=== PATIENT | male | born 1950 | race Caucasian/White ===

== ENCOUNTER → 2016-12-05 | Outpatient (CLI) | payer MEDICARE ==
--- NOTE | 2016-12-05 13:21 | XR ---
EXAMINATION TYPE: XR Hip Bilateral Complete DATE OF EXAM ORDERED: 12/05/2016 1:10 PM HISTORY: R52 pain. COMPARISON: None. FINDINGS: No fracture or dislocation is seen. There is mild overgrowth of both acetabula. Both femor al heads are nonspherical. IMPRESSION: 1. NO ACUTE OSSEOUS LESION. 2. PLEASE CORRELATE CLINICALLY FOR FEMOROACETABULAR IMPINGEMENT SYNDROME IMPINGEMENT SYNDROME.
--- NOTE | 2016-12-05 13:35 | XR ---
EXAMINATION TYPE: XR lumbar spine 2 or 3V DATE OF EXAM ORDERED: 12/05/2016 1:10 PM HISTORY: M54.5 LBP. COMPARISON: None. FINDINGS: There is minimal wedging of the L1 vertebral body. There is a minor superior endplate infr action of the L2 vertebral body. There is diffuse disc space loss with relative sparing L3-4. There i s mild, diffuse hypertrophic spondylosis. The pedicles are intact. There is mild facet arthropathy in the lower lumbar spine. Note is made of calcification of the [place] aorta. IMPRESSION: 1. NO ACUTE OSSEOUS LESION. 2. MILD, DIFFUSE DEGENERATIVE CHANGE. 3. MILD COMPRESSION FRACTURE OF L1 WHICH APPEARS CHRONIC.
== END | disposition home or self-care (01) ==
LOC: RADXRMAIN 12:55
PROVIDERS: ATTEND Internal Medicine
DX: M47.816 Spondylosis without myelopathy or radiculopathy, lumbar region (principal); M48.56XA Collapsed vertebra, not elsewhere classified, lumbar region, initial encounter for fracture; M25.551 Pain in right hip; M25.552 Pain in left hip
CPT/HCPCS: 72100; 73521

== ENCOUNTER → 2018-03-29 | Outpatient (CLI) | payer MEDICARE ==
--- NOTE | 2018-03-29 10:48 | US ---
EXAMINATION TYPE: US liver DATE OF EXAM: 03/29/2018 COMPARISON: NONE CLINICAL HISTORY: 67-year-old male R16.0 HEPATOMEGALY. TECHNIQUE: Multiple sonographic images of the right upper quadrant are obtained. FINDINGS: EXAM MEASUREMENTS: Liver Length: 15.2 cm Gallbladder Wall: 0.2 cm CBD: 0.5 cm Right Kidney: 12.2 x 4.9 x 6.0 cm Pancreas: Obscured by bowel gas Liver: Attenuating. Coarse, echogenic echotexture. Two hypoechoic areas visualized within the right lobe, largest measuring 1.1 x 1.4 x 1.4 cm. The smaller measuring 6 x 5 x 5 mm. Gallbladder: wnl Evidence for sonographic White's sign: No CBD: wnl as visualized, distal portion obscured by bowel gas Right Kidney: No hydronephrosis. IMPRESSION: Hepatic steatosis. Correlate with LFTs, lipid profile, and patient risk factors. There are 2 lesions in the right liver lobe measuring 1.4 cm and 6 mm. A three-month follow-up ultrasound can be performe d to ensure stability. If any suspicious changes are noted at that time, further liver CT or MRI can be performed.
== END | disposition home or self-care (01) ==
LOC: RADUSWWP 08:37
PROVIDERS: ATTEND Internal Medicine
DX: K76.0 Fatty (change of) liver, not elsewhere classified (principal)
CPT/HCPCS: 76705

== ENCOUNTER 2018-08-21 14:32 | Inpatient (IN) | payer MEDICARE ==
--- NOTE | 2018-08-21 15:41 | ED ---
General Adult HPI - General Chief complaint: Extremity Problem,Nontraumatic Stated complaint: lt leg swelling Time Seen by Provider: 08/21/18 14:55 Source: patient, RN notes reviewed Mode of arrival: wheelchair Limitations: no limitations - History of Present Illness Initial comments: Patient is a 68-year-old male presenting to the emergency room today with a chief complaint of swelling to left lower extremity. Patient does admit that he noticed swelling starting 2 days ago. He does admit that he's had some tenderness and some pain to the left calf area. He denies any injury or trauma. Does admit that is not feeling well over the last few weeks with "flu" . Patient states that symptoms seem to be improving. Patient states he was concerned about possible DVT. He does not that he is on Plavix due to his stent. Patient denies any other complaints or symptoms. Patient denies any recent fever, chills, shortness of breath, chest pain, back pain, abdominal pain , nausea or vomiting, numbness or tingling, dysuria or hematuria, constipation or diarrhea, headaches or visual changes, or any other complaints. - Related Data Home Medications Medication Instructions Recorded Confirmed Cyanocobalamin [Vitamin B-12] 500 mcg PO DAILY@1200 03/07/15 03/07/15 Losartan Potassium [Cozaar] 50 mg PO DAILY 03/07/15 03/07/15 guaiFENesin [Mucinex] 600 mg PO DAILY 03/07/15 03/07/15 Previous Rx's Medication Instructions Recorded Aspirin 325 mg PO DAILY #30 tab 03/09/15 Atorvastatin [Lipitor] 80 mg PO HS #30 tab 03/09/15 Lisinopril [Zestril] 10 mg PO DAILY #30 tab 03/09/15 Metoprolol Tartrate [Lopressor] 25 mg PO DAILY #30 tab 03/09/15 Nicotine 21Mg/24Hr Patch [Habitrol] 1 each TRANSDERM DAILY #14 patch 03/09/15 Nitroglycerin Sl Tabs [Nitrostat] 0.4 mg SUBLINGUAL Q5M PRN #25 tab 03/09/15 Prasugrel [Effient] 10 mg PO DAILY #30 tab 03/09/15 amLODIPine [Norvasc] 5 mg PO HS #30 tab 03/09/15 Allergies Allergy/AdvReac Type Severity Reaction Status Date / Time No Known Allergies Allergy Verified 08/21/18 14:38 Review of Systems ROS Statement: Those systems with pertinent positive or pertinent negative responses have been documented in the HPI. ROS Other: All systems not noted in ROS Statement are negative. Past Medical History Past Medical History: Hyperlipidemia, Hypertension Additional Past Medical History / Comment(s): 03/07/15 Pt presented to [facility] ER with chest discomfort. Chest discomfort is intermittent and began several days ago. Pain occurs with exertion and improves with rest. There is associated dyspnea and diaphoresis with this pain. Pt also has R arm and R jaw discomfort. Other hx: Muscle cramps bilateral flanks and bilateral legs, hemorrhoids History of Any Multi-Drug Resistant Organisms: None Reported Additional Past Surgical History / Comment(s): hydrocele, colonoscopy-WNL, vocal cord polypectomy. Past Anesthesia/Blood Transfusion Reactions: No Reported Reaction Additional Past Anesthesia/Blood Transfusion Reaction / Comment(s): Pt has never had blood transfusion. Past Psychological History: No Psychological Hx Reported Smoking Status: Former smoker Past Alcohol Use History: Occasional Past Drug Use History: None Reported - Past Family History Father Family Medical History: No Reported History Additional Family Medical History / Comment(s): Father when pt was 8 yrs old. He was a WWII vet and had suffered a gunshot to the head. Mother Family Medical History: No Reported History Additional Family Medical History / Comment(s): .Mother is healthy and is 84yrs old General Exam - General Exam Comments Initial Comments: General: The patient is awake and alert, in no distress, and does not appear acutely ill. Eye: Pupils are equal, round and reactive to light. Extra-ocular movements are intact. No nystagmus. There is normal conjunctiva bilaterally. No signs of icterus. Ears, nose, mouth and throat: There are moist mucous membranes and no oral lesions. Neck: The neck is supple, there is no tenderness or JVD. Cardiovascular: There is a regular rate and rhythm. No murmur, rub or gallop is appreciated. Respiratory: Lungs are clear to auscultation, respirations are non-labored, breath sounds are equal. No wheezes, stridor, rales, or rhonchi. Gastrointestinal: Soft, non-distended, non-tender abdomen without masses or organomegaly noted. There is no rebound or guarding present. No CVA tenderness Musculoskeletal: Normal ROM, no tenderness. Moderate swelling of the left lower extremity when compared bilaterally. Sensation intact. Strength 5/5. Pedal Pulses equal bilaterally 2+. Neurological: A&O x 3. CN II-XII intact, There are no obvious motor or sensory deficits. Coordination appears grossly intact. Speech is normal. Skin: Skin is warm and dry and no rashes or lesions are noted. Psychiatric: Cooperative, appropriate mood & affect, normal judgment. Limitations: no limitations Course Vital Signs 08/21/18 14:35 Temperature 97.5 F L Pulse Rate 96 Respiratory 18 Rate Blood Pressure 129/87 O2 Sat by Pulse 96 Oximetry Medical Decision Making - Medical Decision Making Patient's labs been reviewed. Mildly elevated liver enzymes. Patient does admit to a history of drinking. Sensations that she's not been drinking recently. Patient's ultrasound reviewed and does show evidence of a DVT in the femoral, popliteal. Patient started on high-dose heparin here in the emergency room. Case discussed with attending physician Dr. Barahona who did discuss case with physician Dr. Valdes. Dr. Serrano will be consulted. - Lab Data Result diagrams: 08/21/18 15:30 08/21/18 15:30 Lab Results 08/21/18 08/21/18 08/21/18 Range/Units 15:30 15:30 15:30 WBC 12.3 H (3.8-10.6) k/uL RBC 4.35 (4.30-5.90) m/uL Hgb 12.7 L (13.0-17.5) gm/dL Hct 39.9 (39.0-53.0) % MCV 91.8 (80.0-100.0) fL MCH 29.2 (25.0-35.0) pg MCHC 31.8 (31.0-37.0) g/dL RDW 13.6 (11.5-15.5) % Plt Count 257 (150-450) k/uL Neutrophils % 80 % Lymphocytes % 7 % Monocytes % 7 % Eosinophils % 3 % Basophils % 1 % Neutrophils # 9.9 H (1.3-7.7) k/uL Lymphocytes # 0.8 L (1.0-4.8) k/uL Monocytes # 0.9 (0-1.0) k/uL Eosinophils # 0.4 (0-0.7) k/uL Basophils # 0.1 (0-0.2) k/uL PT 11.4 (9.0-12.0) sec INR 1.2 H (<1.2) APTT 19.5 L (22.0-30.0) sec Sodium 140 (137-145) mmol/L Potassium 4.8 (3.5-5.1) mmol/L Chloride 107 (98-107) mmol/L Carbon Dioxide 26 (22-30) mmol/L Anion Gap 7 mmol/L BUN 24 H (9-20) mg/dL Creatinine 1.29 H (0.66-1.25) mg/dL Est GFR (CKD-EPI)AfAm 65 (>60 ml/min/1.73 sqM) Est GFR (CKD-EPI)NonAf 56 (>60 ml/min/1.73 sqM) Glucose 115 H (74-99) mg/dL Calcium 9.8 (8.4-10.2) mg/dL Total Bilirubin 1.5 H (0.2-1.3) mg/dL AST 89 H (17-59) U/L ALT 121 H (21-72) U/L Alkaline Phosphatase 213 H (38-126) U/L Troponin I (0.000-0.034) ng/mL NT-Pro-B Natriuret Pep pg/mL Total Protein 6.9 (6.3-8.2) g/dL Albumin 3.5 (3.5-5.0) g/dL Urine Color Urine Appearance (Clear) Urine pH (5.0-8.0) Ur Specific [place] (1.001-1.035) Urine Protein (Negative) Urine Glucose (UA) (Negative) Urine Ketones (Negative) Urine Blood (Negative) Urine Nitrite (Negative) Urine Bilirubin (Negative) Urine Urobilinogen (<2.0) mg/dL Ur Leukocyte Esterase (Negative) 08/21/18 08/21/18 08/21/18 Range/Units 15:30 15:30 17:00 WBC (3.8-10.6) k/uL RBC (4.30-5.90) m/uL Hgb (13.0-17.5) gm/dL Hct (39.0-53.0) % MCV (80.0-100.0) fL MCH (25.0-35.0) pg MCHC (31.0-37.0) g/dL RDW (11.5-15.5) % Plt Count (150-450) k/uL Neutrophils % % Lymphocytes % % Monocytes % % Eosinophils % % Basophils % % Neutrophils # (1.3-7.7) k/uL Lymphocytes # (1.0-4.8) k/uL Monocytes # (0-1.0) k/uL Eosinophils # (0-0.7) k/uL Basophils # (0-0.2) k/uL PT (9.0-12.0) sec INR (<1.2) APTT (22.0-30.0) sec Sodium (137-145) mmol/L Potassium (3.5-5.1) mmol/L Chloride (98-107) mmol/L Carbon Dioxide (22-30) mmol/L Anion Gap mmol/L BUN (9-20) mg/dL Creatinine (0.66-1.25) mg/dL Est GFR (CKD-EPI)AfAm (>60 ml/min/1.73 sqM) Est GFR (CKD-EPI)NonAf (>60 ml/min/1.73 sqM) Glucose (74-99) mg/dL Calcium (8.4-10.2) mg/dL Total Bilirubin (0.2-1.3) mg/dL AST (17-59) U/L ALT (21-72) U/L Alkaline Phosphatase (38-126) U/L Troponin I <0.012 (0.000-0.034) ng/mL NT-Pro-B Natriuret Pep 103 pg/mL Total Protein (6.3-8.2) g/dL Albumin (3.5-5.0) g/dL Urine Color Dark Yellow Urine Appearance Clear (Clear) Urine pH 5.5 (5.0-8.0) Ur Specific [place] 1.022 (1.001-1.035) Urine Protein Trace H (Negative) Urine Glucose (UA) Negative (Negative) Urine Ketones Negative (Negative) Urine Blood Negative (Negative) Urine Nitrite Negative (Negative) Urine Bilirubin Negative (Negative) Urine Urobilinogen <2.0 (<2.0) mg/dL Ur Leukocyte Esterase Negative (Negative) Disposition Clinical Impression: DVT (deep venous thrombosis), Elevated liver enzymes Disposition: ADMITTED IP TO THIS HOSP Condition: Good Is patient prescribed a controlled substance at d/c from ED?: No Referrals: Jeremy Snell MD [STAFF PHYSICIAN] - 1-2 days Time of Disposition: 17:22
[2018-08-21 15:51] LABS: Basophils # (A) 0.1 k/uL (0-0.2); Basophils % (A) 1 %; Eosinophils # (A) 0.4 k/uL (0-0.7); Eosinophils % (A) 3 %; HCT 39.9 % (39.0-53.0); HGB 12.7 gm/dL (13.0-17.5); Lymphocytes # (A) 0.8 k/uL (1.0-4.8); Lymphocytes % (A) 7 %; MCH 29.2 pg (25.0-35.0); MCHC 31.8 g/dL (31.0-37.0); MCV 91.8 fL (80.0-100.0); Mean Platelet Volume 7.3; Monocytes # (A) 0.9 k/uL (0-1.0); Monocytes % (A) 7 %; Neutrophils # (A) 9.9 k/uL (1.3-7.7); Neutrophils % (A) 80 %; Platelet Count 257 k/uL (150-450); RBC 4.35 m/uL (4.30-5.90); RDW 13.6 % (11.5-15.5); WBC 12.3 k/uL (3.8-10.6)
[2018-08-21 15:52] LABS: Albumin 3.5 g/dL (3.5-5.0); Calcium 9.8 mg/dL (8.4-10.2); Potassium 4.8 mmol/L (3.5-5.1); Total Bilirubin 1.5 mg/dL (0.2-1.3); Total Protein 6.9 g/dL (6.3-8.2)
--- NOTE | 2018-08-21 15:52 | US ---
EXAMINATION TYPE: US venous doppler duplex LE LT DATE OF EXAM: 08/21/2018 3:46 PM COMPARISON: NONE CLINICAL HISTORY: Pain. Pain and swelling left leg SIDE PERFORMED: Left TECHNIQUE: The lower extremity deep venous system is examined utilizing real time linear array sonog jasmyne with graded compression, doppler sonography and color-flow sonography. VESSELS IMAGED: External Iliac Vein (EIV) Common Femoral Vein Deep Femoral Vein Greater Saphenous Vein * Femoral Vein Popliteal Vein Small Saphenous Vein * Proximal Calf Veins (* superficial vessels) Left Leg: Positive for DVT from the distal femoral vein to the proximal calf veins. Positive for SVT in the small saphenous vein. Grayscale, color doppler, spectral doppler imaging performed of the deep veins of the left lower extr emity. IMPRESSION: Acute DVT is seen in the distal left superficial femoral vein which is noncompressible ex tending through the popliteal vein below the left knee.
[2018-08-21 15:58] LABS: INR 1.2 (<1.2); Prothrombin Time 11.4 sec (9.0-12.0)
[2018-08-21 16:23] LABS: Partial Thromboplastin Time 19.5 sec (22.0-30.0)
--- NOTE | 2018-08-21 16:28 | XR ---
EXAMINATION TYPE: XR chest 2V DATE OF EXAM: 08/21/2018 COMPARISON: Prior chest x-ray March 07, 2015. HISTORY: Leg swelling. TECHNIQUE: Frontal and lateral views of the chest are obtained. FINDINGS: Underlying chronic emphysematous change is not excluded with increased retrosternal airspac e and flattening of hemidiaphragms on lateral view. There is no focal air space opacity, pleural eff usion, or pneumothorax seen. The cardiac silhouette size remains enlarged. The osseous structures are intact. IMPRESSION: Cardiomegaly without acute pulmonary process.
[2018-08-21] MEDS ORDERED: HEPARIN SODIUM,PORCINE 5,000 UNIT/ML 1 ML VIAL IV STA (16:43)
[2018-08-21] MEDS: HEPARIN SOD,PORK IN 0.45% NACL 25,000 UNIT in 0.45% NACL 1 500ML.BAG IV SCH (17:00)
[2018-08-21 17:14] LABS: Appearance,Urine Clear (Clear); Bilirubin,Urine Negative (Negative); Blood,Urine Negative (Negative); Color,Urine Dark Yellow; Glucose,Urine (UA) Negative (Negative); Ketones,Urine Negative (Negative); Leukocyte Esterase,Urine Negative (Negative); Nitrite,Urine Negative (Negative); PH, Urine 5.5 (5.0-8.0); Protein,Urine Trace (Negative); Specific Gravity,Urine 1.022 (1.001-1.035); Urobilinogen,Urine <2.0 mg/dL (<2.0)
[2018-08-21] MEDS ORDERED: SODIUM CHLORIDE 0.9% 1,000 ML IV ONE (17:23)
[2018-08-21] MEDS ORDERED: NALOXONE 0.4 MG/ML 1 ML VIAL IV PRN (17:23)
[2018-08-21] MEDS: MORPHINE SULFATE 4 MG/ML SYRINGE IV PRN (20:14)
[2018-08-21] MEDS ORDERED: NITROGLYCERIN SL TABS 0.4 MG TAB SUBLINGUAL PRN (20:45)
[2018-08-21] MEDS ORDERED: CLOPIDOGREL 75 MG TAB PO SCH (21:00)
[2018-08-21] MEDS: amLODIPine 5 MG TAB PO SCH (22:30)
[2018-08-21] MEDS: ALPRAZolam 0.5 MG TAB PO SCH (22:30)
[2018-08-21] MEDS: METOPROLOL TARTRATE 25 MG TAB PO SCH (22:31)
[2018-08-21] MEDS: LOSARTAN 50 MG TAB PO SCH (22:31)
[2018-08-21] MEDS: IBUPROFEN 800 MG TAB PO SCH (22:33)
[2018-08-22] MEDS: MORPHINE SULFATE 4 MG/ML SYRINGE IV PRN ×3 (03:52→18:14)
[2018-08-22] MEDS: HEPARIN SOD,PORK IN 0.45% NACL 25,000 UNIT in 0.45% NACL 1 500ML.BAG IV SCH ×2 (05:12→16:32)
--- NOTE | 2018-08-22 07:30 | CONS ---
DATE OF CONSULTATION: 08/21/2018 HISTORY: This is a 68-year-old gentleman who came to [facility] with a history of discomfort and pain in the left upper extremity for the last 2 days. The patient has a history of common cold and he was lying in bed for the last 1 month. The patient has no shortness of breath or chest pain. The venous ultrasound shows blood clot in the femoral vein and greater saphenous vein. MEDICAL HISTORY: History of hypertension, post coronary artery stent 2 years ago. PHYSICAL EXAMINATION: NECK: Supple. Trachea central. CHEST: Clear auscultation. ABDOMEN: Soft. EXTREMITIES: Femoral pulses are palpable. Patient has some tenderness on the left medial aspect of the thigh. Femoral and dorsal pedis pulses are palpable. There is no vascular compromise noted. IMPRESSION: Deep venous thrombosis involving the superficial and deep system, left leg. PLAN: Patient is on heparin. The patient be started on Xarelto or Coumadin, Dr. Valdes's choice. JAVIER hose and knee-high. Gypsy t.i.d. for inflammation. We will follow with you. MMODL / IJN: [id number] / HAZEL
[2018-08-22] MEDS: PANTOPRAZOLE 40 MG TABLET PO SCH (07:32)
[2018-08-22] MEDS: CHOLECALCIFEROL 1,000 UNIT TAB PO SCH (07:33)
[2018-08-22] MEDS: IBUPROFEN 800 MG TAB PO SCH ×3 (07:34→21:59)
[2018-08-22 08:17] LABS: Basophils # (A) 0.2 k/uL (0-0.2); Basophils % (A) 1 %; Eosinophils # (A) 0.6 k/uL (0-0.7); Eosinophils % (A) 4 %; HCT 36.5 % (39.0-53.0); HGB 11.7 gm/dL (13.0-17.5); Lymphocytes # (A) 1.5 k/uL (1.0-4.8); Lymphocytes % (A) 12 %; MCH 29.9 pg (25.0-35.0); MCHC 32.1 g/dL (31.0-37.0); Mean Platelet Volume 7.2; Monocytes # (A) 0.9 k/uL (0-1.0); Monocytes % (A) 7 %; Neutrophils # (A) 9.8 k/uL (1.3-7.7); Neutrophils % (A) 74 %; Platelet Count 242 k/uL (150-450); RBC 3.93 m/uL (4.30-5.90); RDW 13.6 % (11.5-15.5); WBC 13.3 k/uL (3.8-10.6)
[2018-08-22] MEDS ORDERED: ASPIRIN 81 MG PO SCH (09:00)
[2018-08-22 09:14] LABS: Albumin 3.3 g/dL (3.5-5.0); Calcium 9.2 mg/dL (8.4-10.2); Potassium 5.2 mmol/L (3.5-5.1); Total Bilirubin 2.8 mg/dL (0.2-1.3); Total Protein 6.5 g/dL (6.3-8.2)
[2018-08-22] MEDS: CYANOCOBALAMIN 500 MCG TAB PO SCH (12:00)
[2018-08-22] MEDS: MULTIVITAMINS, THERA 1 EACH TAB PO SCH (12:00)
--- NOTE | 2018-08-22 13:47 | P.HPIM ---
History of Present Illness H&P Date: 08/22/18 Shay Gutierrez is a 68-year-old male who presented to [facility] emergency room with a chief complaint of left lower extremity pain and swelling that started 2 days prior to presentation, he was evaluated in the emergency room and had evidence of left lower extremity deep venous thrombosis he was started on IV heparin and was admitted to medical floor. Patient states that about 3 weeks prior to this admission he had an upper respiratory infection treated with oral antibiotic course but he states that he spent most of the time in bed day and night for the last 2-3 weeks, as he was feeling ready weak and tired. Patient denies having any previous episodes of DVT or PE in the past Past Medical History Past Medical History: Hyperlipidemia, Hypertension Additional Past Medical History / Comment(s): 03/07/[address] [facility] ER with chest discomfort. Chest discomfort is intermittent and began several days ago. Pain occurs with exertion and improves with rest. There is associated dyspnea and diaphoresis with this pain. Pt also has R arm and R jaw discomfort. Other hx: Muscle cramps bilateral flanks and bilateral legs, hemorrhoids History of Any Multi-Drug Resistant Organisms: None Reported Past Surgical History: Heart Catheterization With Stent Additional Past Surgical History / Comment(s): hydrocele, colonoscopy-WNL, vocal cord polypectomy. Past Anesthesia/Blood Transfusion Reactions: No Reported Reaction Additional Past Anesthesia/Blood Transfusion Reaction / Comment(s): Pt has never had blood transfusion. Date of Last Stent Placement:: 03/07/2015 Past Psychological History: No Psychological Hx Reported Additional Psychological History / Comment(s): Pt resides with his of 19 yrs. He is independent. He uses no assistive device or home care agency. Smoking Status: Former smoker Past Alcohol Use History: Occasional Additional Past Alcohol Use History / Comment(s): no longer drinks six beers per day Past Drug Use History: None Reported - Past Family History Father Family Medical History: No Reported History Additional Family Medical History / Comment(s): Father when pt was 8 yrs old. He was a WWII vet and had suffered a gunshot to the head. Mother Family Medical History: No Reported History Additional Family Medical History / Comment(s): .Mother is healthy and is 84yrs old Medications and Allergies Home Medications Medication Instructions Recorded Confirmed Type Cyanocobalamin [Vitamin B-12] 500 mcg PO DAILY@1200 03/07/15 08/21/18 History Nitroglycerin Sl Tabs [Nitrostat] 0.4 mg SUBLINGUAL Q5M PRN #25 tab 03/09/15 Rx amLODIPine [Norvasc] 5 mg PO HS #30 tab 03/09/15 08/21/18 Rx ALPRAZolam [Xanax] 0.5 mg PO HS 08/21/18 08/21/18 History Aspirin EC [Ecotrin Low Dose] 81 mg PO DAILY 08/21/18 08/21/18 History Cholecalciferol [Vitamin D3] 1,000 unit PO DAILY 08/21/18 08/21/18 History Clopidogrel [Plavix] 75 mg PO HS 08/21/18 08/21/18 History Cyclobenzaprine [Flexeril] 5 mg PO HS PRN 08/21/18 08/21/18 History Joint Complex 1 tab PO DAILY 08/21/18 08/21/18 History Losartan Potassium [Cozaar] 100 mg PO HS 08/21/18 08/21/18 History Metoprolol Tartrate [Lopressor] 12.5 mg PO HS 08/21/18 08/21/18 History Multivitamins, Thera [Multivitamin 1 tab PO DAILY 08/21/18 08/21/18 History (formulary)] Ranitidine HCl [Zantac] 150 mg PO BID 08/21/18 08/21/18 History Allergies Allergy/AdvReac Type Severity Reaction Status Date / Time Achkfyk-[id number]-Dbf Reductase AdvReac JOINT PAIN Verified 08/21/18 17:51 Inhibitor Physical Exam Vitals: Vital Signs Temp Pulse Pulse Resp BP BP Pulse Ox 08/22/18 12:00 98 F 74 20 118/80 93 L 08/22/18 08:00 98 F 88 18 126/79 93 L 08/22/18 03:55 98.5 F 73 18 122/73 93 L 08/22/18 00:50 98.5 F 93 18 125/70 92 L 08/22/18 00:00 88 20 08/21/18 20:15 97.9 F 88 20 158/78 93 L 08/21/18 18:14 98.1 F 73 16 132/82 94 L 08/21/18 14:35 97.5 F L 96 18 129/87 96 Intake and Output 08/21/18 08/22/18 08/22/18 22:59 06:59 14:59 Intake Total 700 8272.107 4550.911 Output Total 0 Balance 700 7789.081 0585.911 Intake: Intake, IV Titration 700 998.004 144.911 Amount Heparin Sod,Pork in 0.45% 498.004 144.911 NaCl 25,000 unit In 0.45 % NaCl 1 500ml.bag @ 18 UNITS/KG/HR 40.82 mls/hr IV .[id number] [facility] Rx#: [id number] Sodium Chloride 0.9% 1, 700 500 000 ml @ 100 mls/hr IV . Q10H ONE Rx#:[id number] Oral 240 1410 Output: Urine 0 Other: # Voids 3 Weight 114.1 kg In general patient is alert and oriented 3 in no apparent distress Neck is supple no JVD no goiter no lymphadenopathy Chest exam reveals a clear respiratory sounds no crackles no wheezing Cardiac exam reveals regular heart sounds S1 and S2 no gallops no murmurs Abdomen is soft nontender no organomegaly with normal bowel sounds Extremity exam reveals mild swelling and tenderness in the left lower extremity Patient also has swelling and induration and tenderness in the right upper extremity right above the elbow Neurological examination reveals no gross focal deficit Results CBC & Chem 7: 08/22/18 07:44 08/22/18 07:44 Labs: Abnormal Lab Results - Last 24 Hours (Table) 08/21/18 08/21/18 08/21/18 Range/Units 15:30 15:30 15:30 WBC 12.3 H (3.8-10.6) k/uL RBC (4.30-5.90) m/uL Hgb 12.7 L (13.0-17.5) gm/dL Hct (39.0-53.0) % Neutrophils # 9.9 H (1.3-7.7) k/uL Lymphocytes # 0.8 L (1.0-4.8) k/uL INR 1.2 H (<1.2) APTT 19.5 L (22.0-30.0) sec Potassium (3.5-5.1) mmol/L BUN 24 H (9-20) mg/dL Creatinine 1.29 H (0.66-1.25) mg/dL Glucose 115 H (74-99) mg/dL Total Bilirubin 1.5 H (0.2-1.3) mg/dL AST 89 H (17-59) U/L ALT 121 H (21-72) U/L Alkaline Phosphatase 213 H (38-126) U/L Albumin (3.5-5.0) g/dL Urine Protein (Negative) 08/21/18 08/21/18 08/22/18 Range/Units 17:00 23:01 07:44 WBC 13.3 H (3.8-10.6) k/uL RBC 3.93 L (4.30-5.90) m/uL Hgb 11.7 L (13.0-17.5) gm/dL Hct 36.5 L (39.0-53.0) % Neutrophils # 9.8 H (1.3-7.7) k/uL Lymphocytes # (1.0-4.8) k/uL INR (<1.2) APTT 65.8 H (22.0-30.0) sec Potassium (3.5-5.1) mmol/L BUN (9-20) mg/dL Creatinine (0.66-1.25) mg/dL Glucose (74-99) mg/dL Total Bilirubin (0.2-1.3) mg/dL AST (17-59) U/L ALT (21-72) U/L Alkaline Phosphatase (38-126) U/L Albumin (3.5-5.0) g/dL Urine Protein Trace H (Negative) 08/22/18 08/22/18 Range/Units 07:44 07:44 WBC (3.8-10.6) k/uL RBC (4.30-5.90) m/uL Hgb (13.0-17.5) gm/dL Hct (39.0-53.0) % Neutrophils # (1.3-7.7) k/uL Lymphocytes # (1.0-4.8) k/uL INR (<1.2) APTT 65.8 H (22.0-30.0) sec Potassium 5.2 H (3.5-5.1) mmol/L BUN 21 H (9-20) mg/dL Creatinine (0.66-1.25) mg/dL Glucose 110 H (74-99) mg/dL Total Bilirubin 2.8 H (0.2-1.3) mg/dL AST 143 H (17-59) U/L ALT 162 H (21-72) U/L Alkaline Phosphatase 239 H (38-126) U/L Albumin 3.3 L (3.5-5.0) g/dL Urine Protein (Negative) Thrombosis Risk Factor Assmnt - Choose All That Apply Each Factor Represents 1 point: Medical pt on bed rest, Obesity (BMI >25), Swollen legs (current) Each Risk Factor Represents 3 Points: History of DVT/PE Other congenital or acquired thrombophilia - If yes, enter type in comment: No Thrombosis Risk Factor Assessment Total Risk Factor Score: 6 Thrombosis Risk Factor Assessment Level: High Risk Assessment and Plan Plan: #1 left lower extremity deep venous thrombosis patient is maintained on IV heparin #2 elevated liver enzymes, will obtain liver ultrasound to evaluate #3 right upper extremity pain and swelling, will obtain ultrasound #4 dehydration was acute renal failure due to prerenal azotemia elevated 24 on admission creatinine elevated at 1.29 maintained on IV fluid #5 underlying history of hypertension well-controlled on medications #6 underlying history of hyperlipidemia #7 previous history of coronary artery disease with angioplasty and stent placement to the proximal LAD in February 2015 At this time medication and labs were reviewed Will check liver ultrasound check right upper extremity ultrasound Consult hematology Will follow in a.m.
--- NOTE | 2018-08-22 17:49 | P.CONS ---
History of Present Illness - Reason for Consult Consult date: 08/22/18 Left lower extremity DVT - History of Present Illness The patient is a 68-year-old gentleman with overall well controlled medical problems. The patient states that he developed pain and swelling in his left lower extremity starting at around the knee and extending into the calf , about 2 days prior to admission. This was progressive in nature, worsened by weightbearing and not significantly relieved at rest. He therefore came into the emergency room and had a Doppler exam done which revealed DVT involving the distal superficial femoral vein, popliteal vein, and extending into the upper calf veins. The patient was admitted and started on IV heparin. The patient states that about 3 weeks ago he had developed upper respiratory symptoms and fever and was treated with outpatient antibiotics. He had fairly prolonged fatigue and malaise, and was not reactive. However he was performing his ADLs and was out of bed at least 3-4 hours each day. Additionally, prior to development of these symptoms, he had developed swelling, tenderness and warmth in the medial right elbow area. This was quite painful for about 2-3 days and then started to improve slowly. He still has some residual swelling in that area He denied any hospitalizations, surgeries, or prolonged travel in the past 3-4 months. No history of any chronic inflammation or infection. He denies any usage of chronic corticosteroids, or testosterone. The patient was not aware of any family history, but his stated that the patient's mother did have a history of clots and actually had a Rivera filter placed. However she was not aware about the exact circumstances of clots Review of Systems Constitutional: Reports fatigue, Reports malaise, Reports weakness Eyes: denies blurred vision, denies pain Ears: deny: decreased hearing, ear discharge, earache, tinnitus Ears, nose, mouth and throat: Reports as per HPI, Denies headache, Denies sore throat Cardiovascular: Reports decreased exercise tolerance Respiratory: Reports congestion Gastrointestinal: Denies abdominal pain, Denies diarrhea, Denies nausea, Denies vomiting Genitourinary: Reports as per HPI Musculoskeletal: Reports hot joints (Right elbow), Reports muscle weakness, Reports shooting leg pain Musculoskeletal: right: elbow stiffness, elbow swelling Integumentary: Denies pruritus, Denies rash Neurological: Reports weakness, Denies numbness Psychiatric: Denies anxiety, Denies depression Endocrine: Reports fatigue, Denies weight change Hematologic/Lymphatic: Reports as per HPI Past Medical History Past Medical History: Hyperlipidemia, Hypertension Additional Past Medical History / Comment(s): 03/07/15 Pt presented to [facility] ER with chest discomfort. Chest discomfort is intermittent and began several days ago. Pain occurs with exertion and improves with rest. There is associated dyspnea and diaphoresis with this pain. Pt also has R arm and R jaw discomfort. Other hx: Muscle cramps bilateral flanks and bilateral legs, hemorrhoids History of Any Multi-Drug Resistant Organisms: None Reported Past Surgical History: Heart Catheterization With Stent Additional Past Surgical History / Comment(s): hydrocele, colonoscopy-WNL, vocal cord polypectomy. Past Anesthesia/Blood Transfusion Reactions: No Reported Reaction Additional Past Anesthesia/Blood Transfusion Reaction / Comm: Pt has never had blood transfusion. Date of Last Stent Placement:: 03/07/2015 Past Psychological History: No Psychological Hx Reported Additional Psychological History / Comment(s): Pt resides with his of 19 yrs. He is independent. He uses no assistive device or home care agency. Smoking Status: Former smoker Past Alcohol Use History: Occasional Additional Past Alcohol Use History / Comment(s): no longer drinks six beers per day Past Drug Use History: None Reported - Past Family History Father Family Medical History: No Reported History Additional Family Medical History / Comment(s): Father when pt was 8 yrs old. He was a WWII vet and had suffered a gunshot to the head. Mother Family Medical History: No Reported History Additional Family Medical History / Comment(s): .Mother is healthy and is 84yrs old Medications and Allergies Home Medications Medication Instructions Recorded Confirmed Type Cyanocobalamin [Vitamin B-12] 500 mcg PO DAILY@1200 03/07/15 08/21/18 History Nitroglycerin Sl Tabs [Nitrostat] 0.4 mg SUBLINGUAL Q5M PRN #25 tab 03/09/15 Rx amLODIPine [Norvasc] 5 mg PO HS #30 tab 03/09/15 08/21/18 Rx ALPRAZolam [Xanax] 0.5 mg PO HS 08/21/18 08/21/18 History Aspirin EC [Ecotrin Low Dose] 81 mg PO DAILY 08/21/18 08/21/18 History Cholecalciferol [Vitamin D3] 1,000 unit PO DAILY 08/21/18 08/21/18 History Clopidogrel [Plavix] 75 mg PO HS 08/21/18 08/21/18 History Cyclobenzaprine [Flexeril] 5 mg PO HS PRN 08/21/18 08/21/18 History Joint Complex 1 tab PO DAILY 08/21/18 08/21/18 History Losartan Potassium [Cozaar] 100 mg PO HS 08/21/18 08/21/18 History Metoprolol Tartrate [Lopressor] 12.5 mg PO HS 08/21/18 08/21/18 History Multivitamins, Thera [Multivitamin 1 tab PO DAILY 08/21/18 08/21/18 History (formulary)] Ranitidine HCl [Zantac] 150 mg PO BID 08/21/18 08/21/18 History Allergies Allergy/AdvReac Type Severity Reaction Status Date / Time Sqovlhq-Kfk-Mld Reductase AdvReac JOINT PAIN Verified 08/21/18 17:51 Inhibitor Physical Exam Vitals: Vital Signs Temp Pulse Pulse Resp BP BP Pulse Ox 08/22/18 16:00 97.8 F 94 20 136/78 94 L 08/22/18 14:36 74 20 08/22/18 12:00 98 F 74 20 118/80 93 L 08/22/18 08:00 98 F 88 18 126/79 93 L 08/22/18 03:55 98.5 F 73 18 122/73 93 L 08/22/18 00:50 98.5 F 93 18 125/70 92 L 08/22/18 00:00 88 20 08/21/18 20:15 97.9 F 88 20 158/78 93 L 08/21/18 18:14 98.1 F 73 16 132/82 94 L Intake and Output 08/22/18 08/22/18 08/22/18 06:59 14:59 22:59 Intake Total 1431.557 5814.911 317.716 Output Total 0 Balance 3363.652 7981.911 317.716 Intake: Intake, IV Titration 998.004 144.911 317.716 Amount Heparin Sod,Pork in 0.45% 498.004 144.911 317.716 NaCl 25,000 unit In 0.45 % NaCl 1 500ml.bag @ 18 UNITS/KG/HR 40.82 mls/hr IV .[id number] [facility] Rx#: [id number] Sodium Chloride 0.9% 1, 500 000 ml @ 100 mls/hr IV . Q10H ONE Rx#:[id number] Oral 240 1410 Output: Urine 0 Other: # Voids 3 Weight 114.1 kg - Constitutional General appearance: no acute distress - EENT Eyes: EOMI, PERRLA ENT: hearing grossly normal, normal oropharynx - Neck Neck: no lymphadenopathy Thyroid: bilateral: normal size - Respiratory Respiratory: bilateral: CTA - Cardiovascular Rhythm: regular Heart sounds: normal: S1, S2 - Gastrointestinal General gastrointestinal: normal bowel sounds, soft - Integumentary Integumentary: normal - Neurologic Neurologic: CNII-XII intact - Musculoskeletal Left lower extremity 2+ edema, and tenderness, pretibial area. Mild swelling with warmth right medial elbow joint. Mildly tender to palpation. Range of motion maintained Musculoskeletal: strength equal bilaterally - Psychiatric Psychiatric: A&O x's 3, appropriate affect, intact judgment & insight Results CBC & Chem 7: 08/22/18 07:44 08/22/18 07:44 Labs: Abnormal Lab Results - Last 24 Hours (Table) 08/21/18 08/22/18 08/22/18 Range/Units 23:01 07:44 07:44 WBC 13.3 H (3.8-10.6) k/uL RBC 3.93 L (4.30-5.90) m/uL Hgb 11.7 L (13.0-17.5) gm/dL Hct 36.5 L (39.0-53.0) % Neutrophils # 9.8 H (1.3-7.7) k/uL APTT 65.8 H (22.0-30.0) sec Potassium 5.2 H (3.5-5.1) mmol/L BUN 21 H (9-20) mg/dL Glucose 110 H (74-99) mg/dL Total Bilirubin 2.8 H (0.2-1.3) mg/dL AST 143 H (17-59) U/L ALT 162 H (21-72) U/L Alkaline Phosphatase 239 H (38-126) U/L Albumin 3.3 L (3.5-5.0) g/dL 11/25/18 Range/Units 07:44 WBC (3.8-10.6) k/uL RBC (4.30-5.90) m/uL Hgb (13.0-17.5) gm/dL Hct (39.0-53.0) % Neutrophils # (1.3-7.7) k/uL APTT 65.8 H (22.0-30.0) sec Potassium (3.5-5.1) mmol/L BUN (9-20) mg/dL Glucose (74-99) mg/dL Total Bilirubin (0.2-1.3) mg/dL AST (17-59) U/L ALT (21-72) U/L Alkaline Phosphatase (38-126) U/L Albumin (3.5-5.0) g/dL Chest x-ray: report reviewed Venous US: report reviewed Assessment and Plan (1) DVT (deep venous thrombosis) Narrative/Plan: The patient is pending with the left lower extremity DVT with circumstances as noted. This is his first occurrence. There does not appear to be any definite , from provoking factors. The patient reports decreased activity, over the past 2-3 weeks, but was never hospitalized or had an IV placed. He was performing his ADLs and was out of bed at least 3-4 hours each day. Prior to that his activity level was normal. Therefore, at most, this would be a soft provoking factors The path of physiology was discussed with him and his in detail. The patient is appropriately on IV heparin. He can be switched over to an appropriate oral anticoagulant down the line. At this time liver enzymes are elevated. If liver functions continued to worsen, then long-term and the correlation can be an issue. As noted, the patient presented with elevated liver enzymes which increased further during his hospital stay. He does have a history of at least chronic moderate alcohol use ranging from 3-6 beers a day. However he he has had very small amounts of alcohol over the past 3 weeks. I will therefore order a CT of the abdomen and pelvis for further workup. I will also order a CT angiogram for baseline. This would also help to evaluate for any malignancy, given his history of smoking Since CT of the abdomen and pelvis is being ordered for concern of possible underlying malignancy, previously ordered ultrasound will be canceled. If the above is negative for any evidence of malignancy, we can proceed with hypercoagulable workup as an outpatient. The patient is up-to-date with his age -appropriate cancer screening, with colonoscopy about 2 or 3 years ago. Current Visit: Yes Status: Acute Code(s): I82.409 - ACUTE EMBOLISM AND THOMBOS UNSP DEEP VN UNSP LOWER EXTREMITY SNOMED Code(s): 586010118 (2) Elevated liver enzymes Narrative/Plan: Etiology is unclear, as discussed above. The patient has actually hardly had any alcohol over the past 2-3 weeks, and liver enzyme actually increased while in the hospital. CT of the abdomen and pelvis is being ordered as noted. Await results. Continue to monitor Current Visit: Yes Status: Acute Code(s): R74.8 - ABNORMAL LEVELS OF OTHER SERUM ENZYMES SNOMED Code(s): 533125744 (3) Swelling of joint, elbow, right Narrative/Plan: Etiology of this, too, is unclear. Ultrasound has been ordered and we'll await those results. If this does not show any specific pathology, this may need to be worked up further with a computed tomography scan. Current Visit: Yes Status: Acute Code(s): M25.421 - EFFUSION, RIGHT ELBOW SNOMED Code(s): 548589238
[2018-08-22] MEDS: amLODIPine 5 MG TAB PO SCH (21:55)
[2018-08-22] MEDS: LOSARTAN 50 MG TAB PO SCH (21:55)
[2018-08-22] MEDS: ALPRAZolam 0.5 MG TAB PO SCH (21:55)
[2018-08-22] MEDS: METOPROLOL TARTRATE 25 MG TAB PO SCH (21:56)
[2018-08-23] MEDS: HEPARIN SOD,PORK IN 0.45% NACL 25,000 UNIT in 0.45% NACL 1 500ML.BAG IV SCH ×2 (05:16→17:42)
[2018-08-23] MEDS: MORPHINE SULFATE 4 MG/ML SYRINGE IV PRN (07:43)
[2018-08-23] MEDS: IBUPROFEN 800 MG TAB PO SCH ×3 (07:46→21:26)
[2018-08-23] MEDS: CHOLECALCIFEROL 1,000 UNIT TAB PO SCH (07:47)
[2018-08-23] MEDS: PANTOPRAZOLE 40 MG TABLET PO SCH (07:47)
[2018-08-23] MEDS: ONDANSETRON 4 MG/2 ML VIAL IVP PRN (08:04)
[2018-08-23] MEDS: IOPAMIDOL-300 CONTRAST 30 ML VIAL (ORAL USE) PO PRN ×2 (08:09→09:00)
--- NOTE | 2018-08-23 08:23 | US ---
EXAMINATION TYPE: US venous doppler duplex UE RT DATE OF EXAM: 08/23/2018 COMPARISON: NONE CLINICAL HISTORY: pain swelling. swelling and pain near right elbow, recent IV site SIDE PERFORMED: Right Grayscale, color doppler, spectral doppler imaging performed of the deep veins of the upper extremiti es. There is normal flow, compressibility and vascular waveforms of the deep venous system. Right Arm: Appears negative for DVT, but internal echoes and noncompressibility of superficial Basili c vein in upper arm represent SVT IMPRESSION: 1. No evidence of deep venous thrombosis within the right upper chimney. 2. Superficial venous thrombosis within the basilic vein.
[2018-08-23 09:04] LABS: Basophils # (A) 0.1 k/uL (0-0.2); Basophils % (A) 1 %; Eosinophils # (A) 0.5 k/uL (0-0.7); Eosinophils % (A) 4 %; HCT 35.3 % (39.0-53.0); HGB 11.7 gm/dL (13.0-17.5); Lymphocytes # (A) 0.8 k/uL (1.0-4.8); Lymphocytes % (A) 6 %; MCH 30.5 pg (25.0-35.0); MCHC 33.1 g/dL (31.0-37.0); MCV 92.3 fL (80.0-100.0); Mean Platelet Volume 7.7; Monocytes # (A) 0.9 k/uL (0-1.0); Monocytes % (A) 7 %; Neutrophils # (A) 10.3 k/uL (1.3-7.7); Neutrophils % (A) 80 %; Platelet Count 265 k/uL (150-450); RBC 3.82 m/uL (4.30-5.90); RDW 13.7 % (11.5-15.5); WBC 12.9 k/uL (3.8-10.6)
[2018-08-23 09:20] LABS: Albumin 3.3 g/dL (3.5-5.0); Calcium 9.2 mg/dL (8.4-10.2); Potassium 4.5 mmol/L (3.5-5.1); Total Bilirubin 3.5 mg/dL (0.2-1.3); Total Protein 6.7 g/dL (6.3-8.2)
--- NOTE | 2018-08-23 10:26 | P.PN ---
Subjective Progress Note Date: 08/23/18 Shay Gutierrez is a 68-year-old male who presented to [facility] emergency room with a chief complaint of left lower extremity pain and swelling that started 2 days prior to presentation, he was evaluated in the emergency room and had evidence of left lower extremity deep venous thrombosis he was started on IV heparin and was admitted to medical floor. Patient states that about 3 weeks prior to this admission he had an upper respiratory infection treated with oral antibiotic course but he states that he spent most of the time in bed day and night for the last 2-3 weeks, as he was feeling ready weak and tired. Patient denies having any previous episodes of DVT or PE in the past On 08/23/2018 patient is currently resting in bed. Patient rains on IV heparin for DVT. Patient reports that he's had a low appetite. Patient also currently drinking contrast for CT scans ordered per oncology. Patient denies any shortness of breath or chest discomfort. Patient denies any urinary burning or frequency. Patient denies any diarrhea or constipation at this time Objective - Vital Signs Vital signs: Vital Signs Temp 97.8 F 08/23/18 04:00 Pulse 82 08/23/18 04:00 Resp 16 08/23/18 04:00 BP 144/81 08/23/18 04:00 Pulse Ox 94 L 08/23/18 04:00 Intake & Output 08/22/18 08/23/18 08/23/18 18:59 06:59 18:59 Intake Total 1872.627 500 178.928 Output Total 0 700 Balance 1872.627 -200 178.928 Weight 114.1 kg Intake: Intake, IV Titration 462.627 500 178.928 Amount Heparin Sod,Pork in 0.45% 462.627 500 178.928 NaCl 25,000 unit In 0.45 % NaCl 1 500ml.bag @ 18 UNITS/KG/HR 40.82 mls/hr IV .[id number] [facility] Rx#: [id number] Oral 1410 Output: Urine 0 700 Other: # Voids 3 - Exam In general patient is alert and oriented 3 in no apparent distress Neck is supple no JVD no goiter no lymphadenopathy Chest exam reveals a clear respiratory sounds no crackles no wheezing Cardiac exam reveals regular heart sounds S1 and S2 no gallops no murmurs Abdomen is soft nontender no organomegaly with normal bowel sounds Extremity exam reveals mild swelling and tenderness in the left lower extremity Patient also has swelling and induration and tenderness in the right upper extremity right above the elbow Neurological examination reveals no gross focal deficit - Labs CBC & Chem 7: 08/23/18 08:20 08/23/18 08:20 Labs: Abnormal Lab Results - Last 24 Hours (Table) 08/23/18 08/23/18 08/23/18 Range/Units 08:08 08:20 08:20 WBC 12.9 H (3.8-10.6) k/uL RBC 3.82 L (4.30-5.90) m/uL Hgb 11.7 L (13.0-17.5) gm/dL Hct 35.3 L (39.0-53.0) % Neutrophils # 10.3 H (1.3-7.7) k/uL Lymphocytes # 0.8 L (1.0-4.8) k/uL APTT 51.4 H (22.0-30.0) sec Chloride 109 H (98-107) mmol/L Total Bilirubin 3.5 H (0.2-1.3) mg/dL AST 138 H (17-59) U/L ALT 182 H (21-72) U/L Alkaline Phosphatase 250 H (38-126) U/L Albumin 3.3 L (3.5-5.0) g/dL Assessment and Plan Assessment: #1 left lower extremity deep venous thrombosis patient is maintained on IV heparin. CTA and CT of abdomen and pelvis has been ordered per oncology services. Per Dr. Serrano for vascular surgery patient to be started on xarelto or coumadin. #[address] of the abdomen and pelvis ordered per oncology services. Total bilirubin 3.5, AST 138, ALT 182 and alkaline phosphatase 250. #3 right upper extremity pain and swelling, will obtain ultrasound #4 dehydration was acute renal failure due to prerenal azotemia elevated 24 on admission creatinine elevated at 1.29 maintained on IV fluid. Creatinine improving to 1.00 #5 underlying history of hypertension well-controlled on medications #6 underlying history of hyperlipidemia #7 previous history of coronary artery disease with angioplasty and stent placement to the proximal LAD in February 2015 DVT prophylaxis heparin. GI prophylaxis Protonix I performed an examination of the patient and discussed their management with the Nurse Practitioner. I have reviewed the Nurse Practitioner's notes and agree with the documented findings and plan of care
--- NOTE | 2018-08-23 12:37 | CT ---
EXAMINATION TYPE: CT angio chest DATE OF EXAM: 08/23/2018 COMPARISON: None HISTORY: 68-year-old male Known DVT with Abnormal labs, shortness of breath, possible PE TECHNIQUE: Contiguous axial scanning of the chest performed with IV Contrast, patient injected with 1 00 mL of Isovue 370. Coronal and sagittal MIP reconstructions performed. CT DLP: 515.4 mGycm Automated exposure control for dose reduction was used. FINDINGS: Heart normal size without pericardial effusion. Vessel calcifications are present. Ascending aorta ectatic at 3.6 cm. Conventional branching anatomy. Mild atherosclerotic calcification s throughout the aorta. Upper descending thoracic aorta is ectatic at 3.1 cm. Mildly enlarged caliber to the main right and left pulmonary arteries measuring up to 2.8 cm. Suboptimal opacification of the pulmonary arterial system. However, bilateral pulmonary emboli are de monstrated extending throughout segmental and subsegmental branches on both sides, right greater than left, including the right middle and right lower lobar branches. No large central or saddle embolus. No flattening of the interventricular septum or reflux of contrast into the hepatic veins. Prominent 1.0 cm right pericardiac lymph node. Otherwise, no thoracic lymphadenopathy by CT size crit eria. A couple cutaneous-based nodules overlying the left chest measuring 1.4 and 0.9 cm, refer to ax ial images 42 and 85 likely sebaceous cysts. Focal subpleural density measuring 1.0 cm. 3 month follow-up exam recommended to exclude a pulmonary nodule. Scattered mild centrilobular emphysema. Calcified right upper lobe granuloma, axial image 60. Mild diffuse bronchial wall thickening. Some patchy subpleural atelectasis at the posterior lung bas es and also in the basilar right middle lobe. No pleural effusions. Bones: Endplate spondylosis mid to lower thoracic spine. No osseous destructive process. IMPRESSION: 1. BILATERAL PULMONARY EMBOLI, MODERATE BURDEN ON THE RIGHT AND MILD ON THE LEFT. NO CT EVIDENCE FOR RIGHT HEART STRAIN. 2. COPD WITH MILD EMPHYSEMA. 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 3. A 1 CM SUBPLEURAL DENSITY AT THE LEFT BASE. THIS COULD REPRESENT NODULAR ATELECTASIS OR A SMALL AR EA OF PULMONARY INFARCT A SEQUELA OF THE PATIENT'S PULMONARY EMBOLI. 3 MONTH FOLLOW-UP EXAM RECOMM ENDED TO EXCLUDE A PULMONARY NODULE. Critical findings called to [address] [place], [place] [address]Nurse Greenfield at 12:32pm.
[2018-08-23] MEDS: DOCUSATE 100 MG CAP PO SCH ×2 (12:42→21:26)
--- NOTE | 2018-08-23 12:46 | CT ---
EXAMINATION TYPE: CT abdomen pelvis w con DATE OF EXAM: 08/23/2018 COMPARISON: NONE HISTORY: 68-year-old male Known DVT with Abnormal labs TECHNIQUE: Contiguous axial scanning of the abdomen and pelvis following administration of 100 ml Iso rebeka 300 IV contrast. Delayed images through the kidneys and coronal/sagittal reconstructions perform ed. CT DLP: 1580.9 mGycm Automated exposure control for dose reduction was used. FINDINGS: Chest reported separately. Indeterminant hypodense lesions in the liver measuring 3.4 cm inferior right liver lobe, 1.4 cm left hepatic dome, 3.6 cm anterior left liver lobe, and 1.9 cm mid liver. Portal venous system is patent. No biliary ductal dilatation. Gallbladder borderline to mildly distended to 4.1 cm without surrounding inflammation. Minimal 1.2 cm nodularity left adrenal gland and 9 mm right adrenal gland, nonspecific, possible unde rlying adrenal adenomas. Kidneys and spleen appear within normal limits. There is a 1.8 cm cystic lesion in the uncinate process. Indeterminant mildly enlarged 1.7 cm portacaval lymph node and 1.2 cm rashad hepatic lymph node, axial images 26 and 21. No other mesenteric or retroperitoneal lymphadenopathy seen. No dilated small bowel, free fluid, or f ree air. Mild stool burden. Oral contrast progressed to the descending colon. Sigmoid diverticulosis without p ericolonic inflammatory change Moderate atherosclerotic calcifications infrarenal abdominal aorta. Bladder is underdistended. Multiple pelvic phlebolith. No abnormal fluid collection in the pelvis or pelvic lymphadenopathy. Bones: Mild degenerative changes at the hips. There is focal sclerosis along the weightbearing aspect s of the right greater than left femoral heads without subarticular collapse. Degenerative changes lo wer lumbar spine. No osseous destructive process seen. IMPRESSION: 1. APPROXIMATELY 4 INDETERMINATE LIVER LESIONS MEASURING UP TO 3.6 CM. METASTATIC DISEASE NOT EXCLUDE D AT THIS TIME. FURTHER MRI EVALUATION AND CLINICAL WORKUP RECOMMENDED. 2. MILDLY ENLARGED 1.7 CM PORTACAVAL AND 1.2 CM RASHAD HEPATIC LYMPH NODES ARE NONSPECIFIC. 3. 1.8 CM CYSTIC LESION OF THE PANCREATIC UNCINATE PROCESS. THIS CAN ALSO BE FURTHER EVALUATED ON THE PATIENT'S LIVER MRI. 4. NONSPECIFIC NODULARITY OF THE ADRENAL GLANDS MEASURING UP TO 1.2 CM, POSSIBLE INCIDENTAL UNDERLYIN G ADRENAL ADENOMAS CAN BE REASSESSED AT FOLLOW-UP. 5. BORDERLINE TO MILDLY HYDROPIC GALLBLADDER LIKELY DUE TO FASTING STATE. IF RIGHT UPPER QUADRANT NATY N OR CONCERN FOR EARLY ACUTE CHOLECYSTITIS, FOLLOW-UP ULTRASOUND OR HIDA SCAN. 6. SIGMOID DIVERTICULOSIS WITHOUT EVIDENCE FOR ACUTE DIVERTICULITIS. 7. BILATERAL FEMORAL HEAD AVN, RIGHT GREATER THAN LEFT WITHOUT SUBARTICULAR COLLAPSE. CORRELATE FOR R ISK FACTORS IN THIS PATIENT.
--- NOTE | 2018-08-23 13:13 | PN ---
PROGRESS NOTE This is a 68-year-old gentleman who came with DVT of the left lower extremity. Patient is on anticoagulation. Patient has some swelling and discomfort right upper arm. For that, patient underwent venous study. Patient is under care of Dr. Dennis for further evaluation. The patient is scheduled to have a CT of the abdomen, pelvis, and chest. On examination, mild tenderness noted to the left lower extremity and right upper forearm. Femoral pulses are present. There is no vascular compromise noted. Patient is on anticoagulation. The report from the abdomen and pelvis is pending. Continue with anticoagulation. The patient is stable from a vascular point of view. MMODL / IJN: [id number] /
[2018-08-23] MEDS: MULTIVITAMINS, THERA 1 EACH TAB PO SCH (13:26)
[2018-08-23] MEDS: CYANOCOBALAMIN 500 MCG TAB PO SCH (13:26)
--- NOTE | 2018-08-23 15:13 | P.CNPUL ---
History of Present Illness Consult date: 08/23/18 Reason for consult: dyspnea, chest pain, pulmonary embolism, DVT, abnormal CXR/ CT Chief complaint: Shortness of breath and chest pain History of present illness: Pulmonary consultation dated 08/23/2018 This is a 68-year-old male who presented to the emergency department on August 21 with a chief complaint of swelling to the left lower extremity. The patient had a Doppler done which showed DVT in the left leg. Apparently the swelling was noted to days prior to presentation in the emergency department. He had some pain and tenderness in the left calf area as well. There was no injury or trauma. The patient states that he did not been feeling well over the course of 4-5 weeks and had some respiratory illness which caused him to be very inactive and sedentary. The patient apparently came in to be evaluated and was concerned about the possibility of a blood clot. A blood clot was found in the leg. He was started on IV heparin. In addition, he had a CT angiogram which revealed bilateral pulmonary emboli. The patient has no previous history of DVT or PE. Apparently there is a family history of blood clots in his mother. The patient did have some complaints of chest discomfort and shortness of breath as well. These are relatively mild but present nonetheless. The patient has a history of hyperlipidemia and hypertension. The patient also has a history of CAD with previous angioplasty and stent placement to the proximal LAD. In addition, the patient was found to have 4 liver lesions measuring up to 3.6 cm in size and metastasis as well as not excluded. In addition, he had a mildly enlarged 1.7 cm portacaval and 1.2 cm michelle hepatic lymph nodes. In addition, he had a 1.8 cm cystic lesion in the pancreatic uncinate process. Review of Systems A 14 point review of system is positive for some shortness of breath left leg swelling and some mild chest discomfort. In addition, for about for 5 weeks prior to admission, he has been not feeling well has been very inactive because of a "respiratory illness". Past Medical History Past Medical History: Hyperlipidemia, Hypertension Additional Past Medical History / Comment(s): 03/07/15 Pt presented to [facility] ER with chest discomfort. Chest discomfort is intermittent and began several days ago. Pain occurs with exertion and improves with rest. There is associated dyspnea and diaphoresis with this pain. Pt also has R arm and R jaw discomfort. Other hx: Muscle cramps bilateral flanks and bilateral legs, hemorrhoids History of Any Multi-Drug Resistant Organisms: None Reported Past Surgical History: Heart Catheterization With Stent Additional Past Surgical History / Comment(s): hydrocele, colonoscopy-WNL, vocal cord polypectomy. Past Anesthesia/Blood Transfusion Reactions: No Reported Reaction Additional Past Anesthesia/Blood Transfusion Reaction / Comment(s): Pt has never had blood transfusion. Date of Last Stent Placement:: 03/07/2015 Past Psychological History: No Psychological Hx Reported Additional Psychological History / Comment(s): Pt resides with his of 19 yrs. He is independent. He uses no assistive device or home care agency. Smoking Status: Former smoker Past Alcohol Use History: Occasional Additional Past Alcohol Use History / Comment(s): no longer drinks six beers per day Past Drug Use History: None Reported - Past Family History Father Family Medical History: No Reported History Additional Family Medical History / Comment(s): Father when pt was 8 yrs old. He was a WWII vet and had suffered a gunshot to the head. Mother Family Medical History: No Reported History Additional Family Medical History / Comment(s): .Mother is healthy and is 84yrs old Medications and Allergies Home Medications Medication Instructions Recorded Confirmed Type Cyanocobalamin [Vitamin B-12] 500 mcg PO DAILY@1200 03/07/15 08/21/18 History Nitroglycerin Sl Tabs [Nitrostat] 0.4 mg SUBLINGUAL Q5M PRN #25 tab 03/09/15 Rx amLODIPine [Norvasc] 5 mg PO HS #30 tab 03/09/15 08/21/18 Rx ALPRAZolam [Xanax] 0.5 mg PO HS 08/21/18 08/21/18 History Aspirin EC [Ecotrin Low Dose] 81 mg PO DAILY 08/21/18 08/21/18 History Cholecalciferol [Vitamin D3] 1,000 unit PO DAILY 08/21/18 08/21/18 History Clopidogrel [Plavix] 75 mg PO HS 08/21/18 08/21/18 History Cyclobenzaprine [Flexeril] 5 mg PO HS PRN 08/21/18 08/21/18 History Joint Complex 1 tab PO DAILY 08/21/18 08/21/18 History Losartan Potassium [Cozaar] 100 mg PO HS 08/21/18 08/21/18 History Metoprolol Tartrate [Lopressor] 12.5 mg PO HS 08/21/18 08/21/18 History Multivitamins, Thera [Multivitamin 1 tab PO DAILY 08/21/18 08/21/18 History (formulary)] Ranitidine HCl [Zantac] 150 mg PO BID 08/21/18 08/21/18 History Allergies Allergy/AdvReac Type Severity Reaction Status Date / Time Xchvlsl-Sfo-Pve Reductase AdvReac JOINT PAIN Verified 08/21/18 17:51 Inhibitor Physical Exam Osteopathic Statement: *. No significant issues noted on an osteopathic structural exam other than those noted in the History and Physical/Consult. Vitals: Vital Signs Temp Pulse Resp BP Pulse Ox 08/23/18 12:00 97.9 F 76 16 127/77 95 08/23/18 04:00 97.8 F 82 16 144/81 94 L 08/23/18 00:00 97.9 F 83 16 132/74 93 L 08/22/18 20:00 98 F 75 16 141/85 93 L 08/22/18 16:00 97.8 F 94 20 136/78 94 L Intake and Output 08/22/18 08/23/18 08/23/18 22:59 06:59 14:59 Intake Total 317.716 500 178.928 Output Total 400 300 Balance -82.284 200 178.928 Intake: Intake, IV Titration 317.716 500 178.928 Amount Heparin Sod,Pork in 0.45% 317.716 500 178.928 NaCl 25,000 unit In 0.45 % NaCl 1 500ml.bag @ 18 UNITS/KG/HR 40.82 mls/hr IV .[id number] [facility] Rx#: [id number] Output: Urine 400 300 No acute distress, oriented 3. No respiratory distress. Not requiring any supplemental oxygen. HEENT examination is grossly unremarkable. Mucous membranes are moist. No oral lesions. Neck supple. Full range of motion. No adenopathy thyromegaly or neck vein distention. Cardiovascular examination reveals regular rhythm rate. S1-S2 normal. No S3 or S4. No discernible murmur noted. Heart sounds are distant. Lungs reveal clear breath sounds. Breath sounds are equal bilaterally. No adventitious lung sounds including wheezes rhonchi or crackles. Abdomen soft bowel sounds are heard. No masses or tenderness. Extremities are intact. No cyanosis clubbing or edema. Mild left leg tenderness. Skin is without rash or lesion. Neurologic examination is brief but nonfocal. Results - Laboratory Findings CBC and BMP: 08/23/18 08:20 08/23/18 08:20 PT/INR, D-dimer PT 11.4 sec (9.0-12.0) 08/21/18 15:30 INR 1.2 (<1.2) H 08/21/18 15:30 Abnormal lab findings: Abnormal Labs 08/21/18 08/21/18 08/21/18 15:30 15:30 15:30 WBC 12.3 H RBC Hgb 12.7 L Hct Neutrophils # 9.9 H Lymphocytes # 0.8 L INR 1.2 H APTT 19.5 L Potassium Chloride BUN 24 H Creatinine 1.29 H Glucose 115 H Total Bilirubin 1.5 H AST 89 H ALT 121 H Alkaline Phosphatase 213 H Albumin Urine Protein 08/21/18 08/21/18 08/22/18 17:00 23:01 07:44 WBC 13.3 H RBC 3.93 L Hgb 11.7 L Hct 36.5 L Neutrophils # 9.8 H Lymphocytes # INR APTT 65.8 H Potassium Chloride BUN Creatinine Glucose Total Bilirubin AST ALT Alkaline Phosphatase Albumin Urine Protein Trace H 08/22/18 08/22/18 08/23/18 07:44 07:44 08:08 WBC RBC Hgb Hct Neutrophils # Lymphocytes # INR APTT 65.8 H 51.4 H Potassium 5.2 H Chloride BUN 21 H Creatinine Glucose 110 H Total Bilirubin 2.8 H AST 143 H ALT 162 H Alkaline Phosphatase 239 H Albumin 3.3 L Urine Protein 08/23/18 08/23/18 08:20 08:20 WBC 12.9 H RBC 3.82 L Hgb 11.7 L Hct 35.3 L Neutrophils # 10.3 H Lymphocytes # 0.8 L INR APTT Potassium Chloride 109 H BUN Creatinine Glucose Total Bilirubin 3.5 H AST 138 H ALT 182 H Alkaline Phosphatase 250 H Albumin 3.3 L Urine Protein - Diagnostic Findings Chest x-ray: report reviewed, image reviewed CT scan - chest: report reviewed, image reviewed U/S of Legs: report reviewed, image reviewed (Labs, x-rays and medications are all reviewed.) Assessment and Plan Assessment: Assessment Left leg DVT and bilateral pulmonary emboli, in a relatively healthy patient with a previous history of hypertension, hyperlipidemia and CAD. He has been inactive recently which may be one explanation, in addition, a CT of the abdomen reveals 4 liver lesions, non-specific abdominal adenopathy and a pancreatic lesion. History of CAD with previous stent placement Hypertension by history History of hyperlipidemia Plan: Plan dated 08/23/2018 The patient will need a MRI of the abdomen to evaluate the lesions in the liver , adenopathy, and pancreatic lesion. For that reason, he should be kept on IV heparin so that if a biopsy is necessary, he can be done quickly. His primary complaints have improved. We will continue to follow and give additional recommendations were necessary. No active pulmonary problems at this time. The clots are relatively modest in size and not causing any acute pulmonary hypertension shifting of the intraventricular septum or hemodynamic issues. Time with Patient: Greater than 30
[2018-08-23 16:25] LABS: Hepatitis A Antibody IgM Non-Reactive (Non-Reactive); Hepatitis B Core IgM Non-Reactive (Non-Reactive)
--- NOTE | 2018-08-23 17:14 | P.PN ---
Subjective Progress Note Date: 08/23/18 Principal diagnosis: Hypercoaguable and increased LFTs Patient and at bedside. He had just returned from CT scans at time of interview, although CT results obtained later. Objective - Vital Signs Vital signs: Vital Signs Temp 98.0 F 08/23/18 15:51 Pulse 82 08/23/18 15:51 Resp 16 08/23/18 15:51 BP 132/70 08/23/18 15:51 Pulse Ox 93 L 08/23/18 15:51 Intake & Output 08/22/18 08/23/18 08/23/18 18:59 06:59 18:59 Intake Total 1872.627 500 178.928 Output Total 0 700 Balance 1872.627 -200 178.928 Weight 114.1 kg Intake: Intake, IV Titration 462.627 500 178.928 Amount Heparin Sod,Pork in 0.45% 462.627 500 178.928 NaCl 25,000 unit In 0.45 % NaCl 1 500ml.bag @ 18 UNITS/KG/HR 40.82 mls/hr IV .[id number] [facility] Rx#: [id number] Oral 1410 Output: Urine 0 700 Other: # Voids 3 - Exam Constitutional General appearance: no acute distress - EENT Eyes: EOMI, PERRLA ENT: hearing grossly normal, normal oropharynx - Neck Neck: no lymphadenopathy Thyroid: bilateral: normal size - Respiratory Respiratory: bilateral: CTA - Cardiovascular Rhythm: regular Heart sounds: normal: S1, S2 - Gastrointestinal General gastrointestinal: normal bowel sounds, soft - Integumentary Integumentary: normal - Neurologic Neurologic: CNII-XII intact - Musculoskeletal Left lower extremity 2+ edema, and tenderness, pretibial area. Christopher compression stocking on. Mild swelling with warmth right medial elbow joint. Mildly tender to palpation. Range of motion maintained Musculoskeletal: strength equal bilaterally - Psychiatric Psychiatric: A&O x's 3, appropriate affect, intact judgment & insight - Labs CBC & Chem 7: 08/23/18 08:20 08/23/18 08:20 Labs: Abnormal Lab Results - Last 24 Hours (Table) 08/23/18 08/23/18 08/23/18 Range/Units 08:08 08:20 08:20 WBC 12.9 H (3.8-10.6) k/uL RBC 3.82 L (4.30-5.90) m/uL Hgb 11.7 L (13.0-17.5) gm/dL Hct 35.3 L (39.0-53.0) % Neutrophils # 10.3 H (1.3-7.7) k/uL Lymphocytes # 0.8 L (1.0-4.8) k/uL APTT 51.4 H (22.0-30.0) sec Chloride 109 H (98-107) mmol/L Total Bilirubin 3.5 H (0.2-1.3) mg/dL AST 138 H (17-59) U/L ALT 182 H (21-72) U/L Alkaline Phosphatase 250 H (38-126) U/L Albumin 3.3 L (3.5-5.0) g/dL Assessment and Plan Plan: (1) DVT (deep venous thrombosis) - New Acute Left lower extremity DVT without strong provoked factors - Anticoagulation initiated and further work-up ordered - Continue on Heparin Drip until after Testing completed by IR, will need to hold Heparin per IR prior to biopsy (2) Bilateral Pulmonary Embolism: - CTA Revealed Bilateral Pulmonary Emboli (3) Superficial Upper Extremity Thrombosis - Right Elbow Swelling with Right Arm positive Superficial THrombus (4) Pancreatic Head Abnormality: - Described as Cystic in CT abdomen and recs for further work-up MRI (5) Hypodense Liver Lesions with Adenopathy: - Concern for underlying malignancy poss. Pancreatic: Ca -19-9 - IR consult for Liver Lesion - Continue to monitor LFTs Discussed results with patient on telephone and plan
[2018-08-23] MEDS: LOSARTAN 50 MG TAB PO SCH (21:26)
[2018-08-23] MEDS: ALPRAZolam 0.5 MG TAB PO SCH (21:26)
[2018-08-23] MEDS: METOPROLOL TARTRATE 25 MG TAB PO SCH (21:26)
[2018-08-23] MEDS: amLODIPine 5 MG TAB PO SCH (21:27)
[2018-08-23] MEDS: MELATONIN 5 MG TABLET PO SCH (21:29)
[2018-08-24] MEDS: MORPHINE SULFATE 4 MG/ML SYRINGE IV PRN ×2 (06:11→16:28)
[2018-08-24] MEDS: HEPARIN SOD,PORK IN 0.45% NACL 25,000 UNIT in 0.45% NACL 1 500ML.BAG IV SCH ×2 (07:25→17:12)
[2018-08-24 08:01] LABS: Basophils # (A) 0.2 k/uL (0-0.2); Basophils % (A) 1 %; Eosinophils # (A) 0.4 k/uL (0-0.7); Eosinophils % (A) 4 %; HCT 35.4 % (39.0-53.0); HGB 10.6 gm/dL (13.0-17.5); Hypochromasia Slight; Lymphocytes # (A) 0.9 k/uL (1.0-4.8); Lymphocytes % (A) 8 %; MCH 28.7 pg (25.0-35.0); MCV 95.4 fL (80.0-100.0); Mean Platelet Volume 8.5; Monocytes # (A) 0.9 k/uL (0-1.0); Monocytes % (A) 7 %; Neutrophils % (A) 78 %; Platelet Count 300 k/uL (150-450); WBC 11.5 k/uL (3.8-10.6)
[2018-08-24 08:33] LABS: Calcium 9.5 mg/dL (8.4-10.2); Potassium 4.5 mmol/L (3.5-5.1); Total Bilirubin 2.7 mg/dL (0.2-1.3); Total Protein 6.2 g/dL (6.3-8.2)
[2018-08-24] MEDS: CHOLECALCIFEROL 1,000 UNIT TAB PO SCH (08:39)
[2018-08-24] MEDS: DOCUSATE 100 MG CAP PO SCH ×2 (08:39→20:43)
[2018-08-24] MEDS: PANTOPRAZOLE 40 MG TABLET PO SCH (08:39)
[2018-08-24] MEDS: IBUPROFEN 800 MG TAB PO SCH (08:40)
--- NOTE | 2018-08-24 11:20 | P.PN ---
Subjective Progress Note Date: 08/24/18 Shay Gutierrez is a 68-year-old male who presented to [facility] emergency room with a chief complaint of left lower extremity pain and swelling that started 2 days prior to presentation, he was evaluated in the emergency room and had evidence of left lower extremity deep venous thrombosis he was started on IV heparin and was admitted to medical floor. Patient states that about 3 weeks prior to this admission he had an upper respiratory infection treated with oral antibiotic course but he states that he spent most of the time in bed day and night for the last 2-3 weeks, as he was feeling ready weak and tired. Patient denies having any previous episodes of DVT or PE in the past On 08/23/2018 patient is currently resting in bed. Patient rains on IV heparin for DVT. Patient reports that he's had a low appetite. Patient also currently drinking contrast for CT scans ordered per oncology. Patient denies any shortness of breath or chest discomfort. Patient denies any urinary burning or frequency. Patient denies any diarrhea or constipation at this time On 08/24/2018 patient is currently resting in bed. Patient CTA yesterday showing bilateral PE. Dr. Sanchez has been consulted for pulmonary services. Patient is on heparin due to DVT and pulmonary embolisms. Discussed case with oncology service is patient biopsy of liver lesions. Patient was on Plavix prior to hospital admission. Biopsy likely will be Thursday. Patient to remain on heparin protocol. Patient denies chest pain or shortness of breath. Patient denies nausea vomiting or diarrhea. Patient denies any urinary burning or frequency. Objective - Vital Signs Vital signs: Vital Signs Temp 98.0 F 08/24/18 07:53 Pulse 75 08/24/18 07:53 Resp 16 08/24/18 07:53 BP 127/76 08/24/18 07:53 Pulse Ox 93 L 08/24/18 07:53 Intake & Output 08/23/18 08/24/18 08/24/18 18:59 06:59 18:59 Intake Total 1550.551 1713 Output Total 300 600 Balance 920.000 980 Intake: Intake, IV Titration 500.000 500 Amount Heparin Sod,Pork in 0.45% 500.000 500 NaCl 25,000 unit In 0.45 % NaCl 1 500ml.bag @ 18 UNITS/KG/HR 40.82 mls/hr IV .[id number] [facility] Rx#: [id number] Oral 720 1080 Output: Urine 300 600 Other: # Voids 2 3 - Exam In general patient is alert and oriented 3 in no apparent distress Neck is supple no JVD no goiter no lymphadenopathy Chest exam reveals a clear respiratory sounds no crackles no wheezing Cardiac exam reveals regular heart sounds S1 and S2 no gallops no murmurs Abdomen is soft nontender no organomegaly with normal bowel sounds Extremity exam reveals mild swelling and tenderness in the left lower extremity Patient also has swelling and induration and tenderness in the right upper extremity right above the elbow Neurological examination reveals no gross focal deficit - Labs CBC & Chem 7: 08/24/18 07:30 08/24/18 07:30 Labs: Abnormal Lab Results - Last 24 Hours (Table) 08/22/18 08/24/18 08/24/18 Range/Units 07:44 07:30 07:30 WBC 11.5 H (3.8-10.6) k/uL RBC 3.70 L (4.30-5.90) m/uL Hgb 10.6 L (13.0-17.5) gm/dL Hct 35.4 L (39.0-53.0) % MCHC 30.0 L (31.0-37.0) g/dL Neutrophils # 9.0 H (1.3-7.7) k/uL Lymphocytes # 0.9 L (1.0-4.8) k/uL APTT (22.0-30.0) sec Chloride 110 H (98-107) mmol/L Glucose 118 H (74-99) mg/dL Total Bilirubin 2.7 H (0.2-1.3) mg/dL AST 92 H (17-59) U/L ALT 149 H (21-72) U/L Alkaline Phosphatase 227 H (38-126) U/L Total Protein 6.2 L (6.3-8.2) g/dL Albumin 3.0 L (3.5-5.0) g/dL CA 19-9 Antigen >61960.0 H (0.0-34.9) U/mL 08/24/18 Range/Units 07:30 WBC (3.8-10.6) k/uL RBC (4.30-5.90) m/uL Hgb (13.0-17.5) gm/dL Hct (39.0-53.0) % MCHC (31.0-37.0) g/dL Neutrophils # (1.3-7.7) k/uL Lymphocytes # (1.0-4.8) k/uL APTT 83.9 H (22.0-30.0) sec Chloride (98-107) mmol/L Glucose (74-99) mg/dL Total Bilirubin (0.2-1.3) mg/dL AST (17-59) U/L ALT (21-72) U/L Alkaline Phosphatase (38-126) U/L Total Protein (6.3-8.2) g/dL Albumin (3.5-5.0) g/dL CA 19-9 Antigen (0.0-34.9) U/mL Assessment and Plan Assessment: #1 left lower extremity deep venous thrombosis patient is maintained on IV heparin. CTA and CT of abdomen and pelvis has been ordered per oncology services. Per Dr. Serrano for vascular surgery patient to be started on xarelto or coumadin. #[address] of the abdomen and pelvis completed showing approximately 4 indeterminate liver lesions measuring up to 3.6 cm metastases disease not excluded at this time. MRI evaluation and clinical workup recommended. Mildly enlarged 1.7 cm michelle caval 1.2 cm michelle hepatis lymph nodes are nonspecific. 1.8 cm cystic lesion of the pancreatic uncinate process. This can also be further evaluated on the patient's liver MRI. Nonspecific nodularity of the adrenal glands measuring up to 1.2 cm possible incidental underlining adrenal adenomas was can be reassessed at follow-up. Borderline to mildly hydropic gallbladder likely due to fasting state. If right upper quadrant pain are concerning for early acute cholecystitis follow- up ultrasound scan. Sigmoid diverticulosis without evidence for acute diverticulitis. Bilateral femoral head AVN, right greater than left without subarticular collapse. CA19-9 antigen ordered per oncology service is elevated at greater than 70,000. Discussed case with Kamilla Evangelista per oncology services. Interventional radiology has been consulted for possible biopsy of liver lesions. Patient previously on Plavix prior to admission. Patient to remain on heparin drip until biopsy completion #3 right upper extremity pain and swelling, will obtain ultrasound #4 dehydration was acute renal failure due to prerenal azotemia elevated 24 on admission creatinine elevated at 1.29 maintained on IV fluid. Creatinine improving to 1.00 #5 underlying history of hypertension well-controlled on medications #6 underlying history of hyperlipidemia #7 previous history of coronary artery disease with angioplasty and stent placement to the proximal LAD in February 2015\ #8 bilateral pulmonary embolism. CTA performed showing bilateral pulmonary emboli, moderate burden on the right and mild on the left. No CT evidence for right heart strain. COPD with mild edema. Suspect underlying pulmonary arterial hypertension. A 1 cm subpleural density at the left base could represent nodule atelectasis or small area of pulmonary infarct is a sequela of the patient's pulmonary emboli three-month follow-up recommended. Dr. Sanchez has been consulted for pulmonary services she remains on heparin drip. DVT prophylaxis heparin. GI prophylaxis Protonix I performed an examination of the patient and discussed their management with the Nurse Practitioner. I have reviewed the Nurse Practitioner's notes and agree with the documented findings and plan of care
[2018-08-24] MEDS: CYANOCOBALAMIN 500 MCG TAB PO SCH (12:53)
[2018-08-24] MEDS: MULTIVITAMINS, THERA 1 EACH TAB PO SCH (12:53)
--- NOTE | 2018-08-24 14:21 | P.PN ---
Subjective Progress Note Date: 08/24/18 Principal diagnosis: Bilateral pulmonary emboli Pulmonary consultation dated 08/23/2018 This is a 68-year-old male who presented to the emergency department on August 21 with a chief complaint of swelling to the left lower extremity. The patient had a Doppler done which showed DVT in the left leg. Apparently the swelling was noted to days prior to presentation in the emergency department. He had some pain and tenderness in the left calf area as well. There was no injury or trauma. The patient states that he did not been feeling well over the course of 4-5 weeks and had some respiratory illness which caused him to be very inactive and sedentary. The patient apparently came in to be evaluated and was concerned about the possibility of a blood clot. A blood clot was found in the leg. He was started on IV heparin. In addition, he had a CT angiogram which revealed bilateral pulmonary emboli. The patient has no previous history of DVT or PE. Apparently there is a family history of blood clots in his mother. The patient did have some complaints of chest discomfort and shortness of breath as well. These are relatively mild but present nonetheless. The patient has a history of hyperlipidemia and hypertension. The patient also has a history of CAD with previous angioplasty and stent placement to the proximal LAD. In addition, the patient was found to have 4 liver lesions measuring up to 3.6 cm in size and metastasis as well as not excluded. In addition, he had a mildly enlarged 1.7 cm portacaval and 1.2 cm michelle hepatic lymph nodes. In addition, he had a 1.8 cm cystic lesion in the pancreatic uncinate process. Progress note dated 08/24/2018 The patient is seen again today in follow-up on the regular medical floor. He is currently resting fairly comfortably in bed. He is awake and alert in no acute distress. He is maintaining good O2 saturations in the 90s on room air. He denies any worsening chest pain, palpitations lightheadedness or dizziness. Based on the computed tomography scan of the abdomen and suspicion for pancreatic cancer with metastasis to the liver a CA 199 was drawn with results greater than 70,000. Plan is for fine-needle aspirate for diagnosis. The patient has been on Plavix in the procedural probably be done in the next several days. Objective - Vital Signs Vital signs: Vital Signs Temp 97.8 F 08/24/18 12:24 Pulse 78 08/24/18 12:24 Resp 18 08/24/18 12:24 BP 162/90 08/24/18 12:24 Pulse Ox 94 L 08/24/18 12:24 Intake & Output 08/23/18 08/24/18 08/24/18 18:59 06:59 18:59 Intake Total 8489.327 1537 915.936 Output Total 300 600 Balance 920.000 980 915.936 Intake: Intake, IV Titration 500.000 500 195.936 Amount Heparin Sod,Pork in 0.45% 500.000 500 195.936 NaCl 25,000 unit In 0.45 % NaCl 1 500ml.bag @ 18 UNITS/KG/HR 40.82 mls/hr IV .[id number] [facility] Rx#: [id number] Oral 720 1080 720 Output: Urine 300 600 Other: # Voids 2 3 3 - Exam GENERAL EXAM: Alert, active, comfortable in no apparent distress. HEAD: Normocephalic. EYES: Normal reaction of pupils, equal size. NOSE: Clear with pink turbinates. THROAT: No erythema or exudates. NECK: No masses, no JVD. CHEST: No chest wall deformity. LUNGS: Equal air entry with no crackles, wheeze, rhonchi or dullness. CVS: S1 and S2 normal with no audible murmur, regular rhythm. ABDOMEN: No hepatosplenomegaly, normal bowel sounds, no guarding or rigidity. SPINE: No scoliosis or deformity SKIN: No rashes CENTRAL NERVOUS SYSTEM: No focal deficits, tone is normal in all 4 extremities. EXTREMITIES: There is no peripheral edema. No clubbing, no cyanosis. Peripheral pulses are intact. - Labs CBC & Chem 7: 08/24/18 07:30 08/24/18 07:30 Labs: Abnormal Lab Results - Last 24 Hours (Table) 08/22/18 08/24/18 08/24/18 Range/Units 07:44 07:30 07:30 WBC 11.5 H (3.8-10.6) k/uL RBC 3.70 L (4.30-5.90) m/uL Hgb 10.6 L (13.0-17.5) gm/dL Hct 35.4 L (39.0-53.0) % MCHC 30.0 L (31.0-37.0) g/dL Neutrophils # 9.0 H (1.3-7.7) k/uL Lymphocytes # 0.9 L (1.0-4.8) k/uL APTT (22.0-30.0) sec Chloride 110 H (98-107) mmol/L Glucose 118 H (74-99) mg/dL Total Bilirubin 2.7 H (0.2-1.3) mg/dL AST 92 H (17-59) U/L ALT 149 H (21-72) U/L Alkaline Phosphatase 227 H (38-126) U/L Total Protein 6.2 L (6.3-8.2) g/dL Albumin 3.0 L (3.5-5.0) g/dL CA 19-9 Antigen >49848.0 H (0.0-34.9) U/mL 08/24/18 Range/Units 07:30 WBC (3.8-10.6) k/uL RBC (4.30-5.90) m/uL Hgb (13.0-17.5) gm/dL Hct (39.0-53.0) % MCHC (31.0-37.0) g/dL Neutrophils # (1.3-7.7) k/uL Lymphocytes # (1.0-4.8) k/uL APTT 83.9 H (22.0-30.0) sec Chloride (98-107) mmol/L Glucose (74-99) mg/dL Total Bilirubin (0.2-1.3) mg/dL AST (17-59) U/L ALT (21-72) U/L Alkaline Phosphatase (38-126) U/L Total Protein (6.3-8.2) g/dL Albumin (3.5-5.0) g/dL CA 19-9 Antigen (0.0-34.9) U/mL Assessment and Plan Assessment: Assessment Left leg DVT and bilateral pulmonary emboli, in a relatively healthy patient with a previous history of hypertension, hyperlipidemia and CAD. He has been inactive recently which may be one explanation, in addition, a CT of the abdomen reveals 4 liver lesions, non-specific abdominal adenopathy and a pancreatic lesion. CA 199 greater than 70,000. History of CAD with previous stent placement Hypertension by history History of hyperlipidemia Plan: The patient was seen and evaluated by Dr. Sanchez. The patient does appear to have possible pancreatic cancer with liver metastasis. The plan is for FNA for diagnosis by interventional radiology. The patient has been on Plavix and the procedure will need to be held off for several days. He remains stable from the pulmonary standpoint. We will see the patient on as-needed basis. I, the cosigning physician, performed a history & physical examination of the patient. Lungs sounds are clear. Maintaining good O2 saturations in the 90s on room air. I discussed the assessment and plan of care with my nurse practitioner, Lisette Moise. I attest to the above note as dictated by her.
--- NOTE | 2018-08-24 19:31 | P.PN ---
Subjective Progress Note Date: 08/24/18 Principal diagnosis: Hypercoaguable and increased LFTs Patient and at bedside. Dr. Dennis and myself discussed CT findings with patient and family today. He was on plavix and aspirin, last plavix was taken on 08/20/18, last baby aspirin on 08/21/18. Per radiology will await 7 days off plavix and ASA to obtain biopsy of liver. His Ca19-9 is greater than 70K Objective - Vital Signs Vital signs: Vital Signs Temp 98.6 F 08/24/18 17:00 Pulse 86 08/24/18 17:00 Resp 16 08/24/18 17:00 BP 168/89 08/24/18 17:00 Pulse Ox 95 08/24/18 17:00 Intake & Output 08/24/18 08/24/18 08/25/18 06:59 18:59 06:59 Intake Total 1580 1096.731 Output Total 600 Balance 980 1096.731 Weight 114.1 kg Intake: Intake, IV Titration 500 376.731 Amount Heparin Sod,Pork in 0.45% 500 376.731 NaCl 25,000 unit In 0.45 % NaCl 1 500ml.bag @ 18 UNITS/KG/HR 40.82 mls/hr IV .[id number] [facility] Rx#: [id number] Oral 1080 720 Output: Urine 600 Other: # Voids 3 3 - Exam Constitutional General appearance: no acute distress - EENT Eyes: EOMI, PERRLA ENT: hearing grossly normal, normal oropharynx - Neck Neck: no lymphadenopathy Thyroid: bilateral: normal size - Respiratory Respiratory: bilateral: CTA - Cardiovascular Rhythm: regular Heart sounds: normal: S1, S2 - Gastrointestinal General gastrointestinal: normal bowel sounds, soft - Integumentary Integumentary: normal - Neurologic Neurologic: CNII-XII intact - Musculoskeletal Left lower extremity 2+ edema, and tenderness, pretibial area. Christopher compression stocking on. Mild swelling with warmth right medial elbow joint. Mildly tender to palpation. Range of motion maintained Musculoskeletal: strength equal bilaterally - Psychiatric Psychiatric: A&O x's 3, appropriate affect, intact judgment & insight - Labs CBC & Chem 7: 08/24/18 07:30 08/24/18 07:30 Labs: Abnormal Lab Results - Last 24 Hours (Table) 11/08/24/18 08/24/18 Range/Units 07:44 07:30 07:30 WBC 11.5 H (3.8-10.6) k/uL RBC 3.70 L (4.30-5.90) m/uL Hgb 10.6 L (13.0-17.5) gm/dL Hct 35.4 L (39.0-53.0) % MCHC 30.0 L (31.0-37.0) g/dL Neutrophils # 9.0 H (1.3-7.7) k/uL Lymphocytes # 0.9 L (1.0-4.8) k/uL APTT (22.0-30.0) sec Chloride 110 H (98-107) mmol/L Glucose 118 H (74-99) mg/dL Total Bilirubin 2.7 H (0.2-1.3) mg/dL AST 92 H (17-59) U/L ALT 149 H (21-72) U/L Alkaline Phosphatase 227 H (38-126) U/L Total Protein 6.2 L (6.3-8.2) g/dL Albumin 3.0 L (3.5-5.0) g/dL CA 19-9 Antigen >74443.0 H (0.0-34.9) U/mL 08/24/18 08/24/18 Range/Units 07:30 18:10 WBC (3.8-10.6) k/uL RBC (4.30-5.90) m/uL Hgb (13.0-17.5) gm/dL Hct (39.0-53.0) % MCHC (31.0-37.0) g/dL Neutrophils # (1.3-7.7) k/uL Lymphocytes # (1.0-4.8) k/uL APTT 83.9 H 73.4 H (22.0-30.0) sec Chloride (98-107) mmol/L Glucose (74-99) mg/dL Total Bilirubin (0.2-1.3) mg/dL AST (17-59) U/L ALT (21-72) U/L Alkaline Phosphatase (38-126) U/L Total Protein (6.3-8.2) g/dL Albumin (3.5-5.0) g/dL CA 19-9 Antigen (0.0-34.9) U/mL Assessment and Plan Plan: (1) DVT (deep venous thrombosis) - New Acute Left lower extremity DVT without strong provoked factors - Anticoagulation initiated and further work-up ordered - Continue on Heparin Drip until after Testing completed by IR, will need to hold Heparin per IR prior to biopsy (2) Bilateral Pulmonary Embolism: - CTA Revealed Bilateral Pulmonary Emboli (3) Superficial Upper Extremity Thrombosis - Right Elbow Swelling with Right Arm positive Superficial THrombus (4) Pancreatic Head Abnormality: - Described as Cystic in CT abdomen and recs for further work-up MRI (5) Hypodense Liver Lesions with Adenopathy: - Concern for underlying malignancy poss. Pancreatic: Ca -19-9 - IR consult for Liver Lesion - Continue to monitor LFTs Discussed results with patient and family, greater than 25 minutes spent face to face counseling and coordinating care answering questions and explaining the picture of likely metastatic incurable disease. Physician Attest: I have seen and evaluated complete history and physical of this patient and agree with above dictation by Kamilla Evangelista. Dictated as a scribe.
[2018-08-24] MEDS: ALPRAZolam 0.5 MG TAB PO SCH (20:42)
[2018-08-24] MEDS: LOSARTAN 50 MG TAB PO SCH (20:43)
[2018-08-24] MEDS: METOPROLOL TARTRATE 25 MG TAB PO SCH (20:43)
[2018-08-24] MEDS: amLODIPine 5 MG TAB PO SCH (20:43)
[2018-08-24] MEDS: MELATONIN 5 MG TABLET PO SCH (20:48)
[2018-08-24] MEDS: CYCLOBENZAPRINE 5 MG TAB PO PRN ×2 (21:18→21:20)
[2018-08-25] MEDS: MORPHINE SULFATE 4 MG/ML SYRINGE IV PRN ×5 (01:50→21:32)
[2018-08-25] MEDS: PANTOPRAZOLE 40 MG TABLET PO SCH (08:03)
[2018-08-25] MEDS: CHOLECALCIFEROL 1,000 UNIT TAB PO SCH (08:03)
[2018-08-25] MEDS: DOCUSATE 100 MG CAP PO SCH ×2 (08:04→21:22)
[2018-08-25] MEDS: HEPARIN SOD,PORK IN 0.45% NACL 25,000 UNIT in 0.45% NACL 1 500ML.BAG IV SCH (08:58)
[2018-08-25] MEDS ORDERED: ALPRAZolam 0.5 MG TAB PO SCH (09:26)
--- NOTE | 2018-08-25 09:34 | P.PN ---
Subjective Progress Note Date: 08/25/18 Shay Gutierrez is a 68-year-old male who presented to [facility] emergency room with a chief complaint of left lower extremity pain and swelling that started 2 days prior to presentation, he was evaluated in the emergency room and had evidence of left lower extremity deep venous thrombosis he was started on IV heparin and was admitted to medical floor. Patient states that about 3 weeks prior to this admission he had an upper respiratory infection treated with oral antibiotic course but he states that he spent most of the time in bed day and night for the last 2-3 weeks, as he was feeling ready weak and tired. Patient denies having any previous episodes of DVT or PE in the past On 08/23/2018 patient is currently resting in bed. Patient rains on IV heparin for DVT. Patient reports that he's had a low appetite. Patient also currently drinking contrast for CT scans ordered per oncology. Patient denies any shortness of breath or chest discomfort. Patient denies any urinary burning or frequency. Patient denies any diarrhea or constipation at this time On 08/24/2018 patient is currently resting in bed. Patient CTA yesterday showing bilateral PE. Dr. Sanchez has been consulted for pulmonary services. Patient is on heparin due to DVT and pulmonary embolisms. Discussed case with oncology service is patient biopsy of liver lesions. Patient was on Plavix prior to hospital admission. Biopsy likely will be Thursday. Patient to remain on heparin protocol. Patient denies chest pain or shortness of breath. Patient denies nausea vomiting or diarrhea. Patient denies any urinary burning or frequency. On 08/25/2018 patient is currently resting in bed. Patient states he has been moving around. Patient also expressed that he is a bit more anxious due to the recent findings on his CT. Patient remains on heparin drip biopsy of liver lesions likely will be on Thursday. At this time patient denies chest pain or shortness of breath. Patient denies nausea vomiting or diarrhea. Patient denies any urinary burning or frequency Objective - Vital Signs Vital signs: Vital Signs Temp 97.5 F L 08/25/18 07:39 Pulse 86 08/25/18 07:39 Resp 16 08/25/18 07:39 BP 143/76 08/25/18 07:39 Pulse Ox 93 L 08/25/18 07:39 Intake & Output 08/24/18 08/25/18 08/25/18 18:59 06:59 18:59 Intake Total 5640.215 8493 Output Total 600 Balance 9705.501 8255 Weight 114.1 kg 115.757 kg Intake: Intake, IV Titration 376.731 500 Amount Heparin Sod,Pork in 0.45% 376.731 500 NaCl 25,000 unit In 0.45 % NaCl 1 500ml.bag @ 18 UNITS/KG/HR 40.82 mls/hr IV .[id number] [facility] Rx#: [id number] Oral 720 1320 Output: Urine 600 Other: # Voids 3 3 - Exam In general patient is alert and oriented 3 in no apparent distress Neck is supple no JVD no goiter no lymphadenopathy Chest exam reveals a clear respiratory sounds no crackles no wheezing Cardiac exam reveals regular heart sounds S1 and S2 no gallops no murmurs Abdomen is soft nontender no organomegaly with normal bowel sounds Extremity exam reveals mild swelling and tenderness in the left lower extremity Patient also has swelling and induration and tenderness in the right upper extremity right above the elbow Neurological examination reveals no gross focal deficit - Labs CBC & Chem 7: 08/24/18 07:30 08/24/18 07:30 Labs: Abnormal Lab Results - Last 24 Hours (Table) 08/24/18 Range/Units 18:10 APTT 73.4 H (22.0-30.0) sec Assessment and Plan Assessment: #1 left lower extremity deep venous thrombosis patient is maintained on IV heparin. CTA and CT of abdomen and pelvis has been ordered per oncology services. Per Dr. Serrano for vascular surgery patient to be started on xarelto or coumadin. #[address] of the abdomen and pelvis completed showing approximately 4 indeterminate liver lesions measuring up to 3.6 cm metastases disease not excluded at this time. MRI evaluation and clinical workup recommended. Mildly enlarged 1.7 cm michelle caval 1.2 cm michelle hepatis lymph nodes are nonspecific. 1.8 cm cystic lesion of the pancreatic uncinate process. This can also be further evaluated on the patient's liver MRI. Nonspecific nodularity of the adrenal glands measuring up to 1.2 cm possible incidental underlining adrenal adenomas was can be reassessed at follow-up. Borderline to mildly hydropic gallbladder likely due to fasting state. If right upper quadrant pain are concerning for early acute cholecystitis follow- up ultrasound scan. Sigmoid diverticulosis without evidence for acute diverticulitis. Bilateral femoral head AVN, right greater than left without subarticular collapse. CA19-9 antigen ordered per oncology service is elevated at greater than 70,000. Discussed case with Kamilla Evangelista per oncology services. Interventional radiology has been consulted for possible biopsy of liver lesions. Patient previously on Plavix prior to admission. Patient to remain on heparin drip until biopsy completion #3 right upper extremity pain and swelling, will obtain ultrasound #4 dehydration was acute renal failure due to prerenal azotemia elevated 24 on admission creatinine elevated at 1.29 maintained on IV fluid. Creatinine improving to 1.00 #5 underlying history of hypertension well-controlled on medications #6 underlying history of hyperlipidemia #7 previous history of coronary artery disease with angioplasty and stent placement to the proximal LAD in February 2015\ #8 bilateral pulmonary embolism. CTA performed showing bilateral pulmonary emboli, moderate burden on the right and mild on the left. No CT evidence for right heart strain. COPD with mild edema. Suspect underlying pulmonary arterial hypertension. A 1 cm subpleural density at the left base could represent nodule atelectasis or small area of pulmonary infarct is a sequela of the patient's pulmonary emboli three-month follow-up recommended. Dr. Sanchez has been consulted for pulmonary services she remains on heparin drip. #9. Anxiety. Patient currently takes Xanax 0.5 mg nightly at home. Patient expressed that he has been more anxious due to recent finding potential diagnosis. Will increase Xanax to twice a day at this time. DVT prophylaxis heparin. GI prophylaxis Protonix I performed an examination of the patient and discussed their management with the Nurse Practitioner. I have reviewed the Nurse Practitioner's notes and agree with the documented findings and plan of care
[2018-08-25 10:42] LABS: Basophils # (A) 0.2 k/uL (0-0.2); Basophils % (A) 1 %; Eosinophils # (A) 0.4 k/uL (0-0.7); Eosinophils % (A) 4 %; HCT 35.9 % (39.0-53.0); HGB 10.8 gm/dL (13.0-17.5); Lymphocytes % (A) 9 %; MCH 28.3 pg (25.0-35.0); MCHC 30.2 g/dL (31.0-37.0); MCV 93.8 fL (80.0-100.0); Mean Platelet Volume 7.4; Monocytes # (A) 0.8 k/uL (0-1.0); Monocytes % (A) 7 %; Neutrophils # (A) 8.3 k/uL (1.3-7.7); Neutrophils % (A) 77 %; Platelet Count 342 k/uL (150-450); RBC 3.83 m/uL (4.30-5.90); RDW 14.1 % (11.5-15.5); WBC 10.9 k/uL (3.8-10.6)
[2018-08-25 11:08] LABS: Albumin 3.3 g/dL (3.5-5.0); Calcium 9.1 mg/dL (8.4-10.2); Potassium 4.2 mmol/L (3.5-5.1); Total Bilirubin 3.3 mg/dL (0.2-1.3); Total Protein 6.7 g/dL (6.3-8.2)
[2018-08-25] MEDS: CYANOCOBALAMIN 500 MCG TAB PO SCH (12:06)
[2018-08-25] MEDS: MULTIVITAMINS, THERA 1 EACH TAB PO SCH (12:06)
--- NOTE | 2018-08-25 13:42 | P.PN ---
Subjective Progress Note Date: 08/25/18 Principal diagnosis: Bilateral pulmonary emboli Pulmonary consultation dated 08/23/2018 This is a 68-year-old male who presented to the emergency department on August 21 with a chief complaint of swelling to the left lower extremity. The patient had a Doppler done which showed DVT in the left leg. Apparently the swelling was noted to days prior to presentation in the emergency department. He had some pain and tenderness in the left calf area as well. There was no injury or trauma. The patient states that he did not been feeling well over the course of 4-5 weeks and had some respiratory illness which caused him to be very inactive and sedentary. The patient apparently came in to be evaluated and was concerned about the possibility of a blood clot. A blood clot was found in the leg. He was started on IV heparin. In addition, he had a CT angiogram which revealed bilateral pulmonary emboli. The patient has no previous history of DVT or PE. Apparently there is a family history of blood clots in his mother. The patient did have some complaints of chest discomfort and shortness of breath as well. These are relatively mild but present nonetheless. The patient has a history of hyperlipidemia and hypertension. The patient also has a history of CAD with previous angioplasty and stent placement to the proximal LAD. In addition, the patient was found to have 4 liver lesions measuring up to 3.6 cm in size and metastasis as well as not excluded. In addition, he had a mildly enlarged 1.7 cm portacaval and 1.2 cm michelle hepatic lymph nodes. In addition, he had a 1.8 cm cystic lesion in the pancreatic uncinate process. Progress note dated 08/24/2018 The patient is seen again today in follow-up on the regular medical floor. He is currently resting fairly comfortably in bed. He is awake and alert in no acute distress. He is maintaining good O2 saturations in the 90s on room air. He denies any worsening chest pain, palpitations lightheadedness or dizziness. Based on the computed tomography scan of the abdomen and suspicion for pancreatic cancer with metastasis to the liver a CA 199 was drawn with results greater than 70,000. Plan is for fine-needle aspirate for diagnosis. The patient has been on Plavix in the procedural probably be done in the next several days. Progress note dated 08/25/2018 The patient is seen again today in follow-up on the regular medical floor. He is awake and alert in no acute distress. He denies any worsening shortness of breath cough or congestion. He states he does feel the need for oxygen once his been up ambulating in the room. Currently he is maintaining good O2 saturations in the mid 90s on 2 L/m per nasal cannula. He's been afebrile. Hemodynamically stable. White count 10.9. Hemoglobin 10.8. INR 1.10. AST 103 , ALT 134, alk phos 231. The plan is for biopsy on 08/30/2018 Objective - Vital Signs Vital signs: Vital Signs Temp 97.7 F 08/25/18 12:09 Pulse 97 08/25/18 12:09 Resp 20 08/25/18 12:09 BP 126/83 08/25/18 12:09 Pulse Ox 97 08/25/18 12:09 Intake & Output 08/24/18 08/25/18 08/25/18 18:59 06:59 18:59 Intake Total 8699.615 7434 63.49 Output Total 600 Balance 7635.161 5137 63.49 Weight 114.1 kg 115.757 kg Intake: Intake, IV Titration 376.731 500 63.49 Amount Heparin Sod,Pork in 0.45% 376.731 500 63.49 NaCl 25,000 unit In 0.45 % NaCl 1 500ml.bag @ 18 UNITS/KG/HR 40.82 mls/hr IV .[id number] [facility] Rx#: [id number] Oral 720 1320 Output: Urine 600 Other: Voiding Method Toilet # Voids 3 3 - Exam GENERAL EXAM: Alert, active, comfortable in no apparent distress. HEAD: Normocephalic. EYES: Normal reaction of pupils, equal size. NOSE: Clear with pink turbinates. THROAT: No erythema or exudates. NECK: No masses, no JVD. CHEST: No chest wall deformity. LUNGS: Equal air entry with no crackles, wheeze, rhonchi or dullness. CVS: S1 and S2 normal with no audible murmur, regular rhythm. ABDOMEN: No hepatosplenomegaly, normal bowel sounds, no guarding or rigidity. SPINE: No scoliosis or deformity SKIN: No rashes CENTRAL NERVOUS SYSTEM: No focal deficits, tone is normal in all 4 extremities. EXTREMITIES: There is no peripheral edema. No clubbing, no cyanosis. Peripheral pulses are intact. - Labs CBC & Chem 7: 08/25/18 09:29 08/25/18 09:29 Labs: Abnormal Lab Results - Last 24 Hours (Table) 08/24/18 08/25/18 08/25/18 Range/Units 18:10 09:29 09:29 WBC 10.9 H (3.8-10.6) k/uL RBC 3.83 L (4.30-5.90) m/uL Hgb 10.8 L (13.0-17.5) gm/dL Hct 35.9 L (39.0-53.0) % MCHC 30.2 L (31.0-37.0) g/dL Neutrophils # 8.3 H (1.3-7.7) k/uL APTT 73.4 H (22.0-30.0) sec Chloride 108 H (98-107) mmol/L Glucose 115 H (74-99) mg/dL Total Bilirubin 3.3 H (0.2-1.3) mg/dL AST 103 H (17-59) U/L ALT 134 H (21-72) U/L Alkaline Phosphatase 231 H (38-126) U/L Albumin 3.3 L (3.5-5.0) g/dL 08/25/18 Range/Units 09:29 WBC (3.8-10.6) k/uL RBC (4.30-5.90) m/uL Hgb (13.0-17.5) gm/dL Hct (39.0-53.0) % MCHC (31.0-37.0) g/dL Neutrophils # (1.3-7.7) k/uL APTT 77.3 H (22.0-30.0) sec Chloride (98-107) mmol/L Glucose (74-99) mg/dL Total Bilirubin (0.2-1.3) mg/dL AST (17-59) U/L ALT (21-72) U/L Alkaline Phosphatase (38-126) U/L Albumin (3.5-5.0) g/dL Assessment and Plan Assessment: Assessment Left leg DVT and bilateral pulmonary emboli, in a relatively healthy patient with a previous history of hypertension, hyperlipidemia and CAD. He has been inactive recently which may be one explanation, in addition, a CT of the abdomen reveals 4 liver lesions, non-specific abdominal adenopathy and a pancreatic lesion. CA 199 greater than 70,000. History of CAD with previous stent placement Hypertension by history History of hyperlipidemia Plan: The patient was seen and evaluated by Dr. Sanchez. He remains stable from the pulmonary standpoint. Remains on a heparin drip for the DVT/PE. The plan is for FNA 08/30/2018 for diagnosis by interventional radiology. He remains stable from the pulmonary standpoint. We will continue to follow make further recommendations based on his clinical status I, the cosigning physician, performed a history & physical examination of the patient. Lungs sounds are clear. Maintaining good O2 saturations in the 90s on room air. I discussed the assessment and plan of care with my nurse practitioner, Lisette Moise. I attest to the above note as dictated by her.
[2018-08-25] MEDS: ALPRAZolam 0.5 MG TAB PO PRN (20:11)
[2018-08-25] MEDS: LOSARTAN 50 MG TAB PO SCH (21:22)
[2018-08-25] MEDS: METOPROLOL TARTRATE 25 MG TAB PO SCH (21:23)
[2018-08-25] MEDS: amLODIPine 5 MG TAB PO SCH (21:25)
--- NOTE | 2018-08-25 21:49 | P.PN ---
Subjective Progress Note Date: 08/25/18 Principal diagnosis: Hypercoaguable and increased LFTs Patient and at bedside. He went for a walk yesterday and utilizing 2L of oxygen PRN for comfort aafter activity but overall doing better, with the exception of some lability in anxiety secondary to probable new diagnosis of metastatic cancer. Objective - Vital Signs Vital signs: Vital Signs Temp 97.8 F 08/25/18 21:10 Pulse 87 08/25/18 21:10 Resp 16 08/25/18 21:10 BP 167/92 08/25/18 21:10 Pulse Ox 96 08/25/18 21:10 Intake & Output 08/25/18 08/25/18 08/26/18 06:59 18:59 06:59 Intake Total 1820 63.49 Output Total 600 Balance 1220 63.49 Weight 115.757 kg Intake: Intake, IV Titration 500 63.49 Amount Heparin Sod,Pork in 0.45% 500 63.49 NaCl 25,000 unit In 0.45 % NaCl 1 500ml.bag @ 18 UNITS/KG/HR 40.82 mls/hr IV .[id number] [facility] Rx#: [id number] Oral 1320 Output: Urine 600 Other: Voiding Method Toilet Toilet # Voids 3 - Exam Constitutional General appearance: no acute distress - EENT Eyes: EOMI, PERRLA ENT: hearing grossly normal, normal oropharynx - Neck Neck: no lymphadenopathy Thyroid: bilateral: normal size - Respiratory Respiratory: bilateral: CTA - Cardiovascular Rhythm: regular Heart sounds: normal: S1, S2 - Gastrointestinal General gastrointestinal: normal bowel sounds, soft - Integumentary Integumentary: normal - Neurologic Neurologic: CNII-XII intact - Musculoskeletal Left lower extremity 2+ edema, and tenderness, pretibial area. Christopher compression stocking on. Mild swelling with warmth right medial elbow joint. Mildly tender to palpation. Range of motion maintained Musculoskeletal: strength equal bilaterally - Psychiatric Psychiatric: A&O x's 3, appropriate affect, intact judgment & insight - Labs CBC & Chem 7: 08/25/18 09:29 08/25/18 09:29 Labs: Abnormal Lab Results - Last 24 Hours (Table) 08/25/18 08/25/18 08/25/18 Range/Units 09:29 09:29 09:29 WBC 10.9 H (3.8-10.6) k/uL RBC 3.83 L (4.30-5.90) m/uL Hgb 10.8 L (13.0-17.5) gm/dL Hct 35.9 L (39.0-53.0) % MCHC 30.2 L (31.0-37.0) g/dL Neutrophils # 8.3 H (1.3-7.7) k/uL APTT 77.3 H (22.0-30.0) sec Chloride 108 H (98-107) mmol/L Glucose 115 H (74-99) mg/dL Total Bilirubin 3.3 H (0.2-1.3) mg/dL AST 103 H (17-59) U/L ALT 134 H (21-72) U/L Alkaline Phosphatase 231 H (38-126) U/L Albumin 3.3 L (3.5-5.0) g/dL 08/25/ Range/Units 17:19 WBC (3.8-10.6) k/uL RBC (4.30-5.90) m/uL Hgb (13.0-17.5) gm/dL Hct (39.0-53.0) % MCHC (31.0-37.0) g/dL Neutrophils # (1.3-7.7) k/uL APTT 51.8 H (22.0-30.0) sec Chloride (98-107) mmol/L Glucose (74-99) mg/dL Total Bilirubin (0.2-1.3) mg/dL AST (17-59) U/L ALT (21-72) U/L Alkaline Phosphatase (38-126) U/L Albumin (3.5-5.0) g/dL Assessment and Plan Plan: (1) DVT (deep venous thrombosis) - New Acute Left lower extremity DVT without strong provoked factors - Anticoagulation initiated and further work-up ordered - Continue on Heparin Drip until after Testing completed by IR, will need to hold Heparin per IR prior to biopsy (2) Bilateral Pulmonary Embolism: - CTA Revealed Bilateral Pulmonary Emboli (3) Superficial Upper Extremity Thrombosis - Right Elbow Swelling with Right Arm positive Superficial THrombus (4) Pancreatic Head Abnormality: - Described as Cystic in CT abdomen and recs for further work-up MRI (5) Hypodense Liver Lesions with Adenopathy: - Concern for underlying malignancy poss. Pancreatic: Ca -19-9 - IR consult for Liver Lesion - Continue to monitor LFTs Plan: COntinue to encourage increased activity - COntinue on heparin drip until biopsy of liver lesions on Thursday -Emotional support continued and xanax prn anxiety - Add stool softener as no BM in 3 days
[2018-08-25] MEDS: MELATONIN 5 MG TABLET PO SCH (23:18)
[2018-08-26] MEDS: MORPHINE SULFATE 4 MG/ML SYRINGE IV PRN ×5 (01:36→22:40)
[2018-08-26] MEDS: HEPARIN SOD,PORK IN 0.45% NACL 25,000 UNIT in 0.45% NACL 1 500ML.BAG IV SCH ×3 (01:38→18:01)
[2018-08-26] MEDS: ALPRAZolam 0.5 MG TAB PO PRN (07:46)
[2018-08-26] MEDS: DOCUSATE 100 MG CAP PO SCH ×2 (08:34→21:08)
[2018-08-26] MEDS: PANTOPRAZOLE 40 MG TABLET PO SCH (08:34)
[2018-08-26] MEDS: CHOLECALCIFEROL 1,000 UNIT TAB PO SCH (08:34)
[2018-08-26 09:54] LABS: Basophils # (A) 0.1 k/uL (0-0.2); Basophils % (A) 1 %; Eosinophils # (A) 0.4 k/uL (0-0.7); Eosinophils % (A) 4 %; HCT 35.7 % (39.0-53.0); HGB 11.2 gm/dL (13.0-17.5); Lymphocytes # (A) 0.8 k/uL (1.0-4.8); Lymphocytes % (A) 8 %; MCH 29.1 pg (25.0-35.0); MCHC 31.2 g/dL (31.0-37.0); MCV 93.1 fL (80.0-100.0); Mean Platelet Volume 6.7; Monocytes # (A) 0.8 k/uL (0-1.0); Monocytes % (A) 7 %; Neutrophils # (A) 7.8 k/uL (1.3-7.7); Neutrophils % (A) 78 %; Platelet Count 338 k/uL (150-450); RBC 3.84 m/uL (4.30-5.90); RDW 14.2 % (11.5-15.5); WBC 10.1 k/uL (3.8-10.6)
[2018-08-26 09:56] LABS: ALT 126 U/L (21-72); AST 92 U/L (17-59); Albumin 3.4 g/dL (3.5-5.0); Alkaline Phosphatase 230 U/L (38-126); Anion Gap 7 mmol/L; Blood Urea Nitrogen 11 mg/dL (9-20); Calcium 9.1 mg/dL (8.4-10.2); Carbon Dioxide 24 mmol/L (22-30); Chloride 107 mmol/L (98-107); Glucose 95 mg/dL (74-99); Potassium 4.4 mmol/L (3.5-5.1); Sodium 138 mmol/L (137-145); Total Bilirubin 2.8 mg/dL (0.2-1.3); Total Protein 6.6 g/dL (6.3-8.2)
--- NOTE | 2018-08-26 10:35 | P.PN ---
Subjective Progress Note Date: 08/26/18 Shay Gutierrez is a 68-year-old male who presented to [facility] emergency room with a chief complaint of left lower extremity pain and swelling that started 2 days prior to presentation, he was evaluated in the emergency room and had evidence of left lower extremity deep venous thrombosis he was started on IV heparin and was admitted to medical floor. Patient states that about 3 weeks prior to this admission he had an upper respiratory infection treated with oral antibiotic course but he states that he spent most of the time in bed day and night for the last 2-3 weeks, as he was feeling ready weak and tired. Patient denies having any previous episodes of DVT or PE in the past On 08/23/2018 patient is currently resting in bed. Patient rains on IV heparin for DVT. Patient reports that he's had a low appetite. Patient also currently drinking contrast for CT scans ordered per oncology. Patient denies any shortness of breath or chest discomfort. Patient denies any urinary burning or frequency. Patient denies any diarrhea or constipation at this time On 08/24/2018 patient is currently resting in bed. Patient CTA yesterday showing bilateral PE. Dr. Sanchez has been consulted for pulmonary services. Patient is on heparin due to DVT and pulmonary embolisms. Discussed case with oncology service is patient biopsy of liver lesions. Patient was on Plavix prior to hospital admission. Biopsy likely will be Thursday. Patient to remain on heparin protocol. Patient denies chest pain or shortness of breath. Patient denies nausea vomiting or diarrhea. Patient denies any urinary burning or frequency. On 08/25/2018 patient is currently resting in bed. Patient states he has been moving around. Patient also expressed that he is a bit more anxious due to the recent findings on his CT. Patient remains on heparin drip biopsy of liver lesions likely will be on Thursday. At this time patient denies chest pain or shortness of breath. Patient denies nausea vomiting or diarrhea. Patient denies any urinary burning or frequency On 08/26/2018 patient is currently resting comfortably in chair with at bedside. Patient does report he's been having increased anxiety due to impending testing. Xanax has been increased. At this time patient denies chest pain. Patient states shortness of breath has improved with oxygen during activity. Patient denies nausea vomiting or diarrhea. Patient denies any urinary burning or frequency Objective - Vital Signs Vital signs: Vital Signs Temp 97.8 F 08/26/18 04:00 Pulse 84 08/26/18 09:42 Resp 18 08/26/18 09:42 BP 121/75 08/26/18 04:00 Pulse Ox 92 L 08/26/18 04:00 Intake & Output 08/25/18 08/26/18 08/26/18 18:59 06:59 18:59 Intake Total 63.49 436.51 Balance 63.49 436.51 Weight 115 kg 115.45 kg Intake: Intake, IV Titration 63.49 436.51 Amount Heparin Sod,Pork in 0.45% 63.49 436.51 NaCl 25,000 unit In 0.45 % NaCl 1 500ml.bag @ 18 UNITS/KG/HR 40.82 mls/hr IV .[id number] [facility] Rx#: [id number] Other: Voiding Method Toilet Toilet Toilet # Voids 2 2 # Bowel Movements 0 - Exam In general patient is alert and oriented 3 in no apparent distress Neck is supple no JVD no goiter no lymphadenopathy Chest exam reveals a clear respiratory sounds no crackles no wheezing Cardiac exam reveals regular heart sounds S1 and S2 no gallops no murmurs Abdomen is soft nontender no organomegaly with normal bowel sounds Extremity exam reveals mild swelling and tenderness in the left lower extremity Patient also has swelling and induration and tenderness in the right upper extremity right above the elbow Neurological examination reveals no gross focal deficit - Labs CBC & Chem 7: 08/26/18 09:10 08/26/18 09:10 Labs: Abnormal Lab Results - Last 24 Hours (Table) 08/25/18 08/25/18 08/25/18 Range/Units 09: 09:29 17:19 WBC 10.9 H (3.8-10.6) k/uL RBC 3.83 L (4.30-5.90) m/uL Hgb 10.8 L (13.0-17.5) gm/dL Hct 35.9 L (39.0-53.0) % MCHC 30.2 L (31.0-37.0) g/dL Neutrophils # 8.3 H (1.3-7.7) k/uL Lymphocytes # (1.0-4.8) k/uL APTT 51.8 H (22.0-30.0) sec Chloride 108 H (98-107) mmol/L Glucose 115 H (74-99) mg/dL Total Bilirubin 3.3 H (0.2-1.3) mg/dL AST 103 H (17-59) U/L ALT 134 H (21-72) U/L Alkaline Phosphatase 231 H (38-126) U/L Albumin 3.3 L (3.5-5.0) g/dL 08/26/18 08/26/18 08/26/18 Range/Units 09:10 09:10 09:10 WBC (3.8-10.6) k/uL RBC 3.84 L (4.30-5.90) m/uL Hgb 11.2 L (13.0-17.5) gm/dL Hct 35.7 L (39.0-53.0) % MCHC (31.0-37.0) g/dL Neutrophils # 7.8 H (1.3-7.7) k/uL Lymphocytes # 0.8 L (1.0-4.8) k/uL APTT 42.5 H (22.0-30.0) sec Chloride (98-107) mmol/L Glucose (74-99) mg/dL Total Bilirubin 2.8 H (0.2-1.3) mg/dL AST 92 H (17-59) U/L ALT 126 H (21-72) U/L Alkaline Phosphatase 230 H (38-126) U/L Albumin 3.4 L (3.5-5.0) g/dL Assessment and Plan Assessment: #1 left lower extremity deep venous thrombosis patient is maintained on IV heparin. CTA and CT of abdomen and pelvis has been ordered per oncology services. Per Dr. Serrano for vascular surgery patient to be started on xarelto or coumadin. #[address] of the abdomen and pelvis completed showing approximately 4 indeterminate liver lesions measuring up to 3.6 cm metastases disease not excluded at this time. MRI evaluation and clinical workup recommended. Mildly enlarged 1.7 cm michelle caval 1.2 cm michelle hepatis lymph nodes are nonspecific. 1.8 cm cystic lesion of the pancreatic uncinate process. This can also be further evaluated on the patient's liver MRI. Nonspecific nodularity of the adrenal glands measuring up to 1.2 cm possible incidental underlining adrenal adenomas was can be reassessed at follow-up. Borderline to mildly hydropic gallbladder likely due to fasting state. If right upper quadrant pain are concerning for early acute cholecystitis follow- up ultrasound scan. Sigmoid diverticulosis without evidence for acute diverticulitis. Bilateral femoral head AVN, right greater than left without subarticular collapse. CA19-9 antigen ordered per oncology service is elevated at greater than 70,000. Discussed case with Kamilla Evangelista per oncology services. Interventional radiology has been consulted for possible biopsy of liver lesions. Patient previously on Plavix prior to admission. Patient to remain on heparin drip until biopsy completion. #3 right upper extremity pain and swelling, will obtain ultrasound #4 dehydration was acute renal failure due to prerenal azotemia elevated 24 on admission creatinine elevated at 1.29 maintained on IV fluid. Creatinine improving to 1.00. Resolved #5 underlying history of hypertension well-controlled on medications #6 underlying history of hyperlipidemia #7 previous history of coronary artery disease with angioplasty and stent placement to the proximal LAD in February 2015\ #8 bilateral pulmonary embolism. CTA performed showing bilateral pulmonary emboli, moderate burden on the right and mild on the left. No CT evidence for right heart strain. COPD with mild edema. Suspect underlying pulmonary arterial hypertension. A 1 cm subpleural density at the left base could represent nodule atelectasis or small area of pulmonary infarct is a sequela of the patient's pulmonary emboli three-month follow-up recommended. Dr. Sanchez has been consulted for pulmonary services she remains on heparin drip. #9. Anxiety. Patient currently takes Xanax 0.5 mg nightly at home. Patient expressed that he has been more anxious due to recent finding potential diagnosis. Will increase Xanax to threee times a day at this time. DVT prophylaxis heparin. GI prophylaxis Protonix I performed an examination of the patient and discussed their management with the Nurse Practitioner. I have reviewed the Nurse Practitioner's notes and agree with the documented findings and plan of care
[2018-08-26] MEDS ORDERED: HEPARIN SODIUM,PORCINE 5,000 UNIT/ML 1 ML VIAL IV STA (11:17)
--- NOTE | 2018-08-26 12:01 | P.PN ---
Subjective Progress Note Date: 08/26/18 Principal diagnosis: Hypercoaguable and increased LFTs Patient and at bedside. No acute complaints continues to increase activity Objective - Vital Signs Vital signs: Vital Signs Temp 98.3 F 08/26/18 11:55 Pulse 90 08/26/18 11:55 Resp 16 08/26/18 11:55 BP 159/90 08/26/18 11:55 Pulse Ox 95 08/26/18 11:55 Intake & Output 08/25/18 08/26/18 08/26/18 18:59 06:59 18:59 Intake Total 63.49 436.51 301.625 Balance 63.49 436.51 301.625 Weight 115 kg 115.45 kg Intake: Intake, IV Titration 63.49 436.51 301.625 Amount Heparin Sod,Pork in 0.45% 63.49 436.51 301.625 NaCl 25,000 unit In 0.45 % NaCl 1 500ml.bag @ 18 UNITS/KG/HR 40.82 mls/hr IV .[id number] [facility] Rx#: [id number] Other: Voiding Method Toilet Toilet Toilet # Voids 2 2 # Bowel Movements 0 - Exam Constitutional General appearance: no acute distress - EENT Eyes: EOMI, PERRLA ENT: hearing grossly normal, normal oropharynx - Neck Neck: no lymphadenopathy Thyroid: bilateral: normal size - Respiratory Respiratory: bilateral: CTA - Cardiovascular Rhythm: regular Heart sounds: normal: S1, S2 - Gastrointestinal General gastrointestinal: normal bowel sounds, soft - Integumentary Integumentary: normal - Neurologic Neurologic: CNII-XII intact - Musculoskeletal Left lower extremity 2+ edema, and tenderness, pretibial area. Christopher compression stocking on. Mild swelling with warmth right medial elbow joint. Mildly tender to palpation. Range of motion maintained Musculoskeletal: strength equal bilaterally - Psychiatric Psychiatric: A&O x's 3, appropriate affect, intact judgment & insight - Labs CBC & Chem 7: 08/26/18 09:10 08/26/18 09:10 Labs: Abnormal Lab Results - Last 24 Hours (Table) 08/25/18 08/26/18 08/26/18 Range/Units 17:19 09:10 09:10 RBC 3.84 L (4.30-5.90) m/uL Hgb 11.2 L (13.0-17.5) gm/dL Hct 35.7 L (39.0-53.0) % Neutrophils # 7.8 H (1.3-7.7) k/uL Lymphocytes # 0.8 L (1.0-4.8) k/uL APTT 51.8 H (22.0-30.0) sec Total Bilirubin 2.8 H (0.2-1.3) mg/dL AST 92 H (17-59) U/L ALT 126 H (21-72) U/L Alkaline Phosphatase 230 H (38-126) U/L Albumin 3.4 L (3.5-5.0) g/dL 08/26/18 Range/Units 09:10 RBC (4.30-5.90) m/uL Hgb (13.0-17.5) gm/dL Hct (39.0-53.0) % Neutrophils # (1.3-7.7) k/uL Lymphocytes # (1.0-4.8) k/uL APTT 42.5 H (22.0-30.0) sec Total Bilirubin (0.2-1.3) mg/dL AST (17-59) U/L ALT (21-72) U/L Alkaline Phosphatase (38-126) U/L Albumin (3.5-5.0) g/dL Assessment and Plan Plan: (1) DVT (deep venous thrombosis) - New Acute Left lower extremity DVT without strong provoked factors - Anticoagulation initiated and further work-up ordered - Continue on Heparin Drip until after Testing completed by IR, will need to hold Heparin per IR prior to biopsy (2) Bilateral Pulmonary Embolism: - CTA Revealed Bilateral Pulmonary Emboli (3) Superficial Upper Extremity Thrombosis - Right Elbow Swelling with Right Arm positive Superficial THrombus (4) Pancreatic Head Abnormality: - Described as Cystic in CT abdomen and recs for further work-up MRI (5) Hypodense Liver Lesions with Adenopathy: - Concern for underlying malignancy poss. Pancreatic: Ca -19-9 - IR consult for Liver Lesion - Continue to monitor LFTs Plan: COntinue to encourage increased activity - COntinue on heparin drip until biopsy of liver lesions on Thursday -Emotional support continued and xanax prn anxiety - Eagerly awaiting IR Biopsy - Will schedule xanax at 6am as he wakes up with high anxiety - Sleeping pill ok
[2018-08-26] MEDS: CYANOCOBALAMIN 500 MCG TAB PO SCH (12:25)
[2018-08-26] MEDS: MULTIVITAMINS, THERA 1 EACH TAB PO SCH (12:25)
--- NOTE | 2018-08-26 13:28 | P.PN ---
Subjective Progress Note Date: 08/26/18 Principal diagnosis: Bilateral pulmonary emboli Pulmonary consultation dated 08/23/2018 This is a 68-year-old male who presented to the emergency department on August 21 with a chief complaint of swelling to the left lower extremity. The patient had a Doppler done which showed DVT in the left leg. Apparently the swelling was noted to days prior to presentation in the emergency department. He had some pain and tenderness in the left calf area as well. There was no injury or trauma. The patient states that he did not been feeling well over the course of 4-5 weeks and had some respiratory illness which caused him to be very inactive and sedentary. The patient apparently came in to be evaluated and was concerned about the possibility of a blood clot. A blood clot was found in the leg. He was started on IV heparin. In addition, he had a CT angiogram which revealed bilateral pulmonary emboli. The patient has no previous history of DVT or PE. Apparently there is a family history of blood clots in his mother. The patient did have some complaints of chest discomfort and shortness of breath as well. These are relatively mild but present nonetheless. The patient has a history of hyperlipidemia and hypertension. The patient also has a history of CAD with previous angioplasty and stent placement to the proximal LAD. In addition, the patient was found to have 4 liver lesions measuring up to 3.6 cm in size and metastasis as well as not excluded. In addition, he had a mildly enlarged 1.7 cm portacaval and 1.2 cm michelle hepatic lymph nodes. In addition, he had a 1.8 cm cystic lesion in the pancreatic uncinate process. Progress note dated 08/24/2018 The patient is seen again today in follow-up on the regular medical floor. He is currently resting fairly comfortably in bed. He is awake and alert in no acute distress. He is maintaining good O2 saturations in the 90s on room air. He denies any worsening chest pain, palpitations lightheadedness or dizziness. Based on the computed tomography scan of the abdomen and suspicion for pancreatic cancer with metastasis to the liver a CA 199 was drawn with results greater than 70,000. Plan is for fine-needle aspirate for diagnosis. The patient has been on Plavix in the procedural probably be done in the next several days. Progress note dated 08/25/2018 The patient is seen again today in follow-up on the regular medical floor. He is awake and alert in no acute distress. He denies any worsening shortness of breath cough or congestion. He states he does feel the need for oxygen once his been up ambulating in the room. Currently he is maintaining good O2 saturations in the mid 90s on 2 L/m per nasal cannula. He's been afebrile. Hemodynamically stable. White count 10.9. Hemoglobin 10.8. INR 1.10. AST 103 , ALT 134, alk phos 231. The plan is for biopsy on 08/30/2018 Progress note dated 8 08/26/2018 Patient is seen again today in follow-up on the regular medical floor. He is resting comfortably in bed. He denies any worsening shortness of breath, cough or congestion. No chest pain or palpitations. No lightheadedness or dizziness. He is maintaining good O2 saturations in the mid 90s on room air. He's been afebrile. Hemodynamically stable. He remains on a heparin drip for his bilateral PE until he can be transitioned to oral anticoagulant following a biopsy. Objective - Vital Signs Vital signs: Vital Signs Temp 98.3 F 08/26/18 11:55 Pulse 90 08/26/18 11:55 Resp 16 08/26/18 11:55 BP 159/90 08/26/18 11:55 Pulse Ox 95 08/26/18 11:55 Intake & Output 08/25/18 08/26/18 08/26/18 18:59 06:59 18:59 Intake Total 63.49 436.51 317.625 Balance 63.49 436.51 317.625 Weight 115 kg 115.45 kg Intake: Intake, IV Titration 63.49 436.51 317.625 Amount Heparin Sod,Pork in 0.45% 63.49 436.51 317.625 NaCl 25,000 unit In 0.45 % NaCl 1 500ml.bag @ 18 UNITS/KG/HR 40.82 mls/hr IV .[id number] [facility] Rx#: [id number] Other: Voiding Method Toilet Toilet Toilet # Voids 2 2 # Bowel Movements 0 - Exam GENERAL EXAM: Alert, active, comfortable in no apparent distress. HEAD: Normocephalic. EYES: Normal reaction of pupils, equal size. NOSE: Clear with pink turbinates. THROAT: No erythema or exudates. NECK: No masses, no JVD. CHEST: No chest wall deformity. LUNGS: Equal air entry with no crackles, wheeze, rhonchi or dullness. CVS: S1 and S2 normal with no audible murmur, regular rhythm. ABDOMEN: No hepatosplenomegaly, normal bowel sounds, no guarding or rigidity. SPINE: No scoliosis or deformity SKIN: No rashes CENTRAL NERVOUS SYSTEM: No focal deficits, tone is normal in all 4 extremities. EXTREMITIES: There is no peripheral edema. No clubbing, no cyanosis. Peripheral pulses are intact. - Labs CBC & Chem 7: 08/26/18 09:10 08/26/18 09:10 Labs: Abnormal Lab Results - Last 24 Hours (Table) 08/25/18 08/26/18 08/26/18 Range/Units 17:19 09:10 09:10 RBC 3.84 L (4.30-5.90) m/uL Hgb 11.2 L (13.0-17.5) gm/dL Hct 35.7 L (39.0-53.0) % Neutrophils # 7.8 H (1.3-7.7) k/uL Lymphocytes # 0.8 L (1.0-4.8) k/uL APTT 51.8 H (22.0-30.0) sec Total Bilirubin 2.8 H (0.2-1.3) mg/dL AST 92 H (17-59) U/L ALT 126 H (21-72) U/L Alkaline Phosphatase 230 H (38-126) U/L Albumin 3.4 L (3.5-5.0) g/dL 08/26/18 Range/Units 09:10 RBC (4.30-5.90) m/uL Hgb (13.0-17.5) gm/dL Hct (39.0-53.0) % Neutrophils # (1.3-7.7) k/uL Lymphocytes # (1.0-4.8) k/uL APTT 42.5 H (22.0-30.0) sec Total Bilirubin (0.2-1.3) mg/dL AST (17-59) U/L ALT (21-72) U/L Alkaline Phosphatase (38-126) U/L Albumin (3.5-5.0) g/dL Assessment and Plan Assessment: Assessment Left leg DVT and bilateral pulmonary emboli, in a relatively healthy patient with a previous history of hypertension, hyperlipidemia and CAD. He has been inactive recently which may be one explanation, in addition, a CT of the abdomen reveals 4 liver lesions, non-specific abdominal adenopathy and a pancreatic lesion. CA 199 greater than 70,000. History of CAD with previous stent placement Hypertension by history History of hyperlipidemia Plan: The patient was seen and evaluated by Dr. Sanchez. Remains on a heparin drip for the DVT/PE. The plan is for FNA 08/30/2018 for diagnosis by interventional radiology. We will continue to follow make further recommendations based on his clinical status I, the cosigning physician, performed a history & physical examination of the patient. Lungs sounds are clear. Maintaining good O2 saturations in the 90s on room air. I discussed the assessment and plan of care with my nurse practitioner, Lisette Moise. I attest to the above note as dictated by her.
[2018-08-26] MEDS: ONDANSETRON 4 MG/2 ML VIAL IVP PRN (17:50)
[2018-08-26] MEDS: amLODIPine 5 MG TAB PO SCH (21:08)
[2018-08-26] MEDS: LOSARTAN 50 MG TAB PO SCH (21:08)
[2018-08-26] MEDS: ZOLPIDEM 10 MG TAB PO PRN (21:08)
[2018-08-26] MEDS: METOPROLOL TARTRATE 25 MG TAB PO SCH (21:09)
[2018-08-26] MEDS: MELATONIN 5 MG TABLET PO SCH (21:25)
[2018-08-27] MEDS: ALPRAZolam 0.5 MG TAB PO SCH ×2 (06:00→11:59)
[2018-08-27 08:33] LABS: Basophils # (A) 0.1 k/uL (0-0.2); Basophils % (A) 1 %; Eosinophils # (A) 0.3 k/uL (0-0.7); Eosinophils % (A) 3 %; HCT 32.6 % (39.0-53.0); HGB 10.5 gm/dL (13.0-17.5); Lymphocytes % (A) 10 %; MCH 29.9 pg (25.0-35.0); MCHC 32.3 g/dL (31.0-37.0); MCV 92.6 fL (80.0-100.0); Mean Platelet Volume 7.6; Monocytes # (A) 0.9 k/uL (0-1.0); Monocytes % (A) 9 %; Neutrophils # (A) 7.6 k/uL (1.3-7.7); Neutrophils % (A) 76 %; Platelet Count 308 k/uL (150-450); RBC 3.52 m/uL (4.30-5.90); RDW 14.2 % (11.5-15.5)
[2018-08-27 08:44] LABS: ALT 110 U/L (21-72); AST 82 U/L (17-59); Alkaline Phosphatase 213 U/L (38-126); Anion Gap 5 mmol/L; Blood Urea Nitrogen 11 mg/dL (9-20); Calcium 8.8 mg/dL (8.4-10.2); Carbon Dioxide 24 mmol/L (22-30); Chloride 108 mmol/L (98-107); Glucose 92 mg/dL (74-99); Potassium 4.3 mmol/L (3.5-5.1); Sodium 137 mmol/L (137-145); Total Bilirubin 2.6 mg/dL (0.2-1.3); Total Protein 6.1 g/dL (6.3-8.2)
[2018-08-27] MEDS: CHOLECALCIFEROL 1,000 UNIT TAB PO SCH (09:46)
[2018-08-27] MEDS: DOCUSATE 100 MG CAP PO SCH ×2 (09:46→21:21)
[2018-08-27] MEDS: PANTOPRAZOLE 40 MG TABLET PO SCH (09:46)
[2018-08-27] MEDS: MORPHINE SULFATE 4 MG/ML SYRINGE IV PRN ×4 (09:51→21:28)
[2018-08-27] MEDS: HEPARIN SOD,PORK IN 0.45% NACL 25,000 UNIT in 0.45% NACL 1 500ML.BAG IV SCH ×2 (09:52→23:50)
--- NOTE | 2018-08-27 11:06 | P.PN ---
Subjective Progress Note Date: 08/27/18 Shay Gutierrez is a 68-year-old male who presented to [facility] emergency room with a chief complaint of left lower extremity pain and swelling that started 2 days prior to presentation, he was evaluated in the emergency room and had evidence of left lower extremity deep venous thrombosis he was started on IV heparin and was admitted to medical floor. Patient states that about 3 weeks prior to this admission he had an upper respiratory infection treated with oral antibiotic course but he states that he spent most of the time in bed day and night for the last 2-3 weeks, as he was feeling ready weak and tired. Patient denies having any previous episodes of DVT or PE in the past On 08/23/2018 patient is currently resting in bed. Patient rains on IV heparin for DVT. Patient reports that he's had a low appetite. Patient also currently drinking contrast for CT scans ordered per oncology. Patient denies any shortness of breath or chest discomfort. Patient denies any urinary burning or frequency. Patient denies any diarrhea or constipation at this time On 08/24/2018 patient is currently resting in bed. Patient CTA yesterday showing bilateral PE. Dr. Sanchez has been consulted for pulmonary services. Patient is on heparin due to DVT and pulmonary embolisms. Discussed case with oncology service is patient biopsy of liver lesions. Patient was on Plavix prior to hospital admission. Biopsy likely will be Thursday. Patient to remain on heparin protocol. Patient denies chest pain or shortness of breath. Patient denies nausea vomiting or diarrhea. Patient denies any urinary burning or frequency. On 08/25/2018 patient is currently resting in bed. Patient states he has been moving around. Patient also expressed that he is a bit more anxious due to the recent findings on his CT. Patient remains on heparin drip biopsy of liver lesions likely will be on Thursday. At this time patient denies chest pain or shortness of breath. Patient denies nausea vomiting or diarrhea. Patient denies any urinary burning or frequency On 08/26/2018 patient is currently resting comfortably in chair with at bedside. Patient does report he's been having increased anxiety due to impending testing. Xanax has been increased. At this time patient denies chest pain. Patient states shortness of breath has improved with oxygen during activity. Patient denies nausea vomiting or diarrhea. Patient denies any urinary burning or frequency On 08/27/2018 patient is currently resting in bed. at bedside. Patient remains alert and oriented 3. Patient remains on heparin drip for bilateral PEs and DVT. Liver biopsy likely to be completed on Thursday. This time patient denies chest pain or shortness breath. Patient denies any nausea vomiting or diarrhea. Is complaining of intermittent right abdominal pain. Patient denies any urinary burning or frequency Objective - Vital Signs Vital signs: Vital Signs Temp 98.9 F 08/26/18 21:00 Pulse 78 08/27/18 08:00 Resp 18 08/27/18 08:00 BP 136/80 08/26/18 21:00 Pulse Ox 94 L 08/26/18 21:00 Intake & Output 08/26/18 08/27/18 08/27/18 18:59 06:59 18:59 Intake Total 758.374 259.251 Output Total 600 Balance 758.374 -600 259.251 Weight 115.45 kg 115.45 kg 115.48 kg Intake: Intake, IV Titration 518.374 259.251 Amount Heparin Sod,Pork in 0.45% 518.374 259.251 NaCl 25,000 unit In 0.45 % NaCl 1 500ml.bag @ 18 UNITS/KG/HR 40.82 mls/hr IV .[id number] [facility] Rx#: [id number] Oral 240 Output: Urine 600 Other: Voiding Method Toilet Toilet Toilet # Voids 2 2 1 # Bowel Movements 0 0 - Exam In general patient is alert and oriented 3 in no apparent distress Neck is supple no JVD no goiter no lymphadenopathy Chest exam reveals a clear respiratory sounds no crackles no wheezing Cardiac exam reveals regular heart sounds S1 and S2 no gallops no murmurs Abdomen is soft nontender no organomegaly with normal bowel sounds Extremity exam reveals mild swelling and tenderness in the left lower extremity Patient also has swelling and induration and tenderness in the right upper extremity right above the elbow Neurological examination reveals no gross focal deficit - Labs CBC & Chem 7: 08/27/18 07:42 08/27/18 07:42 Labs: Abnormal Lab Results - Last 24 Hours (Table) 08/26/18 08/27/18 08/27/18 Range/Units 18:42 07:42 07:42 RBC 3.52 L (4.30-5.90) m/uL Hgb 10.5 L (13.0-17.5) gm/dL Hct 32.6 L (39.0-53.0) % APTT 52.4 H (22.0-30.0) sec Chloride 108 H (98-107) mmol/L Total Bilirubin 2.6 H (0.2-1.3) mg/dL AST 82 H (17-59) U/L ALT 110 H (21-72) U/L Alkaline Phosphatase 213 H (38-126) U/L Total Protein 6.1 L (6.3-8.2) g/dL Albumin 3.0 L (3.5-5.0) g/dL 08/27/18 Range/Units 07:42 RBC (4.30-5.90) m/uL Hgb (13.0-17.5) gm/dL Hct (39.0-53.0) % APTT 48.3 H (22.0-30.0) sec Chloride (98-107) mmol/L Total Bilirubin (0.2-1.3) mg/dL AST (17-59) U/L ALT (21-72) U/L Alkaline Phosphatase (38-126) U/L Total Protein (6.3-8.2) g/dL Albumin (3.5-5.0) g/dL Assessment and Plan Assessment: #1 left lower extremity deep venous thrombosis patient is maintained on IV heparin. CTA and CT of abdomen and pelvis has been ordered per oncology services. Per Dr. Serrano for vascular surgery patient to be started on xarelto or coumadin. #[address] of the abdomen and pelvis completed showing approximately 4 indeterminate liver lesions measuring up to 3.6 cm metastases disease not excluded at this time. MRI evaluation and clinical workup recommended. Mildly enlarged 1.7 cm michelle caval 1.2 cm michelle hepatis lymph nodes are nonspecific. 1.8 cm cystic lesion of the pancreatic uncinate process. This can also be further evaluated on the patient's liver MRI. Nonspecific nodularity of the adrenal glands measuring up to 1.2 cm possible incidental underlining adrenal adenomas was can be reassessed at follow-up. Borderline to mildly hydropic gallbladder likely due to fasting state. If right upper quadrant pain are concerning for early acute cholecystitis follow- up ultrasound scan. Sigmoid diverticulosis without evidence for acute diverticulitis. Bilateral femoral head AVN, right greater than left without subarticular collapse. CA19-9 antigen ordered per oncology service is elevated at greater than 70,000. Discussed case with Kamilla Evangelista per oncology services. Interventional radiology has been consulted for possible biopsy of liver lesions. Patient previously on Plavix prior to admission. Patient to remain on heparin drip until biopsy completion. #3 right upper extremity pain and swelling, will obtain ultrasound #4 dehydration was acute renal failure due to prerenal azotemia elevated 24 on admission creatinine elevated at 1.29 maintained on IV fluid. Creatinine improving to 1.00. Resolved #5 underlying history of hypertension well-controlled on medications #6 underlying history of hyperlipidemia #7 previous history of coronary artery disease with angioplasty and stent placement to the proximal LAD in February 2015\ #8 bilateral pulmonary embolism. CTA performed showing bilateral pulmonary emboli, moderate burden on the right and mild on the left. No CT evidence for right heart strain. COPD with mild edema. Suspect underlying pulmonary arterial hypertension. A 1 cm subpleural density at the left base could represent nodule atelectasis or small area of pulmonary infarct is a sequela of the patient's pulmonary emboli three-month follow-up recommended. Dr. Sanchez has been consulted for pulmonary services she remains on heparin drip. #9. Anxiety. Patient currently takes Xanax 0.5 mg nightly at home. Patient expressed that he has been more anxious due to recent finding potential diagnosis. Will increase Xanax to three times a day at this time. DVT prophylaxis heparin gtt. GI prophylaxis Protonix Per case management patient does not have any prescription coverage and will be unable to pay for [employer]. Plantar now is patient to be eventually switched to Coumadin once liver biopsies complete I performed an examination of the patient and discussed their management with the Nurse Practitioner. I have reviewed the Nurse Practitioner's notes and agree with the documented findings and plan of care
[2018-08-27] MEDS: MULTIVITAMINS, THERA 1 EACH TAB PO SCH (12:54)
[2018-08-27] MEDS: CYANOCOBALAMIN 500 MCG TAB PO SCH (12:54)
[2018-08-27] MEDS: ALPRAZolam 0.5 MG TAB PO PRN (14:58)
--- NOTE | 2018-08-27 14:58 | P.PN ---
Subjective Progress Note Date: 08/27/18 Principal diagnosis: Bilateral pulmonary emboli Pulmonary consultation dated 08/23/2018 This is a 68-year-old male who presented to the emergency department on August 21 with a chief complaint of swelling to the left lower extremity. The patient had a Doppler done which showed DVT in the left leg. Apparently the swelling was noted to days prior to presentation in the emergency department. He had some pain and tenderness in the left calf area as well. There was no injury or trauma. The patient states that he did not been feeling well over the course of 4-5 weeks and had some respiratory illness which caused him to be very inactive and sedentary. The patient apparently came in to be evaluated and was concerned about the possibility of a blood clot. A blood clot was found in the leg. He was started on IV heparin. In addition, he had a CT angiogram which revealed bilateral pulmonary emboli. The patient has no previous history of DVT or PE. Apparently there is a family history of blood clots in his mother. The patient did have some complaints of chest discomfort and shortness of breath as well. These are relatively mild but present nonetheless. The patient has a history of hyperlipidemia and hypertension. The patient also has a history of CAD with previous angioplasty and stent placement to the proximal LAD. In addition, the patient was found to have 4 liver lesions measuring up to 3.6 cm in size and metastasis as well as not excluded. In addition, he had a mildly enlarged 1.7 cm portacaval and 1.2 cm michelle hepatic lymph nodes. In addition, he had a 1.8 cm cystic lesion in the pancreatic uncinate process. Progress note dated 08/24/2018 The patient is seen again today in follow-up on the regular medical floor. He is currently resting fairly comfortably in bed. He is awake and alert in no acute distress. He is maintaining good O2 saturations in the 90s on room air. He denies any worsening chest pain, palpitations lightheadedness or dizziness. Based on the computed tomography scan of the abdomen and suspicion for pancreatic cancer with metastasis to the liver a CA 199 was drawn with results greater than 70,000. Plan is for fine-needle aspirate for diagnosis. The patient has been on Plavix in the procedural probably be done in the next several days. Progress note dated 08/25/2018 The patient is seen again today in follow-up on the regular medical floor. He is awake and alert in no acute distress. He denies any worsening shortness of breath cough or congestion. He states he does feel the need for oxygen once his been up ambulating in the room. Currently he is maintaining good O2 saturations in the mid 90s on 2 L/m per nasal cannula. He's been afebrile. Hemodynamically stable. White count 10.9. Hemoglobin 10.8. INR 1.10. AST 103 , ALT 134, alk phos 231. The plan is for biopsy on 08/30/2018 Progress note dated 08/26/2018 Patient is seen again today in follow-up on the regular medical floor. He is resting comfortably in bed. He denies any worsening shortness of breath, cough or congestion. No chest pain or palpitations. No lightheadedness or dizziness. He is maintaining good O2 saturations in the mid 90s on room air. He's been afebrile. Hemodynamically stable. He remains on a heparin drip for his bilateral PE until he can be transitioned to oral anticoagulant following a biopsy. Progress dated 08/27/2018 The patient is seen again today in follow-up on the regular medical floor. He is awake and alert in no acute distress. Currently sitting up in a chair at the bedside. He denies any worsening shortness of breath, cough or congestion. He has been up ambulating in the hallway and feels he does take him a few minutes to recover once he gets back to the room. He is currently on oxygen at 2 L/m per nasal cannula. No cough or congestion. No hemoptysis. White count 10.0. Hemoglobin 10.5. Creatinine 0.98. He remains on heparin drip. Biopsy for diagnosis is pending. Objective - Vital Signs Vital signs: Vital Signs Temp 98.9 F 08/26/18 21:00 Pulse 78 08/27/18 08:00 Resp 18 08/27/18 08:00 BP 136/80 08/26/18 21:00 Pulse Ox 94 L 08/26/18 21:00 Intake & Output 08/26/18 08/27/18 08/27/18 18:59 06:59 18:59 Intake Total 758.374 259.251 Output Total 600 Balance 758.374 -600 259.251 Weight 115.45 kg 115.45 kg 115.48 kg Intake: Intake, IV Titration 518.374 259.251 Amount Heparin Sod,Pork in 0.45% 518.374 259.251 NaCl 25,000 unit In 0.45 % NaCl 1 500ml.bag @ 18 UNITS/KG/HR 40.82 mls/hr IV .[id number] [facility] Rx#: [id number] Oral 240 Output: Urine 600 Other: Voiding Method Toilet Toilet Toilet # Voids 2 2 1 # Bowel Movements 0 0 - Exam GENERAL EXAM: Alert, active, comfortable in no apparent distress. Ambulating without acute distress. HEAD: Normocephalic. EYES: Normal reaction of pupils, equal size. NOSE: Clear with pink turbinates. THROAT: No erythema or exudates. NECK: No masses, no JVD. CHEST: No chest wall deformity. LUNGS: Equal air entry with no crackles, wheeze, rhonchi or dullness. CVS: S1 and S2 normal with no audible murmur, regular rhythm. ABDOMEN: No hepatosplenomegaly, normal bowel sounds, no guarding or rigidity. SPINE: No scoliosis or deformity SKIN: No rashes CENTRAL NERVOUS SYSTEM: No focal deficits, tone is normal in all 4 extremities. EXTREMITIES: There is no peripheral edema. No clubbing, no cyanosis. Peripheral pulses are intact. - Labs CBC & Chem 7: 08/27/18 07:42 08/27/18 07:42 Labs: Abnormal Lab Results - Last 24 Hours (Table) 08/26/18 08/27/18 08/27/18 Range/Units 18:42 07:42 07:42 RBC 3.52 L (4.30-5.90) m/uL Hgb 10.5 L (13.0-17.5) gm/dL Hct 32.6 L (39.0-53.0) % APTT 52.4 H (22.0-30.0) sec Chloride 108 H (98-107) mmol/L Total Bilirubin 2.6 H (0.2-1.3) mg/dL AST 82 H (17-59) U/L ALT 110 H (21-72) U/L Alkaline Phosphatase 213 H (38-126) U/L Total Protein 6.1 L (6.3-8.2) g/dL Albumin 3.0 L (3.5-5.0) g/dL 08/27/18 Range/Units 07:42 RBC (4.30-5.90) m/uL Hgb (13.0-17.5) gm/dL Hct (39.0-53.0) % APTT 48.3 H (22.0-30.0) sec Chloride (98-107) mmol/L Total Bilirubin (0.2-1.3) mg/dL AST (17-59) U/L ALT (21-72) U/L Alkaline Phosphatase (38-126) U/L Total Protein (6.3-8.2) g/dL Albumin (3.5-5.0) g/dL Assessment and Plan Assessment: Assessment Left leg DVT and bilateral pulmonary emboli, in a relatively healthy patient with a previous history of hypertension, hyperlipidemia and CAD. CT of the abdomen reveals 4 liver lesions, non-specific abdominal adenopathy and a pancreatic lesion. CA 199 greater than 70,000. History of CAD with previous stent placement Hypertension by history History of hyperlipidemia Plan: The patient was seen and evaluated by Dr. Sanchez. He remains stable from the pulmonary standpoint. Remains on a heparin drip for the DVT/PE. The plan is for FNA 08/30/2018 for diagnosis by interventional radiology. We will follow the patient on as-needed basis. I, the cosigning physician, performed a history & physical examination of the patient. Lungs sounds are clear. Maintaining good O2 saturations in the 90s on room air. I discussed the assessment and plan of care with my nurse practitioner, Lisette Moise. I attest to the above note as dictated by her.
--- NOTE | 2018-08-27 17:54 | XR ---
EXAMINATION: XR chest 2V DATE AND TIME: 08/27/2018 4:38 PM CLINICAL INDICATION: right sided chest discomfort TECHNIQUE: PA and lateral COMPARISON: 08/21/2018 FINDINGS: The lungs are clear. The pleural spaces are negative. The cardiac silhouette is mildly enlarged. The skeletal structures and soft tissues are negative for acute findings. IMPRESSION: NO ACUTE PROCESS.
[2018-08-27] MEDS: ZOLPIDEM 10 MG TAB PO PRN (21:27)
[2018-08-27] MEDS: MELATONIN 5 MG TABLET PO SCH (21:27)
[2018-08-27] MEDS: METOPROLOL TARTRATE 25 MG TAB PO SCH (21:27)
[2018-08-27] MEDS: LOSARTAN 50 MG TAB PO SCH (21:27)
[2018-08-27] MEDS: amLODIPine 5 MG TAB PO SCH (21:28)
[2018-08-28] MEDS: MORPHINE SULFATE 4 MG/ML SYRINGE IV PRN ×5 (04:58→21:30)
[2018-08-28] MEDS: ALPRAZolam 0.5 MG TAB PO PRN (04:58)
[2018-08-28 07:19] LABS: Basophils # (A) 0.1 k/uL (0-0.2); Basophils % (A) 1 %; Eosinophils # (A) 0.4 k/uL (0-0.7); Eosinophils % (A) 4 %; HCT 33.1 % (39.0-53.0); HGB 10.4 gm/dL (13.0-17.5); Lymphocytes # (A) 0.8 k/uL (1.0-4.8); Lymphocytes % (A) 9 %; MCH 29.3 pg (25.0-35.0); MCHC 31.4 g/dL (31.0-37.0); MCV 93.3 fL (80.0-100.0); Mean Platelet Volume 7.2; Monocytes # (A) 0.7 k/uL (0-1.0); Monocytes % (A) 8 %; Neutrophils # (A) 6.9 k/uL (1.3-7.7); Neutrophils % (A) 75 %; Platelet Count 312 k/uL (150-450); RBC 3.54 m/uL (4.30-5.90); RDW 14.3 % (11.5-15.5); WBC 9.1 k/uL (3.8-10.6)
[2018-08-28 07:46] LABS: ALT 121 U/L (21-72); AST 96 U/L (17-59); Albumin 3.2 g/dL (3.5-5.0); Alkaline Phosphatase 227 U/L (38-126); Anion Gap 7 mmol/L; Blood Urea Nitrogen 9 mg/dL (9-20); Calcium 8.8 mg/dL (8.4-10.2); Carbon Dioxide 23 mmol/L (22-30); Chloride 106 mmol/L (98-107); Glucose 101 mg/dL (74-99); Potassium 4.3 mmol/L (3.5-5.1); Sodium 136 mmol/L (137-145); Total Bilirubin 2.9 mg/dL (0.2-1.3); Total Protein 6.4 g/dL (6.3-8.2)
[2018-08-28] MEDS: ALPRAZolam 0.5 MG TAB PO SCH (08:21)
[2018-08-28] MEDS: PANTOPRAZOLE 40 MG TABLET PO SCH (08:22)
[2018-08-28] MEDS: CHOLECALCIFEROL 1,000 UNIT TAB PO SCH (08:22)
[2018-08-28] MEDS: DOCUSATE 100 MG CAP PO SCH ×2 (08:22→21:29)
--- NOTE | 2018-08-28 09:39 | US ---
EXAMINATION TYPE: US liver DATE OF EXAM: 08/28/2018 COMPARISON: 08/23/2018 CT abdomen pelvis and liver ultrasound dated 03/29/2018 CLINICAL HISTORY: RUQ abdominal pain. EXAM MEASUREMENTS: Liver Length: 19.5 cm Gallbladder Wall: 0.3 cm CBD: 0.6 cm Right Kidney: 13.3 x 5.7 x 5.2 cm Limited due to bowel gas and pt ability to hold breath. Pancreas: Obscured by bowel gas Liver: Increased attenuation, heterogeneous echotexture with 4 distinguished nodules noted with irre gular borders measuring approximately rt lobe (4.3 x 3.7 x 4.4cm) (2.1 x 1.9 x 2.3cm) (1.5 x 1.5 x 1. 5cm) lt lobe (6.3 x 4.5 x 4.2cm) Gallbladder: echogenic material within likely sludge, appears prominent Evidence for sonographic White's sign: No CBD: wnl Right Kidney: wnl IMPRESSION: 1. Gallbladder is filled with tumefactive sludge however there is no current sonographic evidence of acute cholecystitis. 2. There is a diffusely heterogenous hepatic echotexture with 4 well-defined hepatic lesions measurin g up to 6.3 cm, enlarged from the prior CT dated 08/23/2018 where these measured 3.6 cm, direct caryl rison of size to the CT may be slightly inaccurate given differences in technique and obliquity, calvert fadi overall enlargement is favored of these lesions. Diffuse heterogeneity of the hepatic parenchyma does raise suspicion for more than 4 hepatic lesions. Enhanced MRI abdomen could further characterize these.
[2018-08-28] MEDS ORDERED: HEPARIN SODIUM,PORCINE 5,000 UNIT/ML 1 ML VIAL IV STA (13:45)
[2018-08-28] MEDS: MULTIVITAMINS, THERA 1 EACH TAB PO SCH (13:52)
[2018-08-28] MEDS: CYANOCOBALAMIN 500 MCG TAB PO SCH (13:52)
--- NOTE | 2018-08-28 14:49 | P.PN ---
Subjective Progress Note Date: 08/28/18 Shay Gutierrez is a 68-year-old male who presented to [facility] emergency room with a chief complaint of left lower extremity pain and swelling that started 2 days prior to presentation, he was evaluated in the emergency room and had evidence of left lower extremity deep venous thrombosis he was started on IV heparin and was admitted to medical floor. Patient states that about 3 weeks prior to this admission he had an upper respiratory infection treated with oral antibiotic course but he states that he spent most of the time in bed day and night for the last 2-3 weeks, as he was feeling ready weak and tired. Patient denies having any previous episodes of DVT or PE in the past On 08/23/2018 patient is currently resting in bed. Patient rains on IV heparin for DVT. Patient reports that he's had a low appetite. Patient also currently drinking contrast for CT scans ordered per oncology. Patient denies any shortness of breath or chest discomfort. Patient denies any urinary burning or frequency. Patient denies any diarrhea or constipation at this time On 08/24/2018 patient is currently resting in bed. Patient CTA yesterday showing bilateral PE. Dr. Sanchez has been consulted for pulmonary services. Patient is on heparin due to DVT and pulmonary embolisms. Discussed case with oncology service is patient biopsy of liver lesions. Patient was on Plavix prior to hospital admission. Biopsy likely will be Thursday. Patient to remain on heparin protocol. Patient denies chest pain or shortness of breath. Patient denies nausea vomiting or diarrhea. Patient denies any urinary burning or frequency. On 08/25/2018 patient is currently resting in bed. Patient states he has been moving around. Patient also expressed that he is a bit more anxious due to the recent findings on his CT. Patient remains on heparin drip biopsy of liver lesions likely will be on Thursday. At this time patient denies chest pain or shortness of breath. Patient denies nausea vomiting or diarrhea. Patient denies any urinary burning or frequency On 08/26/2018 patient is currently resting comfortably in chair with at bedside. Patient does report he's been having increased anxiety due to impending testing. Xanax has been increased. At this time patient denies chest pain. Patient states shortness of breath has improved with oxygen during activity. Patient denies nausea vomiting or diarrhea. Patient denies any urinary burning or frequency On 08/27/2018 patient is currently resting in bed. at bedside. Patient remains alert and oriented 3. Patient remains on heparin drip for bilateral PEs and DVT. Liver biopsy likely to be completed on Thursday. This time patient denies chest pain or shortness breath. Patient denies any nausea vomiting or diarrhea. Is complaining of intermittent right abdominal pain. Patient denies any urinary burning or frequency On 08/28/2018 patient is alert and oriented 3 pain is better controlled he is still on IV heparin drip he is still complaining of pain in the right upper quadrant otherwise no complaints at this time there is no fever or chills no headache no dizziness no chest pain no shortness of breath no nausea or vomiting and no urinary symptoms Objective - Vital Signs Vital signs: Vital Signs Temp 97.5 F L 08/28/18 13:00 Pulse 82 08/28/18 13:00 Resp 22 08/28/18 13:00 BP 163/88 08/28/18 13:00 Pulse Ox 94 L 08/28/18 13:00 Intake & Output 08/27/18 08/28/18 08/28/18 18:59 06:59 18:59 Intake Total 964.173 9783 500 Output Total 600 600 Balance 882.081 2955 -100 Weight 115.48 kg 109.5 kg 109.5 kg Intake: Intake, IV Titration 259.251 500 500 Amount Heparin Sod,Pork in 0.45% 259.251 500 500 NaCl 25,000 unit In 0.45 % NaCl 1 500ml.bag @ 18 UNITS/KG/HR 40.82 mls/hr IV .[id number] [facility] Rx#: [id number] Oral 500 1180 Output: Urine 600 600 Other: Voiding Method Toilet Toilet Toilet # Voids 1 3 3 # Bowel Movements 0 1 - Exam In general patient is alert and oriented 3 in no apparent distress Neck is supple no JVD no goiter no lymphadenopathy Chest exam reveals a clear respiratory sounds no crackles no wheezing Cardiac exam reveals regular heart sounds S1 and S2 no gallops no murmurs Abdomen is soft nontender no organomegaly with normal bowel sounds Extremity exam reveals mild swelling and tenderness in the left lower extremity Patient also has swelling and induration and tenderness in the right upper extremity right above the elbow Neurological examination reveals no gross focal deficit - Labs CBC & Chem 7: 08/28/18 06:41 08/28/18 06:41 Labs: Abnormal Lab Results - Last 24 Hours (Table) 08/28/18 08/28/18 08/28/18 Range/Units 06:41 06:41 12:31 RBC 3.54 L (4.30-5.90) m/uL Hgb 10.4 L (13.0-17.5) gm/dL Hct 33.1 L (39.0-53.0) % Lymphocytes # 0.8 L (1.0-4.8) k/uL APTT 42.7 H (22.0-30.0) sec Sodium 136 L (137-145) mmol/L Glucose 101 H (74-99) mg/dL Total Bilirubin 2.9 H (0.2-1.3) mg/dL AST 96 H (17-59) U/L ALT 121 H (21-72) U/L Alkaline Phosphatase 227 H (38-126) U/L Albumin 3.2 L (3.5-5.0) g/dL Assessment and Plan Plan: #1 left lower extremity deep venous thrombosis patient is maintained on IV heparin. CTA and CT of abdomen and pelvis has been ordered per oncology services. Per Dr. Serrano for vascular surgery patient to be started on xarelto or coumadin. #[address] of the abdomen and pelvis completed showing approximately 4 indeterminate liver lesions measuring up to 3.6 cm metastases disease not excluded at this time. MRI evaluation and clinical workup recommended. Mildly enlarged 1.7 cm michelle caval 1.2 cm michelle hepatis lymph nodes are nonspecific. 1.8 cm cystic lesion of the pancreatic uncinate process. This can also be further evaluated on the patient's liver MRI. Nonspecific nodularity of the adrenal glands measuring up to 1.2 cm possible incidental underlining adrenal adenomas was can be reassessed at follow-up. Borderline to mildly hydropic gallbladder likely due to fasting state. If right upper quadrant pain are concerning for early acute cholecystitis follow- up ultrasound scan. Sigmoid diverticulosis without evidence for acute diverticulitis. Bilateral femoral head AVN, right greater than left without subarticular collapse. CA19-9 antigen ordered per oncology service is elevated at greater than 70,000. Discussed case with Kamilla Evangelista per oncology services. Interventional radiology has been consulted for possible biopsy of liver lesions. Patient previously on Plavix prior to admission. Patient to remain on heparin drip until biopsy completion. #3 right upper extremity pain and swelling, will obtain ultrasound #4 dehydration was acute renal failure due to prerenal azotemia elevated 24 on admission creatinine elevated at 1.29 maintained on IV fluid. Creatinine improving to 1.00. Resolved #5 underlying history of hypertension well-controlled on medications #6 underlying history of hyperlipidemia #7 previous history of coronary artery disease with angioplasty and stent placement to the proximal LAD in February 2015\ #8 bilateral pulmonary embolism. CTA performed showing bilateral pulmonary emboli, moderate burden on the right and mild on the left. No CT evidence for right heart strain. COPD with mild edema. Suspect underlying pulmonary arterial hypertension. A 1 cm subpleural density at the left base could represent nodule atelectasis or small area of pulmonary infarct is a sequela of the patient's pulmonary emboli three-month follow-up recommended. Dr. Sanchez has been consulted for pulmonary services she remains on heparin drip. #9. Anxiety. Patient currently takes Xanax 0.5 mg nightly at home. Patient expressed that he has been more anxious due to recent finding potential diagnosis. Will increase Xanax to three times a day at this time. DVT prophylaxis heparin gtt. GI prophylaxis Protonix Per case management patient does not have any prescription coverage and will be unable to pay for eliquis. Plantar now is patient to be eventually switched to Coumadin once liver biopsies complete
[2018-08-28] MEDS: HEPARIN SOD,PORK IN 0.45% NACL 25,000 UNIT in 0.45% NACL 1 500ML.BAG IV SCH ×2 (14:54→21:51)
[2018-08-28] MEDS: ONDANSETRON 4 MG/2 ML VIAL IVP PRN (18:46)
[2018-08-28] MEDS: amLODIPine 5 MG TAB PO SCH (21:28)
[2018-08-28] MEDS: ZOLPIDEM 10 MG TAB PO PRN (21:28)
[2018-08-28] MEDS: LOSARTAN 50 MG TAB PO SCH (21:29)
[2018-08-28] MEDS: METOPROLOL TARTRATE 25 MG TAB PO SCH (21:29)
[2018-08-28] MEDS: MELATONIN 5 MG TABLET PO SCH (21:29)
[2018-08-29] MEDS: HEPARIN SOD,PORK IN 0.45% NACL 25,000 UNIT in 0.45% NACL 1 500ML.BAG IV SCH ×2 (02:05→17:13)
[2018-08-29] MEDS: MORPHINE SULFATE 4 MG/ML SYRINGE IV PRN ×6 (02:06→23:51)
[2018-08-29] MEDS: ALPRAZolam 0.5 MG TAB PO PRN (05:00)
[2018-08-29 07:50] LABS: ALT 125 U/L (21-72); AST 102 U/L (17-59); Albumin 3.1 g/dL (3.5-5.0); Alkaline Phosphatase 236 U/L (38-126); Anion Gap 4 mmol/L; Blood Urea Nitrogen 10 mg/dL (9-20); Calcium 8.8 mg/dL (8.4-10.2); Carbon Dioxide 26 mmol/L (22-30); Chloride 107 mmol/L (98-107); Glucose 99 mg/dL (74-99); Potassium 4.3 mmol/L (3.5-5.1); Sodium 137 mmol/L (137-145); Total Bilirubin 2.7 mg/dL (0.2-1.3); Total Protein 6.1 g/dL (6.3-8.2)
[2018-08-29 07:56] LABS: Basophils # (A) 0.1 k/uL (0-0.2); Basophils % (A) 1 %; Eosinophils # (A) 0.4 k/uL (0-0.7); Eosinophils % (A) 4 %; HCT 34.9 % (39.0-53.0); HGB 10.9 gm/dL (13.0-17.5); Lymphocytes # (A) 0.9 k/uL (1.0-4.8); Lymphocytes % (A) 9 %; MCH 29.1 pg (25.0-35.0); MCHC 31.1 g/dL (31.0-37.0); MCV 93.5 fL (80.0-100.0); Mean Platelet Volume 7.1; Monocytes # (A) 0.6 k/uL (0-1.0); Monocytes % (A) 7 %; Neutrophils # (A) 7.2 k/uL (1.3-7.7); Neutrophils % (A) 77 %; Platelet Count 336 k/uL (150-450); RBC 3.73 m/uL (4.30-5.90); RDW 14.4 % (11.5-15.5); WBC 9.4 k/uL (3.8-10.6)
[2018-08-29] MEDS: ALPRAZolam 0.5 MG TAB PO SCH (08:05)
[2018-08-29] MEDS: CHOLECALCIFEROL 1,000 UNIT TAB PO SCH (08:06)
[2018-08-29] MEDS: DOCUSATE 100 MG CAP PO SCH ×2 (08:06→23:42)
[2018-08-29] MEDS: PANTOPRAZOLE 40 MG TABLET PO SCH (08:06)
[2018-08-29] MEDS: CYANOCOBALAMIN 500 MCG TAB PO SCH (12:11)
[2018-08-29] MEDS: MULTIVITAMINS, THERA 1 EACH TAB PO SCH (12:11)
--- NOTE | 2018-08-29 14:54 | P.PN ---
Subjective Progress Note Date: 08/29/18 Shay Gutierrez is a 68-year-old male who presented to [facility] emergency room with a chief complaint of left lower extremity pain and swelling that started 2 days prior to presentation, he was evaluated in the emergency room and had evidence of left lower extremity deep venous thrombosis he was started on IV heparin and was admitted to medical floor. Patient states that about 3 weeks prior to this admission he had an upper respiratory infection treated with oral antibiotic course but he states that he spent most of the time in bed day and night for the last 2-3 weeks, as he was feeling ready weak and tired. Patient denies having any previous episodes of DVT or PE in the past On 08/23/2018 patient is currently resting in bed. Patient rains on IV heparin for DVT. Patient reports that he's had a low appetite. Patient also currently drinking contrast for CT scans ordered per oncology. Patient denies any shortness of breath or chest discomfort. Patient denies any urinary burning or frequency. Patient denies any diarrhea or constipation at this time On 08/24/2018 patient is currently resting in bed. Patient CTA yesterday showing bilateral PE. Dr. Sanchez has been consulted for pulmonary services. Patient is on heparin due to DVT and pulmonary embolisms. Discussed case with oncology service is patient biopsy of liver lesions. Patient was on Plavix prior to hospital admission. Biopsy likely will be Thursday. Patient to remain on heparin protocol. Patient denies chest pain or shortness of breath. Patient denies nausea vomiting or diarrhea. Patient denies any urinary burning or frequency. On 08/25/2018 patient is currently resting in bed. Patient states he has been moving around. Patient also expressed that he is a bit more anxious due to the recent findings on his CT. Patient remains on heparin drip biopsy of liver lesions likely will be on Thursday. At this time patient denies chest pain or shortness of breath. Patient denies nausea vomiting or diarrhea. Patient denies any urinary burning or frequency On 08/26/2018 patient is currently resting comfortably in chair with at bedside. Patient does report he's been having increased anxiety due to impending testing. Xanax has been increased. At this time patient denies chest pain. Patient states shortness of breath has improved with oxygen during activity. Patient denies nausea vomiting or diarrhea. Patient denies any urinary burning or frequency On 08/27/2018 patient is currently resting in bed. at bedside. Patient remains alert and oriented 3. Patient remains on heparin drip for bilateral PEs and DVT. Liver biopsy likely to be completed on Thursday. This time patient denies chest pain or shortness breath. Patient denies any nausea vomiting or diarrhea. Is complaining of intermittent right abdominal pain. Patient denies any urinary burning or frequency On 08/28/2018 patient is alert and oriented 3 pain is better controlled he is still on IV heparin drip he is still complaining of pain in the right upper quadrant otherwise no complaints at this time there is no fever or chills no headache no dizziness no chest pain no shortness of breath no nausea or vomiting and no urinary symptoms On 08/29/2018 patient is alert and oriented 3 in no apparent distress ane is well-controlled patient is maintained on IV heparin, there is no fever or chills no headache or dizziness no chest pain no shortness of breath no cough no nausea or vomiting no abdominal pain and no urinary symptoms. Plan at this time is to continue with IV heparin, patient will have liver biopsy tomorrow after that he will be started on oral anticoagulation Objective - Vital Signs Vital signs: Vital Signs Temp 97.9 F 08/29/18 05:00 Pulse 80 08/29/18 08:40 Resp 16 08/29/18 08:40 BP 124/60 08/29/18 05:00 Pulse Ox 92 L 08/29/18 05:00 Intake & Output 08/28/18 08/29/18 08/29/18 18:59 06:59 18:59 Intake Total 700 1621.118 304.545 Output Total 1200 Balance -500 1621.118 304.545 Weight 109.5 kg 108 kg Intake: Intake, IV Titration 500 431.118 304.545 Amount Heparin Sod,Pork in 0.45% 500 431.118 304.545 NaCl 25,000 unit In 0.45 % NaCl 1 500ml.bag @ 18 UNITS/KG/HR 40.82 mls/hr IV .[id number] [facility] Rx#: [id number] Oral 200 1190 Output: Urine 1200 Other: Voiding Method Toilet Toilet Toilet # Voids 3 1 - Exam In general patient is alert and oriented 3 in no apparent distress Neck is supple no JVD no goiter no lymphadenopathy Chest exam reveals a clear respiratory sounds no crackles no wheezing Cardiac exam reveals regular heart sounds S1 and S2 no gallops no murmurs Abdomen is soft nontender no organomegaly with normal bowel sounds Extremity exam reveals mild swelling and tenderness in the left lower extremity Patient also has swelling and induration and tenderness in the right upper extremity right above the elbow Neurological examination reveals no gross focal deficit - Labs CBC & Chem 7: 08/29/18 06:59 12 06:59 Labs: Abnormal Lab Results - Last 24 Hours (Table) 08/28/18 08/29/18 08/29/18 Range/Units 21:11 06:59 06:59 RBC 3.73 L (4.30-5.90) m/uL Hgb 10.9 L (13.0-17.5) gm/dL Hct 34.9 L (39.0-53.0) % Lymphocytes # 0.9 L (1.0-4.8) k/uL APTT 49.6 H (22.0-30.0) sec Total Bilirubin 2.7 H (0.2-1.3) mg/dL AST 102 H (17-59) U/L ALT 125 H (21-72) U/L Alkaline Phosphatase 236 H (38-126) U/L Total Protein 6.1 L (6.3-8.2) g/dL Albumin 3.1 L (3.5-5.0) g/dL 08/29/18 Range/Units 06:59 RBC (4.30-5.90) m/uL Hgb (13.0-17.5) gm/dL Hct (39.0-53.0) % Lymphocytes # (1.0-4.8) k/uL APTT 57.4 H (22.0-30.0) sec Total Bilirubin (0.2-1.3) mg/dL AST (17-59) U/L ALT (21-72) U/L Alkaline Phosphatase (38-126) U/L Total Protein (6.3-8.2) g/dL Albumin (3.5-5.0) g/dL Assessment and Plan Plan: #1 left lower extremity deep venous thrombosis patient is maintained on IV heparin. CTA and CT of abdomen and pelvis has been ordered per oncology services. Per Dr. Serrano for vascular surgery patient to be started on xarelto or coumadin. #[address] of the abdomen and pelvis completed showing approximately 4 indeterminate liver lesions measuring up to 3.6 cm metastases disease not excluded at this time. MRI evaluation and clinical workup recommended. Mildly enlarged 1.7 cm michelle caval 1.2 cm michelle hepatis lymph nodes are nonspecific. 1.8 cm cystic lesion of the pancreatic uncinate process. This can also be further evaluated on the patient's liver MRI. Nonspecific nodularity of the adrenal glands measuring up to 1.2 cm possible incidental underlining adrenal adenomas was can be reassessed at follow-up. Borderline to mildly hydropic gallbladder likely due to fasting state. If right upper quadrant pain are concerning for early acute cholecystitis follow- up ultrasound scan. Sigmoid diverticulosis without evidence for acute diverticulitis. Bilateral femoral head AVN, right greater than left without subarticular collapse. CA19-9 antigen ordered per oncology service is elevated at greater than 70,000. Discussed case with Kamilla Evangelista per oncology services. Interventional radiology has been consulted for possible biopsy of liver lesions. Patient previously on Plavix prior to admission. Patient to remain on heparin drip until biopsy completion. #3 right upper extremity pain and swelling, will obtain ultrasound #4 dehydration was acute renal failure due to prerenal azotemia elevated 24 on admission creatinine elevated at 1.29 maintained on IV fluid. Creatinine improving to 1.00. Resolved #5 underlying history of hypertension well-controlled on medications #6 underlying history of hyperlipidemia #7 previous history of coronary artery disease with angioplasty and stent placement to the proximal LAD in February 2015\ #8 bilateral pulmonary embolism. CTA performed showing bilateral pulmonary emboli, moderate burden on the right and mild on the left. No CT evidence for right heart strain. COPD with mild edema. Suspect underlying pulmonary arterial hypertension. A 1 cm subpleural density at the left base could represent nodule atelectasis or small area of pulmonary infarct is a sequela of the patient's pulmonary emboli three-month follow-up recommended. Dr. Sanchez has been consulted for pulmonary services she remains on heparin drip. #9. Anxiety. Patient currently takes Xanax 0.5 mg nightly at home. Patient expressed that he has been more anxious due to recent finding potential diagnosis. Will increase Xanax to three times a day at this time. DVT prophylaxis heparin gtt. GI prophylaxis Protonix Per case management patient does not have any prescription coverage and will be unable to pay for eliquis. Plantar now is patient to be eventually switched to Coumadin once liver biopsies complete
[2018-08-29] MEDS: ONDANSETRON 4 MG/2 ML VIAL IVP PRN (16:16)
[2018-08-29] MEDS: amLODIPine 5 MG TAB PO SCH (23:39)
[2018-08-29] MEDS: LOSARTAN 50 MG TAB PO SCH (23:39)
[2018-08-29] MEDS: METOPROLOL TARTRATE 25 MG TAB PO SCH (23:41)
[2018-08-29] MEDS: ZOLPIDEM 10 MG TAB PO PRN (23:53)
[2018-08-30] MEDS: MELATONIN 5 MG TABLET PO SCH ×2 (00:27→21:36)
[2018-08-30] MEDS: ALPRAZolam 0.5 MG TAB PO SCH ×2 (02:33→10:40)
[2018-08-30] MEDS: DOCUSATE 100 MG CAP PO SCH ×2 (07:32→20:20)
[2018-08-30] MEDS: PANTOPRAZOLE 40 MG TABLET PO SCH (07:32)
[2018-08-30] MEDS: CHOLECALCIFEROL 1,000 UNIT TAB PO SCH (07:32)
[2018-08-30] MEDS: HEPARIN SOD,PORK IN 0.45% NACL 25,000 UNIT in 0.45% NACL 1 500ML.BAG IV SCH ×2 (09:05→14:06)
--- NOTE | 2018-08-30 09:26 | CDI ---
Last Revision, August 2017 Documentation Clarification Form Date: 08/30/18 From: Melvina Fraga RN Admit Date: 08/21/2018 4:53:00 PM Patient Name: Shay Gutierrez Visit Number: [id number] ATTENTION: The Clinical Documentation Specialists (CDI) and [facility] Coding Staff appreciate your assistance in clarifying documentation. Please respond to the clarification below the line at the bottom and electronically sign. The CDI & [facility] Coding staff will review the response and follow-up if needed. Please note: Queries are made part of the Legal Health Record. If you have any questions, please contact the author of this message via ITS. Jaky Gupta MD, Can you please render your opinion on the following documentation? Patient admitted with DVT. History/Risk Factors: hyperlipidemia, HTN, hemorrhoids, heart cath with stents, ex smoker Clinical Indicators: PN 08/22: Patient reports fatigue, malaise and weakness Labs 08/29: Albumin 3.1, Total Protein /1 Current BMI: 33.0 Insufficient energy intake: PN's 08/23 - 08/29 Patient reports that he's had a low/poor appetite Weight Loss: Pt. reports weight loss in the last month per RD note. Fluid accumulation: Mild edema Treatment: Antiemetic, Multivitamin, Vitamin D Dietary Consult: Yes Supplements: [place] Breakfast, Magic cup BID Lab monitoring: Albumin, Total Protein In your professional opinion, can you please clarify if these findings signify one of the following conditions? Mild Protein-Calorie Malnutrition Malnutrition, Unspecified Other condition, please specify Unable to determine ____ mild protein calorie malnutrition MTDD
[2018-08-30 09:36] LABS: Basophils # (A) 0.1 k/uL (0-0.2); Basophils % (A) 1 %; Eosinophils # (A) 0.4 k/uL (0-0.7); Eosinophils % (A) 4 %; HCT 33.6 % (39.0-53.0); HGB 10.7 gm/dL (13.0-17.5); Lymphocytes # (A) 0.9 k/uL (1.0-4.8); Lymphocytes % (A) 11 %; MCH 29.6 pg (25.0-35.0); MCHC 31.8 g/dL (31.0-37.0); MCV 93.1 fL (80.0-100.0); Mean Platelet Volume 7.3; Monocytes # (A) 0.7 k/uL (0-1.0); Monocytes % (A) 8 %; Neutrophils # (A) 6.6 k/uL (1.3-7.7); Neutrophils % (A) 74 %; Platelet Count 295 k/uL (150-450); RBC 3.61 m/uL (4.30-5.90); RDW 14.6 % (11.5-15.5)
[2018-08-30 09:38] LABS: ALT 119 U/L (21-72); AST 91 U/L (17-59); Albumin 3.1 g/dL (3.5-5.0); Alkaline Phosphatase 227 U/L (38-126); Anion Gap 6 mmol/L; Blood Urea Nitrogen 10 mg/dL (9-20); Calcium 9.2 mg/dL (8.4-10.2); Carbon Dioxide 26 mmol/L (22-30); Chloride 106 mmol/L (98-107); Glucose 97 mg/dL (74-99); Potassium 4.2 mmol/L (3.5-5.1); Sodium 138 mmol/L (137-145); Total Bilirubin 2.7 mg/dL (0.2-1.3); Total Protein 6.2 g/dL (6.3-8.2)
[2018-08-30 09:39] LABS: Partial Thromboplastin Time 25.2 sec (22.0-30.0); Prothrombin Time 10.2 sec (9.0-12.0)
--- NOTE | 2018-08-30 09:53 | P.PN ---
Subjective Progress Note Date: 08/30/18 Shay Gutierrez is a 68-year-old male who presented to [facility] emergency room with a chief complaint of left lower extremity pain and swelling that started 2 days prior to presentation, he was evaluated in the emergency room and had evidence of left lower extremity deep venous thrombosis he was started on IV heparin and was admitted to medical floor. Patient states that about 3 weeks prior to this admission he had an upper respiratory infection treated with oral antibiotic course but he states that he spent most of the time in bed day and night for the last 2-3 weeks, as he was feeling ready weak and tired. Patient denies having any previous episodes of DVT or PE in the past On 08/23/2018 patient is currently resting in bed. Patient rains on IV heparin for DVT. Patient reports that he's had a low appetite. Patient also currently drinking contrast for CT scans ordered per oncology. Patient denies any shortness of breath or chest discomfort. Patient denies any urinary burning or frequency. Patient denies any diarrhea or constipation at this time On 08/24/2018 patient is currently resting in bed. Patient CTA yesterday showing bilateral PE. Dr. Sanchez has been consulted for pulmonary services. Patient is on heparin due to DVT and pulmonary embolisms. Discussed case with oncology service is patient biopsy of liver lesions. Patient was on Plavix prior to hospital admission. Biopsy likely will be Thursday. Patient to remain on heparin protocol. Patient denies chest pain or shortness of breath. Patient denies nausea vomiting or diarrhea. Patient denies any urinary burning or frequency. On 08/25/2018 patient is currently resting in bed. Patient states he has been moving around. Patient also expressed that he is a bit more anxious due to the recent findings on his CT. Patient remains on heparin drip biopsy of liver lesions likely will be on Thursday. At this time patient denies chest pain or shortness of breath. Patient denies nausea vomiting or diarrhea. Patient denies any urinary burning or frequency On 08/26/2018 patient is currently resting comfortably in chair with at bedside. Patient does report he's been having increased anxiety due to impending testing. Xanax has been increased. At this time patient denies chest pain. Patient states shortness of breath has improved with oxygen during activity. Patient denies nausea vomiting or diarrhea. Patient denies any urinary burning or frequency On 08/27/2018 patient is currently resting in bed. at bedside. Patient remains alert and oriented 3. Patient remains on heparin drip for bilateral PEs and DVT. Liver biopsy likely to be completed on Thursday. This time patient denies chest pain or shortness breath. Patient denies any nausea vomiting or diarrhea. Is complaining of intermittent right abdominal pain. Patient denies any urinary burning or frequency On 08/28/2018 patient is alert and oriented 3 pain is better controlled he is still on IV heparin drip he is still complaining of pain in the right upper quadrant otherwise no complaints at this time there is no fever or chills no headache no dizziness no chest pain no shortness of breath no nausea or vomiting and no urinary symptoms On 08/29/2018 patient is alert and oriented 3 in no apparent distress ane is well-controlled patient is maintained on IV heparin, there is no fever or chills no headache or dizziness no chest pain no shortness of breath no cough no nausea or vomiting no abdominal pain and no urinary symptoms. Plan at this time is to continue with IV heparin, patient will have liver biopsy tomorrow after that he will be started on oral anticoagulation On 08/30/2018 patient is currently lying comfortably in bed. at bedside. Patient planning for liver biopsy today. Currently on hold. Patient to be transitioned to Coumadin anticoagulation. At this time patient denies chest pain or shortness of breath. Patient denies nausea vomiting or diarrhea. Patient denies any urinary burning or frequency. Objective - Vital Signs Vital signs: Vital Signs Temp 98.4 F 08/30/18 03:48 Pulse 83 08/30/18 03:48 Resp 16 08/30/18 03:48 BP 139/69 08/30/18 03:48 Pulse Ox 92 L 08/30/18 03:48 Intake & Output 08/29/18 08/30/18 08/30/18 18:59 06:59 18:59 Intake Total 860.000 590 500 Output Total 600 Balance 260.000 590 500 Weight 110.5 kg Intake: Intake, IV Titration 500.000 500 Amount Heparin Sod,Pork in 0.45% 500.000 500 NaCl 25,000 unit In 0.45 % NaCl 1 500ml.bag @ 18 UNITS/KG/HR 40.82 mls/hr IV .[id number] [facility] Rx#: [id number] Oral 360 590 Output: Urine 600 Other: Voiding Method Toilet Toilet # Voids 3 1 - Exam In general patient is alert and oriented 3 in no apparent distress Neck is supple no JVD no goiter no lymphadenopathy Chest exam reveals a clear respiratory sounds no crackles no wheezing Cardiac exam reveals regular heart sounds S1 and S2 no gallops no murmurs Abdomen is soft nontender no organomegaly with normal bowel sounds Extremity exam reveals mild swelling and tenderness in the left lower extremity Patient also has swelling and induration and tenderness in the right upper extremity right above the elbow Neurological examination reveals no gross focal deficit - Labs CBC & Chem 7: 08/30/18 09:17 1218 09:17 Labs: Abnormal Lab Results - Last 24 Hours (Table) 08/30/18 08/30/18 Range/Units :17 09:17 RBC 3.61 L (4.30-5.90) m/uL Hgb 10.7 L (13.0-17.5) gm/dL Hct 33.6 L (39.0-53.0) % Lymphocytes # 0.9 L (1.0-4.8) k/uL Total Bilirubin 2.7 H (0.2-1.3) mg/dL AST 91 H (17-59) U/L ALT 119 H (21-72) U/L Alkaline Phosphatase 227 H (38-126) U/L Total Protein 6.2 L (6.3-8.2) g/dL Albumin 3.1 L (3.5-5.0) g/dL Assessment and Plan Assessment: #1 left lower extremity deep venous thrombosis patient is maintained on IV heparin. CTA and CT of abdomen and pelvis has been ordered per oncology services. Per Dr. Serrano for vascular surgery patient to be started on xarelto or coumadin. #[address] of the abdomen and pelvis completed showing approximately 4 indeterminate liver lesions measuring up to 3.6 cm metastases disease not excluded at this time. MRI evaluation and clinical workup recommended. Mildly enlarged 1.7 cm michelle caval 1.2 cm michelle hepatis lymph nodes are nonspecific. 1.8 cm cystic lesion of the pancreatic uncinate process. This can also be further evaluated on the patient's liver MRI. Nonspecific nodularity of the adrenal glands measuring up to 1.2 cm possible incidental underlining adrenal adenomas was can be reassessed at follow-up. Borderline to mildly hydropic gallbladder likely due to fasting state. If right upper quadrant pain are concerning for early acute cholecystitis follow- up ultrasound scan. Sigmoid diverticulosis without evidence for acute diverticulitis. Bilateral femoral head AVN, right greater than left without subarticular collapse. CA19-9 antigen ordered per oncology service is elevated at greater than 70,000. Discussed case with Kamilla Evangelista per oncology services. Interventional radiology has been consulted for possible biopsy of liver lesions. Patient previously on Plavix prior to admission. Patient to remain on heparin drip until biopsy completion. #3 right upper extremity pain and swelling, will obtain ultrasound #4 dehydration was acute renal failure due to prerenal azotemia elevated 24 on admission creatinine elevated at 1.29 maintained on IV fluid. Creatinine improving to 1.00. Resolved #5 underlying history of hypertension well-controlled on medications #6 underlying history of hyperlipidemia #7 previous history of coronary artery disease with angioplasty and stent placement to the proximal LAD in February 2015\ #8 bilateral pulmonary embolism. CTA performed showing bilateral pulmonary emboli, moderate burden on the right and mild on the left. No CT evidence for right heart strain. COPD with mild edema. Suspect underlying pulmonary arterial hypertension. A 1 cm subpleural density at the left base could represent nodule atelectasis or small area of pulmonary infarct is a sequela of the patient's pulmonary emboli three-month follow-up recommended. Dr. Sanchez has been consulted for pulmonary services she remains on heparin drip. #9. Anxiety. Patient currently takes Xanax 0.5 mg nightly at home. Patient expressed that he has been more anxious due to recent finding potential diagnosis. Will increase Xanax to three times a day at this time. Repeat liver ultrasound showing gallbladder is filled with tumefactive sludge however there is no current sonographic evidence of acute cholecystitis DVT prophylaxis heparin gtt. GI prophylaxis Protonix Patient to get liver biopsy today. Patient to be transitioned to Coumadin upon clearance from interventional radiology I performed an examination of the patient and discussed their management with the Nurse Practitioner. I have reviewed the Nurse Practitioner's notes and agree with the documented findings and plan of care
[2018-08-30] MEDS ORDERED: HYDROmorphone 1 MG/ML 1 ML SYRINGE IVP STA (11:35)
[2018-08-30] MEDS: CYANOCOBALAMIN 500 MCG TAB PO SCH (12:51)
[2018-08-30] MEDS: MULTIVITAMINS, THERA 1 EACH TAB PO SCH (12:51)
[2018-08-30] MEDS: HYDROcodone/APAP 7.5-325MG 1 EACH TAB PO PRN (15:17)
--- NOTE | 2018-08-30 15:19 | US ---
EXAMINATION TYPE: US biopsy liver DATE OF EXAM: 08/30/2018 HISTORY: Liver masses. FINDINGS: Maximal barrier technique was utilized. The skin overlying a suitable path to the patient' s right lobe liver mass was localized with ultrasound and the overlying skin prepped and draped. Ult rasound was utilized with sterile technique. Lidocaine was used for local anesthesia. A skin ambika w as made with a scalpel. An 18-gauge needle was advanced under direct ultrasound guidance and core sp ecimen obtained of the mass. Specimen submitted in formalin to Pathology. Following the procedure, hemostasis achieved and the patient is discharged in stable condition without complication. IMPRESSION:STATUS POST ULTRASOUND GUIDED CORE BIOPSY OF right lobe liver MASS, PATHOLOGY IS PENDING. THIS PROCEDURE IS PERFORMED BY THE UNDERSIGNED.
--- NOTE | 2018-08-30 16:00 | P.PN ---
Subjective Progress Note Date: 08/30/18 This is a 68-year-old male patient is being seen in follow-up regarding his DVT and pulmonary embolism. The patient came into the hospital and he was diagnosed having a left lower extremity DVT. The CT angios of the chest showed bilateral pulmonary embolism. The patient has no previous history of DVT or pulmonary embolism. Note that the CAT scan of the abdomen was quite abnormal. There were 4 different lesions in the liver measuring up to 3.6 cm in size consistent with metastatic disease. There was also 1.8 cm cystic lesion in the pancreatic uncinate process. Borderline to mildly hydropic gallbladder. Sigmoid diverticulosis. The patient was taken off IV heparin. The patient underwent a fine-needle aspirate of the liver lesion with high suspicion for pancreatic cancer knowing that the patient's CA-19-9 level was very much elevated. Oncology is on the case. From the pulmonary standpoint, the patient is not having any major respiratory difficulties. No significant cough or sputum production. No hemoptysis. No pleurisy. He is hemodynamically stable. Hemoglobin is at 10.7. Objective - Vital Signs Vital signs: Vital Signs Temp 98.1 F 08/30/18 13:01 Pulse 71 08/30/18 15:09 Resp 16 08/30/18 15:09 BP 132/70 08/30/18 14:44 Pulse Ox 96 08/30/18 14:44 Intake & Output 08/29/18 08/30/18 08/30/18 18:59 06:59 18:59 Intake Total 860.000 590 860 Output Total 600 600 Balance 260.000 590 260 Weight 110.5 kg 110.5 kg Intake: Intake, IV Titration 500.000 500 Amount Heparin Sod,Pork in 0.45% 500.000 500 NaCl 25,000 unit In 0.45 % NaCl 1 500ml.bag @ 18 UNITS/KG/HR 40.82 mls/hr IV .[id number] [facility] Rx#: [id number] Oral 360 590 360 Output: Urine 600 600 Other: Voiding Method Toilet Toilet Toilet # Voids 3 1 1 - Exam GENERAL EXAM: Alert, active, comfortable in no apparent distress. Ambulating without acute distress. HEAD: Normocephalic. EYES: Normal reaction of pupils, equal size. NOSE: Clear with pink turbinates. THROAT: No erythema or exudates. NECK: No masses, no JVD. CHEST: No chest wall deformity. LUNGS: Equal air entry with no crackles, wheeze, rhonchi or dullness. CVS: S1 and S2 normal with no audible murmur, regular rhythm. ABDOMEN: No hepatosplenomegaly, normal bowel sounds, no guarding or rigidity. SPINE: No scoliosis or deformity SKIN: No rashes CENTRAL NERVOUS SYSTEM: No focal deficits, tone is normal in all 4 extremities. EXTREMITIES: There is no peripheral edema. No clubbing, no cyanosis. Peripheral pulses are intact. - Labs CBC & Chem 7: 08/30/18 09:17 1218 09:17 Labs: Abnormal Lab Results - Last 24 Hours (Table) 08/30/18 08/30/18 Range/Units 09:17 09:17 RBC 3.61 L (4.30-5.90) m/uL Hgb 10.7 L (13.0-17.5) gm/dL Hct 33.6 L (39.0-53.0) % Lymphocytes # 0.9 L (1.0-4.8) k/uL Total Bilirubin 2.7 H (0.2-1.3) mg/dL AST 91 H (17-59) U/L ALT 119 H (21-72) U/L Alkaline Phosphatase 227 H (38-126) U/L Total Protein 6.2 L (6.3-8.2) g/dL Albumin 3.1 L (3.5-5.0) g/dL Assessment and Plan Plan: Assessment 1 bilateral pulmonary embolism secondary left lower extremity DVT. 2 pancreatic mass with abnormal liver lesions suspicious for an underlying pancreatic cancer with an elevated CA 19 9 level. The biopsy was done and the final pathology is pending with high suspicion for an underlying pancreatic cancer and other exacerbating factor for the patient's DVT and pulmonary embolism 3 coronary artery disease with previous coronary stenting 4 hypertension 5 hyperlipidemia Plan Restart IV heparin. Awaiting final path from the fine-needle aspirate of the liver lesion. High suspicion for malignancy including pancreatic cancer. Awaiting final path. Restart anticoagulation with oral warfarin. Daily PT/INR monitoring. Outpatient medications have been resumed. We'll continue to follow.
[2018-08-30] MEDS: ONDANSETRON 4 MG/2 ML VIAL IVP PRN (17:16)
[2018-08-30] MEDS: CYCLOBENZAPRINE 5 MG TAB PO PRN (17:48)
[2018-08-30] MEDS ORDERED: WARFARIN 7.5 MG TAB PO ONE (18:00)
[2018-08-30] MEDS: MORPHINE SULFATE 4 MG/ML SYRINGE IV PRN (20:18)
[2018-08-30] MEDS: amLODIPine 5 MG TAB PO SCH (20:19)
[2018-08-30] MEDS: ZOLPIDEM 10 MG TAB PO PRN (20:19)
[2018-08-30] MEDS: METOPROLOL TARTRATE 12.5 MG TAB PO SCH (20:19)
[2018-08-30] MEDS: LOSARTAN 50 MG TAB PO SCH (20:19)
[2018-08-30] MEDS ORDERED: HEPARIN SODIUM,PORCINE 5,000 UNIT/ML 1 ML VIAL IV STA (22:11)
[2018-08-31] MEDS: MORPHINE SULFATE 4 MG/ML SYRINGE IV PRN ×4 (03:15→20:57)
[2018-08-31] MEDS: ONDANSETRON 4 MG/2 ML VIAL IVP PRN ×2 (03:22→17:01)
[2018-08-31 04:45] LABS: INR 1.1 (<1.2); Partial Thromboplastin Time 68.2 sec (22.0-30.0); Prothrombin Time 10.7 sec (9.0-12.0)
[2018-08-31 05:17] LABS: ALT 112 U/L (21-72); AST 105 U/L (17-59); Albumin 3.1 g/dL (3.5-5.0); Alkaline Phosphatase 253 U/L (38-126); Anion Gap 7 mmol/L; Blood Urea Nitrogen 12 mg/dL (9-20); Calcium 9.2 mg/dL (8.4-10.2); Carbon Dioxide 23 mmol/L (22-30); Chloride 107 mmol/L (98-107); Glucose 130 mg/dL (74-99); Sodium 137 mmol/L (137-145); Total Bilirubin 2.6 mg/dL (0.2-1.3); Total Protein 6.3 g/dL (6.3-8.2)
[2018-08-31 05:30] LABS: Basophils # (A) 0.1 k/uL (0-0.2); Basophils % (A) 1 %; Eosinophils # (A) 0.4 k/uL (0-0.7); Eosinophils % (A) 4 %; HCT 35.5 % (39.0-53.0); HGB 10.9 gm/dL (13.0-17.5); Hypochromasia Moderate; Lymphocytes % (A) 11 %; MCH 29.8 pg (25.0-35.0); MCHC 30.8 g/dL (31.0-37.0); MCV 96.7 fL (80.0-100.0); Mean Platelet Volume 8.2; Monocytes # (A) 0.7 k/uL (0-1.0); Monocytes % (A) 7 %; Neutrophils # (A) 7.1 k/uL (1.3-7.7); Neutrophils % (A) 75 %; Platelet Count 239 k/uL (150-450); RBC 3.67 m/uL (4.30-5.90); RDW 14.7 % (11.5-15.5); WBC 9.4 k/uL (3.8-10.6)
[2018-08-31 08:03] LABS: Poikilocytosis (M) Present; Toxic Granulation Present
[2018-08-31] MEDS: PANTOPRAZOLE 40 MG TABLET PO SCH (09:30)
[2018-08-31] MEDS: CHOLECALCIFEROL 1,000 UNIT TAB PO SCH (09:30)
[2018-08-31] MEDS: DOCUSATE 100 MG CAP PO SCH ×2 (09:30→20:11)
[2018-08-31] MEDS: ALPRAZolam 0.5 MG TAB PO PRN (09:36)
--- NOTE | 2018-08-31 10:31 | P.PN ---
Subjective Progress Note Date: 08/31/18 Shay Gutierrez is a 68-year-old male who presented to [facility] emergency room with a chief complaint of left lower extremity pain and swelling that started 2 days prior to presentation, he was evaluated in the emergency room and had evidence of left lower extremity deep venous thrombosis he was started on IV heparin and was admitted to medical floor. Patient states that about 3 weeks prior to this admission he had an upper respiratory infection treated with oral antibiotic course but he states that he spent most of the time in bed day and night for the last 2-3 weeks, as he was feeling ready weak and tired. Patient denies having any previous episodes of DVT or PE in the past On 08/23/2018 patient is currently resting in bed. Patient rains on IV heparin for DVT. Patient reports that he's had a low appetite. Patient also currently drinking contrast for CT scans ordered per oncology. Patient denies any shortness of breath or chest discomfort. Patient denies any urinary burning or frequency. Patient denies any diarrhea or constipation at this time On 08/24/2018 patient is currently resting in bed. Patient CTA yesterday showing bilateral PE. Dr. Sanchez has been consulted for pulmonary services. Patient is on heparin due to DVT and pulmonary embolisms. Discussed case with oncology service is patient biopsy of liver lesions. Patient was on Plavix prior to hospital admission. Biopsy likely will be Thursday. Patient to remain on heparin protocol. Patient denies chest pain or shortness of breath. Patient denies nausea vomiting or diarrhea. Patient denies any urinary burning or frequency. On 08/25/2018 patient is currently resting in bed. Patient states he has been moving around. Patient also expressed that he is a bit more anxious due to the recent findings on his CT. Patient remains on heparin drip biopsy of liver lesions likely will be on Thursday. At this time patient denies chest pain or shortness of breath. Patient denies nausea vomiting or diarrhea. Patient denies any urinary burning or frequency On 08/26/2018 patient is currently resting comfortably in chair with at bedside. Patient does report he's been having increased anxiety due to impending testing. Xanax has been increased. At this time patient denies chest pain. Patient states shortness of breath has improved with oxygen during activity. Patient denies nausea vomiting or diarrhea. Patient denies any urinary burning or frequency On 08/27/2018 patient is currently resting in bed. at bedside. Patient remains alert and oriented 3. Patient remains on heparin drip for bilateral PEs and DVT. Liver biopsy likely to be completed on Thursday. This time patient denies chest pain or shortness breath. Patient denies any nausea vomiting or diarrhea. Is complaining of intermittent right abdominal pain. Patient denies any urinary burning or frequency On 08/28/2018 patient is alert and oriented 3 pain is better controlled he is still on IV heparin drip he is still complaining of pain in the right upper quadrant otherwise no complaints at this time there is no fever or chills no headache no dizziness no chest pain no shortness of breath no nausea or vomiting and no urinary symptoms On 08/29/2018 patient is alert and oriented 3 in no apparent distress ane is well-controlled patient is maintained on IV heparin, there is no fever or chills no headache or dizziness no chest pain no shortness of breath no cough no nausea or vomiting no abdominal pain and no urinary symptoms. Plan at this time is to continue with IV heparin, patient will have liver biopsy tomorrow after that he will be started on oral anticoagulation On 08/30/2018 patient is currently lying comfortably in bed. at bedside. Patient planning for liver biopsy today. Currently on hold. Patient to be transitioned to Coumadin anticoagulation. At this time patient denies chest pain or shortness of breath. Patient denies nausea vomiting or diarrhea. Patient denies any urinary burning or frequency. On 08/31/2018 patient is currently resting comfortably in bed. Patient status post liver biopsy yesterday. Discussed case with Dr. dennis per Oncology services. Recommending to hold off on oral anticoagulation due to processing if adequate biopsy has been received. Also recommending anticoagulation with Lovenox or eliquis due to likelihood of malignancy requiring chemotherapy. Patient denies chest pain or shortness of breath. Patient denies nausea vomiting diarrhea denies any urinary burning or frequency Objective - Vital Signs Vital signs: Vital Signs Temp 98.1 F 08/31/18 04:51 Pulse 80 08/31/18 04:51 Resp 18 08/31/18 04:51 BP 117/71 08/31/18 04:51 Pulse Ox 93 L 08/31/18 04:51 Intake & Output 08/30/18 08/31/18 08/31/18 18:59 06:59 18:59 Intake Total 860 435.467 Output Total 600 Balance 260 435.467 Weight 110.5 kg 92 kg Intake: Intake, IV Titration 500 315.467 Amount Heparin Sod,Pork in 0.45% 500 315.467 NaCl 25,000 unit In 0.45 % NaCl 1 500ml.bag @ 18 UNITS/KG/HR 40.82 mls/hr IV .[id number] [facility] Rx#: [id number] Oral 360 120 Output: Urine 600 Other: Voiding Method Toilet Toilet # Voids 1 - Exam In general patient is alert and oriented 3 in no apparent distress Neck is supple no JVD no goiter no lymphadenopathy Chest exam reveals a clear respiratory sounds no crackles no wheezing Cardiac exam reveals regular heart sounds S1 and S2 no gallops no murmurs Abdomen is soft nontender no organomegaly with normal bowel sounds Extremity exam reveals mild swelling and tenderness in the left lower extremity Patient also has swelling and induration and tenderness in the right upper extremity right above the elbow Neurological examination reveals no gross focal deficit - Labs CBC & Chem 7: 08/31/18 03:57 08/31/18 03:57 Labs: Abnormal Lab Results - Last 24 Hours (Table) 08/30/18 08/31/18 08/31/18 Range/Units 20:01 03:57 03:57 RBC 3.67 L (4.30-5.90) m/uL Hgb 10.9 L (13.0-17.5) gm/dL Hct 35.5 L (39.0-53.0) % MCHC 30.8 L (31.0-37.0) g/dL APTT 33.1 H (22.0-30.0) sec Glucose 130 H (74-99) mg/dL Total Bilirubin 2.6 H (0.2-1.3) mg/dL AST 105 H (17-59) U/L ALT 112 H (21-72) U/L Alkaline Phosphatase 253 H (38-126) U/L Albumin 3.1 L (3.5-5.0) g/dL 08/31/18 Range/Units 03:57 RBC (4.30-5.90) m/uL Hgb (13.0-17.5) gm/dL Hct (39.0-53.0) % MCHC (31.0-37.0) g/dL APTT 68.2 H (22.0-30.0) sec Glucose (74-99) mg/dL Total Bilirubin (0.2-1.3) mg/dL AST (17-59) U/L ALT (21-72) U/L Alkaline Phosphatase (38-126) U/L Albumin (3.5-5.0) g/dL Assessment and Plan Assessment: #1 left lower extremity deep venous thrombosis patient is maintained on IV heparin. CTA and CT of abdomen and pelvis has been ordered per oncology services. Per Dr. Serrano for vascular surgery patient to be started on xarelto or coumadin. #[address] of the abdomen and pelvis completed showing approximately 4 indeterminate liver lesions measuring up to 3.6 cm metastases disease not excluded at this time. MRI evaluation and clinical workup recommended. Mildly enlarged 1.7 cm michelle caval 1.2 cm michelle hepatis lymph nodes are nonspecific. 1.8 cm cystic lesion of the pancreatic uncinate process. This can also be further evaluated on the patient's liver MRI. Nonspecific nodularity of the adrenal glands measuring up to 1.2 cm possible incidental underlining adrenal adenomas was can be reassessed at follow-up. Borderline to mildly hydropic gallbladder likely due to fasting state. If right upper quadrant pain are concerning for early acute cholecystitis follow- up ultrasound scan. Sigmoid diverticulosis without evidence for acute diverticulitis. Bilateral femoral head AVN, right greater than left without subarticular collapse. CA19-9 antigen ordered per oncology service is elevated at greater than 70,000. Discussed case with Kamilla Evangelista per oncology services. Interventional radiology has been consulted for possible biopsy of liver lesions. Patient previously on Plavix prior to admission. Repeat liver ultrasound showing gallbladder is filled with tumefactive sludge however there is no current sonographic evidence of acute cholecystitis #3 right upper extremity pain and swelling, will obtain ultrasound #4 dehydration was acute renal failure due to prerenal azotemia elevated 24 on admission creatinine elevated at 1.29 maintained on IV fluid. Creatinine improving to 1.00. Resolved #5 underlying history of hypertension well-controlled on medications #6 underlying history of hyperlipidemia #7 previous history of coronary artery disease with angioplasty and stent placement to the proximal LAD in February 2015\ #8 bilateral pulmonary embolism. CTA performed showing bilateral pulmonary emboli, moderate burden on the right and mild on the left. No CT evidence for right heart strain. COPD with mild edema. Suspect underlying pulmonary arterial hypertension. A 1 cm subpleural density at the left base could represent nodule atelectasis or small area of pulmonary infarct is a sequela of the patient's pulmonary emboli three-month follow-up recommended. Dr. Sanchez has been consulted for pulmonary services she remains on heparin drip. #9. Anxiety. Patient currently takes Xanax 0.5 mg nightly at home. Patient expressed that he has been more anxious due to recent finding potential diagnosis. Will increase Xanax to three times a day at this time. DVT prophylaxis heparin gtt. GI prophylaxis Protonix Discussed case with Dr. Dennis per oncology services. Recommend anticoagulation with either eliquis Lovenox due to likelihood of malignancy and the difficulty with Coumadin while receiving chemotherapy. Per Dr. Dennis will check with office in regards to options for anticoagulation and payment. I performed an examination of the patient and discussed their management with the Nurse Practitioner. I have reviewed the Nurse Practitioner's notes and agree with the documented findings and plan of care
[2018-08-31] MEDS: MULTIVITAMINS, THERA 1 EACH TAB PO SCH (13:19)
[2018-08-31] MEDS: CYANOCOBALAMIN 500 MCG TAB PO SCH (13:20)
[2018-08-31] MEDS: HYDROcodone/APAP 7.5-325MG 1 EACH TAB PO PRN (13:21)
[2018-08-31] MEDS: HEPARIN SOD,PORK IN 0.45% NACL 25,000 UNIT in 0.45% NACL 1 500ML.BAG IV SCH (13:37)
--- NOTE | 2018-08-31 18:05 | P.PN ---
Subjective Progress Note Date: 08/31/18 Principal diagnosis: DVT, liver lesions Patient seen today status post liver biopsy. No unrealistic pain in the area of biopsy, he is having to medicate for generalized aches and back pain, has constipation and complaints of generalized weakness. No fever, nausea, difficulty in breathing, bleeding, he is able to walk to the bathroom, appetite is fair. Objective - Vital Signs Vital signs: Vital Signs Temp 97.8 F 08/31/18 12:27 Pulse 74 08/31/18 12:27 Resp 18 08/31/18 12:27 BP 132/88 08/31/18 12:27 Pulse Ox 95 08/31/18 12:27 Intake & Output 08/30/18 08/31/18 08/31/18 18:59 06:59 18:59 Intake Total 860 620.000 368 Output Total 600 Balance 260 620.000 368 Weight 110.5 kg 92 kg Intake: IV 368 Heparin Sod,Pork in 0.45% 368 NaCl 25,000 unit In 0.45 % NaCl 1 500ml.bag @ 18 UNITS/KG/HR 40.82 mls/hr IV .[id number] [facility] Rx#: [id number] Intake, IV Titration 500 500.000 Amount Heparin Sod,Pork in 0.45% 500 500.000 NaCl 25,000 unit In 0.45 % NaCl 1 500ml.bag @ 18 UNITS/KG/HR 40.82 mls/hr IV .[id number] [facility] Rx#: [id number] Oral 360 120 Output: Urine 600 Other: Voiding Method Toilet Toilet # Voids 1 - Constitutional General appearance: Present: average body habitus, cooperative, no acute distress - EENT Eyes: Present: anicteric sclerae, EOMI ENT: Present: hearing grossly normal - Respiratory Respiratory: bilateral: CTA - Cardiovascular Rhythm: regular Heart sounds: normal: S1, S2 Abnormal Heart Sounds: Absent: systolic murmur, diastolic murmur, rub, S3 Gallop , S4 Gallop, click, other - Peripheral edema leg Peripheral Edema: right: None, bilateral: 2+ - Gastrointestinal General gastrointestinal: Present: normal bowel sounds, soft. Absent: absent bowel sounds, decreased bowel sounds, distended, hepatomegaly, hyperactive bowel sounds, organomegaly, rigid, scaphoid, splenomegaly, tenderness, umbilical hernia, ventral hernia - Integumentary Integumentary: Present: normal - Neurologic Neurologic: Present: CNII-XII intact - Musculoskeletal Musculoskeletal: Present: strength equal bilaterally - Psychiatric Psychiatric: Present: A&O x's 3, appropriate affect, intact judgment & insight - Labs CBC & Chem 7: 08/31/18 03:57 08/31/18 03:57 Labs: Abnormal Lab Results - Last 24 Hours (Table) 08/30/18 08/31/18 08/31/18 Range/Units 20:01 03:57 03:57 RBC 3.67 L (4.30-5.90) m/uL Hgb 10.9 L (13.0-17.5) gm/dL Hct 35.5 L (39.0-53.0) % MCHC 30.8 L (31.0-37.0) g/dL APTT 33.1 H (22.0-30.0) sec Glucose 130 H (74-99) mg/dL Total Bilirubin 2.6 H (0.2-1.3) mg/dL AST 105 H (17-59) U/L ALT 112 H (21-72) U/L Alkaline Phosphatase 253 H (38-126) U/L Albumin 3.1 L (3.5-5.0) g/dL 08/31/18 Range/Units 03:57 RBC (4.30-5.90) m/uL Hgb (13.0-17.5) gm/dL Hct (39.0-53.0) % MCHC (31.0-37.0) g/dL APTT 68.2 H (22.0-30.0) sec Glucose (74-99) mg/dL Total Bilirubin (0.2-1.3) mg/dL AST (17-59) U/L ALT (21-72) U/L Alkaline Phosphatase (38-126) U/L Albumin (3.5-5.0) g/dL Assessment and Plan (1) Liver mass Narrative/Plan: S/P biopsy, path pending Current Visit: Yes Status: Acute Priority: High Code(s): R16.0 - HEPATOMEGALY, NOT ELSEWHERE CLASSIFIED SNOMED Code(s): 019851011 (2) Left leg DVT Current Visit: Yes Status: Acute Priority: High Code(s): I82.402 - ACUTE EMBOLISM AND THOMBOS UNSP DEEP VEINS OF L LOW EXTREM SNOMED Code(s): 706617283 (3) Pulmonary embolism Current Visit: Yes Status: Acute Priority: High Code(s): I26.99 - OTHER PULMONARY EMBOLISM WITHOUT ACUTE COR PULMONALE SNOMED Code(s): 62290794 (4) Constipated Narrative/Plan: MOM ordered, cont to monitor Current Visit: Yes Status: Acute Priority: Medium Code(s): K59.00 - CONSTIPATION, UNSPECIFIED SNOMED Code(s): 13364630 Plan: Cont heparin drip for now for treatment of LLE DVT and bilateral PE. Will transition to oral once confirmed that specimen adequate for diagnosis. Cont pain meds as ordered, pt states relief. More aggressive regimen for narcotic induced constipation Discussed with Pt and , they verbalize understanding attests: I performed H&P and developed impression and plan of care of patient, discussed with dictator. I agree with dictated note, documented as a scribe.
[2018-08-31] MEDS: amLODIPine 5 MG TAB PO SCH (20:11)
[2018-08-31] MEDS: LOSARTAN 50 MG TAB PO SCH (20:11)
[2018-08-31] MEDS: METOPROLOL TARTRATE 12.5 MG TAB PO SCH (20:11)
[2018-09-01] MEDS: MELATONIN 5 MG TABLET PO SCH ×2 (00:29→21:57)
[2018-09-01] MEDS: HEPARIN SOD,PORK IN 0.45% NACL 25,000 UNIT in 0.45% NACL 1 500ML.BAG IV SCH ×3 (00:29→21:52)
[2018-09-01] MEDS: HYDROcodone/APAP 7.5-325MG 1 EACH TAB PO PRN (00:30)
[2018-09-01] MEDS: MORPHINE SULFATE 4 MG/ML SYRINGE IV PRN ×5 (04:04→23:52)
[2018-09-01] MEDS: PANTOPRAZOLE 40 MG TABLET PO SCH (08:17)
[2018-09-01] MEDS: DOCUSATE 100 MG CAP PO SCH ×2 (08:17→21:11)
[2018-09-01] MEDS: ALPRAZolam 0.5 MG TAB PO SCH (08:17)
[2018-09-01] MEDS: CHOLECALCIFEROL 1,000 UNIT TAB PO SCH (08:17)
[2018-09-01] MEDS: ONDANSETRON 4 MG/2 ML VIAL IVP PRN ×2 (08:20→17:19)
[2018-09-01 09:22] LABS: Basophils # (A) 0.2 k/uL (0-0.2); Basophils % (A) 2 %; Eosinophils # (A) 0.4 k/uL (0-0.7); Eosinophils % (A) 4 %; HCT 35.2 % (39.0-53.0); Hypochromasia Slight; Lymphocytes # (A) 1.2 k/uL (1.0-4.8); Lymphocytes % (A) 12 %; MCH 29.6 pg (25.0-35.0); MCHC 31.2 g/dL (31.0-37.0); MCV 94.8 fL (80.0-100.0); Mean Platelet Volume 7.4; Monocytes # (A) 0.7 k/uL (0-1.0); Monocytes % (A) 6 %; Neutrophils % (A) 75 %; Platelet Count 297 k/uL (150-450); RBC 3.71 m/uL (4.30-5.90); WBC 10.7 k/uL (3.8-10.6)
[2018-09-01 09:24] LABS: INR 1.2 (<1.2); Prothrombin Time 11.7 sec (9.0-12.0)
[2018-09-01] MEDS: MAGNESIUM HYDROXIDE 2,400 MG/10 ML CUP PO PRN ×2 (09:48→21:11)
[2018-09-01 10:22] LABS: ALT 119 U/L (21-72); AST 105 U/L (17-59); Albumin 3.3 g/dL (3.5-5.0); Alkaline Phosphatase 263 U/L (38-126); Anion Gap 6 mmol/L; Blood Urea Nitrogen 10 mg/dL (9-20); Calcium 9.6 mg/dL (8.4-10.2); Carbon Dioxide 26 mmol/L (22-30); Chloride 108 mmol/L (98-107); Glucose 111 mg/dL (74-99); Sodium 140 mmol/L (137-145); Total Bilirubin 3.5 mg/dL (0.2-1.3); Total Protein 6.6 g/dL (6.3-8.2)
[2018-09-01 10:30] VITALS: BMI 27.5
[2018-09-01 10:36] LABS: Potassium 4.1 mmol/L (3.5-5.1)
--- NOTE | 2018-09-01 10:52 | P.PN ---
Subjective Progress Note Date: 09/01/18 Shay Gutierrez is a 68-year-old male who presented to [facility] emergency room with a chief complaint of left lower extremity pain and swelling that started 2 days prior to presentation, he was evaluated in the emergency room and had evidence of left lower extremity deep venous thrombosis he was started on IV heparin and was admitted to medical floor. Patient states that about 3 weeks prior to this admission he had an upper respiratory infection treated with oral antibiotic course but he states that he spent most of the time in bed day and night for the last 2-3 weeks, as he was feeling ready weak and tired. Patient denies having any previous episodes of DVT or PE in the past On 08/23/2018 patient is currently resting in bed. Patient rains on IV heparin for DVT. Patient reports that he's had a low appetite. Patient also currently drinking contrast for CT scans ordered per oncology. Patient denies any shortness of breath or chest discomfort. Patient denies any urinary burning or frequency. Patient denies any diarrhea or constipation at this time On 08/24/2018 patient is currently resting in bed. Patient CTA yesterday showing bilateral PE. Dr. Sanchez has been consulted for pulmonary services. Patient is on heparin due to DVT and pulmonary embolisms. Discussed case with oncology service is patient biopsy of liver lesions. Patient was on Plavix prior to hospital admission. Biopsy likely will be Thursday. Patient to remain on heparin protocol. Patient denies chest pain or shortness of breath. Patient denies nausea vomiting or diarrhea. Patient denies any urinary burning or frequency. On 08/25/2018 patient is currently resting in bed. Patient states he has been moving around. Patient also expressed that he is a bit more anxious due to the recent findings on his CT. Patient remains on heparin drip biopsy of liver lesions likely will be on Thursday. At this time patient denies chest pain or shortness of breath. Patient denies nausea vomiting or diarrhea. Patient denies any urinary burning or frequency On 08/26/2018 patient is currently resting comfortably in chair with at bedside. Patient does report he's been having increased anxiety due to impending testing. Xanax has been increased. At this time patient denies chest pain. Patient states shortness of breath has improved with oxygen during activity. Patient denies nausea vomiting or diarrhea. Patient denies any urinary burning or frequency On 08/27/2018 patient is currently resting in bed. at bedside. Patient remains alert and oriented 3. Patient remains on heparin drip for bilateral PEs and DVT. Liver biopsy likely to be completed on Thursday. This time patient denies chest pain or shortness breath. Patient denies any nausea vomiting or diarrhea. Is complaining of intermittent right abdominal pain. Patient denies any urinary burning or frequency On 08/28/2018 patient is alert and oriented 3 pain is better controlled he is still on IV heparin drip he is still complaining of pain in the right upper quadrant otherwise no complaints at this time there is no fever or chills no headache no dizziness no chest pain no shortness of breath no nausea or vomiting and no urinary symptoms On 08/29/2018 patient is alert and oriented 3 in no apparent distress ane is well-controlled patient is maintained on IV heparin, there is no fever or chills no headache or dizziness no chest pain no shortness of breath no cough no nausea or vomiting no abdominal pain and no urinary symptoms. Plan at this time is to continue with IV heparin, patient will have liver biopsy tomorrow after that he will be started on oral anticoagulation On 08/30/2018 patient is currently lying comfortably in bed. at bedside. Patient planning for liver biopsy today. Currently on hold. Patient to be transitioned to Coumadin anticoagulation. At this time patient denies chest pain or shortness of breath. Patient denies nausea vomiting or diarrhea. Patient denies any urinary burning or frequency. On 08/31/2018 patient is currently resting comfortably in bed. Patient status post liver biopsy yesterday. Discussed case with Dr. dennis per Oncology services. Recommending to hold off on oral anticoagulation due to processing if adequate biopsy has been received. Also recommending anticoagulation with Lovenox or eliquis due to likelihood of malignancy requiring chemotherapy. Patient denies chest pain or shortness of breath. Patient denies nausea vomiting diarrhea denies any urinary burning or frequency On 09/01/2018 patient is currently resting in bed. At this time patient denies chest pain or shortness of breath. Patient is complaining of constipation, patient is on milk of mag and Colace has been added. Awaiting oncology input in regards to starting oral anticoagulation. Patient remains on heparin drip. Objective - Vital Signs Vital signs: Vital Signs Temp 98 F 09/01/18 05:14 Pulse 72 09/01/18 05:14 Resp 16 09/01/18 05:14 BP 124/68 09/01/18 05:14 Pulse Ox 93 L 09/01/18 05:14 Intake & Output 08/31/18 09/01/18 09/01/18 18:59 06:59 18:59 Intake Total 368 1080 Balance 368 1080 Weight 92 kg Intake: IV 368 Heparin Sod,Pork in 0.45% 368 NaCl 25,000 unit In 0.45 % NaCl 1 500ml.bag @ 18 UNITS/KG/HR 40.82 mls/hr IV .[id number] [facility] Rx#: [id number] Intake, IV Titration 500 Amount Heparin Sod,Pork in 0.45% 500 NaCl 25,000 unit In 0.45 % NaCl 1 500ml.bag @ 18 UNITS/KG/HR 40.82 mls/hr IV .[id number] [facility] Rx#: [id number] Oral 580 Other: Voiding Method Toilet Toilet Toilet # Voids 1 - Exam In general patient is alert and oriented 3 in no apparent distress Neck is supple no JVD no goiter no lymphadenopathy Chest exam reveals a clear respiratory sounds no crackles no wheezing Cardiac exam reveals regular heart sounds S1 and S2 no gallops no murmurs Abdomen is soft nontender no organomegaly with normal bowel sounds Extremity exam reveals mild swelling and tenderness in the left lower extremity Patient also has swelling and induration and tenderness in the right upper extremity right above the elbow Neurological examination reveals no gross focal deficit - Labs CBC & Chem 7: 09/01/18 08:33 09/01/18 08:33 Labs: Abnormal Lab Results - Last 24 Hours (Table) 09/01/18 09/01/18 09/01/18 Range/Units 08:33 08:33 08:33 WBC 10.7 H (3.8-10.6) k/uL RBC 3.71 L (4.30-5.90) m/uL Hgb 11.0 L (13.0-17.5) gm/dL Hct 35.2 L (39.0-53.0) % Neutrophils # 8.0 H (1.3-7.7) k/uL INR 1.2 H (<1.2) Chloride 108 H (98-107) mmol/L Glucose 111 H (74-99) mg/dL Total Bilirubin 3.5 H (0.2-1.3) mg/dL AST 105 H (17-59) U/L ALT 119 H (21-72) U/L Alkaline Phosphatase 263 H (38-126) U/L Albumin 3.3 L (3.5-5.0) g/dL Assessment and Plan Assessment: #1 left lower extremity deep venous thrombosis patient is maintained on IV heparin. CTA and CT of abdomen and pelvis has been ordered per oncology services. Per Dr. Serrano for vascular surgery patient to be started on xarelto or coumadin. #[address] of the abdomen and pelvis completed showing approximately 4 indeterminate liver lesions measuring up to 3.6 cm metastases disease not excluded at this time. MRI evaluation and clinical workup recommended. Mildly enlarged 1.7 cm michelle caval 1.2 cm michelle hepatis lymph nodes are nonspecific. 1.8 cm cystic lesion of the pancreatic uncinate process. This can also be further evaluated on the patient's liver MRI. Nonspecific nodularity of the adrenal glands measuring up to 1.2 cm possible incidental underlining adrenal adenomas was can be reassessed at follow-up. Borderline to mildly hydropic gallbladder likely due to fasting state. If right upper quadrant pain are concerning for early acute cholecystitis follow- up ultrasound scan. Sigmoid diverticulosis without evidence for acute diverticulitis. Bilateral femoral head AVN, right greater than left without subarticular collapse. CA19-9 antigen ordered per oncology service is elevated at greater than 70,000. Discussed case with Kamilla Evangelista per oncology services. Interventional radiology has been consulted for possible biopsy of liver lesions. Patient previously on Plavix prior to admission. Repeat liver ultrasound showing gallbladder is filled with tumefactive sludge however there is no current sonographic evidence of acute cholecystitis #3 right upper extremity pain and swelling, will obtain ultrasound #4 dehydration was acute renal failure due to prerenal azotemia elevated 24 on admission creatinine elevated at 1.29 maintained on IV fluid. Creatinine improving to 1.00. Resolved #5 underlying history of hypertension well-controlled on medications #6 underlying history of hyperlipidemia #7 previous history of coronary artery disease with angioplasty and stent placement to the proximal LAD in February 2015 #8 bilateral pulmonary embolism. CTA performed showing bilateral pulmonary emboli, moderate burden on the right and mild on the left. No CT evidence for right heart strain. COPD with mild edema. Suspect underlying pulmonary arterial hypertension. A 1 cm subpleural density at the left base could represent nodule atelectasis or small area of pulmonary infarct is a sequela of the patient's pulmonary emboli three-month follow-up recommended. Dr. Sanchez has been consulted for pulmonary services she remains on heparin drip. #9. Anxiety. Patient currently takes Xanax 0.5 mg nightly at home. Patient expressed that he has been more anxious due to recent finding potential diagnosis. Will increase Xanax to three times a day at this time. #10. Constipation. Patient maintained on milk of magnesia and Colace DVT prophylaxis heparin gtt. GI prophylaxis Protonix Discussed case with Dr. Dennis per oncology services. Recommend anticoagulation with either eliquis Lovenox due to likelihood of malignancy and the difficulty with Coumadin while receiving chemotherapy. Per Dr. Dennis will check with office in regards to options for anticoagulation and payment. Patient discussed with Melinda follow-up from Dr. Valdes's office. Patient will possibly be able to get eliquis for anticoagulation. Awaiting final oncology input to start oral anticoagulation I performed an examination of the patient and discussed their management with the Nurse Practitioner. I have reviewed the Nurse Practitioner's notes and agree with the documented findings and plan of care
[2018-09-01] MEDS: CYANOCOBALAMIN 500 MCG TAB PO SCH (14:33)
[2018-09-01] MEDS: MULTIVITAMINS, THERA 1 EACH TAB PO SCH (14:33)
[2018-09-01] MEDS: ALPRAZolam 0.5 MG TAB PO PRN (17:18)
[2018-09-01] MEDS: LOSARTAN 50 MG TAB PO SCH (21:10)
[2018-09-01] MEDS: amLODIPine 5 MG TAB PO SCH (21:11)
[2018-09-01] MEDS: METOPROLOL TARTRATE 12.5 MG TAB PO SCH (21:11)
[2018-09-02] MEDS: ALPRAZolam 0.5 MG TAB PO SCH (06:11)
[2018-09-02 08:16] LABS: INR 1.1 (<1.2); Partial Thromboplastin Time 69.3 sec (22.0-30.0); Prothrombin Time 11.3 sec (9.0-12.0)
[2018-09-02 08:27] LABS: Basophils # (A) 0.1 k/uL (0-0.2); Basophils % (A) 1 %; Eosinophils # (A) 0.3 k/uL (0-0.7); Eosinophils % (A) 3 %; HCT 33.4 % (39.0-53.0); HGB 10.5 gm/dL (13.0-17.5); Lymphocytes # (A) 1.2 k/uL (1.0-4.8); Lymphocytes % (A) 12 %; MCH 29.3 pg (25.0-35.0); MCHC 31.4 g/dL (31.0-37.0); MCV 93.3 fL (80.0-100.0); Mean Platelet Volume 7.8; Monocytes # (A) 0.7 k/uL (0-1.0); Monocytes % (A) 7 %; Neutrophils # (A) 7.8 k/uL (1.3-7.7); Neutrophils % (A) 75 %; Platelet Count 307 k/uL (150-450); RBC 3.58 m/uL (4.30-5.90); RDW 15.2 % (11.5-15.5); WBC 10.4 k/uL (3.8-10.6)
[2018-09-02] MEDS: MAGNESIUM HYDROXIDE 2,400 MG/10 ML CUP PO PRN ×2 (08:30→21:14)
[2018-09-02] MEDS: MORPHINE SULFATE 4 MG/ML SYRINGE IV PRN ×5 (08:31→21:16)
[2018-09-02] MEDS: PANTOPRAZOLE 40 MG TABLET PO SCH (08:32)
[2018-09-02] MEDS: DOCUSATE 100 MG CAP PO SCH ×2 (08:33→21:15)
[2018-09-02] MEDS: CHOLECALCIFEROL 1,000 UNIT TAB PO SCH (08:33)
[2018-09-02] MEDS: ONDANSETRON 4 MG/2 ML VIAL IVP PRN ×2 (08:39→18:11)
[2018-09-02 08:54] LABS: AST 96 U/L (17-59); Blood Urea Nitrogen 10 mg/dL (9-20); Carbon Dioxide 26 mmol/L (22-30); Glucose 101 mg/dL (74-99); Total Protein 6.4 g/dL (6.3-8.2)
[2018-09-02] MEDS: HEPARIN SOD,PORK IN 0.45% NACL 25,000 UNIT in 0.45% NACL 1 500ML.BAG IV SCH ×2 (09:09→21:11)
[2018-09-02 09:12] LABS: ALT 109 U/L (21-72); Alkaline Phosphatase 244 U/L (38-126); Anion Gap 5 mmol/L; Chloride 108 mmol/L (98-107); Potassium 4.5 mmol/L (3.5-5.1); Sodium 139 mmol/L (137-145)
--- NOTE | 2018-09-02 12:20 | P.PN ---
Subjective Progress Note Date: 09/02/18 Shay Gutierrez is a 68-year-old male who presented to [facility] emergency room with a chief complaint of left lower extremity pain and swelling that started 2 days prior to presentation, he was evaluated in the emergency room and had evidence of left lower extremity deep venous thrombosis he was started on IV heparin and was admitted to medical floor. Patient states that about 3 weeks prior to this admission he had an upper respiratory infection treated with oral antibiotic course but he states that he spent most of the time in bed day and night for the last 2-3 weeks, as he was feeling ready weak and tired. Patient denies having any previous episodes of DVT or PE in the past On 08/23/2018 patient is currently resting in bed. Patient rains on IV heparin for DVT. Patient reports that he's had a low appetite. Patient also currently drinking contrast for CT scans ordered per oncology. Patient denies any shortness of breath or chest discomfort. Patient denies any urinary burning or frequency. Patient denies any diarrhea or constipation at this time On 08/24/2018 patient is currently resting in bed. Patient CTA yesterday showing bilateral PE. Dr. Sanchez has been consulted for pulmonary services. Patient is on heparin due to DVT and pulmonary embolisms. Discussed case with oncology service is patient biopsy of liver lesions. Patient was on Plavix prior to hospital admission. Biopsy likely will be Thursday. Patient to remain on heparin protocol. Patient denies chest pain or shortness of breath. Patient denies nausea vomiting or diarrhea. Patient denies any urinary burning or frequency. On 08/25/2018 patient is currently resting in bed. Patient states he has been moving around. Patient also expressed that he is a bit more anxious due to the recent findings on his CT. Patient remains on heparin drip biopsy of liver lesions likely will be on Thursday. At this time patient denies chest pain or shortness of breath. Patient denies nausea vomiting or diarrhea. Patient denies any urinary burning or frequency On 08/26/2018 patient is currently resting comfortably in chair with at bedside. Patient does report he's been having increased anxiety due to impending testing. Xanax has been increased. At this time patient denies chest pain. Patient states shortness of breath has improved with oxygen during activity. Patient denies nausea vomiting or diarrhea. Patient denies any urinary burning or frequency On 08/27/2018 patient is currently resting in bed. at bedside. Patient remains alert and oriented 3. Patient remains on heparin drip for bilateral PEs and DVT. Liver biopsy likely to be completed on Thursday. This time patient denies chest pain or shortness breath. Patient denies any nausea vomiting or diarrhea. Is complaining of intermittent right abdominal pain. Patient denies any urinary burning or frequency On 08/28/2018 patient is alert and oriented 3 pain is better controlled he is still on IV heparin drip he is still complaining of pain in the right upper quadrant otherwise no complaints at this time there is no fever or chills no headache no dizziness no chest pain no shortness of breath no nausea or vomiting and no urinary symptoms On 08/29/2018 patient is alert and oriented 3 in no apparent distress ane is well-controlled patient is maintained on IV heparin, there is no fever or chills no headache or dizziness no chest pain no shortness of breath no cough no nausea or vomiting no abdominal pain and no urinary symptoms. Plan at this time is to continue with IV heparin, patient will have liver biopsy tomorrow after that he will be started on oral anticoagulation On 08/30/2018 patient is currently lying comfortably in bed. at bedside. Patient planning for liver biopsy today. Currently on hold. Patient to be transitioned to Coumadin anticoagulation. At this time patient denies chest pain or shortness of breath. Patient denies nausea vomiting or diarrhea. Patient denies any urinary burning or frequency. On 08/31/2018 patient is currently resting comfortably in bed. Patient status post liver biopsy yesterday. Discussed case with Dr. dennis per Oncology services. Recommending to hold off on oral anticoagulation due to processing if adequate biopsy has been received. Also recommending anticoagulation with Lovenox or eliquis due to likelihood of malignancy requiring chemotherapy. Patient denies chest pain or shortness of breath. Patient denies nausea vomiting diarrhea denies any urinary burning or frequency On 09/01/2018 patient is currently resting in bed. At this time patient denies chest pain or shortness of breath. Patient is complaining of constipation, patient is on milk of mag and Colace has been added. Awaiting oncology input in regards to starting oral anticoagulation. Patient remains on heparin drip. On 09/02/2018 patient is currently resting in bed patient's family at bedside. Discussed case with Dr. arriola per oncology. Requesting chest wall port placed prior to switching patient to oral anticoagulation. Discussed with primary care office patient will be able to receive eliquis one month samples to Fill out further Paperwork to Be Covered. At this time patient denies chest pain or shortness of breath. Patient denies nausea vomiting or diarrhea. Patient denies any urinary burning or frequency. Objective - Vital Signs Vital signs: Vital Signs Temp 98 F 09/01/18 21:00 Pulse 78 09/01/18 21:00 Resp 18 09/01/18 21:00 BP 133/79 09/01/18 21:00 Pulse Ox 95 09/01/18 21:00 Intake & Output 09/01/18 09/02/18 09/02/18 18:59 06:59 18:59 Intake Total 868.000 584.88 500 Balance 868.000 584.88 500 Weight 114.765 kg Intake: IV 368 Heparin Sod,Pork in 0.45% 368 NaCl 25,000 unit In 0.45 % NaCl 1 500ml.bag @ 18 UNITS/KG/HR 40.82 mls/hr IV .[id number] [facility] Rx#: [id number] Intake, IV Titration 500.000 484.88 500 Amount Heparin Sod,Pork in 0.45% 500.000 484.88 500 NaCl 25,000 unit In 0.45 % NaCl 1 500ml.bag @ 18 UNITS/KG/HR 40.82 mls/hr IV .[id number] [facility] Rx#: [id number] Oral 100 Other: Voiding Method Toilet Toilet Toilet # Voids 2 - Exam In general patient is alert and oriented 3 in no apparent distress Neck is supple no JVD no goiter no lymphadenopathy Chest exam reveals a clear respiratory sounds no crackles no wheezing Cardiac exam reveals regular heart sounds S1 and S2 no gallops no murmurs Abdomen is soft nontender no organomegaly with normal bowel sounds Extremity exam reveals mild swelling and tenderness in the left lower extremity Patient also has swelling and induration and tenderness in the right upper extremity right above the elbow Neurological examination reveals no gross focal deficit - Labs CBC & Chem 7: 09/02/18 07:39 09/02/18 07:39 Labs: Abnormal Lab Results - Last 24 Hours (Table) 12/06/18 12/06/18 12/06/18 Range/Units 07:39 07:39 07:39 RBC 3.58 L (4.30-5.90) m/uL Hgb 10.5 L (13.0-17.5) gm/dL Hct 33.4 L (39.0-53.0) % Neutrophils # 7.8 H (1.3-7.7) k/uL APTT 69.3 H (22.0-30.0) sec Chloride 108 H (98-107) mmol/L Glucose 101 H (74-99) mg/dL Total Bilirubin 5.0 H (0.2-1.3) mg/dL AST 96 H (17-59) U/L ALT 109 H (21-72) U/L Alkaline Phosphatase 244 H (38-126) U/L Albumin 3.0 L (3.5-5.0) g/dL Assessment and Plan Assessment: #1 left lower extremity deep venous thrombosis patient is maintained on IV heparin. CTA and CT of abdomen and pelvis has been ordered per oncology services. Per Dr. Serrano for vascular surgery patient to be started on xarelto or coumadin. Discussed with oncology services. Patient to be switched to eliquis 10 mg for 7 days twice a day and then to 5 mg twice a day after. Patient to get chest wall port placement prior to switching to oral anticoagulation #[address] of the abdomen and pelvis completed showing approximately 4 indeterminate liver lesions measuring up to 3.6 cm metastases disease not excluded at this time. MRI evaluation and clinical workup recommended. Mildly enlarged 1.7 cm michelle caval 1.2 cm michelle hepatis lymph nodes are nonspecific. 1.8 cm cystic lesion of the pancreatic uncinate process. This can also be further evaluated on the patient's liver MRI. Nonspecific nodularity of the adrenal glands measuring up to 1.2 cm possible incidental underlining adrenal adenomas was can be reassessed at follow-up. Borderline to mildly hydropic gallbladder likely due to fasting state. If right upper quadrant pain are concerning for early acute cholecystitis follow- up ultrasound scan. Sigmoid diverticulosis without evidence for acute diverticulitis. Bilateral femoral head AVN, right greater than left without subarticular collapse. CA19-9 antigen ordered per oncology service is elevated at greater than 70,000. Discussed case with Kamilla Evangelista per oncology services. Interventional radiology has been consulted for possible biopsy of liver lesions. Patient previously on Plavix prior to admission. Repeat liver ultrasound showing gallbladder is filled with tumefactive sludge however there is no current sonographic evidence of acute cholecystitis #3 right upper extremity pain and swelling, will obtain ultrasound. Ultrasound completed showing superficial venous thrombus within the bases with pain. Patient currently on heparin drip #4 dehydration was acute renal failure due to prerenal azotemia elevated 24 on admission creatinine elevated at 1.29 maintained on IV fluid. Creatinine improving to 1.00. Resolved #5 underlying history of hypertension well-controlled on medications #6 underlying history of hyperlipidemia #7 previous history of coronary artery disease with angioplasty and stent placement to the proximal LAD in February 2015 #8 bilateral pulmonary embolism. CTA performed showing bilateral pulmonary emboli, moderate burden on the right and mild on the left. No CT evidence for right heart strain. COPD with mild edema. Suspect underlying pulmonary arterial hypertension. A 1 cm subpleural density at the left base could represent nodule atelectasis or small area of pulmonary infarct is a sequela of the patient's pulmonary emboli three-month follow-up recommended. Dr. Sanchez has been consulted for pulmonary services she remains on heparin drip. Patient to the chest wall port placement and then switched to oral anticoagulation eliquis #9. Anxiety. Patient currently takes Xanax 0.5 mg nightly at home. Patient expressed that he has been more anxious due to recent finding potential diagnosis. Will increase Xanax to three times a day at this time. #10. Constipation. Patient maintained on milk of magnesia and Colace DVT prophylaxis heparin gtt. GI prophylaxis Protonix Discussed case with Rosa Maria from primary care office. Patient will be able to get eliquis one month of samples and coupons and then patient to follow-up in office to fill outpatient veterinary assistant paperwork for further coverage with eliquis. Discussed with Dr. Dennis per oncology services agrees that eliquis will be better option at this time than Coumadin. Patient to be started on oral anticoagulation after chest wall port placement has been obtained I performed an examination of the patient and discussed their management with the Nurse Practitioner. I have reviewed the Nurse Practitioner's notes and agree with the documented findings and plan of care
[2018-09-02] MEDS: CYANOCOBALAMIN 500 MCG TAB PO SCH (13:47)
[2018-09-02] MEDS: MULTIVITAMINS, THERA 1 EACH TAB PO SCH (13:48)
[2018-09-02] MEDS: ALPRAZolam 0.5 MG TAB PO PRN (14:34)
--- NOTE | 2018-09-02 15:45 | P.GSCN ---
History of Present Illness Consult date: 09/02/18 Reason for Consult: MediPort placement History of present illness: 68-year-old male being seen at the request of the attending for MediPort placement for chemotherapy to be initiated patient status post liver biopsy done on the third. Patients being followed by oncology service. Oral anticoagulation currently is being held at this time until the MediPort can be placed. Patients being treated for left lower extremity DVT maintained on IV heparin. A CTA and a CT of the abdomen pelvis were ordered therefore liver lesions measuring 3.6 cm metastatic disease could not be excluded. An MRI was also done the report indicated an 0.8 cyst in the pancreatic area CA-19-9 was elevated greater than 70,000 patient was on Plavix prior to admission. Patient did have a CT which showed bilateral pulmonary emboli moderate burden on the right and mild on the left no CT evidence of right heart strain. Given the above clinical findings oncology is requesting MediPort placement for chemotherapy to be initiated Review of Systems Essentially unremarkable except as mentioned in the present illness Past Medical History Past Medical History: Hyperlipidemia, Hypertension Additional Past Medical History / Comment(s): 03/07/[address] [facility] ER with chest discomfort. Chest discomfort is intermittent and began several days ago. Pain occurs with exertion and improves with rest. There is associated dyspnea and diaphoresis with this pain. Pt also has R arm and R jaw discomfort. Other hx: Muscle cramps bilateral flanks and bilateral legs, hemorrhoids History of Any Multi-Drug Resistant Organisms: None Reported Past Surgical History: Heart Catheterization With Stent Additional Past Surgical History / Comment(s): hydrocele, colonoscopy-WNL, vocal cord polypectomy. Past Anesthesia/Blood Transfusion Reactions: No Reported Reaction Additional Past Anesthesia/Blood Transfusion Reaction / Comm: Pt has never had blood transfusion. Date of Last Stent Placement:: 03/07/2015 Past Psychological History: No Psychological Hx Reported Additional Psychological History / Comment(s): Pt resides with his of 19 yrs. He is independent. He uses no assistive device or home care agency. Smoking Status: Former smoker Past Alcohol Use History: Occasional Additional Past Alcohol Use History / Comment(s): no longer drinks six beers per day Past Drug Use History: None Reported - Past Family History Father Family Medical History: No Reported History Additional Family Medical History / Comment(s): Father when pt was 8 yrs old. He was a WW[employer] vet and had suffered a gunshot to the head. Mother Family Medical History: No Reported History Additional Family Medical History / Comment(s): .Mother is healthy and is 84yrs old Medications and Allergies Home Medications Medication Instructions Recorded Confirmed Type Cyanocobalamin [Vitamin B-12] 500 mcg PO DAILY@1200 03/07/15 08/21/18 History Nitroglycerin Sl Tabs [Nitrostat] 0.4 mg SUBLINGUAL Q5M PRN #25 tab 03/09/15 Rx amLODIPine [Norvasc] 5 mg PO HS #30 tab 03/09/15 08/21/18 Rx ALPRAZolam [Xanax] 0.5 mg PO HS 08/21/18 08/21/18 History Aspirin EC [Ecotrin Low Dose] 81 mg PO DAILY 08/21/18 08/21/18 History Cholecalciferol [Vitamin D3] 1,000 unit PO DAILY 08/21/18 08/21/18 History Clopidogrel [Plavix] 75 mg PO HS 08/21/18 08/21/18 History Cyclobenzaprine [Flexeril] 5 mg PO HS PRN 08/21/18 08/21/18 History Joint Complex 1 tab PO DAILY 08/21/18 08/21/18 History Losartan Potassium [Cozaar] 100 mg PO HS 08/21/18 08/21/18 History Metoprolol Tartrate [Lopressor] 12.5 mg PO HS 08/21/18 08/21/18 History Multivitamins, Thera [Multivitamin 1 tab PO DAILY 08/21/18 08/21/18 History (formulary)] Ranitidine HCl [Zantac] 150 mg PO BID 08/21/18 08/21/18 History Allergies Allergy/AdvReac Type Severity Reaction Status Date / Time Lqyhwru-Dat-Cnz Reductase AdvReac JOINT PAIN Verified 08/21/18 17:51 Inhibitor Surgical - Exam Vital Signs Temp Pulse Resp BP Pulse Ox 97.5 F L 96 18 129/87 96 08/21/18 14:35 08/21/18 14:35 08/21/18 14:35 08/21/18 14:35 08/21/18 14:35 Physical exam 68-year-old male appears in no acute distress oriented 3 Lungs decreased at the bases no audible crackles or wheezing noted Heart S1-S2 audible no murmur noted 9 chest pain Abdomen soft nondistended. Hypoactive bowel tones no tenderness noted no nausea no vomiting Extremities positive swelling and tenderness to the right upper extremity above the elbow on the right lower extremities no edema Results - Labs 09/02/18 07:39 09/02/18 07:39 Abnormal Lab Results - Last 24 Hours (Table) 09/02/18 09/02/18 09/02/18 Range/Units 07:39 07:39 07:39 RBC 3.58 L (4.30-5.90) m/uL Hgb 10.5 L (13.0-17.5) gm/dL Hct 33.4 L (39.0-53.0) % Neutrophils # 7.8 H (1.3-7.7) k/uL APTT 69.3 H (22.0-30.0) sec Chloride 108 H (98-107) mmol/L Glucose 101 H (74-99) mg/dL Total Bilirubin 5.0 H (0.2-1.3) mg/dL AST 96 H (17-59) U/L ALT 109 H (21-72) U/L Alkaline Phosphatase 244 H (38-126) U/L Albumin 3.0 L (3.5-5.0) g/dL Diabetes panel 09/02/18 Range/Units 07:39 Sodium 139 (137-145) mmol/L Potassium 4.5 (3.5-5.1) mmol/L Chloride 108 H (98-107) mmol/L Carbon Dioxide 26 (22-30) mmol/L BUN 10 (9-20) mg/dL Creatinine 0.88 (0.66-1.25) mg/dL Glucose 101 H (74-99) mg/dL Calcium 9.0 (8.4-10.2) mg/dL AST 96 H (17-59) U/L ALT 109 H (21-72) U/L Alkaline Phosphatase 244 H (38-126) U/L Total Protein 6.4 (6.3-8.2) g/dL Albumin 3.0 L (3.5-5.0) g/dL Calcium panel 09/02/18 Range/Units 07:39 Calcium 9.0 (8.4-10.2) mg/dL Albumin 3.0 L (3.5-5.0) g/dL Pituitary panel 09/02/18 Range/Units 07:39 Sodium 139 (137-145) mmol/L Potassium 4.5 (3.5-5.1) mmol/L Chloride 108 H (98-107) mmol/L Carbon Dioxide 26 (22-30) mmol/L BUN 10 (9-20) mg/dL Creatinine 0.88 (0.66-1.25) mg/dL Glucose 101 H (74-99) mg/dL Calcium 9.0 (8.4-10.2) mg/dL Adrenal panel 09/02/18 Range/Units 07:39 Sodium 139 (137-145) mmol/L Potassium 4.5 (3.5-5.1) mmol/L Chloride 108 H (98-107) mmol/L Carbon Dioxide 26 (22-30) mmol/L BUN 10 (9-20) mg/dL Creatinine 0.88 (0.66-1.25) mg/dL Glucose 101 H (74-99) mg/dL Calcium 9.0 (8.4-10.2) mg/dL Total Bilirubin 5.0 H (0.2-1.3) mg/dL AST 96 H (17-59) U/L ALT 109 H (21-72) U/L Alkaline Phosphatase 244 H (38-126) U/L Total Protein 6.4 (6.3-8.2) g/dL Albumin 3.0 L (3.5-5.0) g/dL Assessment and Plan Assessment: Impression Present on admission elevated liver enzymes with a CAT scan of the abdomen and pelvis showing a liver lesion measuring 3.6 cm metastatic disease not excluded Elevated CA-19-9 greater than 70,000 Right upper extremity pain and swelling with positive DVT per Doppler study CTA of the chest showed evidence of bilateral pulmonary emboli Present on admission dehydration acute renal failure improving Status post liver biopsy done on August 31 Constipation Left leg DVT Plan Will scheduled tomorrow for MediPort for access to give chemotherapy We'll follow with you continue recommendations per the consultants defer to Further recommendations pending Surgical consultation note dictated for Dr. LI The above impression and plan of care have been discussed and directed by signing physician. Zahida Mooney nurse practitioner acting as scribe for signing physician.
--- NOTE | 2018-09-02 17:00 | P.PN ---
Subjective Progress Note Date: 09/02/18 Principal diagnosis: DVT, liver lesions Pt seen in f/u, is at bedside. Pt has no c/o other then wanting to know what is going on and go home. He is tolerating some oral intake, no vomiting, chest pain, pain at biopsy site, changes in bowel or bladder habits, no bleeding on heparin. Fully ambulatory Objective - Vital Signs Vital signs: Vital Signs Temp 97.6 F 09/02/18 14:20 Pulse 76 09/02/18 14:20 Resp 20 09/02/18 14:20 BP 163/91 09/02/18 14:20 Pulse Ox 94 L 09/02/18 14:20 Intake & Output 09/01/18 09/02/18 09/02/18 18:59 06:59 18:59 Intake Total 868.000 584.88 500 Balance 868.000 584.88 500 Weight 114.765 kg Intake: IV 368 Heparin Sod,Pork in 0.45% 368 NaCl 25,000 unit In 0.45 % NaCl 1 500ml.bag @ 18 UNITS/KG/HR 40.82 mls/hr IV .[id number] [facility] Rx#: [id number] Intake, IV Titration 500.000 484.88 500 Amount Heparin Sod,Pork in 0.45% 500.000 484.88 500 NaCl 25,000 unit In 0.45 % NaCl 1 500ml.bag @ 18 UNITS/KG/HR 40.82 mls/hr IV .[id number] [facility] Rx#: [id number] Oral 100 Other: Voiding Method Toilet Toilet Toilet # Voids 2 - Exam WD, NAD, A&Ox4, normo cephalic, anicteric sclera, respirations even and unlabored, no visible bruising, swelling - Constitutional General appearance: Present: cooperative, no acute distress, obese - EENT Eyes: Present: EOMI - Labs CBC & Chem 7: 09/02/18 07:39 09/02/18 07:39 Labs: Abnormal Lab Results - Last 24 Hours (Table) 09/02/18 09/02/18 09/02/18 Range/Units 07:39 07:39 07:39 RBC 3.58 L (4.30-5.90) m/uL Hgb 10.5 L (13.0-17.5) gm/dL Hct 33.4 L (39.0-53.0) % Neutrophils # 7.8 H (1.3-7.7) k/uL APTT 69.3 H (22.0-30.0) sec Chloride 108 H (98-107) mmol/L Glucose 101 H (74-99) mg/dL Total Bilirubin 5.0 H (0.2-1.3) mg/dL AST 96 H (17-59) U/L ALT 109 H (21-72) U/L Alkaline Phosphatase 244 H (38-126) U/L Albumin 3.0 L (3.5-5.0) g/dL Assessment and Plan (1) Liver mass Narrative/Plan: S/P IR biopsy, final path pending Current Visit: Yes Status: Acute Priority: High Code(s): R16.0 - HEPATOMEGALY, NOT ELSEWHERE CLASSIFIED SNOMED Code(s): 965983402 (2) Left leg DVT Current Visit: Yes Status: Acute Priority: High Code(s): I82.402 - ACUTE EMBOLISM AND THOMBOS UNSP DEEP VEINS OF L LOW EXTREM SNOMED Code(s): 381209412 (3) Pulmonary embolism Narrative/Plan: Dr. Dennis confirmed adequate and viable specimen for evaluation with Pathology. Pending port placement for chemo. Discussed case with IM. Blankenship to transition to eliquis after port placed. Current Visit: Yes Status: Acute Priority: High Code(s): I26.99 - OTHER PULMONARY EMBOLISM WITHOUT ACUTE COR PULMONALE SNOMED Code(s): 76027996 (4) Constipated Narrative/Plan: Cont medications to treat Current Visit: Yes Status: Acute Priority: Medium Code(s): K59.00 - CONSTIPATION, UNSPECIFIED SNOMED Code(s): 69602940 Plan: Dr. Dennis discussed that the preliminary findings of the path do confirm malignancy, staining pending for exact primary, most suspect pancreatic origin. 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 Disease is not curable. Treatment intent is palliation of symptoms and prolongation of life. Life expectancy with and without treatment was discussed. Also, discussed biomarker testing on the tumor specimen to see if there are targeted or biological agents that would be appropriate. All of pt and 's questions were answered to their satisfaction. Pt would like to proceed with treatment. Surgery consulted for port placement Once port placed ok to switch from Heparin to oral anticoagulation-discussed with IM [employer] Pt gave me the ok to take demographic information so that insurance approvals for treatment plan can begin as soon as path reported. They verbalized understanding the process. We will contact them for appt to begin treatment. Doctor attests: I performed a history and physical examination and developed impression and plan of care of this patient, discussed with dictator. I agree with dictators note, documented as a scribe. Time with Patient: Greater than 30 (40min spent, >50% counseling and coordinating care)
[2018-09-02] MEDS: amLODIPine 5 MG TAB PO SCH (21:15)
[2018-09-02] MEDS: METOPROLOL TARTRATE 12.5 MG TAB PO SCH (21:15)
[2018-09-02] MEDS: MELATONIN 5 MG TABLET PO SCH (21:15)
[2018-09-02] MEDS: LOSARTAN 50 MG TAB PO SCH (21:15)
[2018-09-02 23:14] VITALS: RESP 16
[2018-09-03] MEDS: MORPHINE SULFATE 4 MG/ML SYRINGE IV PRN ×4 (03:37→21:05)
[2018-09-03] MEDS: ONDANSETRON 4 MG/2 ML VIAL IVP PRN ×2 (03:37→16:59)
[2018-09-03] MEDS: ALPRAZolam 0.5 MG TAB PO SCH (06:21)
[2018-09-03] MEDS: CHOLECALCIFEROL 1,000 UNIT TAB PO SCH (07:40)
[2018-09-03] MEDS: PANTOPRAZOLE 40 MG TABLET PO SCH (07:40)
[2018-09-03] MEDS: DOCUSATE 100 MG CAP PO SCH ×2 (07:40→21:17)
[2018-09-03 07:51] LABS: Basophils # (A) 0.1 k/uL (0-0.2); Basophils % (A) 1 %; Eosinophils # (A) 0.2 k/uL (0-0.7); Eosinophils % (A) 2 %; HCT 33.6 % (39.0-53.0); HGB 10.5 gm/dL (13.0-17.5); Hypochromasia Slight; Lymphocytes # (A) 1.1 k/uL (1.0-4.8); Lymphocytes % (A) 10 %; MCH 29.7 pg (25.0-35.0); MCHC 31.4 g/dL (31.0-37.0); MCV 94.7 fL (80.0-100.0); Mean Platelet Volume 7.8; Monocytes # (A) 0.8 k/uL (0-1.0); Monocytes % (A) 7 %; Neutrophils # (A) 8.3 k/uL (1.3-7.7); Neutrophils % (A) 77 %; Platelet Count 270 k/uL (150-450); RBC 3.54 m/uL (4.30-5.90); WBC 10.8 k/uL (3.8-10.6)
[2018-09-03 08:00] LABS: INR 1.1 (<1.2); Partial Thromboplastin Time 76.4 sec (22.0-30.0); Prothrombin Time 11.2 sec (9.0-12.0)
[2018-09-03 08:36] LABS: ALT 107 U/L (21-72); AST 91 U/L (17-59); Albumin 3.2 g/dL (3.5-5.0); Alkaline Phosphatase 232 U/L (38-126); Anion Gap 7 mmol/L; Blood Urea Nitrogen 10 mg/dL (9-20); Calcium 9.2 mg/dL (8.4-10.2); Carbon Dioxide 27 mmol/L (22-30); Chloride 105 mmol/L (98-107); Glucose 103 mg/dL (74-99); Potassium 4.5 mmol/L (3.5-5.1); Sodium 139 mmol/L (137-145); Total Bilirubin 5.1 mg/dL (0.2-1.3); Total Protein 6.5 g/dL (6.3-8.2)
[2018-09-03] MEDS ORDERED: LACTATED RINGERS 1,000 ML IV ONE (11:17)
[2018-09-03] MEDS ORDERED: DEXAMETHASONE SOD PHOSPHATE 10 MG/ML 1 ML VIAL IV ONE (12:02)
[2018-09-03] MEDS ORDERED: ONDANSETRON 4 MG/2 ML VIAL IVP ONE (12:02)
[2018-09-03] MEDS ORDERED: MIDAZOLAM 2 MG/2 ML VIAL ONE (12:15)
[2018-09-03] MEDS ORDERED: fentaNYL (PF) 50 MCG/ML 2 ML AMP ONE (12:15)
[2018-09-03] MEDS ORDERED: PROPOFOL 10 MG/ML 20 ML VIAL IV ONE (12:15)
[2018-09-03] MEDS ORDERED: LIDOCAINE 1% INJ 10MG/ML (20 ML MDV) ONE (12:15)
[2018-09-03] MEDS ORDERED: diphenhydrAMINE 50 MG/ML 1 ML VIAL ONE (12:15)
[2018-09-03] MEDS ORDERED: SODIUM CHLORIDE 0.9% 50 ML with ceFAZolin 2,000 MG IV ONE ×2 (12:18)
[2018-09-03] MEDS: MULTIVITAMINS, THERA 1 EACH TAB PO SCH (12:48)
[2018-09-03] MEDS ORDERED: HEPARIN SODIUM,PORCINE 100 UNIT/ML 5 ML VIAL IV ONE (12:48)
[2018-09-03] MEDS: CYANOCOBALAMIN 500 MCG TAB PO SCH (12:48)
[2018-09-03] MEDS ORDERED: BUPIVACAIN-EPI 0.5%-1:200,000 30 ML VIAL SQ ONE (12:49)
[2018-09-03] MEDS ORDERED: IOPAMIDOL M200 10 ML VIAL MISCELLANE ONE ×2 (12:49)
--- NOTE | 2018-09-03 13:01 | P.OP ---
Date of Procedure: 09/03/18 Preoperative Diagnosis: Pulmonary embolus Postoperative Diagnosis: Pulmonary embolus Procedure(s) Performed: Insertion of right subclavian Port-A-Cath Anesthesia: MAC Surgeon: Camden Lamas Estimated Blood Loss (ml): 5 Pathology: none sent Condition: stable Disposition: PACU Description of Procedure: PROCEDURE: The patient was placed on the operating table in the supine position. She received MAC anesthetic. The [right] chest was prepped and draped in the usual sterile fashion. The skin underneath the right clavicle was anesthetized with 1% Xylocaine and using Seldinger technique, the right subclavian vein was cannulized. The wire was placed through the needle and positioned under fluoroscopy. Next, the needle was removed and the port site was anesthetized with 1% Xylocaine. Skin was incised with #15 blade and port pocket was made using blunt and sharp dissection. Following this the catheter was attached to the sport and the port was flushed. The port was positioned into the pocket site and was secured with 3-0 Vicryl suture. The catheter was then brought out through the wire site and then the dilator sheath was placed over the wire and the dilator and the wire were removed. The catheter was placed through the sheath and the sheath was removed. The port was flushed with hep-lock solution. Skin was closed with interrupted 3-0 Vicryl sutures. Steri-Strips were applied. The patient tolerated the procedure well. The patient was sent to recovery room for chest x-ray after the procedure.
[2018-09-03] MEDS ORDERED: APIXABAN 5 MG TAB PO ONE (13:48)
--- NOTE | 2018-09-03 14:04 | P.DS ---
Providers Date of admission: 08/21/18 16:53 Expected date of discharge: 09/03/18 Attending physician: Jaky Valdes Consults: 08/21/18 17:23 Consult Physician Stat Consulting Provider: Barry Serrano Consult Reason/Comments: DVT Do you want consulting provider notified?: Yes 08/22/18 13:49 Consult Physician Routine Consulting Provider: Wali Dennis Consult Reason/Comments: DVT. abnor,al liver enzymes Do you want consulting provider notified?: Yes 08/23/18 12:39 Consult Physician Routine Consulting Provider: Farhat Sanchez Consult Reason/Comments: bilateral PE Do you want consulting provider notified?: Yes 09/02/18 11:08 Consult Physician Urgent Consulting Provider: Camden Lamas Consult Reason/Comments: port placement for chemotherapy, metastatic cancer Do you want consulting provider notified?: Yes Primary care physician: Jaky [facility] Course: Discharge diagnosis #1 left lower extremity deep venous thrombosis patient is maintained on IV heparin. CTA and CT of abdomen and pelvis has been ordered per oncology services. Per Dr. Serrano for vascular surgery patient to be started on xarelto or coumadin. Discussed with oncology services. Patient to be switched to eliquis 10 mg for 7 days twice a day and then to 5 mg twice a day after. Patient to get chest wall port placement prior to switching to oral anticoagulation #[address] of the abdomen and pelvis completed showing approximately 4 indeterminate liver lesions measuring up to 3.6 cm metastases disease not excluded at this time. MRI evaluation and clinical workup recommended. Mildly enlarged 1.7 cm michelle caval 1.2 cm michelle hepatis lymph nodes are nonspecific. 1.8 cm cystic lesion of the pancreatic uncinate process. This can also be further evaluated on the patient's liver MRI. Nonspecific nodularity of the adrenal glands measuring up to 1.2 cm possible incidental underlining adrenal adenomas was can be reassessed at follow-up. Borderline to mildly hydropic gallbladder likely due to fasting state. If right upper quadrant pain are concerning for early acute cholecystitis follow- up ultrasound scan. Sigmoid diverticulosis without evidence for acute diverticulitis. Bilateral femoral head AVN, right greater than left without subarticular collapse. CA19-9 antigen ordered per oncology service is elevated at greater than 70,000. Discussed case with Kamilla Evangelista per oncology services. Interventional radiology has been consulted for possible biopsy of liver lesions. Patient previously on Plavix prior to admission. Repeat liver ultrasound showing gallbladder is filled with tumefactive sludge however there is no current sonographic evidence of acute cholecystitis #3 right upper extremity pain and swelling, will obtain ultrasound. Ultrasound completed showing superficial venous thrombus within the bases with pain. Patient currently on heparin drip #4 dehydration was acute renal failure due to prerenal azotemia elevated 24 on admission creatinine elevated at 1.29 maintained on IV fluid. Creatinine improving to 1.00. Resolved #5 underlying history of hypertension well-controlled on medications #6 underlying history of hyperlipidemia #7 previous history of coronary artery disease with angioplasty and stent placement to the proximal LAD in February 2015 #8 bilateral pulmonary embolism. CTA performed showing bilateral pulmonary emboli, moderate burden on the right and mild on the left. No CT evidence for right heart strain. COPD with mild edema. Suspect underlying pulmonary arterial hypertension. A 1 cm subpleural density at the left base could represent nodule atelectasis or small area of pulmonary infarct is a sequela of the patient's pulmonary emboli three-month follow-up recommended. Dr. Sanchez has been consulted for pulmonary services she remains on heparin drip. Patient to the chest wall port placement and then switched to oral anticoagulation eliquis #9. Anxiety. Patient currently takes Xanax 0.5 mg nightly at home. Patient expressed that he has been more anxious due to recent finding potential diagnosis. Will increase Xanax to three times a day at this time. #10. Constipation. Patient maintained on milk of magnesia and Colace #11 liver mass. liver biopsy completed. Per oncology prelimanary Path findings do confirm malignancy. Findings discussed with patient and . Per oncology discussed that patient currently has stage IV disease which is not curable, treatment intent will be pallative of symptoms and prolongation of life. Chest wall port will be placed prior to discharge. Per oncology services okay to switch to oral anticoagulation recommending anticoagulation with eliquis I performed an examination of the patient and discussed their management with the Nurse Practitioner. I have reviewed the Nurse Practitioner's notes and agree with the documented findings and plan of care Hospital course Shay Gutierrez is a 68-year-old male who presented to [facility] emergency room with a chief complaint of left lower extremity pain and swelling that started 2 days prior to presentation, he was evaluated in the emergency room and had evidence of left lower extremity deep venous thrombosis he was started on IV heparin and was admitted to medical floor. Patient states that about 3 weeks prior to this admission he had an upper respiratory infection treated with oral antibiotic course but he states that he spent most of the time in bed day and night for the last 2-3 weeks, as he was feeling ready weak and tired. Patient denies having any previous episodes of DVT or PE in the past On 08/23/2018 patient is currently resting in bed. Patient rains on IV heparin for DVT. Patient reports that he's had a low appetite. Patient also currently drinking contrast for CT scans ordered per oncology. Patient denies any shortness of breath or chest discomfort. Patient denies any urinary burning or frequency. Patient denies any diarrhea or constipation at this time On 08/24/2018 patient is currently resting in bed. Patient CTA yesterday showing bilateral PE. Dr. Sanchez has been consulted for pulmonary services. Patient is on heparin due to DVT and pulmonary embolisms. Discussed case with oncology service is patient biopsy of liver lesions. Patient was on Plavix prior to hospital admission. Biopsy likely will be Thursday. Patient to remain on heparin protocol. Patient denies chest pain or shortness of breath. Patient denies nausea vomiting or diarrhea. Patient denies any urinary burning or frequency. On 08/25/2018 patient is currently resting in bed. Patient states he has been moving around. Patient also expressed that he is a bit more anxious due to the recent findings on his CT. Patient remains on heparin drip biopsy of liver lesions likely will be on Thursday. At this time patient denies chest pain or shortness of breath. Patient denies nausea vomiting or diarrhea. Patient denies any urinary burning or frequency On 08/26/2018 patient is currently resting comfortably in chair with at bedside. Patient does report he's been having increased anxiety due to impending testing. Xanax has been increased. At this time patient denies chest pain. Patient states shortness of breath has improved with oxygen during activity. Patient denies nausea vomiting or diarrhea. Patient denies any urinary burning or frequency On 08/27/2018 patient is currently resting in bed. at bedside. Patient remains alert and oriented 3. Patient remains on heparin drip for bilateral PEs and DVT. Liver biopsy likely to be completed on Thursday. This time patient denies chest pain or shortness breath. Patient denies any nausea vomiting or diarrhea. Is complaining of intermittent right abdominal pain. Patient denies any urinary burning or frequency On 08/28/2018 patient is alert and oriented 3 pain is better controlled he is still on IV heparin drip he is still complaining of pain in the right upper quadrant otherwise no complaints at this time there is no fever or chills no headache no dizziness no chest pain no shortness of breath no nausea or vomiting and no urinary symptoms On 08/29/2018 patient is alert and oriented 3 in no apparent distress ane is well-controlled patient is maintained on IV heparin, there is no fever or chills no headache or dizziness no chest pain no shortness of breath no cough no nausea or vomiting no abdominal pain and no urinary symptoms. Plan at this time is to continue with IV heparin, patient will have liver biopsy tomorrow after that he will be started on oral anticoagulation On 08/30/2018 patient is currently lying comfortably in bed. at bedside. Patient planning for liver biopsy today. Currently on hold. Patient to be transitioned to Coumadin anticoagulation. At this time patient denies chest pain or shortness of breath. Patient denies nausea vomiting or diarrhea. Patient denies any urinary burning or frequency. On 08/31/2018 patient is currently resting comfortably in bed. Patient status post liver biopsy yesterday. Discussed case with Dr. dennis per Oncology services. Recommending to hold off on oral anticoagulation due to processing if adequate biopsy has been received. Also recommending anticoagulation with Lovenox or eliquis due to likelihood of malignancy requiring chemotherapy. Patient denies chest pain or shortness of breath. Patient denies nausea vomiting diarrhea denies any urinary burning or frequency On 09/01/2018 patient is currently resting in bed. At this time patient denies chest pain or shortness of breath. Patient is complaining of constipation, patient is on milk of mag and Colace has been added. Awaiting oncology input in regards to starting oral anticoagulation. Patient remains on heparin drip. On 09/02/2018 patient is currently resting in bed patient's family at bedside. Discussed case with Dr. arriola per oncology. Requesting chest wall port placed prior to switching patient to oral anticoagulation. Discussed with primary care office patient will be able to receive eliquis one month samples to Fill out further Paperwork to Be Covered. At this time patient denies chest pain or shortness of breath. Patient denies nausea vomiting or diarrhea. Patient denies any urinary burning or frequency. On 09/03/2018 patient is currently resting in bed at bedside. Planning for chest report this afternoon. Patient is very eager to go home once placement of chest wall port. Planning to switch patient to oral eliquis and DC patient home. Patient to follow-up closely with primary care provider and oncology services for further plan of care Patient will be given 1 time dose of 10 mg eliquis prior to discharge. Heparin drip will be DC'd. Patient given free samples and instructed to start 10 mg twice a day of eliquis tomorrow for 1 week. Patient also given a prescription for eliquis 5 mg twice a day to be filled along with coupon after 1 week of 10 mg Eliquis is completed. Prescription for pain medications Vicoprofen and morphine sulfate ER given per Dr. Valdes. Paper prescription for Xanax also provided per Dr. Valdes Patient advised to follow-up closely with PCP and oncology services for further plan of care I performed an examination of the patient and discussed their management with the Nurse Practitioner. I have reviewed the Nurse Practitioner's notes and agree with the documented findings and plan of care Patient Condition at Discharge: Stable Plan - Discharge Summary Discharge Rx Participant: No New Discharge Prescriptions: New Docusate [Colace] 100 mg PO BID #30 cap ALPRAZolam [Xanax] 0.5 mg PO Q24H tab HYDROcodone/IBUPROFEN 7.5-200 [Vicoprofen 7.5-200 mg] 1 tab PO Q6HR PRN 30 Days #120 tab PRN Reason: Pain Morphine Sulfate ER [Ms Contin] 30 mg PO Q8H 3 Days #9 tab Apixaban [Eliquis] 5 mg PO BID #60 tab Apixaban [Eliquis] 10 mg PO BID #14 tab Continue Cyanocobalamin [Vitamin B-12] 500 mcg PO DAILY@1200 Nitroglycerin Sl Tabs [Nitrostat] 0.4 mg SUBLINGUAL Q5M PRN #25 tab PRN Reason: Chest Pain amLODIPine [Norvasc] 5 mg PO HS #30 tab Metoprolol Tartrate [Lopressor] 12.5 mg PO HS Losartan Potassium [Cozaar] 100 mg PO HS Cholecalciferol [Vitamin D3] 1,000 unit PO DAILY Ranitidine HCl [Zantac] 150 mg PO BID Cyclobenzaprine [Flexeril] 5 mg PO HS PRN PRN Reason: Muscle Pain Discontinued Aspirin EC [Ecotrin Low Dose] 81 mg PO DAILY Multivitamins, Thera [Multivitamin (formulary)] 1 tab PO DAILY ALPRAZolam [Xanax] 0.5 mg PO HS Clopidogrel [Plavix] 75 mg PO HS Joint Complex 1 tab PO DAILY Discharge Medication List Cyanocobalamin [Vitamin B-12] 500 mcg PO DAILY@1200 03/07/15 [History] Nitroglycerin Sl Tabs [Nitrostat] 0.4 mg SUBLINGUAL Q5M PRN #25 tab 03/09/15 [Rx ] amLODIPine [Norvasc] 5 mg PO HS #30 tab 03/09/15 [Rx] Cholecalciferol [Vitamin D3] 1,000 unit PO DAILY 08/21/18 [History] Cyclobenzaprine [Flexeril] 5 mg PO HS PRN 08/21/18 [History] Losartan Potassium [Cozaar] 100 mg PO HS 08/21/18 [History] Metoprolol Tartrate [Lopressor] 12.5 mg PO HS 08/21/18 [History] Ranitidine HCl [Zantac] 150 mg PO BID 08/21/18 [History] ALPRAZolam [Xanax] 0.5 mg PO Q24H tab 09/03/18 [Rx] Apixaban [Eliquis] 5 mg PO BID #60 tab 09/03/18 [Rx] Apixaban [Eliquis] 10 mg PO BID #14 tab 09/03/18 [Rx] Docusate [Colace] 100 mg PO BID #30 cap 09/03/18 [Rx] HYDROcodone/IBUPROFEN 7.5-200 [Vicoprofen 7.5-200 mg] 1 tab PO Q6HR PRN 30 Days #120 tab 09/03/18 [Rx] Morphine Sulfate ER [Ms Contin] 30 mg PO Q8H 3 Days #9 tab 09/03/18 [Rx] Follow up Appointment(s)/Referral(s): Wali Dennis MD [STAFF PHYSICIAN] - 1 Week Jaky Valdes MD [Primary Care Provider] - 3 Days Activity/Diet/Wound Care/Special Instructions: Diet heart healthy Activity as tolerated Patient had chest wall port placement today. Patient to receive one-time dose of 10 mg of eliquis prior to discharge. Heparin drip DC'd. Patient then to start 10 mg eliquis twice a day for 1 week (samples have been given to patient) After 1 week patient is to switch to 5 mg twice a day eliquis (paper prescription per Dr. Valdes are given along with coupon for 1 month) Prescription given per Dr. Valdes for pain medications and xanax Discharge Disposition: HOME SELF-CARE
--- NOTE | 2018-09-03 14:07 | XR ---
EXAMINATION TYPE: XR chest 1V portable DATE OF EXAM: 09/03/2018 COMPARISON: 08/27/2018 HISTORY: Post Mediport placement. TECHNIQUE: Single frontal view of the chest is obtained. FINDINGS: There is a newly placed right-sided Mediport terminating in the distal superior vena cava. There is no focal air space opacity, pleural effusion, or pneumothorax seen. The cardiac silhouette size is again mildly enlarged. The osseous structures are intact. IMPRESSION: New appropriately placed right-sided Mediport terminating in the distal superior vena ca va with no postprocedural pneumothorax.
--- NOTE | 2018-09-03 14:14 | FL ---
EXAMINATION TYPE: FL guided central line placemt DATE OF EXAM: 09/03/2018 CLINICAL HISTORY: Right-sided Mediport placement. Fluoroscopic documentation. TECHNIQUE: Fluoroscopy. COMPARISON: None. FINDINGS/IMPRESSION: Fluoroscopic guidance was provided during procedure performed by Dr. Beltre. A total of 2 seconds of fluoroscopic time was utilized during the procedure and 1 spot images was acqui red during placement of a right-sided Mediport.
[2018-09-03] MEDS ORDERED: HEPARIN SODIUM,PORCINE 5,000 UNIT/ML 1 ML VIAL IV PRN (15:12)
[2018-09-03] MEDS ORDERED: HEPARIN SODIUM,PORCINE 10,000 UNIT/ML 1 ML VIAL IV ONE (15:12)
[2018-09-03 15:44] LABS: Basophils # (A) 0.1 k/uL (0-0.2); Basophils % (A) 1 %; Eosinophils # (A) 0.1 k/uL (0-0.7); Eosinophils % (A) 1 %; HCT 34.4 % (39.0-53.0); HGB 10.7 gm/dL (13.0-17.5); Hypochromasia Slight; Lymphocytes # (A) 0.4 k/uL (1.0-4.8); Lymphocytes % (A) 4 %; MCH 29.9 pg (25.0-35.0); MCHC 31.1 g/dL (31.0-37.0); MCV 96.1 fL (80.0-100.0); Mean Platelet Volume 6.9; Monocytes # (A) 0.3 k/uL (0-1.0); Monocytes % (A) 3 %; Neutrophils # (A) 8.9 k/uL (1.3-7.7); Neutrophils % (A) 90 %; Platelet Count 279 k/uL (150-450); RBC 3.58 m/uL (4.30-5.90); RDW 15.2 % (11.5-15.5); WBC 9.9 k/uL (3.8-10.6)
[2018-09-03 15:49] LABS: Partial Thromboplastin Time 22.3 sec (22.0-30.0); Prothrombin Time 10.5 sec (9.0-12.0)
[2018-09-03] MEDS: HEPARIN SOD,PORK IN 0.45% NACL 25,000 UNIT in 0.45% NACL 1 500ML.BAG IV SCH (16:42)
[2018-09-03] MEDS: LOSARTAN 50 MG TAB PO SCH (21:17)
[2018-09-03] MEDS: MAGNESIUM HYDROXIDE 2,400 MG/10 ML CUP PO PRN (21:17)
[2018-09-03] MEDS: METOPROLOL TARTRATE 12.5 MG TAB PO SCH (21:17)
[2018-09-03] MEDS: amLODIPine 5 MG TAB PO SCH (21:17)
[2018-09-03] MEDS: ALPRAZolam 0.5 MG TAB PO PRN (21:36)
[2018-09-03] MEDS: MELATONIN 5 MG TABLET PO SCH (23:59)
[2018-09-04] MEDS: HEPARIN SOD,PORK IN 0.45% NACL 25,000 UNIT in 0.45% NACL 1 500ML.BAG IV SCH (04:08)
[2018-09-04 05:31] VITALS: BP 138/78; PULSE 74; TEMP 97.6
[2018-09-04] MEDS: ALPRAZolam 0.5 MG TAB PO SCH (06:03)
[2018-09-04] MEDS: CHOLECALCIFEROL 1,000 UNIT TAB PO SCH (06:59)
[2018-09-04] MEDS: PANTOPRAZOLE 40 MG TABLET PO SCH (06:59)
[2018-09-04 07:07] LABS: Basophils # (A) 0.1 k/uL (0-0.2); Basophils % (A) 1 %; Eosinophils # (A) 0.2 k/uL (0-0.7); Eosinophils % (A) 1 %; HCT 36.3 % (39.0-53.0); HGB 10.9 gm/dL (13.0-17.5); Hypochromasia Slight; Lymphocytes # (A) 1.6 k/uL (1.0-4.8); Lymphocytes % (A) 12 %; MCH 29.3 pg (25.0-35.0); MCHC 30.1 g/dL (31.0-37.0); MCV 97.2 fL (80.0-100.0); Mean Platelet Volume 7.8; Monocytes # (A) 0.8 k/uL (0-1.0); Monocytes % (A) 6 %; Neutrophils # (A) 10.7 k/uL (1.3-7.7); Neutrophils % (A) 78 %; Platelet Count 311 k/uL (150-450); RBC 3.74 m/uL (4.30-5.90); RDW 15.3 % (11.5-15.5); WBC 13.7 k/uL (3.8-10.6)
[2018-09-04 07:16] LABS: INR 1.1 (<1.2); Prothrombin Time 11.1 sec (9.0-12.0)
[2018-09-04 07:29] LABS: Albumin 3.4 g/dL (3.5-5.0); Calcium 9.4 mg/dL (8.4-10.2); Potassium 4.3 mmol/L (3.5-5.1); Total Bilirubin 4.7 mg/dL (0.2-1.3)
[2018-09-04] MEDS: MORPHINE SULFATE 4 MG/ML SYRINGE IV PRN (07:38)
[2018-09-04] MEDS: ONDANSETRON 4 MG/2 ML VIAL IVP PRN (07:38)
[2018-09-04] MEDS ORDERED: LACTATED RINGERS 1,000 ML IV ONE (09:16)
[2018-09-04] MEDS ORDERED: LIDOCAINE 1% INJ 10MG/ML (20 ML MDV) ONE (09:27)
[2018-09-04] MEDS ORDERED: PROPOFOL 10 MG/ML 20 ML VIAL IV ONE (09:27)
[2018-09-04] MEDS ORDERED: APIXABAN 5 MG TAB PO ONE (10:42)
--- NOTE | 2018-09-04 11:01 | P.OP ---
Date of Procedure: 09/04/18 Preoperative Diagnosis: Gastritis Postoperative Diagnosis: Antral ulceration Pyloric stricture No evidence of esophageal tumor Procedure(s) Performed: EGD Anesthesia: MAC Surgeon: Camden Lamas Pathology: other (Antrum) Condition: stable Disposition: PACU Description of Procedure: The patient's placed on the endoscopy table in the lateral position. He received IV sedation. The gastroscope placed oropharynx and passed into the esophagus and into the stomach. Scope could not be placed entirely through the pylorus. There appeared to be a stricture of the pylorus. The duodenum was visualized. There was some minimal duodenitis. The scope was then brought back the antrum and there was evidence of antral ulceration. This area is biopsied. The scope was then retroflexed the remainder of this stomach appeared normal. There was no significant hiatal hernia. The GE junction was at 40 cm. The distal esophagus appeared normal. The proximal esophagus appeared normal. Scope was withdrawn for patient.
[2018-09-04] MEDS: MULTIVITAMINS, THERA 1 EACH TAB PO SCH (11:13)
[2018-09-04] MEDS: DOCUSATE 100 MG CAP PO SCH (11:13)
--- NOTE | 2018-09-04 11:26 | P.PN ---
Subjective Progress Note Date: 09/04/18 Shay Gutierrez is a 68-year-old male who presented to [facility] emergency room with a chief complaint of left lower extremity pain and swelling that started 2 days prior to presentation, he was evaluated in the emergency room and had evidence of left lower extremity deep venous thrombosis he was started on IV heparin and was admitted to medical floor. Patient states that about 3 weeks prior to this admission he had an upper respiratory infection treated with oral antibiotic course but he states that he spent most of the time in bed day and night for the last 2-3 weeks, as he was feeling ready weak and tired. Patient denies having any previous episodes of DVT or PE in the past On 08/23/2018 patient is currently resting in bed. Patient rains on IV heparin for DVT. Patient reports that he's had a low appetite. Patient also currently drinking contrast for CT scans ordered per oncology. Patient denies any shortness of breath or chest discomfort. Patient denies any urinary burning or frequency. Patient denies any diarrhea or constipation at this time On 08/24/2018 patient is currently resting in bed. Patient CTA yesterday showing bilateral PE. Dr. Sanchez has been consulted for pulmonary services. Patient is on heparin due to DVT and pulmonary embolisms. Discussed case with oncology service is patient biopsy of liver lesions. Patient was on Plavix prior to hospital admission. Biopsy likely will be Thursday. Patient to remain on heparin protocol. Patient denies chest pain or shortness of breath. Patient denies nausea vomiting or diarrhea. Patient denies any urinary burning or frequency. On 08/25/2018 patient is currently resting in bed. Patient states he has been moving around. Patient also expressed that he is a bit more anxious due to the recent findings on his CT. Patient remains on heparin drip biopsy of liver lesions likely will be on Thursday. At this time patient denies chest pain or shortness of breath. Patient denies nausea vomiting or diarrhea. Patient denies any urinary burning or frequency On 08/26/2018 patient is currently resting comfortably in chair with at bedside. Patient does report he's been having increased anxiety due to impending testing. Xanax has been increased. At this time patient denies chest pain. Patient states shortness of breath has improved with oxygen during activity. Patient denies nausea vomiting or diarrhea. Patient denies any urinary burning or frequency On 08/27/2018 patient is currently resting in bed. at bedside. Patient remains alert and oriented 3. Patient remains on heparin drip for bilateral PEs and DVT. Liver biopsy likely to be completed on Thursday. This time patient denies chest pain or shortness breath. Patient denies any nausea vomiting or diarrhea. Is complaining of intermittent right abdominal pain. Patient denies any urinary burning or frequency On 08/28/2018 patient is alert and oriented 3 pain is better controlled he is still on IV heparin drip he is still complaining of pain in the right upper quadrant otherwise no complaints at this time there is no fever or chills no headache no dizziness no chest pain no shortness of breath no nausea or vomiting and no urinary symptoms On 08/29/2018 patient is alert and oriented 3 in no apparent distress ane is well-controlled patient is maintained on IV heparin, there is no fever or chills no headache or dizziness no chest pain no shortness of breath no cough no nausea or vomiting no abdominal pain and no urinary symptoms. Plan at this time is to continue with IV heparin, patient will have liver biopsy tomorrow after that he will be started on oral anticoagulation On 08/30/2018 patient is currently lying comfortably in bed. at bedside. Patient planning for liver biopsy today. Currently on hold. Patient to be transitioned to Coumadin anticoagulation. At this time patient denies chest pain or shortness of breath. Patient denies nausea vomiting or diarrhea. Patient denies any urinary burning or frequency. On 08/31/2018 patient is currently resting comfortably in bed. Patient status post liver biopsy yesterday. Discussed case with Dr. dennis per Oncology services. Recommending to hold off on oral anticoagulation due to processing if adequate biopsy has been received. Also recommending anticoagulation with Lovenox or eliquis due to likelihood of malignancy requiring chemotherapy. Patient denies chest pain or shortness of breath. Patient denies nausea vomiting diarrhea denies any urinary burning or frequency On 09/01/2018 patient is currently resting in bed. At this time patient denies chest pain or shortness of breath. Patient is complaining of constipation, patient is on milk of mag and Colace has been added. Awaiting oncology input in regards to starting oral anticoagulation. Patient remains on heparin drip. On 09/02/2018 patient is currently resting in bed patient's family at bedside. Discussed case with Dr. arriola per oncology. Requesting chest wall port placed prior to switching patient to oral anticoagulation. Discussed with primary care office patient will be able to receive eliquis one month samples to Fill out further Paperwork to Be Covered. At this time patient denies chest pain or shortness of breath. Patient denies nausea vomiting or diarrhea. Patient denies any urinary burning or frequency. On 09/03/2018 patient is currently resting in bed at bedside. Planning for chest report this afternoon. Patient is very eager to go home once placement of chest wall port. Planning to switch patient to oral eliquis and DC patient home. Patient to follow-up closely with primary care provider and oncology services for further plan of care On 09/04/[address] Dennis per oncology requested patient stay 1 more day for due to pathology of liver biopsy finding. EKG completed with Dr. Lamas this a.m. patient does have chest wall port in place. All prescriptions including pain medication and eliquis prescription along with one week of free samples for eliquis given to . verbalized understanding of eliquis order. Patient and to follow-up with primary care provider next week ago. At this time patient denies any chest pain or shortness of breath. Patient denies nausea vomiting or diarrhea. Patient denies any urinary burning or frequency. Patient verbalized that he is eager to go home. Objective - Vital Signs Vital signs: Vital Signs Temp 97.6 F 09/04/18 05:00 Pulse 74 09/04/18 05:00 Resp 16 09/04/18 05:00 BP 138/78 09/04/18 05:00 Pulse Ox 94 L 09/04/18 05:00 Intake & Output 09/03/18 09/04/18 09/04/18 18:59 06:59 18:59 Intake Total 700 1073.701 200 Output Total 2 Balance 698 1073.701 200 Weight 112.037 kg Intake: IV 700 200 Intake, IV Titration 533.701 Amount Heparin Sod,Pork in 0.45% 533.701 NaCl 25,000 unit In 0.45 % NaCl 1 500ml.bag @ 18 UNITS/KG/HR 40.33 mls/hr IV .[id number] [facility] Rx#: [id number] Oral 540 Output: Estimated Blood Loss 2 Other: Voiding Method Toilet Toilet Toilet # Voids 1 - Exam In general patient is alert and oriented 3 in no apparent distress Neck is supple no JVD no goiter no lymphadenopathy Chest exam reveals a clear respiratory sounds no crackles no wheezing Cardiac exam reveals regular heart sounds S1 and S2 no gallops no murmurs Abdomen is soft nontender no organomegaly with normal bowel sounds Extremity exam reveals mild swelling and tenderness in the left lower extremity Patient also has swelling and induration and tenderness in the right upper extremity right above the elbow Neurological examination reveals no gross focal deficit - Labs CBC & Chem 7: 09/04/18 06:30 09/04/18 06:30 Labs: Abnormal Lab Results - Last 24 Hours (Table) 09/03/18 09/03/18 09/04/18 Range/Units 15:27 20:39 06:30 WBC 13.7 H (3.8-10.6) k/uL RBC 3.58 L 3.74 L (4.30-5.90) m/uL Hgb 10.7 L 10.9 L (13.0-17.5) gm/dL Hct 34.4 L 36.3 L (39.0-53.0) % MCHC 30.1 L (31.0-37.0) g/dL Neutrophils # 8.9 H 10.7 H (1.3-7.7) k/uL Lymphocytes # 0.4 L (1.0-4.8) k/uL APTT 64.6 H (22.0-30.0) sec Glucose (74-99) mg/dL Total Bilirubin (0.2-1.3) mg/dL AST (17-59) U/L ALT (21-72) U/L Alkaline Phosphatase (38-126) U/L Albumin (3.5-5.0) g/dL 09/04/18 Range/Units 06:30 WBC (3.8-10.6) k/uL RBC (4.30-5.90) m/uL Hgb (13.0-17.5) gm/dL Hct (39.0-53.0) % MCHC (31.0-37.0) g/dL Neutrophils # (1.3-7.7) k/uL Lymphocytes # (1.0-4.8) k/uL APTT (22.0-30.0) sec Glucose 119 H (74-99) mg/dL Total Bilirubin 4.7 H (0.2-1.3) mg/dL AST 103 H (17-59) U/L ALT 96 H (21-72) U/L Alkaline Phosphatase 246 H (38-126) U/L Albumin 3.4 L (3.5-5.0) g/dL Assessment and Plan Assessment: #1 left lower extremity deep venous thrombosis patient is maintained on IV heparin. CTA and CT of abdomen and pelvis has been ordered per oncology services. Per Dr. Serrano for vascular surgery patient to be started on xarelto or coumadin. Discussed with oncology services. Patient to be switched to eliquis 10 mg for 7 days twice a day and then to 5 mg twice a day after. Patient to get chest wall port placement prior to switching to oral anticoagulation #[address] of the abdomen and pelvis completed showing approximately 4 indeterminate liver lesions measuring up to 3.6 cm metastases disease not excluded at this time. MRI evaluation and clinical workup recommended. Mildly enlarged 1.7 cm michelle caval 1.2 cm michelle hepatis lymph nodes are nonspecific. 1.8 cm cystic lesion of the pancreatic uncinate process. This can also be further evaluated on the patient's liver MRI. Nonspecific nodularity of the adrenal glands measuring up to 1.2 cm possible incidental underlining adrenal adenomas was can be reassessed at follow-up. Borderline to mildly hydropic gallbladder likely due to fasting state. If right upper quadrant pain are concerning for early acute cholecystitis follow- up ultrasound scan. Sigmoid diverticulosis without evidence for acute diverticulitis. Bilateral femoral head AVN, right greater than left without subarticular collapse. CA19-9 antigen ordered per oncology service is elevated at greater than 70,000. Discussed case with Kamilla Evangelista per oncology services. Interventional radiology has been consulted for possible biopsy of liver lesions. Patient previously on Plavix prior to admission. Repeat liver ultrasound showing gallbladder is filled with tumefactive sludge however there is no current sonographic evidence of acute cholecystitis #3 right upper extremity pain and swelling, will obtain ultrasound. Ultrasound completed showing superficial venous thrombus within the bases with pain. Patient currently on heparin drip #4 dehydration was acute renal failure due to prerenal azotemia elevated 24 on admission creatinine elevated at 1.29 maintained on IV fluid. Creatinine improving to 1.00. Resolved #5 underlying history of hypertension well-controlled on medications #6 underlying history of hyperlipidemia #7 previous history of coronary artery disease with angioplasty and stent placement to the proximal LAD in February 2015 #8 bilateral pulmonary embolism. CTA performed showing bilateral pulmonary emboli, moderate burden on the right and mild on the left. No CT evidence for right heart strain. COPD with mild edema. Suspect underlying pulmonary arterial hypertension. A 1 cm subpleural density at the left base could represent nodule atelectasis or small area of pulmonary infarct is a sequela of the patient's pulmonary emboli three-month follow-up recommended. Dr. Sanchez has been consulted for pulmonary services she remains on heparin drip. Patient to the chest wall port placement and then switched to oral anticoagulation eliquis #9. Anxiety. Patient currently takes Xanax 0.5 mg nightly at home. Patient expressed that he has been more anxious due to recent finding potential diagnosis. Will increase Xanax to three times a day at this time. #10. Constipation. Patient maintained on milk of magnesia and Colace #11 liver mass. liver biopsy completed. Per oncology prelimanary Path findings do confirm malignancy. Findings discussed with patient and . Per oncology discussed that patient currently has stage IV disease which is not curable, treatment intent will be pallative of symptoms and prolongation of life. Chest wall port will be placed prior to discharge. Per oncology services okay to switch to oral anticoagulation recommending anticoagulation with eliquis. Discussed case with Dr. Dennis per oncology on 09/03/2018 recommending EGD to be completed due to the pathological findings of liver biopsy results. Patient is in agreement to stay 1 more day for EGD with Dr. Lamas. Discussed with Dr. Lamas. EGD completed showing ulcers. No other findings. Okay to give eliquis per surgical services and oncology services. Okay to be discharged per consulting for back providers I performed an examination of the patient and discussed their management with the Nurse Practitioner. I have reviewed the Nurse Practitioner's notes and agree with the documented findings and plan of care
--- NOTE | 2018-09-05 17:06 | P.PN ---
Subjective Progress Note Date: 09/03/18 The pt tolerated Port placement well. His respiratory status is normal. He denied any SOB, or obvious bleeding. No h/o f/c/n/v/ Objective - Vital Signs Vital signs: Vital Signs Temp 97.6 F 09/04/18 05:00 Pulse 74 09/04/18 05:00 Resp 16 09/04/18 05:00 BP 138/78 09/04/18 05:00 Pulse Ox 94 L 09/04/18 05:00 Intake & Output 09/04/18 09/05/18 09/05/18 18:59 06:59 18:59 Intake Total 200 Balance 200 Intake: IV 200 Other: Voiding Method Toilet - Constitutional General appearance: Present: no acute distress - EENT Eyes: Present: EOMI ENT: Present: normal oropharynx - Respiratory Respiratory: bilateral: CTA - Cardiovascular Rhythm: regular Heart sounds: normal: S1, S2 - Gastrointestinal General gastrointestinal: Present: normal bowel sounds, soft - Integumentary Integumentary: Present: normal - Neurologic Neurologic: Present: CNII-XII intact - Musculoskeletal Musculoskeletal: Present: generalized weakness, strength equal bilaterally - Psychiatric Psychiatric: Present: A&O x's 3 - Labs CBC & Chem 7: 09/04/18 06:30 09/04/18 06:30 Assessment and Plan (1) Metastatic adenocarcinoma Narrative/Plan: The liver biopsy is positive for metastatic adenoca. Clinically a pancreatic origin was most likely, with cystic lesions in the pancreas, liver mets, markeldly elevated Ca 19-9, and multiple venous thromboses. However, the pathology indicates esophageal primary, based on staining pattern. The case was d/w Pathology, the admitting service and Surgery in detail. In this situation, it would be reasonable to try to to confirm the diagnosis further, as this could influence treatment options. Surgery was agreeable to proceed with EGD today. The pt will be kept off anticoagulation, and NPO for now,for the procedure. Start chemo as an outpt. If EGD is negative, I will likely use mFOLFIRINOX Status: Acute Code(s): C79.9 - SECONDARY MALIGNANT NEOPLASM OF UNSPECIFIED SITE SNOMED Code(s): 169949089 (2) DVT (deep venous thrombosis) Narrative/Plan: The pt was on IV heparin for his procedures. Once EGD is completed, he can be discharged on Eliquis. He will need to continue anticoagulation lifelong. Monitor plt counts closely as outpt, on chemo Status: Acute Code(s): I82.409 - ACUTE EMBOLISM AND THOMBOS UNSP DEEP VN UNSP LOWER EXTREMITY SNOMED Code(s): 120511764
== END 2018-09-04 11:50 | disposition home or self-care (01) | DRG 299 ==
LOC: EC 14:32 → 3NMEDONC 16:53
PROVIDERS: ADMIT Internal Medicine; ATTEND Internal Medicine
PROC: 0FB13ZX Excision of Right Lobe Liver, Percutaneous Approach, Diagnostic (ICD-10-PCS; principal; 2018-08-30)
PROC: 0JH63WZ Insertion of Totally Implantable Vascular Access Device into Chest Subcutaneous Tissue and Fascia, Percutaneous Approach (ICD-10-PCS; 2018-09-03)
PROC: 02HV33Z Insertion of Infusion Device into Superior Vena Cava, Percutaneous Approach (ICD-10-PCS; 2018-09-03)
PROC: 0DB78ZX Excision of Stomach, Pylorus, Via Natural or Artificial Opening Endoscopic, Diagnostic (ICD-10-PCS; 2018-09-04)
DX: I82.412 Acute embolism and thrombosis of left femoral vein (principal); I26.99 Other pulmonary embolism without acute cor pulmonale; N17.9 Acute kidney failure, unspecified; K31.1 Adult hypertrophic pyloric stenosis; K82.1 Hydrops of gallbladder; M87.9 Osteonecrosis, unspecified; C78.7 Secondary malignant neoplasm of liver and intrahepatic bile duct; E44.1 Mild protein-calorie malnutrition; I27.21 Secondary pulmonary arterial hypertension; I82.432 Acute embolism and thrombosis of left popliteal vein; I82.4Z2 Acute embolism and thrombosis of unspecified deep veins of left distal lower extremity; I82.621 Acute embolism and thrombosis of deep veins of right upper extremity; J44.9 Chronic obstructive pulmonary disease, unspecified; C80.1 Malignant (primary) neoplasm, unspecified; E86.0 Dehydration; K86.9 Disease of pancreas, unspecified; M89.752 Major osseous defect, left pelvic region and thigh; M89.751 Major osseous defect, right pelvic region and thigh; F06.4 Anxiety disorder due to known physiological condition; K25.9 Gastric ulcer, unspecified as acute or chronic, without hemorrhage or perforation; K29.70 Gastritis, unspecified, without bleeding; K59.03 Drug induced constipation; D35.02 Benign neoplasm of left adrenal gland; D35.01 Benign neoplasm of right adrenal gland; T40.605A Adverse effect of unspecified narcotics, initial encounter; K57.30 Diverticulosis of large intestine without perforation or abscess without bleeding; Z68.33 Body mass index [BMI] 33.0-33.9, adult; I25.10 Atherosclerotic heart disease of native coronary artery without angina pectoris; E78.5 Hyperlipidemia, unspecified; I10 Essential (primary) hypertension; I45.10 Unspecified right bundle-branch block; K64.9 Unspecified hemorrhoids; Z79.82 Long term (current) use of aspirin; Z79.02 Long term (current) use of antithrombotics/antiplatelets; Z79.899 Other long term (current) drug therapy; Z87.891 Personal history of nicotine dependence; Z95.5 Presence of coronary angioplasty implant and graft; Z88.8 Allergy status to other drugs, medicaments and biological substances
CPT/HCPCS: 36415; 43239; 47000; 71045; 71046; 71275; 74177; 76705; 76942; 77001; 80053; 80074; 81003; 83880; 84484; 85025; 85610; 85730; 86301; 88305; 88307; 88341; 88342; 93005; 96365; 96366; 96376; 99285

== ENCOUNTER → 2018-09-10 | Outpatient (CLI) | payer MEDICARE ==
--- NOTE | 2018-09-10 13:32 | US ---
EXAMINATION TYPE: US abdomen complete DATE OF EXAM: 09/10/2018 COMPARISON: ct CLINICAL HISTORY: C25.9 Pancreatic Cancer Stage 4 EXAM MEASUREMENTS: Liver Length: 14.5 cm Gallbladder Wall: 0.4 cm CBD: 0.9 cm Spleen: 13.6 cm Right Kidney: 13.3 x 6.0 x 4.8 cm Left Kidney: 13.4 x 6.0 x 4.8 cm Extensive midline bowel gas. Pancreas: Obscured by bowel gas, there is a small amount of free fluid in this area Liver: grossly heterogeneous, vessels appear patent, multiple masses, largest appears to measure 4. 8 x 4.1 x 4.8cm. Gallbladder: sludge filled, wall thickened Evidence for sonographic White's sign: no CBD: linear echogenic area seen LLD, unable to reproduce in supine, dilated Spleen: splenomegaly Right Kidney: Inferior pole slightly obscured by bowel gas, no hydronephrosis or masses seen, enlarge d Left Kidney: No hydronephrosis or masses seen, slightly obscured inferior and superior by overlying bowel gas, enlarged Upper IVC: very limited visualization Abd Aorta: mostly obscured by overlying bowel gas, small portion visualized appears wnl IMPRESSION: 1. Free fluid near the pancreas. 2. Sludge within the gallbladder. 3. Multiple ill-defined liver hypodensities suspicious for metastatic disease. 4. Limitation due to bowel gas.
== END | disposition home or self-care (01) ==
LOC: RADUSWWP 06:54
PROVIDERS: ATTEND Internal Medicine Hematology & Oncology
DX: R93.2 Abnormal findings on diagnostic imaging of liver and biliary tract (principal); R94.8 Abnormal results of function studies of other organs and systems; C25.9 Malignant neoplasm of pancreas, unspecified; Z88.8 Allergy status to other drugs, medicaments and biological substances; R79.89 Other specified abnormal findings of blood chemistry
CPT/HCPCS: 76700

== ENCOUNTER 2018-09-26 08:31 | Inpatient (IN) | payer MEDICARE ==
[2018-09-26] MEDS ORDERED: SODIUM CHLORIDE 0.9% 500 ML 500 ML IV ONE (08:39)
[2018-09-26] MEDS ORDERED: NALOXONE 0.4 MG/ML 1 ML VIAL IV STA (08:52)
--- NOTE | 2018-09-26 08:56 | ED ---
General Adult HPI - General Stated complaint: Weakness Source: patient, EMS Mode of arrival: EMS Limitations: no limitations - History of Present Illness Initial comments: Dictation was produced using [employer] dictation software. please excuse any grammatical, word or spelling errors. Chief Complaint: 68-year-old male brought in the EMS for altered mental status. History of Present Illness: 68-year-old male past medical history of multiple deep venous thromboses, metastatic pancreatic carcinoma presents with altered mental status. Patient was brought in by EMS. States that he feels well at the moment. He received morphine this morning. At this point there is no family for obtaining history. EMS reports that patient was alert and oriented 1. She was allegedly at baseline last night. He is normally alert and oriented 4. Patient is currently undergoing chemotherapy for metastatic pancreatic cancer. He is full code. EMS reports the patient had normal low blood pressure. Patient has no other complaints at this time. The ROS documented in this emergency department record has been reviewed and confirmed by me. Those systems with pertinent positive or negative responses have been documented in the HPI. All other systems are other negative and/or noncontributory. - Related Data Home Medications Medication Instructions Recorded Confirmed Cyanocobalamin [Vitamin B-12] 500 mcg PO DAILY@1200 03/07/15 09/26/18 Cholecalciferol [Vitamin D3] 1,000 unit PO DAILY 08/21/18 09/26/18 Cyclobenzaprine [Flexeril] 5 mg PO HS PRN 08/21/18 09/26/18 Losartan Potassium [Cozaar] 100 mg PO HS 08/21/18 09/26/18 Metoprolol Tartrate [Lopressor] 12.5 mg PO HS 08/21/18 09/26/18 Ranitidine HCl [Zantac] 150 mg PO BID 08/21/18 09/26/18 ALPRAZolam [Xanax] 0.5 mg PO DAILY 09/26/18 09/26/18 Ondansetron HCl [Zofran] 8 mg PO Q4H PRN 09/26/18 09/26/18 Promethazine [Phenergan] 25 mg PO Q8HR PRN 09/26/18 09/26/18 Previous Rx's Medication Instructions Recorded Nitroglycerin Sl Tabs [Nitrostat] 0.4 mg SUBLINGUAL Q5M PRN #25 tab 03/09/15 amLODIPine [Norvasc] 5 mg PO HS #30 tab 03/09/15 Apixaban [Eliquis] 5 mg PO BID #60 tab 09/03/18 Docusate [Colace] 100 mg PO BID #30 cap 09/03/18 HYDROcodone/IBUPROFEN 7.5-200 1 tab PO Q6HR PRN 30 Days #120 tab 09/03/18 [Vicoprofen 7.5-200 mg] Morphine Sulfate ER [Ms Contin] 30 mg PO Q8H 3 Days #9 tab 09/03/18 Allergies Allergy/AdvReac Type Severity Reaction Status Date / Time Pzczuee-Wjl-Cql Reductase AdvReac JOINT PAIN Verified 09/26/18 09:51 Inhibitor Review of Systems ROS Statement: Those systems with pertinent positive or pertinent negative responses have been documented in the HPI. ROS Other: All systems not noted in ROS Statement are negative. Past Medical History Past Medical History: Cancer, Hyperlipidemia, Hypertension Additional Past Medical History / Comment(s): 03/07/15 Pt presented to [facility] ER with chest discomfort. Chest discomfort is intermittent and began several days ago. Pain occurs with exertion and improves with rest. There is associated dyspnea and diaphoresis with this pain. Pt also has R arm and R jaw discomfort. Other hx: Muscle cramps bilateral flanks and bilateral legs, hemorrhoids History of Any Multi-Drug Resistant Organisms: None Reported Past Surgical History: Heart Catheterization With Stent Additional Past Surgical History / Comment(s): hydrocele, colonoscopy-WNL, vocal cord polypectomy. Past Anesthesia/Blood Transfusion Reactions: No Reported Reaction Additional Past Anesthesia/Blood Transfusion Reaction / Comment(s): Pt has never had blood transfusion. Date of Last Stent Placement:: 03/07/2015 Past Psychological History: No Psychological Hx Reported Smoking Status: Former smoker Past Alcohol Use History: Occasional Past Drug Use History: None Reported - Past Family History Father Family Medical History: No Reported History Additional Family Medical History / Comment(s): Father when pt was 8 yrs old. He was a WWII vet and had suffered a gunshot to the head. Mother Family Medical History: No Reported History Additional Family Medical History / Comment(s): .Mother is healthy and is 84yrs old General Exam - General Exam Comments Initial Comments: PHYSICAL EXAM: General Impression: Alert and oriented 2 out of 4, no acute distress HEENT: Normocephalic atraumatic, extra-ocular movements intact, pinpoint pupils , mucous membranes moist. Cardiovascular: Heart regular rate and rhythm, S1&S2 audible, no murmurs, rubs or gallops Chest: Lungs clear to auscultation bilaterally, no rhonchi, no wheeze, no rales Abdomen: Bowel sounds present, abdomen soft, mild tenderness to the lower quadrant of the abdomen, non-distended, no organomegaly Musculoskeletal: Pulses present and equal in all extremities, no peripheral edema Motor: Power 5/5 bilaterally, no focal deficits noted Neurological: CN II-XII grossly intact, no focal motor or sensory deficits noted Skin: Intact with no visualized rashes Psych: Normal affect and mood Limitations: no limitations Course Vital Signs 09/26/18 09/26/18 09/26/18 08:41 08:56 11:00 Temperature 99.2 F 98.2 F Pulse Rate 92 95 Respiratory 18 16 18 Rate Blood Pressure 94/55 112/53 O2 Sat by Pulse 92 L 94 L Oximetry Medical Decision Making - Medical Decision Making ED course: 68-year-old male with diagnosis of metastatic pancreatic cancer presents with altered mental status. Vital signs upon arrival are within acceptable limits. Laboratory evaluation obtained. Leukocytosis of 16.5. Hemoglobin 10.3. There is strong suspicion of infectious process. Coag panel unremarkable. Metabolic panel shows creatinine of 5.28 with BUN 51. Glucose 109. Total bilirubin 2.8. Troponin 0.039. This point I do not believe that patient's troponin is elevated from an acute coronary process. Pending bladder scan. We will place Calloway because family reports that he has not had a urinary movement in several hours. Discussed with Tania with on and 50 mL of urine. Calloway catheter was placed. This point patient's trachea is likely secondary to dehydration. EKG was obtained showing ventricular rate 91, normal sinus rhythm , MA interval 180, QS 140, QTc 516. Appeared to EKG from 1124. There appears to be prolonging QTC of 516. Calloway catheter was placed. Patient given broad- spectrum antibiotics. Patient to be admitted to medicine for concern of sepsis. Given multiple boluses of intravenous fluids. Nephrology and infectious disease to be on consult. - Lab Data Result diagrams: 09/26/18 08:45 09/26/18 08:45 Lab Results 09/26/18 09/26/18 09/26/18 Range/Units 08:45 08:45 08:45 WBC 16.5 H (3.8-10.6) k/uL RBC 3.35 L (4.30-5.90) m/uL Hgb 10.3 L (13.0-17.5) gm/dL Hct 32.5 L (39.0-53.0) % MCV 97.1 (80.0-100.0) fL MCH 30.6 (25.0-35.0) pg MCHC 31.5 (31.0-37.0) g/dL RDW 16.2 H (11.5-15.5) % Plt Count 236 (150-450) k/uL Neutrophils % 84 % Lymphocytes % 8 % Monocytes % 5 % Eosinophils % 1 % Basophils % 0 % Neutrophils # 14.0 H (1.3-7.7) k/uL Lymphocytes # 1.3 (1.0-4.8) k/uL Monocytes # 0.8 (0-1.0) k/uL Eosinophils # 0.2 (0-0.7) k/uL Basophils # 0.0 (0-0.2) k/uL Anisocytosis Slight Macrocytosis Slight PT 14.2 H (9.0-12.0) sec INR 1.4 H (<1.2) APTT 23.7 (22.0-30.0) sec Sodium 144 (137-145) mmol/L Potassium 5.1 (3.5-5.1) mmol/L Chloride 111 H (98-107) mmol/L Carbon Dioxide 23 (22-30) mmol/L Anion Gap 10 mmol/L BUN 51 H (9-20) mg/dL Creatinine 5.28 H (0.66-1.25) mg/dL Est GFR (CKD-EPI)AfAm 12 (>60 ml/min/1.73 sqM) Est GFR (CKD-EPI)NonAf 10 (>60 ml/min/1.73 sqM) Glucose 109 H (74-99) mg/dL Calcium 8.8 (8.4-10.2) mg/dL Total Bilirubin 3.8 H (0.2-1.3) mg/dL AST 158 H (17-59) U/L ALT 92 H (21-72) U/L Alkaline Phosphatase 325 H (38-126) U/L Total Creatine Kinase (55-170) U/L CK-MB (CK-2) (0.0-2.4) ng/mL CK-MB (CK-2) Rel Index Troponin I (0.000-0.034) ng/mL Total Protein 6.5 (6.3-8.2) g/dL Albumin 3.1 L (3.5-5.0) g/dL 09/26/18 Range/Units 08:55 WBC (3.8-10.6) k/uL RBC (4.30-5.90) m/uL Hgb (13.0-17.5) gm/dL Hct (39.0-53.0) % MCV (80.0-100.0) fL MCH (25.0-35.0) pg MCHC (31.0-37.0) g/dL RDW (11.5-15.5) % Plt Count (150-450) k/uL Neutrophils % % Lymphocytes % % Monocytes % % Eosinophils % % Basophils % % Neutrophils # (1.3-7.7) k/uL Lymphocytes # (1.0-4.8) k/uL Monocytes # (0-1.0) k/uL Eosinophils # (0-0.7) k/uL Basophils # (0-0.2) k/uL Anisocytosis Macrocytosis PT (9.0-12.0) sec INR (<1.2) APTT (22.0-30.0) sec Sodium (137-145) mmol/L Potassium (3.5-5.1) mmol/L Chloride (98-107) mmol/L Carbon Dioxide (22-30) mmol/L Anion Gap mmol/L BUN (9-20) mg/dL Creatinine (0.66-1.25) mg/dL Est GFR (CKD-EPI)AfAm (>60 ml/min/1.73 sqM) Est GFR (CKD-EPI)NonAf (>60 ml/min/1.73 sqM) Glucose (74-99) mg/dL Calcium (8.4-10.2) mg/dL Total Bilirubin (0.2-1.3) mg/dL AST (17-59) U/L ALT (21-72) U/L Alkaline Phosphatase (38-126) U/L Total Creatine Kinase 80 (55-170) U/L CK-MB (CK-2) 1.9 (0.0-2.4) ng/mL CK-MB (CK-2) Rel Index 2.4 Troponin I 0.039 H* (0.000-0.034) ng/mL Total Protein (6.3-8.2) g/dL Albumin (3.5-5.0) g/dL Disposition Clinical Impression: SIRS (systemic inflammatory response syndrome) Disposition: ADMITTED IP TO THIS HOSP Condition: Fair Referrals: Jaky Valdes MD [Primary Care Provider] - 1-2 days Decision Time: 12:32
--- NOTE | 2018-09-26 09:33 | XR ---
EXAMINATION TYPE: XR chest 1V portable DATE OF EXAM: 09/26/2018 HISTORY: Shortness of breath. COMPARISON: 09/03/2018 TECHNIQUE: Single view of the chest is submitted. FINDINGS: Demonstrated are scattered senescent parenchymal change. There is no evidence for focal infiltrate. The heart is stable. Hilar and mediastinal structures are within normal limits. Degenerative changes are seen of the dorsal spine. IMPRESSION: 1. Chronic changes without evidence for acute pulmonary disease.
--- NOTE | 2018-09-26 09:33 | CT ---
EXAMINATION TYPE: CT brain wo con DATE OF EXAM: 09/26/2018 COMPARISON: None HISTORY: Altered mental status, history of pancreatic CA CT DLP: 1129.[address] of the brain was performed. The ventricles, basal cisterns and sulci overlying the cerebral convexities demonstrate mild enlargem ent. There is no evidence for intracranial hemorrhage or sulcal effacement. There is decreased attenuation about the periventricular white matter and deep white matter of both c erebral hemispheres, compatible with chronic small vessel ischemia. Differential diagnosis does inclu de demyelination. No mass effects are seen.No midline shift. Osseous calvarium is intact. If symptoms persist consider MRI. IMPRESSION: 1. Age related atrophic and chronic small vessel ischemic change without acute intracranial process s een at this time.
[2018-09-26 09:44] LABS: Anisocytosis Slight; Basophils % (A) 0 %; Eosinophils # (A) 0.2 k/uL (0-0.7); Eosinophils % (A) 1 %; HCT 32.5 % (39.0-53.0); HGB 10.3 gm/dL (13.0-17.5); Lymphocytes # (A) 1.3 k/uL (1.0-4.8); Lymphocytes % (A) 8 %; MCH 30.6 pg (25.0-35.0); MCHC 31.5 g/dL (31.0-37.0); MCV 97.1 fL (80.0-100.0); Macrocytosis Slight; Mean Platelet Volume 8.6; Monocytes # (A) 0.8 k/uL (0-1.0); Monocytes % (A) 5 %; Neutrophils % (A) 84 %; Platelet Count 236 k/uL (150-450); RBC 3.35 m/uL (4.30-5.90); RDW 16.2 % (11.5-15.5); WBC 16.5 k/uL (3.8-10.6)
[2018-09-26 09:52] LABS: Albumin 3.1 g/dL (3.5-5.0); Calcium 8.8 mg/dL (8.4-10.2); Potassium 5.1 mmol/L (3.5-5.1); Total Bilirubin 3.8 mg/dL (0.2-1.3); Total Protein 6.5 g/dL (6.3-8.2)
[2018-09-26 09:58] LABS: INR 1.4 (<1.2); Partial Thromboplastin Time 23.7 sec (22.0-30.0); Prothrombin Time 14.2 sec (9.0-12.0)
[2018-09-26 10:26] LABS: Creatine Kinase MB 1.9 ng/mL (0.0-2.4)
[2018-09-26 10:39] LABS: Troponin I 0.039 ng/mL (0.000-0.034)
[2018-09-26] MEDS ORDERED: MORPHINE SULFATE 2 MG/ML SYRINGE IVP STA (11:04)
[2018-09-26] MEDS ORDERED: SODIUM CHLORIDE 0.9% 1,000 ML IV STA (11:22)
[2018-09-26] MEDS ORDERED: CEFEPIME 2 GM in SODIUM CHLORIDE 0.9% 50 ML IVPB STA (11:25)
[2018-09-26] MEDS ORDERED: VANCOMYCIN 1,500 MG in SODIUM CHLORIDE 0.9% 250 ML IVPB ONE (12:30)
[2018-09-26] MEDS ORDERED: NALOXONE 0.4 MG/ML 1 ML VIAL IV PRN (12:33)
[2018-09-26 13:01] LABS: Amorphous Sediment,Urine Moderate /hpf; Appearance,Urine Cloudy (Clear); Bilirubin,Urine 1+ (Negative); Blood,Urine Trace (Negative); Color,Urine Dark Brown; Glucose,Urine (UA) Negative (Negative); Hyaline Casts,Urine 5 /lpf (0-2); Ketones,Urine Negative (Negative); Leukocyte Esterase,Urine Negative (Negative); Mucus,Urine Rare /hpf; Nitrite,Urine Negative (Negative); Protein,Urine 1+ (Negative); RBC,Urine 1 /hpf (0-5); Specific Gravity,Urine 1.019 (1.001-1.035); Squamous Epithelial Cell,Urine <1 /hpf (0-4)
[2018-09-26 13:26] LABS: Amphetamine Screen,Urine Not Detected (NotDetected); Barbiturate Screen,Urine Not Detected (NotDetected); Benzodiazepines Screen,Urine Detected (NotDetected); Cocaine Screen,Urine Not Detected (NotDetected); Methadone Screen, Urine Not Detected (NotDetected); Opiate Screen,Urine Detected (NotDetected); Oxycodone Screen, Urine Not Detected (NotDetected); Phencyclidine Screen,Urine Not Detected (NotDetected); Tricyclic Antidepressant,Urine Not Detected (NotDetected); Urn Cannabinoid Scrn Not Detected (NotDetected)
[2018-09-26] MEDS: SODIUM CHLORIDE 0.9% 1,000 ML IV SCH ×2 (13:34→19:52)
[2018-09-26] MEDS ORDERED: SODIUM CHLORIDE 0.9% 1,000 ML IV ONE (13:42)
[2018-09-26] MEDS: ALPRAZolam 0.5 MG TAB PO PRN ×2 (13:46→21:31)
[2018-09-26] MEDS: MORPHINE SULFATE 2 MG/ML SYRINGE IV PRN ×3 (15:03→23:33)
[2018-09-26] MEDS ORDERED: LEVOFLOXACIN 500MG-D5W PMX 500 MG in DEXTROSE/WATER 1 100ML.BAG IVPB SCH (17:00)
--- NOTE | 2018-09-26 18:15 | HP ---
HISTORY AND PHYSICAL I am covering for Dr. Valdes. Shay Gutierrez is a 68-year-old male with a history of pancreatic cancer with evidence of liver mets. He was initially diagnosed when he presented with DVTs. He underwent chemotherapy on September 17 and subsequently started to become weak. He was seen by his family, he was confused and subsequently brought into the hospital for further evaluation. When he came into the hospital he was found to have an elevated BUN and creatinine. He was quite dehydrated. His BUN was 50, creatinine of 5.28. His previous creatinine on 09/13/2018 was 1.48 and on 09/04/2018 was 1.0. He was pleasantly confused in the ED complaining of some cough, mild shortness of breath. PAST MEDICAL HISTORY: Positive for a history of DVT in the past in the lower extremities as well as the upper extremity, history of metastatic pancreatic cancer with metastatic disease to the liver, history of hypertension. No clear history of COPD but has a history of coronary artery disease with previous stent placement. He has had vocal cord polypectomy and has had hernia surgery as well. FAMILY HISTORY: Positive for traumatic injury to his father resulting in . His mother has no chronic conditions. ALLERGIC: STATINS. MEDICATIONS: Prior to admission were Norvasc, Zantac, Phenergan, Zofran, Nitrostat, MS Contin, Lopressor, Cozaar, Vicoprofen, Colace, Flexeril, vitamin B12, vitamin D3, Eliquis, and Xanax. REVIEW OF SYSTEMS: Noncontributory other than for described in the history of present illness and past medical history. PHYSICAL EXAMINATION: Blood pressure is 112/53, respiratory rate of 18, pulse rate 95, temperature 98.2, O2 saturation on room air is 94%. When he came to the ER, his blood pressure was 94/55. He had a low-grade fever at that time of 99.2. HEENT reveals pupils are equal. Mucous membranes are dry. Chest is clear. Cardiovascular system with an S1, S2. Abdomen is mildly distended. There is no pedal edema. LABS: Reveal a white count of 16,500, hemoglobin of 10.3. Of note, the patient did receive Neulasta. PT/INR is 1.4. Sodium 144, potassium 5.1, chloride 111, bicarb 23, BUN 51, creatinine of 5.28, lactic acid 1.5, troponin 0.039, albumin 3.1, ammonia 40. UA showed a specific gravity 1.019. Urine drug screen was positive for opiates. Chest x-ray shows chronic changes. CT of the brain shows age-related atrophic and chronic small-vessel ischemic change, but no clear CVA. IMPRESSION: 1. Acute renal failure. 2. Sepsis is likely. 3. Recent chemotherapy. 4. Metabolic encephalopathy. 5. Pancreatic cancer status post chemotherapy. At this point in time would resuscitate the patient aggressively with fluids, have him seen by Nephrology, start him on Zosyn and Levaquin, keep him on GI prophylaxis, continue apixaban, hold his antihypertensive medications. Depending on how he does, further changes will be made to his care. Consultations with nephrology, oncology and ID will be placed. MMPUSHPAL / CARLINEN: [id number] /
[2018-09-26] MEDS: APIXABAN 5 MG TAB PO SCH (19:40)
[2018-09-26] MEDS: PIPERACILLIN-TAZOBACTAM 3.375 GM in SODIUM CHLORIDE 0.9% 100 ML IVPB SCH (23:32)
[2018-09-26] MEDS: ONDANSETRON 4 MG/2 ML VIAL IVP PRN (23:39)
[2018-09-27] MEDS: MORPHINE SULFATE 2 MG/ML SYRINGE IV PRN ×2 (02:33→06:00)
[2018-09-27] MEDS: SODIUM CHLORIDE 0.9% 1,000 ML IV SCH ×2 (08:59→22:14)
[2018-09-27] MEDS: PANTOPRAZOLE 40 MG/10 ML VIAL IV SCH (08:59)
[2018-09-27] MEDS: APIXABAN 5 MG TAB PO SCH ×2 (08:59→22:14)
[2018-09-27 09:33] LABS: Anisocytosis Slight; Basophils # (A) 0.1 k/uL (0-0.2); Basophils % (A) 0 %; Eosinophils # (A) 0.2 k/uL (0-0.7); Eosinophils % (A) 1 %; Hypochromasia Slight; Lymphocytes # (A) 0.9 k/uL (1.0-4.8); Lymphocytes % (A) 5 %; MCH 30.5 pg (25.0-35.0); MCV 98.2 fL (80.0-100.0); Macrocytosis Slight; Mean Platelet Volume 7.4; Monocytes # (A) 0.6 k/uL (0-1.0); Monocytes % (A) 4 %; Neutrophils # (A) 14.7 k/uL (1.3-7.7); Neutrophils % (A) 88 %; Platelet Count 212 k/uL (150-450); RBC 2.86 m/uL (4.30-5.90); RDW 16.7 % (11.5-15.5); WBC 16.8 k/uL (3.8-10.6)
[2018-09-27 09:34] LABS: HGB 8.7 gm/dL (13.0-17.5)
[2018-09-27 09:38] LABS: Albumin 2.7 g/dL (3.5-5.0); Calcium 8.1 mg/dL (8.4-10.2); Potassium 4.4 mmol/L (3.5-5.1); Total Bilirubin 4.3 mg/dL (0.2-1.3); Total Protein 5.8 g/dL (6.3-8.2)
[2018-09-27] MEDS ORDERED: ONDANSETRON 4 MG TAB PO PRN (10:36)
[2018-09-27] MEDS ORDERED: PROMETHAZINE 25 MG TAB PO PRN (10:36)
--- NOTE | 2018-09-27 10:40 | P.NPCON ---
History of Present Illness - Reason for Consult acute renal failure - History of Present Illness Reason for consultation: Acute kidney injury History of present illness: Patient is a 68-year-old male seen in consultation for acute kidney injury. Patient's baseline creatinine is 1 and was elevated at 5.28 on admission. Patient received 3 L of normal saline bolus and is currently maintained on normal saline at 100 mL an hour. Creatinine is down to 4.2 today. He was also noted to have urinary retention and currently is a Calloway catheter in place. Patient was recently diagnosed with pancreatic cancer and underwent first cycle of chemotherapy in mid August. The last few days his oral intake has been quite poor. He's been feeling progressively weaker. Patient's could not wake him up yesterday and he was brought to the hospital. Patient was noted to be hypotensive on admission with systolic blood pressure in the 90s. Denies hematuria or dysuria. Patient does state that he did not urinate for about 24 hours prior to admission. No fever or chills. Denies use of NSAIDs. No history of diabetes. Vital signs are stable. General: The patient appeared well nourished and normally developed. HEENT: Head exam is unremarkable. Neck is without jugular venous distension. LUNGS: Lungs are clear to auscultation and percussion. Breath sounds decreased. HEART: Rate and Rhythm are regular. First and second heart sounds normal. No murmurs, rubs or gallops. ABDOMEN: Abdominal exam reveals normal bowel sounds. Non-tender and non- distended. No evidence of peritonitis. EXTREMITITES: No clubbing, cyanosis, or edema. Past Medical History Past Medical History: Cancer, Hyperlipidemia, Hypertension Additional Past Medical History / Comment(s): Prostate cancer with mets, last chemo 09-17-18 History of Any Multi-Drug Resistant Organisms: None Reported Past Surgical History: Heart Catheterization With Stent Additional Past Surgical History / Comment(s): hydrocele, colonoscopy-WNL, vocal cord polypectomy. \2014. Right chest port for chemo Past Anesthesia/Blood Transfusion Reactions: Postoperative Nausea & Vomiting ( PONV) Additional Past Anesthesia/Blood Transfusion Reaction / Comment(s): Pt has never had blood transfusion. Date of Last Stent Placement:: 2014 Past Psychological History: Anxiety Smoking Status: Former smoker Past Alcohol Use History: None Reported Past Drug Use History: None Reported - Past Family History Father Family Medical History: No Reported History Additional Family Medical History / Comment(s): Father when pt was 8 yrs old. He was a WWII vet and had suffered a gunshot to the head. Mother Family Medical History: No Reported History Additional Family Medical History / Comment(s): .Mother is healthy and is 84yrs old Medications and Allergies Home Medications Medication Instructions Recorded Confirmed Type Cyanocobalamin [Vitamin B-12] 500 mcg PO DAILY@1200 03/07/15 09/26/18 History Nitroglycerin Sl Tabs [Nitrostat] 0.4 mg SUBLINGUAL Q5M PRN #25 tab 03/09/15 Rx amLODIPine [Norvasc] 5 mg PO HS #30 tab 03/09/15 09/26/18 Rx Cholecalciferol [Vitamin D3] 1,000 unit PO DAILY 08/21/18 09/26/18 History Cyclobenzaprine [Flexeril] 5 mg PO HS PRN 08/21/18 09/26/18 History Losartan Potassium [Cozaar] 100 mg PO HS 08/21/18 09/26/18 History Metoprolol Tartrate [Lopressor] 12.5 mg PO HS 08/21/18 09/26/18 History Ranitidine HCl [Zantac] 150 mg PO BID 08/21/18 09/26/18 History Apixaban [Eliquis] 5 mg PO BID #60 tab 09/03/18 09/26/18 Rx Docusate [Colace] 100 mg PO BID #30 cap 09/03/18 09/26/18 Rx HYDROcodone/IBUPROFEN 7.5-200 1 tab PO Q6HR PRN 30 Days #120 tab 09/03/18 Rx [Vicoprofen 7.5-200 mg] Morphine Sulfate ER [Ms Contin] 30 mg PO Q8H 3 Days #9 tab 09/03/18 09/26/18 Rx ALPRAZolam [Xanax] 0.5 mg PO DAILY 09/26/18 09/26/18 History Ondansetron HCl [Zofran] 8 mg PO Q4H PRN 09/26/18 09/26/18 History Promethazine [Phenergan] 25 mg PO Q8HR PRN 09/26/18 09/26/18 History Allergies Allergy/AdvReac Type Severity Reaction Status Date / Time Pnoepyt-Tnf-Mfu Reductase AdvReac JOINT PAIN Verified 09/26/18 09:51 Inhibitor Physical Exam Vitals: Vital Signs Temp Pulse Pulse Resp BP BP Pulse Ox 09/27/18 09:05 97.9 F 89 16 107/64 94 L 09/27/18 03:22 98.0 F 86 17 112/59 92 L 09/27/18 00:00 89 18 115/56 90 L 09/26/18 20:00 98.1 F 88 18 106/58 95 09/26/18 16:00 97.8 F 93 16 102/61 92 L 09/26/18 13:58 98.3 F 88 16 96/60 93 L 09/26/18 12:32 93 18 105/72 99 09/26/18 11:00 98.2 F 95 18 112/53 94 L Intake and Output 09/26/18 09/27/18 09/27/18 22:59 06:59 14:59 Intake Total 960 240 Output Total 100 150 Balance -100 810 240 Intake: Oral 960 240 Output: Urine 100 150 Other: Voiding Method Indwelling Catheter Indwelling Catheter Indwelling Catheter Weight 112.5 kg Results - Lab Results Most recent lab results Calcium 8.1 mg/dL (8.4-10.2) L 09/27/18 08:52 09/27/18 08:52 09/27/18 08:52 Assessment and Plan Plan: Assessment: 1. Nonoliguric acute kidney injury mostly prerenal secondary to urinary retention and intravascular volume depletion from poor oral intake. Creatinine was 5.28 on admission and is down to 4.3 today. Baseline creatinine near 1. 2. Urinary retention status post Calloway catheter placement. 3. Metabolic acidosis secondary to acute kidney injury and IV fluids. 4. Pancreatic cancer status post 1 cycle of chemotherapy in mid August. 5. Benign hypertension. Blood pressures on the lower side. 6. Anemia. Rule out iron deficiency. Plan: Maintain normal saline at 100 mL an hour. Add oral sodium bicarbonate. Check iron studies. Maintain Calloway catheter. Add Flomax. Check renal ultrasound. Repeat electrolytes in the morning. Thank you for the consultation. I will continue to follow the patient with you during his hospital stay.
--- NOTE | 2018-09-27 10:56 | P.PN ---
Subjective Progress Note Date: 09/27/18 This is a 68-year-old male patient who presented to the emergency room with complaints of increased confusion and weakness. Patient recently diagnosed with a periodic cancer with evidence of liver metastases. Patient underwent chemotherapy on September 17 and started to become a week and had increased confusion per . Patient was found to be in acute kidney injury with creatinine of 5.28 bun at 50. Patient is currently on eliquis for DVT and PE. Patient also found to have elevated white blood cell count. Patient currently on IV antibiotics and infectious disease following. On 09/27/2018 patient currently resting in bed. is at bedside. Patient reports he still is confused at times forgetting the date. Patient also complaining of chest discomfort at this time patient describes is intermittent sharp pain in chest. Patient is currently on the telemetry floor. Will repeat cardiac enzymes and consult cardiology. Oncology services also consulted. Patient will be started on lactulose for elevated ammonia level. Repeat ammonia level has been ordered. Nephrology services are following. At this time patient denies shortness of breath. Patient denies nausea vomiting or diarrhea. Patient denies any urinary burning or frequency. Objective - Vital Signs Vital signs: Vital Signs Temp 97.9 F 09/27/18 09:05 Pulse 89 09/27/18 09:05 Resp 17 09/27/18 09:05 BP 107/64 09/27/18 09:05 Pulse Ox 94 L 09/27/18 09:05 Intake & Output 09/26/18 09/27/18 09/27/18 18:59 06:59 18:59 Intake Total 960 240 Output Total 200 250 Balance -200 710 240 Weight 95.25 kg 112.5 kg Intake: Oral 960 240 Output: Urine 100 250 Uretheral ([place]) 100 Post Void Residual 100 Other: Voiding Method Indwelling Catheter Indwelling Catheter Indwelling Catheter - Exam Head normocephalic. Jaundice noted to thin skin Neck supple Lungs clear to auscultation bilaterally no wheezing or crackles Heart regular rate and rhythm S1-S2, no rub or gallop Abdomen is soft nontender nondistended positive bowel sounds no hepatosplenomegaly Extremities no edema Neuro alert and orientated to 3. Does appear forgetful at times - Labs CBC & Chem 7: 09/27/18 08:52 09/27/18 08:52 Labs: Abnormal Lab Results - Last 24 Hours (Table) 09/26/18 09/26/18 09/26/18 Range/Units 08:45 12:30 12:30 WBC (3.8-10.6) k/uL RBC (4.30-5.90) m/uL Hgb (13.0-17.5) gm/dL Hct (39.0-53.0) % RDW (11.5-15.5) % Neutrophils # (1.3-7.7) k/uL Lymphocytes # (1.0-4.8) k/uL PT 14.2 H (9.0-12.0) sec INR 1.4 H (<1.2) Chloride (98-107) mmol/L Carbon Dioxide (22-30) mmol/L BUN (9-20) mg/dL Creatinine (0.66-1.25) mg/dL Glucose (74-99) mg/dL Calcium (8.4-10.2) mg/dL Total Bilirubin (0.2-1.3) mg/dL AST (17-59) U/L ALT (21-72) U/L Alkaline Phosphatase (38-126) U/L Ammonia (<30) umol/L Total Protein (6.3-8.2) g/dL Albumin (3.5-5.0) g/dL Urine Protein 1+ H (Negative) Urine Blood Trace H (Negative) Urine Bilirubin 1+ H (Negative) Amorphous Sediment Moderate H (None) /hpf Hyaline Casts 5 H (0-2) /lpf Urine Mucus Rare H (None) /hpf Urine Opiates Screen Detected H (NotDetected) U Benzodiazepines Scrn Detected H (NotDetected) 09/26/18 09/27/18 09/27/18 Range/Units 12:35 08:52 08:52 WBC 16.8 H (3.8-10.6) k/uL RBC 2.86 L (4.30-5.90) m/uL Hgb 8.7 L D (13.0-17.5) gm/dL Hct 28.0 L (39.0-53.0) % RDW 16.7 H (11.5-15.5) % Neutrophils # 14.7 H (1.3-7.7) k/uL Lymphocytes # 0.9 L (1.0-4.8) k/uL PT (9.0-12.0) sec INR (<1.2) Chloride 112 H (98-107) mmol/L Carbon Dioxide 18 L (22-30) mmol/L BUN 51 H (9-20) mg/dL Creatinine 4.28 H (0.66-1.25) mg/dL Glucose 102 H (74-99) mg/dL Calcium 8.1 L (8.4-10.2) mg/dL Total Bilirubin 4.3 H (0.2-1.3) mg/dL AST 122 H (17-59) U/L ALT 87 H (21-72) U/L Alkaline Phosphatase 318 H (38-126) U/L Ammonia 40 H (<30) umol/L Total Protein 5.8 L (6.3-8.2) g/dL Albumin 2.7 L (3.5-5.0) g/dL Urine Protein (Negative) Urine Blood (Negative) Urine Bilirubin (Negative) Amorphous Sediment (None) /hpf Hyaline Casts (0-2) /lpf Urine Mucus (None) /hpf Urine Opiates Screen (NotDetected) U Benzodiazepines Scrn (NotDetected) Assessment and Plan Assessment: 1. Acute renal failure. Dr. Johnson following for nephrology services. Initial creatinine 5.28 and bun 51. Nephrology services renal ultrasound has been ordered. Patient's home [facility] DC'd. Patient Vicoprofen also on hold 2. Leukocytosis with possible sepsis. CBC 16.8 Chest x-ray completed showing chronic changes without evidence for acute pulmonary disease. Infectious disease has been consulted. Patient started on Zosyn and Levaquin. Blood, sputum and urine culture ordered. 3. Pancreatic cancer with metastases to liver. Patient did receive chemotherapy on 09/17/2018. Cardiology services have been consulted 4. Elevated liver enzymes likely related to the metastases disease 5. Elevated ammonia level. Lactulose has been added. Any level XL. Repeat ammonia level ordered 6. Chest pain. Serial cardiac enzymes added. Cardiology consulted. She completed showing normal sinus rhythm right bundle branch block 7. History of DVT and PE. Patient maintained on eliquis' 8. Increased confusion likely due to infection and elevated ammonia level. Head CT was completed showing age-related atrophic and chronic small vessel ischemic change without acute intracranial process seen at this time 9. Anemia. Iron studies ordered. 10. Metabolic acidosis secondary to acute kidney injury. Sodium bicarb has been added per nephrology services 11. History of essential hypertension 12. History of hyperlipidemia DVT prophylaxis eliquis. GI prophylaxis Protonix I performed an examination of the patient and discussed their management with the Nurse Practitioner. I have reviewed the Nurse Practitioner's notes and agree with the documented findings and plan of care
[2018-09-27] MEDS: MORPHINE SULFATE ER 30 MG TABLET PO SCH ×3 (11:27→22:15)
[2018-09-27] MEDS: TAMSULOSIN 0.4 MG CAP.ER.24H PO SCH (11:28)
[2018-09-27] MEDS: SODIUM BICARBONATE TAB 650 MG TAB PO SCH ×2 (11:28→22:14)
[2018-09-27] MEDS: PIPERACILLIN-TAZOBACTAM 3.375 GM in SODIUM CHLORIDE 0.9% 100 ML IVPB SCH ×2 (11:28→22:15)
--- NOTE | 2018-09-27 11:33 | US ---
EXAMINATION TYPE: US kidneys/renal and bladder DATE OF EXAM: 09/27/2018 COMPARISON: NONE CLINICAL HISTORY: anshul. pancreatic ca EXAM MEASUREMENTS: Right Kidney: 12.2 x 5.4 x 5.3 cm Left Kidney: not seen Right Kidney: No hydronephrosis or masses seen Left Kidney: unable to see due to bowel gas Bladder: gonzalez seen. Pancreas is not evaluated during this examination. IMPRESSION: 1. Limited examination due to bowel gas and presence of a Gonzalez catheter. 2. No suspicious acute changes.
[2018-09-27] MEDS: LACTULOSE 20 GM/30 ML CUP PO SCH ×2 (12:47→22:18)
--- NOTE | 2018-09-27 14:40 | P.CRDCN ---
History of Present Illness History of present illness: This is Dr. Bates dictating a consult on this patient The patient was interviewed and examined by me IMPRESSION / ASSESSMENT: Abnormal troponins in the setting of multiple DVTs chemotherapy metastatic pancreatic carcinoma that does not represent an acute myocardial infarction Twelve-lead ECG shows normal absolute QT interval 2-D echo shows preserved LV systolic function PLAN: No further cardiac workup indicated. At this point. Avoid the use of multiple QT prolonging drugs such as promethazine and Zofran Continue and granulation for DVT HPI 59-year-old male patient with a history of multiple DVTs, metastatic pancreatic carcinoma with altered mental status. Undergoing chemotherapy. Low normal blood pressure upon admission Abnormal ECG with QTC prolongation Abnormal troponins ROS: no fever chills or rigors, no cough, phlegm or expectoration, no nausea, vomiting or diarrhea, no hematuria, dysuria, no musculoskeletal complaints, no strokes or seizures, no skin lesions. EXAMINATION Decreased breath sounds bilaterally Normal heart sounds Abdomen is soft Bilateral lower extremity edema with swelling of the coughs 123/59 mmHg, pulse rate in this 70s and 80s, afebrile, respiratory rate normal REVIEW OF LABS, ECG White count 16.8 thousand Hemoglobin 8.7 g/dL normal sodium normal potassium BUN 51 creatinine 4.28 Troponin of 0.04 and 0.08 Past Medical History Past Medical History: Cancer, Hyperlipidemia, Hypertension Additional Past Medical History / Comment(s): Prostate cancer with mets, last chemo 09-17-18 History of Any Multi-Drug Resistant Organisms: None Reported Past Surgical History: Heart Catheterization With Stent Additional Past Surgical History / Comment(s): hydrocele, colonoscopy-WNL, vocal cord polypectomy. . Right chest port for chemo Past Anesthesia/Blood Transfusion Reactions: Postoperative Nausea & Vomiting ( PONV) Additional Past Anesthesia/Blood Transfusion Reaction / Comment(s): Pt has never had blood transfusion. Date of Last Stent Placement:: 2014 Past Psychological History: Anxiety Smoking Status: Former smoker Past Alcohol Use History: None Reported Past Drug Use History: None Reported - Past Family History Father Family Medical History: No Reported History Additional Family Medical History / Comment(s): Father when pt was 8 yrs old. He was a WWII vet and had suffered a gunshot to the head. Mother Family Medical History: No Reported History Additional Family Medical History / Comment(s): .Mother is healthy and is 84yrs old Medications and Allergies Home Medications Medication Instructions Recorded Confirmed Type Cyanocobalamin [Vitamin B-12] 500 mcg PO DAILY@1200 03/07/15 09/26/18 History Nitroglycerin Sl Tabs [Nitrostat] 0.4 mg SUBLINGUAL Q5M PRN #25 tab 03/09/15 Rx amLODIPine [Norvasc] 5 mg PO HS #30 tab 03/09/15 09/26/18 Rx Cholecalciferol [Vitamin D3] 1,000 unit PO DAILY 08/21/18 09/26/18 History Cyclobenzaprine [Flexeril] 5 mg PO HS PRN 08/21/18 09/26/18 History Losartan Potassium [Cozaar] 100 mg PO HS 08/21/18 09/26/18 History Metoprolol Tartrate [Lopressor] 12.5 mg PO HS 08/21/18 09/26/18 History Ranitidine HCl [Zantac] 150 mg PO BID 08/21/18 09/26/18 History Apixaban [Eliquis] 5 mg PO BID #60 tab 09/03/18 09/26/18 Rx Docusate [Colace] 100 mg PO BID #30 cap 09/03/18 09/26/18 Rx HYDROcodone/IBUPROFEN 7.5-200 1 tab PO Q6HR PRN 30 Days #120 tab 09/03/18 Rx [Vicoprofen 7.5-200 mg] Morphine Sulfate ER [Ms Contin] 30 mg PO Q8H 3 Days #9 tab 09/03/18 09/26/18 Rx ALPRAZolam [Xanax] 0.5 mg PO DAILY 09/26/18 09/26/18 History Ondansetron HCl [Zofran] 8 mg PO Q4H PRN 09/26/18 09/26/18 History Promethazine [Phenergan] 25 mg PO Q8HR PRN 09/26/18 09/26/18 History Allergies Allergy/AdvReac Type Severity Reaction Status Date / Time [id number] Reductase AdvReac JOINT PAIN Verified 09/26/18 09:51 Inhibitor Physical Exam Vitals: Vital Signs Temp Pulse Resp BP Pulse Ox 09/27/18 11:50 97.8 F 86 16 123/59 96 09/27/18 09:05 97.9 F 89 16 107/64 94 L 09/27/18 03:22 98.0 F 86 17 112/59 92 L 09/27/18 00:00 89 18 115/56 90 L 09/26/18 20:00 98.1 F 88 18 106/58 95 09/26/18 16:00 97.8 F 93 16 102/61 92 L Intake and Output 09/26/18 09/27/18 09/27/18 22:59 06:59 14:59 Intake Total 960 240 Output Total 100 150 Balance -100 810 240 Intake: Oral 960 240 Output: Urine 100 150 Other: Voiding Method Indwelling Catheter Indwelling Catheter Indwelling Catheter Weight 112.5 kg Results 09/27/18 08:52 09/27/18 08:52 Cardiac Enzymes 09/27/18 09/27/18 Range/Units 08:52 10:57 AST 122 H (17-59) U/L Troponin I 0.087 H* (0.000-0.034) ng/mL CBC 09/27/18 Range/Units 08:52 WBC 16.8 H (3.8-10.6) k/uL RBC 2.86 L (4.30-5.90) m/uL Hgb 8.7 L D (13.0-17.5) gm/dL Hct 28.0 L (39.0-53.0) % Plt Count 212 (150-450) k/uL Comprehensive Metabolic Panel 09/27/18 Range/Units 08:52 Sodium 139 (137-145) mmol/L Potassium 4.4 (3.5-5.1) mmol/L Chloride 112 H (98-107) mmol/L Carbon Dioxide 18 L (22-30) mmol/L BUN 51 H (9-20) mg/dL Creatinine 4.28 H (0.66-1.25) mg/dL Glucose 102 H (74-99) mg/dL Calcium 8.1 L (8.4-10.2) mg/dL AST 122 H (17-59) U/L ALT 87 H (21-72) U/L Alkaline Phosphatase 318 H (38-126) U/L Total Protein 5.8 L (6.3-8.2) g/dL Albumin 2.7 L (3.5-5.0) g/dL Current Medications Generic Name Dose Route Start Last Admin Trade Name Freq PRN Reason Stop Dose Admin Alprazolam 0.5 mg 09/26/18 13:41 09/26/18 21:31 Xanax PO 0.5 mg TID PRN Administration Anxiety Apixaban 5 mg 09/26/18 21:00 09/27/18 08:59 Eliquis PO 5 mg BID [facility] Administration Docusate Sodium 100 mg 09/27/18 21:00 Colace PO BID [facility] Famotidine 20 mg 09/28/18 09:00 Pepcid PO DAILY [facility] Sodium Chloride 1,000 mls @ 100 mls/hr 09/26/18 12:45 09/27/18 08:59 Saline 0.9% IV Not Given .Q10H [facility] Levofloxacin/Dextrose 250 mg/ 50 mls @ 50 mls/hr 09/28/18 09:00 IV Solution IVPB Q48H [facility] Piperacillin Sod/Tazobactam 100 mls @ 25 mls/hr 09/27/18 21:00 Sod 3.375 gm/ Sodium Chloride IVPB Q12HR [facility] Lactulose 30 gm 09/27/18 13:00 09/27/18 12:47 Cephulac PO 30 gm BID [facility] Administration Metoprolol Tartrate 12.5 mg 09/27/18 21:00 Lopressor PO HS [facility] Morphine Sulfate 2 mg 09/26/18 12:33 09/27/18 06:00 Morphine Sulfate (Inj) IV 2 mg Q4HR PRN Administration Severe Pain Morphine Sulfate 30 mg 09/27/18 10:45 09/27/18 11:27 Ms Contin PO 30 mg TID [facility] Administration Naloxone HCl 0.2 mg 09/26/18 12:33 Narcan IV Q2M PRN Opioid Reversal Nitroglycerin 0.4 mg 09/27/18 10:36 Nitrostat SUBLINGUAL Q5M PRN Chest Pain Ondansetron HCl 4 mg 09/26/18 21:47 09/26/18 23:39 Zofran IVP 4 mg Q8HR PRN Administration Nausea And Vomiting Pantoprazole Sodium 40 mg 09/27/18 09:00 09/27/18 08:59 Protonix IV 40 mg DAILY [facility] Administration Sodium Bicarbonate 650 mg 09/27/18 10:45 09/27/18 11:28 Sodium Bicarbonate Tab PO 650 mg BID [facility] Administration Tamsulosin HCl 0.4 mg 09/27/18 10:45 09/27/18 11:28 Flomax PO 0.4 mg [id number] [facility] Administration Intake and Output 09/26/18 09/27/18 09/27/18 22:59 06:59 14:59 Intake Total 960 240 Output Total 100 150 Balance -100 810 240 Intake: Oral 960 240 Output: Urine 100 150 Other: Voiding Method Indwelling Catheter Indwelling Catheter Indwelling Catheter Weight 112.5 kg 09/27/18 08:52 09/27/18 08:52
--- NOTE | 2018-09-27 15:22 | ECHOF ---
Referral Reason:abnormal ecg, cancer, mets MEASUREMENTS -------- HEIGHT: 182.9 cm WEIGHT: 112.5 kg BP: 123/59 IVSd: 1.2 cm (0.6 - 1.1) LVIDd: 5.7 cm (3.9 - 5.3) LVPWd: 1.2 cm (0.6 - 1.1) IVSs: 1.4 cm LVIDs: 3.5 cm LVPWs: 1.5 cm LAESV Index (A-L): 25.42 ml/m Ao Diam: 3.7 cm (2.0 - 3.7) LA Diam: 3.8 cm (2.7 - 3.8) AV Cusp: 1.7 cm (1.5 - 2.6) MV E Manpreet: 1.14 m/s MV DecT: 358 ms MV A Manpreet: 1.40 m/s MV E/A Ratio: 0.82 AV maxP.25 mmHg AV meanP.95 mmHg AR PHT: 365 ms RAP: 5.00 mmHg RVSP: 29.19 mmHg FINDINGS -------- Sinus rhythm. This was a technically good study. The left ventricular size is normal. There is mild concentric left ventricular hypertrophy. Overa ll left ventricular systolic function is normal with, an EF between 60 - 65 %. The right ventricle is normal in size and function. Normal LA size by volume 22+/-6 ml/m2. The right atrium is normal in size. Aortic valve is trileaflet and is mildly thickened. There is moderate aortic regurgitation. There is no evidence of aortic stenosis. Mild mitral annular calcification present. Mild mitral regurgitation is present. Trace tricuspid regurgitation present. Right ventricular systolic pressure is normal at < 35 mmHg. There is no evidence of pulmonary hypertension. Trace/mild (physiologic) pulmonic regurgitation. The aortic root size is normal. Normal inferior vena cava with normal inspiratory collapse consistent with estimated right atrial pre ssure of 5 mmHg. There is no pericardial effusion. CONCLUSIONS -------- 1. Sinus rhythm. 2. This was a technically good study. 3. The left ventricular size is normal. 4. There is mild concentric left ventricular hypertrophy. 5. Overall left ventricular systolic function is normal with, an EF between 60 - 65 %. 6. Normal LA size by volume 22+/-6 ml/m2. 7. Aortic valve is trileaflet and is mildly thickened. 8. There is moderate aortic regurgitation. 9. Mild mitral annular calcification present. 10. Mild mitral regurgitation is present. 11. Trace tricuspid regurgitation present. 12. Right ventricular systolic pressure is normal at < 35 mmHg. 13. There is no evidence of pulmonary hypertension. 14. Trace/mild (physiologic) pulmonic regurgitation. 15. The aortic root size is normal. 16. There is no pericardial effusion. DIRECTOR RECORDS MANAGEMENT: Ricky Barker RDCS
--- NOTE | 2018-09-27 15:57 | P.CONS ---
History of Present Illness - Reason for Consult Consult date: 09/27/18 Known Metastatic Cancer Requesting physician: Fadumo Christy - Chief Complaint Mental Status Changes - History of Present Illness Mr. Gutierrez is a very pleasant 68-year-old gentleman with overall well controlled medical problems who was initiall seen on consult around 08/22/18 for hypercoaguability. The patient had developed pain and swelling in his left lower extremity starting at around the knee and extending into the calf about 2 days prior to admission. This was progressive in nature, worsened by weightbearing and not significantly relieved at rest. He therefore came into the emergency room and had a Doppler exam done which revealed the DVT involving the distal superficial femoral vein, popliteal vein, and extending into the upper calf veins. The patient was admitted and started on IV heparin. He denied any hospitalizations, surgeries, or prolonged travel in the past 3-4 months. No history of any chronic inflammation or infection, usage of chronic corticosteroids, or testosterone. Family history mother did have a history of clots and had a Rivera filter placed, circumstances of clots unknown. CTA ordered for baseline 08/23, revealed bilateral PE, RUE doppler performed due to swelling and redness, revealed superficial clot, CT AP requested due to increasing LFTs-3.4cm rt lobe, 1.4cm hepatic dome, 3.6cm left lobe, 1.9cm mid liver and some mildly enlarged nodes around the hepatic area. On 08/30/18 pt had core biopsy with Dr. Cornelius, initial path returned esophageal adenocarcinoma , which did not fit clinical picture at all and Ca 19.9 was >70,000 on 08/22. He had EDG with biopsies with Dr. Lamas on 09/04/18, all negative. Case discussed with Dr. Martínez who reviewed case and did additional staining, diagnosis was addended on 09/07/18 "Comment:It is noted that the immunostaining profile seen in this case would be compatible with primary origin in the upper gastrointestinal versus pancreatobiliary tract." Pt had port placed on 09/03 in anticipation of chemo. He was finally changed over to oral anticoagulation with eliquis and discharged on 09/05/18. His case was reviewed by Dr. Dennis, plan is to start mFOLFIRINOX. He was having difficulty with constipation. On 09/13/18 He was started on Cycle one of mFOLFIRINOX, received neulasta on . He was scheduled to follow-up in office for second cycle on 09/29/18, although he now presents to hospital with changes in mental status. Total Bilirubin today 4.8, Acute renal failure with a creatinine of 5.28 on admission , mild improvement today. Troponins are steadily increased. Afebrile. Review of Systems A 14 point review of systems assessed and completed and all negative except HPI Past Medical History Past Medical History: Cancer, Hyperlipidemia, Hypertension Additional Past Medical History / Comment(s): Prostate cancer with mets, last chemo 09-17-18 History of Any Multi-Drug Resistant Organisms: None Reported Past Surgical History: Heart Catheterization With Stent Additional Past Surgical History / Comment(s): hydrocele, colonoscopy-WNL, vocal cord polypectomy. \\\\2014. Right chest port for chemo Past Anesthesia/Blood Transfusion Reactions: Postoperative Nausea & Vomiting ( PONV) Additional Past Anesthesia/Blood Transfusion Reaction / Comm: Pt has never had blood transfusion. Date of Last Stent Placement:: 2014 Past Psychological History: Anxiety Smoking Status: Former smoker Past Alcohol Use History: None Reported Past Drug Use History: None Reported - Past Family History Father Family Medical History: No Reported History Additional Family Medical History / Comment(s): Father when pt was 8 yrs old. He was a WWII vet and had suffered a gunshot to the head. Mother Family Medical History: No Reported History Additional Family Medical History / Comment(s): .Mother is healthy and is 84yrs old Medications and Allergies Home Medications Medication Instructions Recorded Confirmed Type Cyanocobalamin [Vitamin B-12] 500 mcg PO DAILY@1200 03/07/15 09/26/18 History Nitroglycerin Sl Tabs [Nitrostat] 0.4 mg SUBLINGUAL Q5M PRN #25 tab 03/09/15 Rx amLODIPine [Norvasc] 5 mg PO HS #30 tab 03/09/15 09/26/18 Rx Cholecalciferol [Vitamin D3] 1,000 unit PO DAILY 08/21/18 09/26/18 History Cyclobenzaprine [Flexeril] 5 mg PO HS PRN 08/21/18 09/26/18 History Losartan Potassium [Cozaar] 100 mg PO HS 08/21/18 09/26/18 History Metoprolol Tartrate [Lopressor] 12.5 mg PO HS 08/21/18 09/26/18 History Ranitidine HCl [Zantac] 150 mg PO BID 08/21/18 09/26/18 History Apixaban [Eliquis] 5 mg PO BID #60 tab 09/03/18 09/26/18 Rx Docusate [Colace] 100 mg PO BID #30 cap 09/03/18 09/26/18 Rx HYDROcodone/IBUPROFEN 7.5-200 1 tab PO Q6HR PRN 30 Days #120 tab 09/03/18 Rx [Vicoprofen 7.5-200 mg] Morphine Sulfate ER [Ms Contin] 30 mg PO Q8H 3 Days #9 tab 09/03/18 09/26/18 Rx ALPRAZolam [Xanax] 0.5 mg PO DAILY 09/26/18 09/26/18 History Ondansetron HCl [Zofran] 8 mg PO Q4H PRN 09/26/18 09/26/18 History Promethazine [Phenergan] 25 mg PO Q8HR PRN 09/26/18 09/26/18 History Allergies Allergy/AdvReac Type Severity Reaction Status Date / Time Fdfhecq-Pin-Rsp Reductase AdvReac JOINT PAIN Verified 09/26/18 09:51 Inhibitor Physical Exam Vitals: Vital Signs Temp Pulse Resp BP Pulse Ox 09/27/18 11:50 97.8 F 86 16 123/59 96 09/27/18 09:05 97.9 F 89 16 107/64 94 L 09/27/18 03:22 98.0 F 86 17 112/59 92 L 09/27/18 00:00 89 18 115/56 90 L 09/26/18 20:00 98.1 F 88 18 106/58 95 09/26/18 16:00 97.8 F 93 16 102/61 92 L Intake and Output 09/26/18 09/27/18 09/27/18 22:59 06:59 14:59 Intake Total 960 240 Output Total 100 150 Balance -100 810 240 Intake: Oral 960 240 Output: Urine 100 150 Other: Voiding Method Indwelling Catheter Indwelling Catheter Indwelling Catheter Weight 112.5 kg Constitutional General appearance: no acute distress - EENT Eyes: EOMI, PERRLA ENT: hearing grossly normal, normal oropharynx - Neck Neck: no lymphadenopathy Thyroid: bilateral: normal size - Respiratory Respiratory: bilateral: CTA - Cardiovascular Rhythm: regular Heart sounds: normal: S1, S2 - Gastrointestinal General gastrointestinal: normal bowel sounds, soft - Integumentary Integumentary: normal - Neurologic Neurologic: CNII-XII intact - Musculoskeletal Left lower extremity mild edema, and tenderness, pretibial area. T Musculoskeletal: strength equal bilaterally - Psychiatric Psychiatric: Mental status improved, family at bedside Results CBC & Chem 7: 09/27/18 08:52 09/27/18 08:52 Labs: Abnormal Lab Results - Last 24 Hours (Table) 09/27/18 09/27/18 09/27/18 Range/Units 08:52 08:52 10:57 WBC 16.8 H (3.8-10.6) k/uL RBC 2.86 L (4.30-5.90) m/uL Hgb 8.7 L D (13.0-17.5) gm/dL Hct 28.0 L (39.0-53.0) % RDW 16.7 H (11.5-15.5) % Neutrophils # 14.7 H (1.3-7.7) k/uL Lymphocytes # 0.9 L (1.0-4.8) k/uL Chloride 112 H (98-107) mmol/L Carbon Dioxide 18 L (22-30) mmol/L BUN 51 H (9-20) mg/dL Creatinine 4.28 H (0.66-1.25) mg/dL Glucose 102 H (74-99) mg/dL Calcium 8.1 L (8.4-10.2) mg/dL Total Bilirubin 4.3 H (0.2-1.3) mg/dL AST 122 H (17-59) U/L ALT 87 H (21-72) U/L Alkaline Phosphatase 318 H (38-126) U/L Ammonia 46 H (<30) umol/L Troponin I (0.000-0.034) ng/mL Total Protein 5.8 L (6.3-8.2) g/dL Albumin 2.7 L (3.5-5.0) g/dL 09/27/18 Range/Units 10:57 WBC (3.8-10.6) k/uL RBC (4.30-5.90) m/uL Hgb (13.0-17.5) gm/dL Hct (39.0-53.0) % RDW (11.5-15.5) % Neutrophils # (1.3-7.7) k/uL Lymphocytes # (1.0-4.8) k/uL Chloride (98-107) mmol/L Carbon Dioxide (22-30) mmol/L BUN (9-20) mg/dL Creatinine (0.66-1.25) mg/dL Glucose (74-99) mg/dL Calcium (8.4-10.2) mg/dL Total Bilirubin (0.2-1.3) mg/dL AST (17-59) U/L ALT (21-72) U/L Alkaline Phosphatase (38-126) U/L Ammonia (<30) umol/L Troponin I 0.087 H* (0.000-0.034) ng/mL Total Protein (6.3-8.2) g/dL Albumin (3.5-5.0) g/dL Assessment and Plan Plan: Assessment and Recommendations: 1. Pancreatic Cancer with Metastases to Liver. - Status Post Cycle one of mFOLFIRINOX with Neulasta on 09/13/18-09/15/18 - Ca-19-9 2. Leukocytosis: - Secondary to Neulasta on 09/15. - Must rule out infectious process - Dillard Cultures Pending (Blood Cultures, Urine Culture, Sputum Culture, and Chest Xray) - Empiric Antibiotics - Chest x-ray reviewed, no acute process identified - Infectious disease following. 3. Acute Renal Failure: - Nephrotoxins held per Primary Team - Secondary to dehydration, infectious process, versus physiological - Nephrology is Following - Renal ultrasound has been ordered. - High tumor burden, check uric acid and LDH tumor lysis 4. Elevated liver enzymes likely related to the metastases disease: - Improved from previous hospital stay, although still elevated. Total Bili today 4.3 (increased 3.8 on 09/26/18) - Monitor Daily hepatic function - Monitor coags 5. Hepatic Encephalopathy: - Lactulose on active medication - Recent Chemotherapy with high tumor burden metastatic disease 6. Increasing Troponin: - Cardiology Following 7. History of DVT and PE. - Recent Diagnosed last hospitalization - Eliquis 8. Normocytic Anemia: - Secondary to chemotherapy, malignancy and part dilutional - Monitor daily cbc, hgb stable today, no intervention needed - Transfuse hgb less than 7 10. Metabolic acidosis secondary to acute kidney injury. - Sodium bicarb per nephrology services Thank you for allowing us to participate in the care of this patient, we will follow along with you.
[2018-09-27 16:40] LABS: Iron Saturation 13.39 (15.00-50.00)
[2018-09-27 18:56] LABS: Uric Acid 10.4 mg/dL (3.5-8.5)
[2018-09-27] MEDS ORDERED: LACTULOSE 20 GM/30 ML CUP PO SCH (21:00)
[2018-09-27] MEDS: DOCUSATE 100 MG CAP PO SCH (21:08)
[2018-09-27] MEDS: METOPROLOL TARTRATE 12.5 MG TAB PO SCH (22:14)
[2018-09-27] MEDS: MELATONIN 3 MG TABLET PO SCH (22:17)
[2018-09-28] MEDS: SODIUM CHLORIDE 0.9% 1,000 ML IV SCH ×2 (01:08→14:21)
[2018-09-28 06:47] LABS: Anisocytosis Slight; Basophils % (A) 0 %; Eosinophils # (A) 0.2 k/uL (0-0.7); Eosinophils % (A) 1 %; HCT 29.1 % (39.0-53.0); HGB 8.5 gm/dL (13.0-17.5); Hypochromasia Moderate; Lymphocytes # (A) 1.1 k/uL (1.0-4.8); Lymphocytes % (A) 9 %; MCH 29.7 pg (25.0-35.0); MCHC 29.2 g/dL (31.0-37.0); MCV 101.7 fL (80.0-100.0); Macrocytosis Slight; Mean Platelet Volume 7.9; Monocytes # (A) 0.6 k/uL (0-1.0); Monocytes % (A) 5 %; Neutrophils # (A) 11.1 k/uL (1.3-7.7); Neutrophils % (A) 83 %; Platelet Count 217 k/uL (150-450); RBC 2.87 m/uL (4.30-5.90); RDW 17.2 % (11.5-15.5); WBC 13.4 k/uL (3.8-10.6)
[2018-09-28 07:01] LABS: INR 1.5 (<1.2); Partial Thromboplastin Time 26.9 sec (22.0-30.0); Prothrombin Time 14.9 sec (9.0-12.0)
[2018-09-28 07:22] LABS: Albumin 2.7 g/dL (3.5-5.0); Potassium 4.2 mmol/L (3.5-5.1); Total Bilirubin 3.4 mg/dL (0.2-1.3); Total Protein 5.8 g/dL (6.3-8.2)
[2018-09-28] MEDS: LACTULOSE 20 GM/30 ML CUP PO SCH ×2 (08:20→21:50)
[2018-09-28] MEDS: MORPHINE SULFATE ER 30 MG TABLET PO SCH ×3 (08:21→21:42)
[2018-09-28] MEDS: SODIUM BICARBONATE TAB 650 MG TAB PO SCH ×2 (08:21→21:41)
[2018-09-28] MEDS: PANTOPRAZOLE 40 MG/10 ML VIAL IV SCH (08:21)
[2018-09-28] MEDS: TAMSULOSIN 0.4 MG CAP.ER.24H PO SCH (08:21)
[2018-09-28] MEDS: FAMOTIDINE 20 MG TAB PO SCH (08:21)
[2018-09-28] MEDS: APIXABAN 5 MG TAB PO SCH ×2 (08:21→21:41)
[2018-09-28] MEDS: DOCUSATE 100 MG CAP PO SCH ×2 (08:21→21:41)
[2018-09-28] MEDS: LEVOFLOXACIN 250MG-D5W PMX 250 MG in DEXTROSE/WATER 1 50ML.BAG IVPB SCH (08:22)
--- NOTE | 2018-09-28 09:26 | P.PN ---
Subjective Patient is seen in follow-up for acute kidney injury. Patient's baseline creatinine is 1 and was elevated at 5.8 on admission. Patient is receiving IV fluids. Renal function is gradually improving. Creatinine 3.74 today. Oral intake is fair. Denies chest pain or shortness of breath. Patient is a Calloway catheter for urinary retention. He is nonoliguric. Vital signs are stable. General: The patient appeared well nourished and normally developed. HEENT: Head exam is unremarkable. Neck is without jugular venous distension. LUNGS: Lungs are clear to auscultation and percussion. Breath sounds decreased. HEART: Rate and Rhythm are regular. First and second heart sounds normal. No murmurs, rubs or gallops. ABDOMEN: Abdominal exam reveals normal bowel sounds. Non-tender and non- distended. No evidence of peritonitis. EXTREMITITES: No clubbing, cyanosis, or edema. Objective - Vital Signs Vital signs: Vital Signs Temp 98.1 F 09/28/18 08:00 Pulse 99 09/28/18 08:00 Resp 20 09/28/18 08:00 BP 86/50 09/28/18 08:00 Pulse Ox 95 09/28/18 08:00 Intake & Output 09/27/18 09/28/18 09/28/18 18:59 06:59 18:59 Intake Total 240 480 Output Total 650 Balance 240 -170 Weight 112.5 kg Intake: Oral 240 480 Output: Urine 650 Other: Voiding Method Indwelling Catheter Indwelling Catheter Indwelling Catheter # Voids 2 - Labs CBC & Chem 7: 09/28/18 06:04 09/28/18 06:04 Labs: Abnormal Lab Results - Last 24 Hours (Table) 09/27/18 09/27/18 09/27/18 Range/Units 08:52 08:52 08:52 WBC 16.8 H (3.8-10.6) k/uL RBC 2.86 L (4.30-5.90) m/uL Hgb 8.7 L D (13.0-17.5) gm/dL Hct 28.0 L (39.0-53.0) % MCV (80.0-100.0) fL MCHC (31.0-37.0) g/dL RDW 16.7 H (11.5-15.5) % Neutrophils # 14.7 H (1.3-7.7) k/uL Lymphocytes # 0.9 L (1.0-4.8) k/uL PT (9.0-12.0) sec INR (<1.2) Chloride 112 H (98-107) mmol/L Carbon Dioxide 18 L (22-30) mmol/L BUN 51 H (9-20) mg/dL Creatinine 4.28 H (0.66-1.25) mg/dL Glucose 102 H (74-99) mg/dL Uric Acid (3.5-8.5) mg/dL Calcium 8.1 L (8.4-10.2) mg/dL Iron 30 L (65-175) ug/dL TIBC 224 L (228-460) ug/dL Iron Saturation 13.39 L (15.00-50.00) Ferritin 1196.4 H (22.0-322.0) ng/mL Total Bilirubin 4.3 H (0.2-1.3) mg/dL AST 122 H (17-59) U/L ALT 87 H (21-72) U/L Alkaline Phosphatase 318 H (38-126) U/L Ammonia (<30) umol/L Lactate Dehydrogenase (313-618) U/L Troponin I (0.000-0.034) ng/mL Total Protein 5.8 L (6.3-8.2) g/dL Albumin 2.7 L (3.5-5.0) g/dL 09/27/18 09/27/18 09/27/18 Range/Units 10:57 10:57 18:25 WBC (3.8-10.6) k/uL RBC (4.30-5.90) m/uL Hgb (13.0-17.5) gm/dL Hct (39.0-53.0) % MCV (80.0-100.0) fL MCHC (31.0-37.0) g/dL RDW (11.5-15.5) % Neutrophils # (1.3-7.7) k/uL Lymphocytes # (1.0-4.8) k/uL PT (9.0-12.0) sec INR (<1.2) Chloride (98-107) mmol/L Carbon Dioxide (22-30) mmol/L BUN (9-20) mg/dL Creatinine (0.66-1.25) mg/dL Glucose (74-99) mg/dL Uric Acid (3.5-8.5) mg/dL Calcium (8.4-10.2) mg/dL Iron (65-175) ug/dL TIBC (228-460) ug/dL Iron Saturation (15.00-50.00) Ferritin (22.0-322.0) ng/mL Total Bilirubin (0.2-1.3) mg/dL AST (17-59) U/L ALT (21-72) U/L Alkaline Phosphatase (38-126) U/L Ammonia 46 H (<30) umol/L Lactate Dehydrogenase (313-618) U/L Troponin I 0.087 H* 0.080 H* (0.000-0.034) ng/mL Total Protein (6.3-8.2) g/dL Albumin (3.5-5.0) g/dL 09/27/18 09/27/18 09/28/18 Range/Units 18:25 23:15 06:04 WBC (3.8-10.6) k/uL RBC (4.30-5.90) m/uL Hgb (13.0-17.5) gm/dL Hct (39.0-53.0) % MCV (80.0-100.0) fL MCHC (31.0-37.0) g/dL RDW (11.5-15.5) % Neutrophils # (1.3-7.7) k/uL Lymphocytes # (1.0-4.8) k/uL PT (9.0-12.0) sec INR (<1.2) Chloride 112 H (98-107) mmol/L Carbon Dioxide 18 L (22-30) mmol/L BUN 49 H (9-20) mg/dL Creatinine 3.74 H (0.66-1.25) mg/dL Glucose 107 H (74-99) mg/dL Uric Acid 10.4 H (3.5-8.5) mg/dL Calcium 8.0 L (8.4-10.2) mg/dL Iron (65-175) ug/dL TIBC (228-460) ug/dL Iron Saturation (15.00-50.00) Ferritin (22.0-322.0) ng/mL Total Bilirubin 3.4 H (0.2-1.3) mg/dL AST 90 H (17-59) U/L ALT 81 H (21-72) U/L Alkaline Phosphatase 325 H (38-126) U/L Ammonia (<30) umol/L Lactate Dehydrogenase 1155 H (313-618) U/L Troponin I 0.063 H* (0.000-0.034) ng/mL Total Protein 5.8 L (6.3-8.2) g/dL Albumin 2.7 L (3.5-5.0) g/dL 09/28/18 09/28/18 Range/Units 06:04 06:04 WBC 13.4 H (3.8-10.6) k/uL RBC 2.87 L (4.30-5.90) m/uL Hgb 8.5 L (13.0-17.5) gm/dL Hct 29.1 L (39.0-53.0) % MCV 101.7 H (80.0-100.0) fL MCHC 29.2 L (31.0-37.0) g/dL RDW 17.2 H (11.5-15.5) % Neutrophils # 11.1 H (1.3-7.7) k/uL Lymphocytes # (1.0-4.8) k/uL PT 14.9 H (9.0-12.0) sec INR 1.5 H (<1.2) Chloride (98-107) mmol/L Carbon Dioxide (22-30) mmol/L BUN (9-20) mg/dL Creatinine (0.66-1.25) mg/dL Glucose (74-99) mg/dL Uric Acid (3.5-8.5) mg/dL Calcium (8.4-10.2) mg/dL Iron (65-175) ug/dL TIBC (228-460) ug/dL Iron Saturation (15.00-50.00) Ferritin (22.0-322.0) ng/mL Total Bilirubin (0.2-1.3) mg/dL AST (17-59) U/L ALT (21-72) U/L Alkaline Phosphatase (38-126) U/L Ammonia (<30) umol/L Lactate Dehydrogenase (313-618) U/L Troponin I (0.000-0.034) ng/mL Total Protein (6.3-8.2) g/dL Albumin (3.5-5.0) g/dL Microbiology - Last 24 Hours (Table) 09/27/18 18:12 Gram Stain - Preliminary Sputum Sputum Culture - Preliminary 09/26/18 14:12 Blood Culture - Preliminary Blood No Growth after 24 hours 09/27/18 09:15 Urine Culture - Preliminary Urine,Catheterized Assessment and Plan Plan: Assessment: 1. Nonoliguric acute kidney injury mostly prerenal secondary to urinary retention and intravascular volume depletion from poor oral intake. Creatinine was 5.28 on admission and is down to 3.74 today. Baseline creatinine near 1. No evidence of hydronephrosis noted on renal ultrasound. 2. Urinary retention status post Calloway catheter placement. 3. Metabolic acidosis secondary to acute kidney injury and IV fluids. Stable. 4. Pancreatic cancer status post 1 cycle of chemotherapy in mid August. 5. Benign hypertension. Blood pressures on the lower side. 6. Anemia. Iron deficiency noted. Plan: Maintain normal saline at 100 mL an hour. Encouraged oral intake. Maintain oral sodium bicarbonate. Maintain Calloway catheter. Maintain Flomax. Ferrlecit 125 mg IV daily for 3 days. First dose today. Repeat electrolytes in the morning.
[2018-09-28] MEDS: ALPRAZolam 0.5 MG TAB PO PRN ×3 (09:41→21:41)
[2018-09-28] MEDS: PIPERACILLIN-TAZOBACTAM 3.375 GM in SODIUM CHLORIDE 0.9% 100 ML IVPB SCH ×2 (09:41→21:43)
[2018-09-28] MEDS: SODIUM FERRIC GLUCONAT-SUCROSE 125 MG in SODIUM CHLORIDE 0.9% 100 ML IVPB SCH (14:20)
--- NOTE | 2018-09-28 16:02 | P.PN ---
Subjective Progress Note Date: 09/28/18 This is a 68-year-old male patient who presented to the emergency room with complaints of increased confusion and weakness. Patient recently diagnosed with a periodic cancer with evidence of liver metastases. Patient underwent chemotherapy on September 17 and started to become a week and had increased confusion per . Patient was found to be in acute kidney injury with creatinine of 5.28 bun at 50. Patient is currently on eliquis for DVT and PE. Patient also found to have elevated white blood cell count. Patient currently on IV antibiotics and infectious disease following. On 09/27/2018 patient currently resting in bed. is at bedside. Patient reports he still is confused at times forgetting the date. Patient also complaining of chest discomfort at this time patient describes is intermittent sharp pain in chest. Patient is currently on the telemetry floor. Will repeat cardiac enzymes and consult cardiology. Oncology services also consulted. Patient will be started on lactulose for elevated ammonia level. Repeat ammonia level has been ordered. Nephrology services are following. At this time patient denies shortness of breath. Patient denies nausea vomiting or diarrhea. Patient denies any urinary burning or frequency. On 09/28/2018 patient is currently resting in bed. Patient does state he feels slightly improved from yesterday. Family currently at bedside. At this time patient denies any chest pain or shortness of breath. Patient denies nausea vomiting or diarrhea. Patient denies any urinary burning or frequency. Objective - Vital Signs Vital signs: Vital Signs Temp 97.9 F 09/28/18 11:29 Pulse 67 09/28/18 15:38 Resp 18 09/28/18 15:38 BP 131/57 09/28/18 15:38 Pulse Ox 96 09/28/18 15:38 Intake & Output 09/27/18 09/28/18 09/28/18 18:59 06:59 18:59 Intake Total 240 480 200 Output Total 650 Balance 240 -170 200 Weight 112.5 kg Intake: Oral 240 480 200 Output: Urine 650 Other: Voiding Method Indwelling Catheter Indwelling Catheter Indwelling Catheter # Voids 2 1 # Bowel Movements 1 - Exam Head normocephalic. Jaundice noted to thin skin Neck supple Lungs clear to auscultation bilaterally no wheezing or crackles Heart regular rate and rhythm S1-S2, no rub or gallop Abdomen is soft nontender nondistended positive bowel sounds no hepatosplenomegaly Extremities no edema Neuro alert and orientated to 3. Does appear forgetful at times - Labs CBC & Chem 7: 09/28/18 06:04 09/28/18 06:04 Labs: Abnormal Lab Results - Last 24 Hours (Table) 09/27/18 09/27/18 09/27/18 Range/Units 08:52 18:25 18:25 WBC (3.8-10.6) k/uL RBC (4.30-5.90) m/uL Hgb (13.0-17.5) gm/dL Hct (39.0-53.0) % MCV (80.0-100.0) fL MCHC (31.0-37.0) g/dL RDW (11.5-15.5) % Neutrophils # (1.3-7.7) k/uL PT (9.0-12.0) sec INR (<1.2) Chloride (98-107) mmol/L Carbon Dioxide (22-30) mmol/L BUN (9-20) mg/dL Creatinine (0.66-1.25) mg/dL Glucose (74-99) mg/dL Uric Acid 10.4 H (3.5-8.5) mg/dL Calcium (8.4-10.2) mg/dL Iron 30 L (65-175) ug/dL TIBC 224 L (228-460) ug/dL Iron Saturation 13.39 L (15.00-50.00) Ferritin 1196.4 H (22.0-322.0) ng/mL Total Bilirubin (0.2-1.3) mg/dL AST (17-59) U/L ALT (21-72) U/L Alkaline Phosphatase (38-126) U/L Lactate Dehydrogenase 1155 H (313-618) U/L Troponin I 0.080 H* (0.000-0.034) ng/mL Total Protein (6.3-8.2) g/dL Albumin (3.5-5.0) g/dL 09/27/18 09/28/18 09/28/18 Range/Units 23:15 06:04 06:04 WBC 13.4 H (3.8-10.6) k/uL RBC 2.87 L (4.30-5.90) m/uL Hgb 8.5 L (13.0-17.5) gm/dL Hct 29.1 L (39.0-53.0) % MCV 101.7 H (80.0-100.0) fL MCHC 29.2 L (31.0-37.0) g/dL RDW 17.2 H (11.5-15.5) % Neutrophils # 11.1 H (1.3-7.7) k/uL PT (9.0-12.0) sec INR (<1.2) Chloride 112 H (98-107) mmol/L Carbon Dioxide 18 L (22-30) mmol/L BUN 49 H (9-20) mg/dL Creatinine 3.74 H (0.66-1.25) mg/dL Glucose 107 H (74-99) mg/dL Uric Acid (3.5-8.5) mg/dL Calcium 8.0 L (8.4-10.2) mg/dL Iron (65-175) ug/dL TIBC (228-460) ug/dL Iron Saturation (15.00-50.00) Ferritin (22.0-322.0) ng/mL Total Bilirubin 3.4 H (0.2-1.3) mg/dL AST 90 H (17-59) U/L ALT 81 H (21-72) U/L Alkaline Phosphatase 325 H (38-126) U/L Lactate Dehydrogenase (313-618) U/L Troponin I 0.063 H* (0.000-0.034) ng/mL Total Protein 5.8 L (6.3-8.2) g/dL Albumin 2.7 L (3.5-5.0) g/dL 09/28/18 Range/Units 06:04 WBC (3.8-10.6) k/uL RBC (4.30-5.90) m/uL Hgb (13.0-17.5) gm/dL Hct (39.0-53.0) % MCV (80.0-100.0) fL MCHC (31.0-37.0) g/dL RDW (11.5-15.5) % Neutrophils # (1.3-7.7) k/uL PT 14.9 H (9.0-12.0) sec INR 1.5 H (<1.2) Chloride (98-107) mmol/L Carbon Dioxide (22-30) mmol/L BUN (9-20) mg/dL Creatinine (0.66-1.25) mg/dL Glucose (74-99) mg/dL Uric Acid (3.5-8.5) mg/dL Calcium (8.4-10.2) mg/dL Iron (65-175) ug/dL TIBC (228-460) ug/dL Iron Saturation (15.00-50.00) Ferritin (22.0-322.0) ng/mL Total Bilirubin (0.2-1.3) mg/dL AST (17-59) U/L ALT (21-72) U/L Alkaline Phosphatase (38-126) U/L Lactate Dehydrogenase (313-618) U/L Troponin I (0.000-0.034) ng/mL Total Protein (6.3-8.2) g/dL Albumin (3.5-5.0) g/dL Microbiology - Last 24 Hours (Table) 09/27/18 09:15 Urine Culture - Final Urine,Catheterized 09/27/18 18:12 Gram Stain - Preliminary Sputum Sputum Culture - Preliminary 09/26/18 14:12 Blood Culture - Preliminary Blood No Growth after 24 hours Assessment and Plan Assessment: 1. Acute renal failure. Dr. Johnson following for nephrology services. Initial creatinine 5.28 and bun 51. Nephrology services renal ultrasound has been ordered. Patient's home [facility]. Patient Vicoprofen also on hold 2. Leukocytosis with possible sepsis. CBC 16.8 Chest x-ray completed showing chronic changes without evidence for acute pulmonary disease. Infectious disease has been consulted. Patient started on Zosyn and Levaquin. Blood, sputum and urine culture ordered. 3. Pancreatic cancer with metastases to liver. Patient did receive chemotherapy on 09/17/2018. Cardiology no further cardiac workup indicated. Avoid the use multiple acute pulmonary drugs including promethazine and Zofran 4. Elevated liver enzymes likely related to the metastases disease 5. Elevated ammonia level. Lactulose has been added. Repeat ammonia level ordered 6. Chest pain. Serial cardiac enzymes added. Cardiology consulted. She completed showing normal sinus rhythm right bundle branch block 7. History of DVT and PE. Patient maintained on eliquis' 8. Increased confusion likely due to infection and elevated ammonia level. Head CT was completed showing age-related atrophic and chronic small vessel ischemic change without acute intracranial process seen at this time 9. Anemia. Iron studies ordered. 10. Metabolic acidosis secondary to acute kidney injury. Sodium bicarb has been added per nephrology services 11. History of essential hypertension 12. History of hyperlipidemia 13. Iron deficiency anemia. Patient will be given Ferrlecit per nephrology DVT prophylaxis eliquis. GI prophylaxis Protonix I performed an examination of the patient and discussed their management with the Nurse Practitioner. I have reviewed the Nurse Practitioner's notes and agree with the documented findings and plan of care
--- NOTE | 2018-09-28 17:06 | P.CONS ---
History of Present Illness - Reason for Consult Consult date: 09/28/18 - Chief Complaint altered mental status - History of Present Illness 68-year-old male who in July 2018 developed a deep venous thrombosis of the left lower extremity. Upon evaluation there is evidence of an extensive deep venous thrombosis as well as superficial clots to the right upper extremity. The patient was counseling evaluated by hematology for hypercoagulable state. There was no significant medical condition that was chronic or medications as an etiology. Constantly workup continued including a computed tomography scan there revealed evidence of lesions within the liver and hepatic area. 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 Because of this the patient was then followed by oncology and his port placed. On 09/13/2018 received his first cycle of mFOLFIRINOX as well as Neulasta. The patient however presents to Hospital acutely ill. The family related the patient became confused and weak, and constantly was brought to the emergency center where there is evidence of increased bilirubin with jaundice, and acute renal failure with a creatinine of 5.28. Because of the leukocytosis the infectious diseases consultation was requested with concerns to sepsis given the recent chemotherapy and significant underlying illness. Review of Systems 68-year-old male presented to hospital with altered mental status now improving HEENT:Denies headache or acute visual change. Denies sinus or mouth discomforts. Denies neck stiffness or pain. oral cavity is dry, no food tastes good Lungs: Denies significant shortness of breath, cough, sputum production, or hemoptysis. Cardiovascular: Denies significant shortness of breath, chest pain, chest wall pain, orthopnea, dyspnea on exertion, syncope Gastrointestinal:is not having nausea or emesis but has no appetite,does have occasional urgent stool but no diarrhea no melena or hematochezia or hematemesis Musculoskeletal: denies significant myalgias or arthralgias. No new joint swelling. Denies new back pain. Skin: Denies new rash or lesions. No new ulcers or wounds are related.. Neuro: Denies headache or visual change. Denies any new onset weakness or difficulty with ambulation. Denies falls or seizures. Psychiatric:Denies anxiety or depression. Endocrine: Profound fatigue weight is decreasing Past Medical History Past Medical History: Cancer, Hyperlipidemia, Hypertension Additional Past Medical History / Comment(s): Prostate cancer with mets, last chemo 09-17-18 History of Any Multi-Drug Resistant Organisms: None Reported Past Surgical History: Heart Catheterization With Stent Additional Past Surgical History / Comment(s): hydrocele, colonoscopy-WNL, vocal cord polypectomy. . Right chest port for chemo Past Anesthesia/Blood Transfusion Reactions: Postoperative Nausea & Vomiting ( PONV) Additional Past Anesthesia/Blood Transfusion Reaction / Comm: Pt has never had blood transfusion. Date of Last Stent Placement:: 2014 Past Psychological History: Anxiety Additional Psychological History / Comment(s): . 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 No experience. No international travel. 2 adult daughters and 2 stepchildren. No animals in the home. History of tobacco use is not current no current alcohol or recreational drug use Smoking Status: Former smoker Past Alcohol Use History: None Reported Past Drug Use History: None Reported - Past Family History Father Family Medical History: No Reported History Additional Family Medical History / Comment(s): Father when pt was 8 yrs old. He was a WWII vet and had suffered a gunshot to the head. Mother Family Medical History: No Reported History Additional Family Medical History / Comment(s): .Mother is healthy and is 84yrs old Medications and Allergies Home Medications and Allergies Comment(s): Current Medications Alprazolam (Xanax) 0.5 mg PO TID PRN PRN Reason: Anxiety Last Admin: 09/28/18 16:46 Dose: 0.5 mg Apixaban (Eliquis) 5 mg PO BID [facility] Last Admin: 09/28/18 08:21 Dose: 5 mg Docusate Sodium (Colace) 100 mg PO BID [facility] Last Admin: 09/28/18 08:21 Dose: Not Given Famotidine (Pepcid) 20 mg PO DAILY [facility] Last Admin: 09/28/18 08:21 Dose: 20 mg Sodium Chloride (Saline 0.9%) 1,000 mls @ 100 mls/hr IV .Q10H [facility] Last Admin: 09/28/18 14:21 Dose: 100 mls/hr Levofloxacin/Dextrose 250 mg/ (IV Solution) 50 mls @ 50 mls/hr IVPB Q48H [facility] Last Admin: 09/28/18 08:22 Dose: 50 mls/hr Piperacillin Sod/Tazobactam (Sod 3.375 gm/ Sodium Chloride) 100 mls @ 25 mls/ hr IVPB Q12HR [facility] Last Admin: 09/28/18 09:41 Dose: 25 mls/hr Ferric Sodium Gluconate 125 mg (/ Sodium Chloride) 110 mls @ 100 mls/hr IVPB DAILY [facility] Stop: 10/01/18 09:31 Last Admin: 09/28/18 14:20 Dose: 100 mls/hr Lactulose (Cephulac) 30 gm PO BID [facility] Last Admin: 09/28/18 08:20 Dose: 30 gm Melatonin (Melatonin) 3 mg PO HS [facility] Last Admin: 09/27/18 22:17 Dose: 3 mg Metoprolol Tartrate (Lopressor) 12.5 mg PO HS [facility] Last Admin: 09/27/18 22:14 Dose: 12.5 mg Morphine Sulfate (Morphine Sulfate (Inj)) 2 mg IV Q4HR PRN PRN Reason: Severe Pain Last Admin: 09/27/18 06:00 Dose: 2 mg Morphine Sulfate (Ms Contin) 30 mg PO TID [facility] Last Admin: 09/28/18 16:46 Dose: 30 mg Naloxone HCl (Narcan) 0.2 mg IV Q2M PRN PRN Reason: Opioid Reversal Nitroglycerin (Nitrostat) 0.4 mg SUBLINGUAL Q5M PRN PRN Reason: Chest Pain Ondansetron HCl (Zofran) 4 mg IVP Q8HR PRN PRN Reason: Nausea And Vomiting Last Admin: 09/26/18 23:39 Dose: 4 mg Pantoprazole Sodium (Protonix) 40 mg IV DAILY [facility] Last Admin: 09/28/18 08:21 Dose: 40 mg Sodium Bicarbonate (Sodium Bicarbonate Tab) 650 mg PO BID [facility] Last Admin: 09/28/18 08:21 Dose: 650 mg Tamsulosin HCl (Flomax) 0.4 mg PO PC-BRKFST [facility] Last Admin: 09/28/18 08:21 Dose: 0.4 mg Home Medications Medication Instructions Recorded Confirmed Type Cyanocobalamin [Vitamin B-12] 500 mcg PO DAILY@1200 03/07/15 09/26/18 History Nitroglycerin Sl Tabs [Nitrostat] 0.4 mg SUBLINGUAL Q5M PRN #25 tab 03/09/15 Rx amLODIPine [Norvasc] 5 mg PO HS #30 tab 03/09/15 09/26/18 Rx Cholecalciferol [Vitamin D3] 1,000 unit PO DAILY 08/21/18 09/26/18 History Cyclobenzaprine [Flexeril] 5 mg PO HS PRN 08/21/18 09/26/18 History Losartan Potassium [Cozaar] 100 mg PO HS 08/21/18 09/26/18 History Metoprolol Tartrate [Lopressor] 12.5 mg PO HS 08/21/18 09/26/18 History Ranitidine HCl [Zantac] 150 mg PO BID 08/21/18 09/26/18 History Apixaban [Eliquis] 5 mg PO BID #60 tab 09/03/18 09/26/18 Rx Docusate [Colace] 100 mg PO BID #30 cap 09/03/18 09/26/18 Rx HYDROcodone/IBUPROFEN 7.5-200 1 tab PO Q6HR PRN 30 Days #120 tab 09/03/18 Rx [Vicoprofen 7.5-200 mg] Morphine Sulfate ER [Ms Contin] 30 mg PO Q8H 3 Days #9 tab 09/03/18 09/26/18 Rx ALPRAZolam [Xanax] 0.5 mg PO DAILY 09/26/18 09/26/18 History Ondansetron HCl [Zofran] 8 mg PO Q4H PRN 09/26/18 09/26/18 History Promethazine [Phenergan] 25 mg PO Q8HR PRN 09/26/18 09/26/18 History Allergies Allergy/AdvReac Type Severity Reaction Status Date / Time Qihyfps-Pad-Cqe Reductase AdvReac JOINT PAIN Verified 09/26/18 09:51 Inhibitor Physical Exam Vitals: Vital Signs Temp Pulse Resp BP Pulse Ox 09/28/18 15:38 67 18 131/57 96 09/28/18 11:29 97.9 F 78 18 92/52 93 L 09/28/18 08:00 98.1 F 99 20 86/50 95 09/28/18 03:04 98.2 F 66 17 110/66 90 L 09/28/18 00:00 95 18 127/74 91 L 09/27/18 20:00 98.4 F 100 18 114/61 94 L Intake and Output 01/10/1609/28/18 09/28/18 06:59 14:59 22:59 Intake Total 200 Output Total 650 Balance -650 200 Intake: Oral 200 Output: Urine 650 Other: Voiding Method Indwelling Catheter Indwelling Catheter Indwelling Catheter # Voids 1 # Bowel Movements 1 68-year-old male not in distress HEENT: Evidence of jaundice, conjunctiva are pink and moist nasal mucosa grossly intact without significant lesions, there is no thrush. But there is evidence of some mild mucositis with irritation to the oral cavity but no open ulcerations Neck: The neck is supple without significant lymphadenopathy or thyromegaly. Lungs: Good bilateral air entry without significant crackles or wheezing. There is no significant bronchial sounds. There is no egophony or dullness. Heart: Regular rate and rhythm with an audible S1-S2, no S3 no S4. There is no significant murmur click or rub, PMI was nondisplaced. Abdomen: Mildly distended with positive bowel sounds soft without palpable mass or organomegaly Extremities: The upper extremities have excellent pulses they are symmetric, no significant petechiae or telangiectasia. No splinter hemorrhages were noted. The lower extremities are free from significant edema. The peripheral pulses were 2+ and symmetric. Neuro: Awake alert oriented to person place and time. There are no acute new gross focal sensory motor deficits. This apparently is much improved from admission. Results CBC & Chem 7: 09/28/18 06:04 09/28/18 06:04 Labs: Abnormal Lab Results - Last 24 Hours (Table) 09/27/18 09/27/18 09/27/18 Range/Units 08:52 18:25 18:25 WBC (3.8-10.6) k/uL RBC (4.30-5.90) m/uL Hgb (13.0-17.5) gm/dL Hct (39.0-53.0) % MCV (80.0-100.0) fL MCHC (31.0-37.0) g/dL RDW (11.5-15.5) % Neutrophils # (1.3-7.7) k/uL PT (9.0-12.0) sec INR (<1.2) Chloride (98-107) mmol/L Carbon Dioxide (22-30) mmol/L BUN (9-20) mg/dL Creatinine (0.66-1.25) mg/dL Glucose (74-99) mg/dL Uric Acid 10.4 H (3.5-8.5) mg/dL Calcium (8.4-10.2) mg/dL Iron 30 L (65-175) ug/dL TIBC 224 L (228-460) ug/dL Iron Saturation 13.39 L (15.00-50.00) Ferritin 1196.4 H (22.0-322.0) ng/mL Total Bilirubin (0.2-1.3) mg/dL AST (17-59) U/L ALT (21-72) U/L Alkaline Phosphatase (38-126) U/L Lactate Dehydrogenase 1155 H (313-618) U/L Troponin I 0.080 H* (0.000-0.034) ng/mL Total Protein (6.3-8.2) g/dL Albumin (3.5-5.0) g/dL 09/27/18 09/28/18 09/28/18 Range/Units 23:15 06:04 06:04 WBC 13.4 H (3.8-10.6) k/uL RBC 2.87 L (4.30-5.90) m/uL Hgb 8.5 L (13.0-17.5) gm/dL Hct 29.1 L (39.0-53.0) % MCV 101.7 H (80.0-100.0) fL MCHC 29.2 L (31.0-37.0) g/dL RDW 17.2 H (11.5-15.5) % Neutrophils # 11.1 H (1.3-7.7) k/uL PT (9.0-12.0) sec INR (<1.2) Chloride 112 H (98-107) mmol/L Carbon Dioxide 18 L (22-30) mmol/L BUN 49 H (9-20) mg/dL Creatinine 3.74 H (0.66-1.25) mg/dL Glucose 107 H (74-99) mg/dL Uric Acid (3.5-8.5) mg/dL Calcium 8.0 L (8.4-10.2) mg/dL Iron (65-175) ug/dL TIBC (228-460) ug/dL Iron Saturation (15.00-50.00) Ferritin (22.0-322.0) ng/mL Total Bilirubin 3.4 H (0.2-1.3) mg/dL AST 90 H (17-59) U/L ALT 81 H (21-72) U/L Alkaline Phosphatase 325 H (38-126) U/L Lactate Dehydrogenase (313-618) U/L Troponin I 0.063 H* (0.000-0.034) ng/mL Total Protein 5.8 L (6.3-8.2) g/dL Albumin 2.7 L (3.5-5.0) g/dL 09/28/18 Range/Units 06:04 WBC (3.8-10.6) k/uL RBC (4.30-5.90) m/uL Hgb (13.0-17.5) gm/dL Hct (39.0-53.0) % MCV (80.0-100.0) fL MCHC (31.0-37.0) g/dL RDW (11.5-15.5) % Neutrophils # (1.3-7.7) k/uL PT 14.9 H (9.0-12.0) sec INR 1.5 H (<1.2) Chloride (98-107) mmol/L Carbon Dioxide (22-30) mmol/L BUN (9-20) mg/dL Creatinine (0.66-1.25) mg/dL Glucose (74-99) mg/dL Uric Acid (3.5-8.5) mg/dL Calcium (8.4-10.2) mg/dL Iron (65-175) ug/dL TIBC (228-460) ug/dL Iron Saturation (15.00-50.00) Ferritin (22.0-322.0) ng/mL Total Bilirubin (0.2-1.3) mg/dL AST (17-59) U/L ALT (21-72) U/L Alkaline Phosphatase (38-126) U/L Lactate Dehydrogenase (313-618) U/L Troponin I (0.000-0.034) ng/mL Total Protein (6.3-8.2) g/dL Albumin (3.5-5.0) g/dL Microbiology - Last 24 Hours (Table) 12/30/18 14:12 Blood Culture - Preliminary Blood No Growth after 48 hours 09/27/18 09:15 Urine Culture - Final Urine,Catheterized 09/27/18 18:12 Gram Stain - Preliminary Sputum Sputum Culture - Preliminary Laboratory Results WBC 13.4 k/uL (3.8-10.6) H 09/28/18 06:04 RBC 2.87 m/uL (4.30-5.90) L 09/28/18 06:04 Hgb 8.5 gm/dL (13.0-17.5) L 09/28/18 06:04 Hct 29.1 % (39.0-53.0) L 09/28/18 06:04 MCV 101.7 fL (80.0-100.0) H 09/28/18 06:04 MCH 29.7 pg (25.0-35.0) 09/28/18 06:04 MCHC 29.2 g/dL (31.0-37.0) L 09/28/18 06:04 RDW 17.2 % (11.5-15.5) H 09/28/18 06:04 Plt Count 217 k/uL (150-450) 09/28/18 06:04 Neutrophils % 83 % 09/28/18 06:04 Lymphocytes % 9 % 09/28/18 06:04 Monocytes % 5 % 09/28/18 06:04 Eosinophils % 1 % 09/28/18 06:04 Basophils % 0 % 09/28/18 06:04 Neutrophils # 11.1 k/uL (1.3-7.7) H 09/28/18 06:04 Lymphocytes # 1.1 k/uL (1.0-4.8) 09/28/18 06:04 Monocytes # 0.6 k/uL (0-1.0) 09/28/18 06:04 Eosinophils # 0.2 k/uL (0-0.7) 09/28/18 06:04 Basophils # 0.0 k/uL (0-0.2) 09/28/18 06:04 Hypochromasia Moderate 09/28/18 06:04 Anisocytosis Slight 09/28/18 06:04 Macrocytosis Slight 09/28/18 06:04 PT 14.9 sec (9.0-12.0) H 09/28/18 06:04 INR 1.5 (<1.2) H 09/28/18 06:04 APTT 26.9 sec (22.0-30.0) 09/28/18 06:04 Sodium 141 mmol/L (137-145) 09/28/18 06:04 Potassium 4.2 mmol/L (3.5-5.1) 09/28/18 06:04 Chloride 112 mmol/L (98-107) H 09/28/18 06:04 Carbon Dioxide 18 mmol/L (22-30) L 09/28/18 06:04 Anion Gap 11 mmol/L 09/28/18 06:04 BUN 49 mg/dL (9-20) H 09/28/18 06:04 Creatinine 3.74 mg/dL (0.66-1.25) H 09/28/18 06:04 Est GFR (CKD-EPI)AfAm 18 (>60 ml/min/1.73 sqM) 09/28/18 06:04 Est GFR (CKD-EPI)NonAf 16 (>60 ml/min/1.73 sqM) 09/28/18 06:04 Glucose 107 mg/dL (74-99) H 09/28/18 06:04 Plasma Lactic Acid Uriah 1.5 mmol/L (0.7-2.0) 09/26/18 14:12 Uric Acid 10.4 mg/dL (3.5-8.5) H 09/27/18 18:25 Calcium 8.0 mg/dL (8.4-10.2) L 09/28/18 06:04 Phosphorus 4.0 mg/dL (2.5-4.5) 09/27/18 18:25 Magnesium 2.0 mg/dL (1.6-2.3) 09/28/18 06:04 Iron 30 ug/dL (65-175) L 09/27/18 08:52 TIBC 224 ug/dL (228-460) L 09/27/18 08:52 Iron Saturation 13.39 (15.00-50.00) L 09/27/18 08:52 Ferritin 1196.4 ng/mL (22.0-322.0) H 09/27/18 08:52 Total Bilirubin 3.4 mg/dL (0.2-1.3) H 09/28/18 06:04 AST 90 U/L (17-59) H 09/28/18 06:04 ALT 81 U/L (21-72) H 09/28/18 06:04 Alkaline Phosphatase 325 U/L (38-126) H 09/28/18 06:04 Ammonia 46 umol/L (<30) H 09/27/18 10:57 Lactate Dehydrogenase 1155 U/L (313-618) H 09/27/18 18:25 Total Creatine Kinase 80 U/L (55-170) 09/26/18 08:55 CK-MB (CK-2) 1.9 ng/mL (0.0-2.4) 09/26/18 08:55 CK-MB (CK-2) Rel Index 2.4 09/26/18 08:55 Troponin I 0.063 ng/mL (0.000-0.034) H* 09/27/18 23:15 Total Protein 5.8 g/dL (6.3-8.2) L 09/28/18 06:04 Albumin 2.7 g/dL (3.5-5.0) L 09/28/18 06:04 Urine Color Dark Brown 09/26/18 12:30 Urine Appearance Cloudy (Clear) 09/26/18 12:30 Urine pH 5.0 (5.0-8.0) 09/26/18 12:30 Ur Specific Boaz 1.019 (1.001-1.035) 09/26/18 12:30 Urine Protein 1+ (Negative) H 09/26/18 12:30 Urine Glucose (UA) Negative (Negative) 09/26/18 12:30 Urine Ketones Negative (Negative) 09/26/18 12:30 Urine Blood Trace (Negative) H 09/26/18 12:30 Urine Nitrite Negative (Negative) 09/26/18 12:30 Urine Bilirubin 1+ (Negative) H 09/26/18 12:30 Urine Urobilinogen 2.0 mg/dL (<2.0) 09/26/18 12:30 Ur Leukocyte Esterase Negative (Negative) 09/26/18 12:30 Urine RBC 1 /hpf (0-5) 09/26/18 12:30 Urine WBC 3 /hpf (0-5) 09/26/18 12:30 Ur Squamous Epith Cells <1 /hpf (0-4) 09/26/18 12:30 Amorphous Sediment Moderate /hpf (None) H 09/26/18 12:30 Hyaline Casts 5 /lpf (0-2) H 09/26/18 12:30 Urine Mucus Rare /hpf (None) H 09/26/18 12:30 Urine Opiates Screen Detected (NotDetected) H 09/26/18 12:30 Ur Oxycodone Screen Not Detected (NotDetected) 09/26/18 12:30 Urine Methadone Screen Not Detected (NotDetected) 09/26/18 12:30 Ur Propoxyphene Screen Not Detected (NotDetected) 09/26/18 12:30 Ur Barbiturates Screen Not Detected (NotDetected) 09/26/18 12:30 U Tricyclic Antidepress Not Detected (NotDetected) 09/26/18 12:30 Ur Phencyclidine Scrn Not Detected (NotDetected) 09/26/18 12:30 Ur Amphetamines Screen Not Detected (NotDetected) 09/26/18 12:30 U Methamphetamines Scrn Not Detected (NotDetected) 09/26/18 12:30 U Benzodiazepines Scrn Detected (NotDetected) H 09/26/18 12:30 Urine Cocaine Screen Not Detected (NotDetected) 09/26/18 12:30 U Marijuana (THC) Screen Not Detected (NotDetected) 09/26/18 12:30 Microbiology 09/26/18 14:12 Blood Blood Culture - Preliminary No Growth after 48 hours 09/27/18 09:15 Urine,Catheterized Urine Culture - Final 09/27/18 18:12 Sputum Gram Stain - Preliminary 09/27/18 18:12 Sputum Sputum Culture - Preliminary Assessment and Plan (1) Metastatic adenocarcinoma Current Visit: No Status: Acute Code(s): C79.9 - SECONDARY MALIGNANT NEOPLASM OF UNSPECIFIED SITE SNOMED Code(s): 623491762 (2) Altered mental status Narrative/Plan: Pleasant 68-year-old male presents to Hospital with the care of his 2 adult daughters because of worsening mental status. The related couple of days before coming to hospital he seemed to be getting weaker it was starting to have difficulties with some routine activities. Since chemotherapy he has not been eating very well and because he became so weak that brought him to the emergency center. Upon arrival there is evidence of acute renal failure which is new and leukocytosis. Physical leukocytosis the infectious diseases consultation was requested. With hydration the patient fortunately is having an improvement of his significant acute renal failure. The elevated bilirubin also seems to be improving with the treatment. Oral cavity is uncomfortable as for salt and soda mouthwash can be used as needed to improve his oral cavity discomforts. Antibiotic therapy has been initiated because of concerns of sepsis at admission. Cultures are in process and will direct rapid de-escalation of antibiotic therapy. Ultrasound reveals evidence of no new acute obstruction. With lactulose there has been some improvement of his mental status as well as with hydration. Hypercoagulable state due to his underlying metastatic pancreatic cancer is being treated with Ellik was then followed by hematology oncology. Current Visit: Yes Status: Acute Code(s): R41.82 - ALTERED MENTAL STATUS, UNSPECIFIED SNOMED Code(s): 159021441 (3) Acute renal failure Current Visit: Yes Status: Acute Code(s): N17.9 - ACUTE KIDNEY FAILURE, UNSPECIFIED SNOMED Code(s): 47877104
[2018-09-28] MEDS ORDERED: SALT AND SODA MOUTHWASH 1,000 ML PO PRN (17:30)
[2018-09-28] MEDS: METOPROLOL TARTRATE 12.5 MG TAB PO SCH (21:41)
[2018-09-28] MEDS: MELATONIN 3 MG TABLET PO SCH (21:41)
[2018-09-29] MEDS: SODIUM CHLORIDE 0.9% 1,000 ML IV SCH ×3 (00:12→20:58)
[2018-09-29 07:23] LABS: Anisocytosis Slight; Basophils # (A) 0.1 k/uL (0-0.2); Basophils % (A) 0 %; Eosinophils # (A) 0.3 k/uL (0-0.7); Eosinophils % (A) 2 %; HCT 27.7 % (39.0-53.0); HGB 8.4 gm/dL (13.0-17.5); Hypochromasia Moderate; Lymphocytes # (A) 0.9 k/uL (1.0-4.8); Lymphocytes % (A) 6 %; MCH 30.5 pg (25.0-35.0); MCHC 30.5 g/dL (31.0-37.0); MCV 100.1 fL (80.0-100.0); Macrocytosis Slight; Mean Platelet Volume 7.3; Monocytes # (A) 0.6 k/uL (0-1.0); Monocytes % (A) 4 %; Neutrophils # (A) 12.9 k/uL (1.3-7.7); Neutrophils % (A) 86 %; Platelet Count 192 k/uL (150-450); RBC 2.77 m/uL (4.30-5.90); RDW 17.4 % (11.5-15.5); WBC 14.9 k/uL (3.8-10.6)
[2018-09-29 07:39] LABS: Calcium 8.2 mg/dL (8.4-10.2); Potassium 4.4 mmol/L (3.5-5.1)
[2018-09-29] MEDS: SODIUM FERRIC GLUCONAT-SUCROSE 125 MG in SODIUM CHLORIDE 0.9% 100 ML IVPB SCH (08:16)
[2018-09-29] MEDS: PANTOPRAZOLE 40 MG/10 ML VIAL IV SCH (08:19)
[2018-09-29] MEDS: SODIUM BICARBONATE TAB 650 MG TAB PO SCH ×2 (08:20→21:02)
[2018-09-29] MEDS: ALPRAZolam 0.5 MG TAB PO PRN (08:20)
[2018-09-29] MEDS: APIXABAN 5 MG TAB PO SCH ×2 (08:20→20:59)
[2018-09-29] MEDS: TAMSULOSIN 0.4 MG CAP.ER.24H PO SCH (08:20)
[2018-09-29] MEDS: FAMOTIDINE 20 MG TAB PO SCH (08:20)
[2018-09-29] MEDS: MORPHINE SULFATE ER 30 MG TABLET PO SCH ×3 (08:21→21:41)
[2018-09-29] MEDS: LACTULOSE 20 GM/30 ML CUP PO SCH ×2 (08:22→20:59)
[2018-09-29] MEDS: DOCUSATE 100 MG CAP PO SCH ×2 (08:22→20:59)
[2018-09-29] MEDS ORDERED: SODIUM CHLORIDE 0.9% 500 ML 500 ML IV ONE ×2 (09:03→10:39)
[2018-09-29 09:09] LABS: Glucose,Whole Blood 105 mg/dL (75-99)
[2018-09-29] MEDS: PIPERACILLIN-TAZOBACTAM 3.375 GM in SODIUM CHLORIDE 0.9% 100 ML IVPB SCH ×2 (09:54→21:40)
[2018-09-29] MEDS ORDERED: RASBURICASE 6 MG in SODIUM CHLORIDE 0.9% 46 ML IV ONE (10:00)
--- NOTE | 2018-09-29 11:50 | P.CNPUL ---
History of Present Illness Consult date: 09/29/18 Requesting physician: Jaky Valdes Reason for consult: other (Hypotension, sepsis) Chief complaint: Altered mental status History of present illness: This is a pleasant 68-year-old gentleman who follows with Dr. Fernandez as his primary care physician. He has a history of hypertension, hyperlipidemia, coronary artery disease with previous stent placement. He also had recently been admitted with DVT of the lower extremity upper extremity and bilateral PEs. He has been anticoagulated with Eliquis. 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 He has received 1 round of M full Castillo Farris with Neulasta on 09/13/2018. He was due for a second round today. On 09/26/2018 however he was admitted to through the emergency room with altered mental status. Computed tomography scan of the brain without contrast revealed no acute intracranial process. He has had a poor appetite. Was trying to keep up on his fluids. Urine drug screen positive for opiates and benzodiazepines. Chest x-ray revealed chronic changes but no acute pulmonary process. EKG revealed sinus rhythm with a right bundle- branch block. Ultrasound of the kidneys and bladder revealed no suspicious acute changes. Echocardiogram revealed preserved left ventricular systolic function with ejection fraction 60-65%. No pericardial effusion. Blood, urine , sputum cultures pending. Admitting labs revealed a creatinine of 5.28, BUN 51 , white count 16.5, hemoglobin 10.3, INR 1.4. Troponin 0.039, 0.063, 0.087. AST 158, ALT 92, alk phos 325, ammonia 40 area earlier this morning the patient was having issues with hypotension and current pressure 83/53 with a mean arterial pressure of 63. He has received 2 L of IV resuscitation thus far. BP still 84/52 with mean arterial pressure of 62. The patient does arouse to verbal stimuli but drifts off easily. He is somewhat pale and jaundice as well. He had been seen and evaluated by infectious disease and is currently on Zosyn and Levaquin. Today's labs revealed WBC 14.9. Hemoglobin 8.4. Platelet count 192,000. Creatinine 3.66. Review of Systems Constitutional: Reports lethargy, Reports night sweats, Reports poor appetite, Reports weakness Eyes: denies blurred vision, denies decreased vision Ears: deny: decreased hearing Ears, nose, mouth and throat: Denies headache, Denies sore throat Cardiovascular: Reports decreased exercise tolerance, Reports leg edema, Reports shortness of breath Respiratory: Reports cough, Reports dyspnea Gastrointestinal: Reports loss of appetite Musculoskeletal: Denies myalgias Musculoskeletal: bilateral: foot stiffness Integumentary: Reports as per HPI Neurological: Reports change in mentation, Reports confusion, Reports lack of coordination Psychiatric: Reports confusion, Reports difficulty concentrating Endocrine: Denies fatigue, Denies weight change Hematologic/Lymphatic: Reports easy bruising Allergic/Immunologic: Reports as per HPI Past Medical History Past Medical History: Cancer, Hyperlipidemia, Hypertension Additional Past Medical History / Comment(s): Prostate cancer with mets, last chemo 09-17-18 History of Any Multi-Drug Resistant Organisms: None Reported Past Surgical History: Heart Catheterization With Stent Additional Past Surgical History / Comment(s): hydrocele, colonoscopy-WNL, vocal cord polypectomy. \\2014. Right chest port for chemo Past Anesthesia/Blood Transfusion Reactions: Postoperative Nausea & Vomiting ( PONV) Additional Past Anesthesia/Blood Transfusion Reaction / Comment(s): Pt has never had blood transfusion. Date of Last Stent Placement:: 2014 Past Psychological History: Anxiety Additional Psychological History / Comment(s): . 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 No experience. No international travel. 2 adult daughters and 2 stepchildren. No animals in the home. History of tobacco use is not current no current alcohol or recreational drug use Smoking Status: Former smoker Past Alcohol Use History: None Reported Past Drug Use History: None Reported - Past Family History Father Family Medical History: No Reported History Additional Family Medical History / Comment(s): Father when pt was 8 yrs old. He was a WWII vet and had suffered a gunshot to the head. Mother Family Medical History: No Reported History Additional Family Medical History / Comment(s): .Mother is healthy and is 84yrs old Medications and Allergies Home Medications Medication Instructions Recorded Confirmed Type Cyanocobalamin [Vitamin B-12] 500 mcg PO DAILY@1200 03/07/15 09/26/18 History Nitroglycerin Sl Tabs [Nitrostat] 0.4 mg SUBLINGUAL Q5M PRN #25 tab 03/09/15 Rx amLODIPine [Norvasc] 5 mg PO HS #30 tab 03/09/15 09/26/18 Rx Cholecalciferol [Vitamin D3] 1,000 unit PO DAILY 08/21/18 09/26/18 History Cyclobenzaprine [Flexeril] 5 mg PO HS PRN 08/21/18 09/26/18 History Losartan Potassium [Cozaar] 100 mg PO HS 08/21/18 09/26/18 History Metoprolol Tartrate [Lopressor] 12.5 mg PO HS 08/21/18 09/26/18 History Ranitidine HCl [Zantac] 150 mg PO BID 08/21/18 09/26/18 History Apixaban [Eliquis] 5 mg PO BID #60 tab 09/03/18 09/26/18 Rx Docusate [Colace] 100 mg PO BID #30 cap 09/03/18 09/26/18 Rx HYDROcodone/IBUPROFEN 7.5-200 1 tab PO Q6HR PRN 30 Days #120 tab 09/03/18 Rx [Vicoprofen 7.5-200 mg] Morphine Sulfate ER [Ms Contin] 30 mg PO Q8H 3 Days #9 tab 09/03/18 09/26/18 Rx ALPRAZolam [Xanax] 0.5 mg PO DAILY 09/26/18 09/26/18 History Ondansetron HCl [Zofran] 8 mg PO Q4H PRN 09/26/18 09/26/18 History Promethazine [Phenergan] 25 mg PO Q8HR PRN 09/26/18 09/26/18 History Allergies Allergy/AdvReac Type Severity Reaction Status Date / Time [id number]-Sxd Reductase AdvReac JOINT PAIN Verified 09/26/18 09:51 Inhibitor Physical Exam Vitals: Vital Signs Temp Pulse Resp BP Pulse Ox 09/29/18 11:00 97.9 F 81 18 84/52 96 09/29/18 10:15 97.9 F 92 18 83/53 95 09/29/18 07:56 98.4 F 82 18 98/56 95 09/29/18 04:00 98.3 F 86 18 94/51 94 L 09/29/18 00:00 97.8 F 88 18 88/55 95 09/28/18 20:00 98 F 87 18 110/61 93 L 09/28/18 15:38 67 18 131/57 96 09/28/18 11:29 97.9 F 78 18 92/52 93 L Intake and Output 09/28/18 09/29/18 09/29/18 22:59 06:59 14:59 Intake Total 840 850 Output Total 300 Balance 840 550 Intake: Intake, IV Titration 600 850 Amount Piperacillin-Tazobactam 3 50 .375 gm In Sodium Chloride 0.9% 100 ml @ 25 mls/hr IVPB Q12HR [facility] Rx #:[id number] Sodium Chloride 0.9% 1, 500 800 000 ml @ 100 mls/hr IV . Q10H [facility] Rx#:[id number] Sodium Ferric Gluconat- 100 Sucrose 125 mg In Sodium Chloride 0.9% 100 ml @ 100 mls/hr IVPB DAILY [facility] Rx#:[id number] Oral 240 Output: Urine 300 Other: Voiding Method Indwelling Catheter Indwelling Catheter Indwelling Catheter Weight 116 kg - Constitutional Drowsy, altered mental status, arouses to verbal stimuli P General appearance: mild distress, obese - EENT Eyes: EOMI, PERRLA ENT: hearing grossly normal Ears: bilateral: normal - Neck Neck: normal ROM Carotids: bilateral: upstroke normal Thyroid: bilateral: normal size - Respiratory Respiratory: bilateral: CTA - Cardiovascular Rhythm: regular Heart sounds: normal: S1, S2 - Gastrointestinal General gastrointestinal: normal bowel sounds - Integumentary Integumentary: normal turgor - Neurologic Neurologic: CNII-XII intact - Musculoskeletal Musculoskeletal: generalized weakness - Psychiatric Oriented to person, confused to place and date. Results - Laboratory Findings CBC and BMP: 09/29/18 07:03 09/29/18 07:03 PT/INR, D-dimer PT 14.9 sec (9.0-12.0) H 09/28/18 06:04 INR 1.5 (<1.2) H 09/28/18 06:04 Abnormal lab findings: Abnormal Labs 09/26/18 09/26/18 09/26/18 08:45 08:45 08:45 WBC 16.5 H RBC 3.35 L Hgb 10.3 L Hct 32.5 L MCV MCHC RDW 16.2 H Neutrophils # 14.0 H Lymphocytes # PT 14.2 H INR 1.4 H Chloride 111 H Carbon Dioxide BUN 51 H Creatinine 5.28 H Glucose 109 H POC Glucose (mg/dL) Uric Acid Calcium Iron TIBC Iron Saturation Ferritin Total Bilirubin 3.8 H AST 158 H ALT 92 H Alkaline Phosphatase 325 H Ammonia Lactate Dehydrogenase Troponin I Total Protein Albumin 3.1 L Urine Protein Urine Blood Urine Bilirubin Amorphous Sediment Hyaline Casts Urine Mucus Urine Opiates Screen U Benzodiazepines Scrn 09/26/18 09/26/18 09/26/18 08:55 12:30 12:30 WBC RBC Hgb Hct MCV MCHC RDW Neutrophils # Lymphocytes # PT INR Chloride Carbon Dioxide BUN Creatinine Glucose POC Glucose (mg/dL) Uric Acid Calcium Iron TIBC Iron Saturation Ferritin Total Bilirubin AST ALT Alkaline Phosphatase Ammonia Lactate Dehydrogenase Troponin I 0.039 H* Total Protein Albumin Urine Protein 1+ H Urine Blood Trace H Urine Bilirubin 1+ H Amorphous Sediment Moderate H Hyaline Casts 5 H Urine Mucus Rare H Urine Opiates Screen Detected H U Benzodiazepines Scrn Detected H 09/26/18 09/27/18 09/27/18 12:35 08:52 08:52 WBC 16.8 H RBC 2.86 L Hgb 8.7 L D Hct 28.0 L MCV MCHC RDW 16.7 H Neutrophils # 14.7 H Lymphocytes # 0.9 L PT INR Chloride 112 H Carbon Dioxide 18 L BUN 51 H Creatinine 4.28 H Glucose 102 H POC Glucose (mg/dL) Uric Acid Calcium 8.1 L Iron TIBC Iron Saturation Ferritin Total Bilirubin 4.3 H AST 122 H ALT 87 H Alkaline Phosphatase 318 H Ammonia 40 H Lactate Dehydrogenase Troponin I Total Protein 5.8 L Albumin 2.7 L Urine Protein Urine Blood Urine Bilirubin Amorphous Sediment Hyaline Casts Urine Mucus Urine Opiates Screen U Benzodiazepines Scrn 09/27/18 09/27/18 09/27/18 08:52 10:57 10:57 WBC RBC Hgb Hct MCV MCHC RDW Neutrophils # Lymphocytes # PT INR Chloride Carbon Dioxide BUN Creatinine Glucose POC Glucose (mg/dL) Uric Acid Calcium Iron 30 L TIBC 224 L Iron Saturation 13.39 L Ferritin 1196.4 H Total Bilirubin AST ALT Alkaline Phosphatase Ammonia 46 H Lactate Dehydrogenase Troponin I 0.087 H* Total Protein Albumin Urine Protein Urine Blood Urine Bilirubin Amorphous Sediment Hyaline Casts Urine Mucus Urine Opiates Screen U Benzodiazepines Scrn 09/27/18 09/27/18 09/27/18 18:25 18:25 23:15 WBC RBC Hgb Hct MCV MCHC RDW Neutrophils # Lymphocytes # PT INR Chloride Carbon Dioxide BUN Creatinine Glucose POC Glucose (mg/dL) Uric Acid 10.4 H Calcium Iron TIBC Iron Saturation Ferritin Total Bilirubin AST ALT Alkaline Phosphatase Ammonia Lactate Dehydrogenase 1155 H Troponin I 0.080 H* 0.063 H* Total Protein Albumin Urine Protein Urine Blood Urine Bilirubin Amorphous Sediment Hyaline Casts Urine Mucus Urine Opiates Screen U Benzodiazepines Scrn 09/28/18 09/28/18 09/28/18 06:04 06:04 06:04 WBC 13.4 H RBC 2.87 L Hgb 8.5 L Hct 29.1 L MCV 101.7 H MCHC 29.2 L RDW 17.2 H Neutrophils # 11.1 H Lymphocytes # PT 14.9 H INR 1.5 H Chloride 112 H Carbon Dioxide 18 L BUN 49 H Creatinine 3.74 H Glucose 107 H POC Glucose (mg/dL) Uric Acid Calcium 8.0 L Iron TIBC Iron Saturation Ferritin Total Bilirubin 3.4 H AST 90 H ALT 81 H Alkaline Phosphatase 325 H Ammonia Lactate Dehydrogenase Troponin I Total Protein 5.8 L Albumin 2.7 L Urine Protein Urine Blood Urine Bilirubin Amorphous Sediment Hyaline Casts Urine Mucus Urine Opiates Screen U Benzodiazepines Scrn 09/29/18 09/29/18 09/29/18 07:03 07:03 07:03 WBC 14.9 H RBC 2.77 L Hgb 8.4 L Hct 27.7 L MCV 100.1 H MCHC 30.5 L RDW 17.4 H Neutrophils # 12.9 H Lymphocytes # 0.9 L PT INR Chloride 113 H Carbon Dioxide 20 L BUN 51 H Creatinine 3.66 H Glucose POC Glucose (mg/dL) Uric Acid Calcium 8.2 L Iron TIBC Iron Saturation Ferritin Total Bilirubin AST ALT Alkaline Phosphatase Ammonia 42 H Lactate Dehydrogenase Troponin I Total Protein Albumin Urine Protein Urine Blood Urine Bilirubin Amorphous Sediment Hyaline Casts Urine Mucus Urine Opiates Screen U Benzodiazepines Scrn 09/29/18 09:08 WBC RBC Hgb Hct MCV MCHC RDW Neutrophils # Lymphocytes # PT INR Chloride Carbon Dioxide BUN Creatinine Glucose POC Glucose (mg/dL) 105 H Uric Acid Calcium Iron TIBC Iron Saturation Ferritin Total Bilirubin AST ALT Alkaline Phosphatase Ammonia Lactate Dehydrogenase Troponin I Total Protein Albumin Urine Protein Urine Blood Urine Bilirubin Amorphous Sediment Hyaline Casts Urine Mucus Urine Opiates Screen U Benzodiazepines Scrn - Diagnostic Findings Chest x-ray: image reviewed Assessment and Plan Assessment: Impression: #1 Altered mental status of unclear etiology suspect underlying sepsis. #2 Hypotension requiring fluid resuscitation suspect secondary to underlying sepsis. #3 Acute nonoliguric kidney injury secondary to intravascular volume depletion, suspect dehydration and hypotension. Current creatinine 3.66. #4 Adenocarcinoma of the pancreas status post 1 round of chemotherapy 2017 of mFOLFIRINOX. Was due for second round today 09/29/2017. #5 Leukocytosis. #6 Anemia current hemoglobin 8.4. #7 Elevated LFTs. #8 Borderline troponins. Acute coronary syndrome ruled out. Ejection fraction 60-65%. No pericardial effusion. #9 Bilateral PE with lower extremity and upper extremity DVTs. Anticoagulated with Eliquis. #10 Coronary artery disease with previous stent placement. #11 Hypertension tension, history of. #12 Hyperlipidemia. Plan: The patient was seen and evaluated by Dr. Fernandez. The patient is on his second liter of IV fluid resuscitations with continued hypotension. The patient will be transferred to the intensive care unit for closer observation and possible pressor support. The patient and his expressed his desire for DO NOT RESUSCITATE CODE STATUS regarding his pancreatic cancer diagnosis. Continue with antibiotics per ID which include Zosyn and Levaquin for now. Cautious use of narcotics and benzodiazepines. Anticoagulated with Eliquis. Continue 0.9 normal saline at 100 ML's per hour. He is on sodium bicarb per nephrology. We will continue to follow make further recommendations based on his clinical status. I, the cosigning physician, performed a history & physical examination of the patient. Lungs sounds are clear. Maintaining good O2 saturations in the 90s on 2 L/m per nasal cannula. I discussed the assessment and plan of care with my nurse practitioner, Lisette Moise. I attest to the above consultation as dictated by her. Time with Patient: Greater than 30
--- NOTE | 2018-09-29 11:51 | P.PN ---
Subjective Progress Note Date: 09/29/18 This is a 68-year-old male patient who presented to the emergency room with complaints of increased confusion and weakness. Patient recently diagnosed with a periodic cancer with evidence of liver metastases. Patient underwent chemotherapy on September 17 and started to become a week and had increased confusion per . Patient was found to be in acute kidney injury with creatinine of 5.28 bun at 50. Patient is currently on eliquis for DVT and PE. Patient also found to have elevated white blood cell count. Patient currently on IV antibiotics and infectious disease following. On 09/27/2018 patient currently resting in bed. is at bedside. Patient reports he still is confused at times forgetting the date. Patient also complaining of chest discomfort at this time patient describes is intermittent sharp pain in chest. Patient is currently on the telemetry floor. Will repeat cardiac enzymes and consult cardiology. Oncology services also consulted. Patient will be started on lactulose for elevated ammonia level. Repeat ammonia level has been ordered. Nephrology services are following. At this time patient denies shortness of breath. Patient denies nausea vomiting or diarrhea. Patient denies any urinary burning or frequency. On 09/28/2018 patient is currently resting in bed. Patient does state he feels slightly improved from yesterday. Family currently at bedside. At this time patient denies any chest pain or shortness of breath. Patient denies nausea vomiting or diarrhea. Patient denies any urinary burning or frequency. 09/29/2018 patient currently resting in bed. Patient hypotensive at this time with blood pressure in the 70s 80s. Patient also diaphoretic. 500 mL bolus has been ordered. Consulted Dr. Fernandez for pulmonary services. Discussed case with Lisette HOUSE per critical care team recommending transfer to ICU for closer monitoring. Lactic acid ordered. Dr. Mariscal is following for infectious disease. At this time patient denies any specific complaints. Patient denies nausea vomiting or diarrhea. Patient denies any urinary burning or frequency. Patient denies chest pain shortness of breath. Blood sugar 105. Patient remains afebrile. Objective - Vital Signs Vital signs: Vital Signs Temp 97.9 F 09/29/18 11:00 Pulse 81 09/29/18 11:00 Resp 18 09/29/18 11:00 BP 84/52 09/29/18 11:00 Pulse Ox 96 09/29/18 11:00 Intake & Output 09/28/18 09/29/18 09/29/18 18:59 06:59 18:59 Intake Total 440 1450 Output Total 300 Balance 440 1150 Weight 116 kg Intake: Intake, IV Titration 1450 Amount Piperacillin-Tazobactam 3 50 .375 gm In Sodium Chloride 0.9% 100 ml @ 25 mls/hr IVPB Q12HR [facility] Rx #:[id number] Sodium Chloride 0.9% 1, 1300 000 ml @ 100 mls/hr IV . Q10H [facility] Rx#:[id number] Sodium Ferric Gluconat- 100 Sucrose 125 mg In Sodium Chloride 0.9% 100 ml @ 100 mls/hr IVPB DAILY [facility] Rx#:[id number] Oral 440 Output: Urine 300 Other: Voiding Method Indwelling Catheter Indwelling Catheter Indwelling Catheter # Voids 1 # Bowel Movements 1 - Exam Head normocephalic. Jaundice noted to thin skin Neck supple Lungs clear to auscultation bilaterally no wheezing or crackles Heart regular rate and rhythm S1-S2, no rub or gallop Abdomen is soft nontender nondistended positive bowel sounds no hepatosplenomegaly Extremities no edema Neuro alert and orientated to 3. Does appear forgetful at times - Labs CBC & Chem 7: 09/29/18 07:03 09/29/18 07:03 Labs: Abnormal Lab Results - Last 24 Hours (Table) 09/29/18 09/29/18 09/29/18 Range/Units 07:03 07:03 07:03 WBC 14.9 H (3.8-10.6) k/uL RBC 2.77 L (4.30-5.90) m/uL Hgb 8.4 L (13.0-17.5) gm/dL Hct 27.7 L (39.0-53.0) % MCV 100.1 H (80.0-100.0) fL MCHC 30.5 L (31.0-37.0) g/dL RDW 17.4 H (11.5-15.5) % Neutrophils # 12.9 H (1.3-7.7) k/uL Lymphocytes # 0.9 L (1.0-4.8) k/uL Chloride 113 H (98-107) mmol/L Carbon Dioxide 20 L (22-30) mmol/L BUN 51 H (9-20) mg/dL Creatinine 3.66 H (0.66-1.25) mg/dL POC Glucose (mg/dL) (75-99) mg/dL Calcium 8.2 L (8.4-10.2) mg/dL Ammonia 42 H (<30) umol/L 09/29/18 Range/Units 09:08 WBC (3.8-10.6) k/uL RBC (4.30-5.90) m/uL Hgb (13.0-17.5) gm/dL Hct (39.0-53.0) % MCV (80.0-100.0) fL MCHC (31.0-37.0) g/dL RDW (11.5-15.5) % Neutrophils # (1.3-7.7) k/uL Lymphocytes # (1.0-4.8) k/uL Chloride (98-107) mmol/L Carbon Dioxide (22-30) mmol/L BUN (9-20) mg/dL Creatinine (0.66-1.25) mg/dL POC Glucose (mg/dL) 105 H (75-99) mg/dL Calcium (8.4-10.2) mg/dL Ammonia (<30) umol/L Microbiology - Last 24 Hours (Table) 09/26/18 14:12 Blood Culture - Preliminary Blood No Growth after 48 hours 09/27/18 09:15 Urine Culture - Final Urine,Catheterized 09/27/18 18:12 Gram Stain - Preliminary Sputum Sputum Culture - Preliminary Assessment and Plan Assessment: 1. Acute renal failure. Dr. Johnson following for nephrology services. Initial creatinine 5.28 and bun 51. Nephrology services renal ultrasound has been ordered. Patient's home [facility] and [facility] DC[facility]. Patient Vicoprofen also on hold. Creatinine is improving to 3.66 2. Leukocytosis with possible sepsis. CBC 16.8 Chest x-ray completed showing chronic changes without evidence for acute pulmonary disease. Infectious disease has been consulted. Patient started on Zosyn and Levaquin. Blood, sputum and urine culture ordered. Repeat lactic acid 1.1 3. metastatic adenocarcinoma. Patient did receive chemotherapy on 09/17/2018. 4. Elevated liver enzymes likely related to the metastases disease 5. Elevated ammonia level. Lactulose has been added. 6. Chest pain. Troponin 0.080 and 0.063. Cardiology consulted. EKG completed showing normal sinus rhythm right bundle branch block. 2-D echo completed showing an EF of 60-65%. Per cardiology services EKG showing QTC prolonged. Recommend no further cardiac workup. Avoid use of multiple QT prolonging drugs such as promethazine and Zofran. 7. History of DVT and PE. Patient maintained on eliquis' 8. Increased confusion likely due to infection and elevated ammonia level. Head CT was completed showing age-related atrophic and chronic small vessel ischemic change without acute intracranial process seen at this time. Lactulose added ammonia level 42 9. Metabolic acidosis secondary to acute kidney injury. Sodium bicarb has been added per nephrology services 10. History of essential hypertension 11. History of hyperlipidemia 12. Iron deficiency anemia. Patient will be given Ferrlecit per nephrology 14. Hypotension. Patient received 2 500 mL normal saline boluses. Discussed case with Lisette HOUSE per critical care team recommended transfer to ICU for close monitoring DVT prophylaxis eliquis. GI prophylaxis Protonix Patient to be transferred to intensive care unit for close monitoring. Critical care services have been consulted I performed an examination of the patient and discussed their management with the Nurse Practitioner. I have reviewed the Nurse Practitioner's notes and agree with the documented findings and plan of care
[2018-09-29] MEDS ORDERED: SODIUM CHLORIDE 0.9% 1,000 ML IV ONE (11:52)
[2018-09-29 14:14] LABS: Glucose,Whole Blood 102 mg/dL (75-99)
--- NOTE | 2018-09-29 14:42 | P.PN ---
Subjective Patient is seen in follow-up for acute kidney injury. Patient's baseline creatinine is 1 and was elevated at 5.8 on admission. Patient is receiving IV fluids. Renal function is gradually improving. Creatinine 3.66 today. Oral intake is fair. Denies chest pain or shortness of breath. Patient is a Calloway catheter for urinary retention. Patient was noted to be hypotensive with systolic blood pressure in the 70s to 80s this morning. He received 2 L fluid bolus. Currently in the intensive care unit. Most recent blood pressure was 100/56. Vital signs are stable. General: The patient appeared well nourished and normally developed. HEENT: Head exam is unremarkable. Neck is without jugular venous distension. LUNGS: Lungs are clear to auscultation and percussion. Breath sounds decreased. HEART: Rate and Rhythm are regular. First and second heart sounds normal. No murmurs, rubs or gallops. ABDOMEN: Abdominal exam reveals normal bowel sounds. Non-tender and non- distended. No evidence of peritonitis. EXTREMITITES: No clubbing, cyanosis, or edema. Objective - Vital Signs Vital signs: Vital Signs Temp 97.6 F 09/29/18 11:50 Pulse 88 09/29/18 11:50 Resp 20 09/29/18 11:50 BP 100/56 09/29/18 11:50 Pulse Ox 96 09/29/18 11:50 Intake & Output 09/28/18 09/29/18 09/29/18 18:59 06:59 18:59 Intake Total 440 1450 240 Output Total 300 130 Balance 440 1150 110 Weight 116 kg Intake: Intake, IV Titration 1450 Amount Piperacillin-Tazobactam 3 50 .375 gm In Sodium Chloride 0.9% 100 ml @ 25 mls/hr IVPB Q12HR [facility] Rx #:[id number] Sodium Chloride 0.9% 1, 1300 000 ml @ 100 mls/hr IV . Q10H [facility] Rx#:[id number] Sodium Ferric Gluconat- 100 Sucrose 125 mg In Sodium Chloride 0.9% 100 ml @ 100 mls/hr IVPB DAILY [facility] Rx#:[id number] Oral 440 240 Output: Urine 300 130 Uretheral (Calloway) 100 Other: Voiding Method Indwelling Catheter Indwelling Catheter Indwelling Catheter # Voids 1 # Bowel Movements 1 - Labs CBC & Chem 7: 09/29/18 07:03 09/29/18 07:03 Labs: Abnormal Lab Results - Last 24 Hours (Table) 09/28/18 09/29/18 09/29/18 Range/Units 06:04 07:03 07:03 WBC 14.9 H (3.8-10.6) k/uL RBC 2.77 L (4.30-5.90) m/uL Hgb 8.4 L (13.0-17.5) gm/dL Hct 27.7 L (39.0-53.0) % MCV 100.1 H (80.0-100.0) fL MCHC 30.5 L (31.0-37.0) g/dL RDW 17.4 H (11.5-15.5) % Neutrophils # 12.9 H (1.3-7.7) k/uL Lymphocytes # 0.9 L (1.0-4.8) k/uL Chloride 113 H (98-107) mmol/L Carbon Dioxide 20 L (22-30) mmol/L BUN 51 H (9-20) mg/dL Creatinine 3.66 H (0.66-1.25) mg/dL POC Glucose (mg/dL) (75-99) mg/dL Calcium 8.2 L (8.4-10.2) mg/dL Ammonia (<30) umol/L CA 19-9 Antigen >42750.0 H (0.0-34.9) U/mL 09/29/18 09/29/18 09/29/18 Range/Units 07:03 09:08 13:53 WBC (3.8-10.6) k/uL RBC (4.30-5.90) m/uL Hgb (13.0-17.5) gm/dL Hct (39.0-53.0) % MCV (80.0-100.0) fL MCHC (31.0-37.0) g/dL RDW (11.5-15.5) % Neutrophils # (1.3-7.7) k/uL Lymphocytes # (1.0-4.8) k/uL Chloride (98-107) mmol/L Carbon Dioxide (22-30) mmol/L BUN (9-20) mg/dL Creatinine (0.66-1.25) mg/dL POC Glucose (mg/dL) 105 H 102 H (75-99) mg/dL Calcium (8.4-10.2) mg/dL Ammonia 42 H (<30) umol/L CA 19-9 Antigen (0.0-34.9) U/mL Microbiology - Last 24 Hours (Table) 09/27/18 18:12 Gram Stain - Preliminary Sputum Sputum Culture - Preliminary Mahi albicans 09/26/18 14:12 Blood Culture - Preliminary Blood No Growth after 48 hours 09/27/18 09:15 Urine Culture - Final Urine,Catheterized Assessment and Plan Plan: Assessment: 1. Nonoliguric acute kidney injury mostly prerenal secondary to urinary retention, hypotension and intravascular volume depletion from poor oral intake. Creatinine was 5.28 on admission and is down to 3.66 today. Baseline creatinine near 1. No evidence of hydronephrosis noted on renal ultrasound. 2. Urinary retention status post Calloway catheter placement. 3. Metabolic acidosis secondary to acute kidney injury and IV fluids. Better. 4. Pancreatic cancer status post 1 cycle of chemotherapy in mid August. 5. Benign hypertension. Blood pressures on the lower side. 6. Anemia. Iron deficiency noted. Plan: Maintain normal saline at 100 mL an hour. Encouraged oral intake. Maintain oral sodium bicarbonate. Maintain Calloway catheter. Maintain Flomax. Ferrlecit 125 mg IV daily for 3 days. Second dose today. Check cortisol level now. Start hydrocortisone 50 mg IV 3 times daily. Repeat electrolytes in the morning. Continue to monitor renal function and urine output closely.
--- NOTE | 2018-09-29 14:42 | P.PN ---
Subjective Progress Note Date: 09/29/18 Principal diagnosis: sepsis, s/p chemo for metastatic pancreatic adenocarcinoma Pt seen today in f/u, daughters at bedside. Pt is process of being moved to ICU for hypotension. Pt was aroused to loud voice, he states "discomfort", denied pain, fever, nausea, vomiting, NICHELLE, his legs are swollen, he is very weak and having difficulty ambulating. Objective - Vital Signs Vital signs: Vital Signs Temp 97.6 F 09/29/18 11:50 Pulse 88 09/29/18 11:50 Resp 20 09/29/18 11:50 BP 100/56 09/29/18 11:50 Pulse Ox 96 09/29/18 11:50 Intake & Output 09/28/18 09/29/18 09/29/18 18:59 06:59 18:59 Intake Total 440 1450 240 Output Total 300 130 Balance 440 1150 110 Weight 116 kg Intake: Intake, IV Titration 1450 Amount Piperacillin-Tazobactam 3 50 .375 gm In Sodium Chloride 0.9% 100 ml @ 25 mls/hr IVPB Q12HR [facility] Rx #:[id number] Sodium Chloride 0.9% 1, 1300 000 ml @ 100 mls/hr IV . Q10H [facility] Rx#:[id number] Sodium Ferric Gluconat- 100 Sucrose 125 mg In Sodium Chloride 0.9% 100 ml @ 100 mls/hr IVPB DAILY [facility] Rx#:[id number] Oral 440 240 Output: Urine 300 130 Uretheral (Calloway) 100 Other: Voiding Method Indwelling Catheter Indwelling Catheter Indwelling Catheter # Voids 1 # Bowel Movements 1 - Constitutional General appearance: Present: average body habitus, cooperative, no acute distress - EENT Eyes: Present: EOMI, scleral icterus ENT: Present: hearing grossly normal - Respiratory Respiratory: bilateral: CTA (weak inspiratory effort) - Cardiovascular Details: distant heart tones, thready radial pulse Heart sounds: normal: S1, S2 Abnormal Heart Sounds: Absent: systolic murmur, diastolic murmur, rub, S3 Gallop , S4 Gallop, click, other - Peripheral edema leg Peripheral Edema: bilateral: 1+, Pitting - Gastrointestinal General gastrointestinal: Present: distended, soft, tenderness - Integumentary Integumentary: Present: jaundiced - Neurologic Neurologic: Present: CNII-XII intact - Musculoskeletal Musculoskeletal: Present: generalized weakness - Psychiatric Psychiatric: Present: A&O x's 3, appropriate affect, intact judgment & insight - Labs CBC & Chem 7: 09/29/18 07:03 09/29/18 07:03 Labs: Abnormal Lab Results - Last 24 Hours (Table) 09/28/18 09/29/18 09/29/18 Range/Units 06:04 07:03 07:03 WBC 14.9 H (3.8-10.6) k/uL RBC 2.77 L (4.30-5.90) m/uL Hgb 8.4 L (13.0-17.5) gm/dL Hct 27.7 L (39.0-53.0) % MCV 100.1 H (80.0-100.0) fL MCHC 30.5 L (31.0-37.0) g/dL RDW 17.4 H (11.5-15.5) % Neutrophils # 12.9 H (1.3-7.7) k/uL Lymphocytes # 0.9 L (1.0-4.8) k/uL Chloride 113 H (98-107) mmol/L Carbon Dioxide 20 L (22-30) mmol/L BUN 51 H (9-20) mg/dL Creatinine 3.66 H (0.66-1.25) mg/dL POC Glucose (mg/dL) (75-99) mg/dL Calcium 8.2 L (8.4-10.2) mg/dL Ammonia (<30) umol/L CA 19-9 Antigen >60204.0 H (0.0-34.9) U/mL 09/29/18 09/29/18 09/29/18 Range/Units 07:03 09:08 13:53 WBC (3.8-10.6) k/uL RBC (4.30-5.90) m/uL Hgb (13.0-17.5) gm/dL Hct (39.0-53.0) % MCV (80.0-100.0) fL MCHC (31.0-37.0) g/dL RDW (11.5-15.5) % Neutrophils # (1.3-7.7) k/uL Lymphocytes # (1.0-4.8) k/uL Chloride (98-107) mmol/L Carbon Dioxide (22-30) mmol/L BUN (9-20) mg/dL Creatinine (0.66-1.25) mg/dL POC Glucose (mg/dL) 105 H 102 H (75-99) mg/dL Calcium (8.4-10.2) mg/dL Ammonia 42 H (<30) umol/L CA 19-9 Antigen (0.0-34.9) U/mL Microbiology - Last 24 Hours (Table) 09/26/18 14:12 Blood Culture - Preliminary Blood No Growth after 48 hours 09/27/18 09:15 Urine Culture - Final Urine,Catheterized Assessment and Plan (1) Hyperuricemia Narrative/Plan: Suspect tumor lysis, elitec ordered, uric acid in AM Current Visit: Yes Status: Acute Priority: High Code(s): E79.0 - HYPERURICEMIA W/O SIGNS OF INFLAM ARTHRIT AND TOPHACEOUS DIS SNOMED Code(s): 07113861 (2) Acute renal failure Narrative/Plan: Improved from admit, quite possibly also r/t tumor lysis. Pt is being hydrated , Nephrology following. Current Visit: Yes Status: Acute Priority: High Code(s): N17.9 - ACUTE KIDNEY FAILURE, UNSPECIFIED SNOMED Code(s): 17118438 (3) Metastatic adenocarcinoma Narrative/Plan: Upper GI primary. Pt is s/p 1st cycle of chemo on 09/13, he would be due for next cycle today. Suspect pt complications are r/t treatment of his disease and tumor lysis. Agree with plan to continue all supportive care and hope that these conditions resolve. Labs ordered daily, pt is on close monitoring. Current Visit: Yes Status: Acute Priority: High Code(s): C79.9 - SECONDARY MALIGNANT NEOPLASM OF UNSPECIFIED SITE SNOMED Code(s): 491832131
[2018-09-29] MEDS ORDERED: NOREPINEPHRINE 16 MG in SODIUM CHLORIDE 0.9% 250 ML IV SCH (15:30)
[2018-09-29] MEDS: METOPROLOL TARTRATE 12.5 MG TAB PO SCH (16:01)
[2018-09-29] MEDS: HYDROCORTISONE SUCCINATE 100 MG/2 ML VIAL IV SCH ×2 (16:11→23:39)
[2018-09-29] MEDS ORDERED: FUROSEMIDE 10 MG/ML 4 ML VIAL IV STA (21:09)
[2018-09-29] MEDS: MELATONIN 3 MG TABLET PO SCH (21:39)
[2018-09-29 23:52] LABS: Glucose,Whole Blood 121 mg/dL (75-99)
[2018-09-30 06:16] LABS: Anisocytosis Slight; HCT 28.8 % (39.0-53.0); HGB 8.7 gm/dL (13.0-17.5); Hypochromasia Marked; MCH 31.1 pg (25.0-35.0); MCHC 30.2 g/dL (31.0-37.0); Macrocytosis Moderate; Mean Platelet Volume 7.8; Platelet Count 172 k/uL (150-450); RBC 2.79 m/uL (4.30-5.90); RDW 17.3 % (11.5-15.5); WBC 18.6 k/uL (3.8-10.6)
[2018-09-30 06:26] LABS: Albumin 2.5 g/dL (3.5-5.0); Calcium 8.1 mg/dL (8.4-10.2); Magnesium 1.9 mg/dL (1.6-2.3); Phosphorus 5.3 mg/dL (2.5-4.5); Potassium 4.9 mmol/L (3.5-5.1); Total Bilirubin 2.8 mg/dL (0.2-1.3); Total Protein 5.7 g/dL (6.3-8.2); Uric Acid 3.4 mg/dL (3.5-8.5)
[2018-09-30 06:41] LABS: Lymphocytes # (M) 0.19 k/uL (1.0-4.8); Monocytes # (M) 0.37 k/uL (0-1.0); Neutrophils # (M) 18.04 k/uL (1.3-7.7); Neutrophils % (M) 97 %; Nucleated Red Blood Cells 0 /100 WBC (0-0); Total Cells Counted 100
[2018-09-30] MEDS: SODIUM CHLORIDE 0.9% 1,000 ML IV SCH (06:52)
[2018-09-30] MEDS: INSULIN ASPART 100 UNIT/ML 1 ML 10 ML VIAL SQ SCH ×4 (06:55→20:49)
[2018-09-30 07:05] LABS: Glucose,Whole Blood 125 mg/dL (75-99)
--- NOTE | 2018-09-30 08:29 | XR ---
EXAMINATION TYPE: XR chest 1V portable DATE OF EXAM: 09/30/2018 COMPARISON: 09/26/2018 HISTORY: Hypoxemia. Multiple recent fluid boluses. TECHNIQUE: Single frontal view of the chest is obtained. FINDINGS: There is mild pulmonary vascular congestion. Blunting of the costophrenic angle likely rel ates to suboptimal visualization due to copious overlying soft tissues as no meniscus sign is seen. C ardiomediastinal silhouette is upper limits of normal, particularly within the mid mediastinum. This could relate to accentuation by vascular engorgement given the pulmonary vascular congestion. Right-sided Mediport is again seen terminating in the superior vena cava. Osseous structures are adriel sly intact with mild degenerative changes of the thoracic spine. No focal consolidation or pneumothor ax is seen. IMPRESSION: Mild pulmonary vascular congestion and mediastinal prominence that also may relate to ce ntral pulmonary vascular congestion are seen. This may be on the basis of the multiple recent fluid b oluses or cardiogenic fluid overload.
[2018-09-30] MEDS: DOCUSATE 100 MG CAP PO SCH ×2 (08:51→20:46)
[2018-09-30] MEDS: APIXABAN 5 MG TAB PO SCH ×2 (08:52→20:50)
[2018-09-30] MEDS: MORPHINE SULFATE ER 30 MG TABLET PO SCH ×2 (08:52→17:13)
[2018-09-30] MEDS: TAMSULOSIN 0.4 MG CAP.ER.24H PO SCH (08:52)
[2018-09-30] MEDS: FAMOTIDINE 20 MG TAB PO SCH (08:52)
[2018-09-30] MEDS: SODIUM BICARBONATE TAB 650 MG TAB PO SCH ×2 (08:54→20:50)
[2018-09-30] MEDS: HYDROCORTISONE SUCCINATE 100 MG/2 ML VIAL IV SCH ×3 (08:55→23:56)
[2018-09-30] MEDS: LACTULOSE 20 GM/30 ML CUP PO SCH ×4 (08:56→20:48)
[2018-09-30] MEDS: PIPERACILLIN-TAZOBACTAM 3.375 GM in SODIUM CHLORIDE 0.9% 100 ML IVPB SCH ×2 (09:58→17:56)
[2018-09-30] MEDS: LEVOFLOXACIN 250MG-D5W PMX 250 MG in DEXTROSE/WATER 1 50ML.BAG IVPB SCH (10:03)
--- NOTE | 2018-09-30 10:34 | P.PN ---
Subjective Progress Note Date: 09/30/18 This is a 68-year-old male patient who presented to the emergency room with complaints of increased confusion and weakness. Patient recently diagnosed with a periodic cancer with evidence of liver metastases. Patient underwent chemotherapy on September 17 and started to become a week and had increased confusion per . Patient was found to be in acute kidney injury with creatinine of 5.28 bun at 50. Patient is currently on eliquis for DVT and PE. Patient also found to have elevated white blood cell count. Patient currently on IV antibiotics and infectious disease following. On 09/27/2018 patient currently resting in bed. is at bedside. Patient reports he still is confused at times forgetting the date. Patient also complaining of chest discomfort at this time patient describes is intermittent sharp pain in chest. Patient is currently on the telemetry floor. Will repeat cardiac enzymes and consult cardiology. Oncology services also consulted. Patient will be started on lactulose for elevated ammonia level. Repeat ammonia level has been ordered. Nephrology services are following. At this time patient denies shortness of breath. Patient denies nausea vomiting or diarrhea. Patient denies any urinary burning or frequency. On 09/28/2018 patient is currently resting in bed. Patient does state he feels slightly improved from yesterday. Family currently at bedside. At this time patient denies any chest pain or shortness of breath. Patient denies nausea vomiting or diarrhea. Patient denies any urinary burning or frequency. 09/29/2018 patient currently resting in bed. Patient hypotensive at this time with blood pressure in the 70s 80s. Patient also diaphoretic. 500 mL bolus has been ordered. Consulted Dr. Fernandez for pulmonary services. Discussed case with [facility] per critical care team recommending transfer to ICU for closer monitoring. Lactic acid ordered. Dr. Mariscal is following for infectious disease. At this time patient denies any specific complaints. Patient denies nausea vomiting or diarrhea. Patient denies any urinary burning or frequency. Patient denies chest pain shortness of breath. Blood sugar 105. Patient remains afebrile. On 09/30/2018 patient currently resting comfortably in the intensive care unit. Patient does state he feels improved from yesterday. Discussed case with ICU nursing staff. Patient did receive multiple boluses throughout night with improved pressure and urine output. Patient's appetite slightly improved. At this time patient denies chest pain or shortness of breath. Patient denies nausea vomiting or diarrhea. Patient denies any urinary burning or frequency. Objective - Vital Signs Vital signs: Vital Signs Temp 98.5 F 09/30/18 08:00 Pulse 84 09/30/18 10:00 Resp 16 09/30/18 10:00 BP 97/58 09/30/18 10:00 Pulse Ox 99 09/30/18 10:00 Intake & Output 09/29/18 09/30/18 09/30/18 18:59 06:59 18:59 Intake Total 640 1400 800 Output Total 255 660 225 Balance 385 740 575 Weight 119.7 kg Intake: IV 400 1300 550 Levofloxacin 250Mg-D5w 50 Pmx 250 mg In Dextrose/ Water 1 50ml.bag @ 50 mls /hr IVPB Q48H [facility] Rx#: [id number] Piperacillin-Tazobactam 3 100 100 .375 gm In Sodium Chloride 0.9% 100 ml @ 25 mls/hr IVPB Q12HR [facility] Rx #:[id number] Sodium Chloride 0.9% 1, 400 1200 400 000 ml @ 100 mls/hr IV . Q10H [facility] Rx#:[id number] Oral 240 100 250 Output: Urine 255 660 225 Uretheral (Calloway) 100 Other: Voiding Method Indwelling Catheter Indwelling Catheter Indwelling Catheter - Exam Head normocephalic. Jaundice noted to thin skin Neck supple Lungs clear to auscultation bilaterally no wheezing or crackles Heart regular rate and rhythm S1-S2, no rub or gallop Abdomen is soft nontender nondistended positive bowel sounds no hepatosplenomegaly Extremities no edema Neuro alert and orientated to 3. Does appear forgetful at times - Labs CBC & Chem 7: 09/30/18 05:49 09/30/18 05:49 Labs: Abnormal Lab Results - Last 24 Hours (Table) 09/28/18 09/29/18 09/29/18 Range/Units 06:04 13:53 23:41 WBC (3.8-10.6) k/uL RBC (4.30-5.90) m/uL Hgb (13.0-17.5) gm/dL Hct (39.0-53.0) % MCV (80.0-100.0) fL MCHC (31.0-37.0) g/dL RDW (11.5-15.5) % Neutrophils # (Manual) (1.3-7.7) k/uL Lymphocytes # (Manual) (1.0-4.8) k/uL Chloride (98-107) mmol/L Carbon Dioxide (22-30) mmol/L BUN (9-20) mg/dL Creatinine (0.66-1.25) mg/dL Glucose (74-99) mg/dL POC Glucose (mg/dL) 102 H 121 H (75-99) mg/dL Uric Acid (3.5-8.5) mg/dL Calcium (8.4-10.2) mg/dL Phosphorus (2.5-4.5) mg/dL Total Bilirubin (0.2-1.3) mg/dL AST (17-59) U/L Alkaline Phosphatase (38-126) U/L Ammonia (<30) umol/L Total Protein (6.3-8.2) g/dL Albumin (3.5-5.0) g/dL CA 19-9 Antigen >68455.0 H (0.0-34.9) U/mL 09/30/18 09/30/18 09/30/18 Range/Units 05:49 05:49 05:49 WBC 18.6 H (3.8-10.6) k/uL RBC 2.79 L (4.30-5.90) m/uL Hgb 8.7 L (13.0-17.5) gm/dL Hct 28.8 L (39.0-53.0) % MCV 103.0 H (80.0-100.0) fL MCHC 30.2 L (31.0-37.0) g/dL RDW 17.3 H (11.5-15.5) % Neutrophils # (Manual) 18.04 H (1.3-7.7) k/uL Lymphocytes # (Manual) 0.19 L (1.0-4.8) k/uL Chloride 116 H (98-107) mmol/L Carbon Dioxide 15 L (22-30) mmol/L BUN 48 H (9-20) mg/dL Creatinine 2.86 H (0.66-1.25) mg/dL Glucose 124 H (74-99) mg/dL POC Glucose (mg/dL) (75-99) mg/dL Uric Acid 3.4 L (3.5-8.5) mg/dL Calcium 8.1 L (8.4-10.2) mg/dL Phosphorus 5.3 H (2.5-4.5) mg/dL Total Bilirubin 2.8 H (0.2-1.3) mg/dL AST 69 H (17-59) U/L Alkaline Phosphatase 313 H (38-126) U/L Ammonia 66 H (<30) umol/L Total Protein 5.7 L (6.3-8.2) g/dL Albumin 2.5 L (3.5-5.0) g/dL CA 19-9 Antigen (0.0-34.9) U/mL 09/30/18 Range/Units 06:53 WBC (3.8-10.6) k/uL RBC (4.30-5.90) m/uL Hgb (13.0-17.5) gm/dL Hct (39.0-53.0) % MCV (80.0-100.0) fL MCHC (31.0-37.0) g/dL RDW (11.5-15.5) % Neutrophils # (Manual) (1.3-7.7) k/uL Lymphocytes # (Manual) (1.0-4.8) k/uL Chloride (98-107) mmol/L Carbon Dioxide (22-30) mmol/L BUN (9-20) mg/dL Creatinine (0.66-1.25) mg/dL Glucose (74-99) mg/dL POC Glucose (mg/dL) 125 H (75-99) mg/dL Uric Acid (3.5-8.5) mg/dL Calcium (8.4-10.2) mg/dL Phosphorus (2.5-4.5) mg/dL Total Bilirubin (0.2-1.3) mg/dL AST (17-59) U/L Alkaline Phosphatase (38-126) U/L Ammonia (<30) umol/L Total Protein (6.3-8.2) g/dL Albumin (3.5-5.0) g/dL CA 19-9 Antigen (0.0-34.9) U/mL Microbiology - Last 24 Hours (Table) 09/26/18 14:12 Blood Culture - Preliminary Blood No Growth after 72 hours 09/27/18 18:12 Gram Stain - Preliminary Sputum Sputum Culture - Preliminary Mahi albicans Assessment and Plan Assessment: 1. Acute nonoliguric kidney injury. Dr. Johnson following for nephrology services. Initial creatinine 5.28 and bun 51. Nephrology services renal ultrasound has been ordered. Patient's home Norvasc and Cozaar DC'd. Patient Vicoprofen also on hold. Creatinine is improving to 3.66. hydrocortisone 50 mg 3 times a day has been added per nephrology services. 2. Leukocytosis with possible sepsis. CBC 16.8 Chest x-ray completed showing chronic changes without evidence for acute pulmonary disease. Infectious disease has been consulted. Patient started on Zosyn and Levaquin. Blood, sputum and urine culture ordered. Repeat lactic acid 1.1 3. metastatic adenocarcinoma of the pancreas. Patient did receive first round of chemotherapy mFolfirinox on 09/17/2018. 4. Elevated liver enzymes likely related to the metastases disease 5. Elevated ammonia level. Lactulose has been added. Ammonia level increased to 66. 6. Chest pain. Troponin 0.080 and 0.063. Cardiology consulted. EKG completed showing normal sinus rhythm right bundle branch block. 2-D echo completed showing an EF of 60-65%. Per cardiology services EKG showing QTC prolonged. Recommend no further cardiac workup. Avoid use of multiple QT prolonging drugs such as promethazine and Zofran. 7. History of DVT and PE. Patient maintained on eliquis' 8. Increased confusion likely due to infection and elevated ammonia level. Head CT was completed showing age-related atrophic and chronic small vessel ischemic change without acute intracranial process seen at this time. 9. Metabolic acidosis secondary to acute kidney injury. Sodium bicarb has been added per nephrology services 10. History of essential hypertension 11. History of hyperlipidemia 12. Iron deficiency anemia. Patient will be given Ferrlecit per nephrology 14. Hypotension. Patient received multiple fluid boluses throughout night. Blood pressure improved 15. Poor dietary intake. Will consult dietitian at this time DVT prophylaxis eliquis. GI prophylaxis Protonix Patient remains in the intensive care unit. Critical care team following closely at this time. Will continue to monitor patient closely I performed an examination of the patient and discussed their management with the Nurse Practitioner. I have reviewed the Nurse Practitioner's notes and agree with the documented findings and plan of care
[2018-09-30 10:44] VITALS: BMI 35.8
--- NOTE | 2018-09-30 10:47 | P.PN ---
Subjective Progress Note Date: 09/30/18 Principal diagnosis: Acute hypotension, hypovolemic shock, possible sepsis. This is a pleasant 68-year-old gentleman who follows with Dr. Valdes as his primary care physician. He has a history of hypertension, hyperlipidemia, coronary artery disease with previous stent placement. He also had recently been admitted with DVT of the lower extremity upper extremity and bilateral PEs. He has been anticoagulated with Eliquis. 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 He has received 1 round of M full Castillo Farris with Neulasta on 09/13/2018. He was due for a second round today. On 09/26/2018 however he was admitted to through the emergency room with altered mental status. Computed tomography scan of the brain without contrast revealed no acute intracranial process. He has had a poor appetite. Was trying to keep up on his fluids. Urine drug screen positive for opiates and benzodiazepines. Chest x-ray revealed chronic changes but no acute pulmonary process. EKG revealed sinus rhythm with a right bundle- branch block. Ultrasound of the kidneys and bladder revealed no suspicious acute changes. Echocardiogram revealed preserved left ventricular systolic function with ejection fraction 60-65%. No pericardial effusion. Blood, urine , sputum cultures pending. Admitting labs revealed a creatinine of 5.28, BUN 51 , white count 16.5, hemoglobin 10.3, INR 1.4. Troponin 0.039, 0.063, 0.087. AST 158, ALT 92, alk phos 325, ammonia 40 area earlier this morning the patient was having issues with hypotension and current pressure 83/53 with a mean arterial pressure of 63. He has received 2 L of IV resuscitation thus far. BP still 84/52 with mean arterial pressure of 62. The patient does arouse to verbal stimuli but drifts off easily. He is somewhat pale and jaundice as well. He had been seen and evaluated by infectious disease and is currently on Zosyn and Levaquin. Today's labs revealed WBC 14.9. Hemoglobin 8.4. Platelet count 192,000. Creatinine 3.66. Patient was reevaluated today on 09/30/2018, remains in the ICU, mental status remains altered, patient is confused, but hemodynamically the patient is doing much better. He did receive almost 3 L of fluids yesterday, his IV fluid is presently at 100 mL/h, making excellent urine, chest x-ray is showing some mild interstitial edema. But the patient has no shortness of breath no cough no wheezing no chest pain. Patient did not require norepinephrine, his renal functioning has improved significantly over the last 24 hours. Continues to have elevated ammonia level, and he is on lactulose. Blood pressure is much per her today compared to yesterday. Blood cultures are negative urine cultures are negative sputum is positive for Mahi. Patient remains on empiric antibiotics in the form of Zosyn and Levaquin. Today the patient denies any headache, no blurred vision, no dizziness, no chest pain no cough no wheezing no nausea no vomiting no abdominal pain. The only abnormality is the fact that the patient remains confused and not oriented to time and place. Objective - Vital Signs Vital signs: Vital Signs Temp 98.5 F 09/30/18 08:00 Pulse 84 09/30/18 10:00 Resp 16 09/30/18 10:00 BP 97/58 09/30/18 10:00 Pulse Ox 99 09/30/18 10:00 Intake & Output 09/29/18 09/30/18 09/30/18 18:59 06:59 18:59 Intake Total 640 1400 800 Output Total 255 660 225 Balance 385 740 575 Weight 119.7 kg Intake: IV 400 1300 550 Levofloxacin 250Mg-D5w 50 Pmx 250 mg In Dextrose/ Water 1 50ml.bag @ 50 mls /hr IVPB Q48H [facility] Rx#: [id number] Piperacillin-Tazobactam 3 100 100 .375 gm In Sodium Chloride 0.9% 100 ml @ 25 mls/hr IVPB Q12HR [facility] Rx #:[id number] Sodium Chloride 0.9% 1, 400 1200 400 000 ml @ 100 mls/hr IV . Q10H [facility] Rx#:[id number] Oral 240 100 250 Output: Urine 255 660 225 Uretheral (Calloway) 100 Other: Voiding Method Indwelling Catheter Indwelling Catheter Indwelling Catheter - Exam Physical Exam: Revealed a 68-year-old white male in no distress. Slightly confused Head: Atraumatic, normocephalic. HEENT:[Neck is supple.] [No neck masses.] [No thyromegaly.] [No JVD.] Chest: [Diminished breath sounds at the bases no crackles nor rhonchi no wheezes. No chest wall tenderness. Symmetrical chest expansion. Cardiac Exam: [Normal S1 and S2, no S3 gallop, no murmur.] Abdomen: [Soft, nontender, no megaly, no rebound, no guarding, normal bowel sounds.] Extremities: [No clubbing, no edema, no cyanosis.] Neurological Exam: Confused, otherwise no gross focal neurologic deficit. No weakness, disoriented to place and time. Psychiatric: Normal mood, affect, abnormal mental status as noted above. Extremities: No clubbing edema or cyanosis. - Labs CBC & Chem 7: 09/30/18 05:49 09/30/18 05:49 Labs: Abnormal Lab Results - Last 24 Hours (Table) 09/28/18 09/29/18 09/29/18 Range/Units 06:04 13:53 23:41 WBC (3.8-10.6) k/uL RBC (4.30-5.90) m/uL Hgb (13.0-17.5) gm/dL Hct (39.0-53.0) % MCV (80.0-100.0) fL MCHC (31.0-37.0) g/dL RDW (11.5-15.5) % Neutrophils # (Manual) (1.3-7.7) k/uL Lymphocytes # (Manual) (1.0-4.8) k/uL Chloride (98-107) mmol/L Carbon Dioxide (22-30) mmol/L BUN (9-20) mg/dL Creatinine (0.66-1.25) mg/dL Glucose (74-99) mg/dL POC Glucose (mg/dL) 102 H 121 H (75-99) mg/dL Uric Acid (3.5-8.5) mg/dL Calcium (8.4-10.2) mg/dL Phosphorus (2.5-4.5) mg/dL Total Bilirubin (0.2-1.3) mg/dL AST (17-59) U/L Alkaline Phosphatase (38-126) U/L Ammonia (<30) umol/L Total Protein (6.3-8.2) g/dL Albumin (3.5-5.0) g/dL CA 19-9 Antigen >02955.0 H (0.0-34.9) U/mL 09/30/18 09/30/18 09/30/18 Range/Units 05:49 05:49 05:49 WBC 18.6 H (3.8-10.6) k/uL RBC 2.79 L (4.30-5.90) m/uL Hgb 8.7 L (13.0-17.5) gm/dL Hct 28.8 L (39.0-53.0) % MCV 103.0 H (80.0-100.0) fL MCHC 30.2 L (31.0-37.0) g/dL RDW 17.3 H (11.5-15.5) % Neutrophils # (Manual) 18.04 H (1.3-7.7) k/uL Lymphocytes # (Manual) 0.19 L (1.0-4.8) k/uL Chloride 116 H (98-107) mmol/L Carbon Dioxide 15 L (22-30) mmol/L BUN 48 H (9-20) mg/dL Creatinine 2.86 H (0.66-1.25) mg/dL Glucose 124 H (74-99) mg/dL POC Glucose (mg/dL) (75-99) mg/dL Uric Acid 3.4 L (3.5-8.5) mg/dL Calcium 8.1 L (8.4-10.2) mg/dL Phosphorus 5.3 H (2.5-4.5) mg/dL Total Bilirubin 2.8 H (0.2-1.3) mg/dL AST 69 H (17-59) U/L Alkaline Phosphatase 313 H (38-126) U/L Ammonia 66 H (<30) umol/L Total Protein 5.7 L (6.3-8.2) g/dL Albumin 2.5 L (3.5-5.0) g/dL CA 19-9 Antigen (0.0-34.9) U/mL 09/30/18 Range/Units 06:53 WBC (3.8-10.6) k/uL RBC (4.30-5.90) m/uL Hgb (13.0-17.5) gm/dL Hct (39.0-53.0) % MCV (80.0-100.0) fL MCHC (31.0-37.0) g/dL RDW (11.5-15.5) % Neutrophils # (Manual) (1.3-7.7) k/uL Lymphocytes # (Manual) (1.0-4.8) k/uL Chloride (98-107) mmol/L Carbon Dioxide (22-30) mmol/L BUN (9-20) mg/dL Creatinine (0.66-1.25) mg/dL Glucose (74-99) mg/dL POC Glucose (mg/dL) 125 H (75-99) mg/dL Uric Acid (3.5-8.5) mg/dL Calcium (8.4-10.2) mg/dL Phosphorus (2.5-4.5) mg/dL Total Bilirubin (0.2-1.3) mg/dL AST (17-59) U/L Alkaline Phosphatase (38-126) U/L Ammonia (<30) umol/L Total Protein (6.3-8.2) g/dL Albumin (3.5-5.0) g/dL CA 19-9 Antigen (0.0-34.9) U/mL Microbiology - Last 24 Hours (Table) 09/26/18 14:12 Blood Culture - Preliminary Blood No Growth after 72 hours 09/27/18 18:12 Gram Stain - Preliminary Sputum Sputum Culture - Preliminary Mahi albicans Assessment and Plan Assessment: #1 Altered mental status, strongly suspect underlying sepsis, although the change in mental status could be related to elevated ammonia level. Patient remains on lactulose. #2 Hypotension requiring fluid resuscitation suspect secondary to underlying sepsis. Cultures so far are nondiagnostic. #3 Acute nonoliguric kidney injury secondary to intravascular volume depletion, suspect dehydration and hypotension. Creatinine improved today it is down to 2.86 #4 Adenocarcinoma of the pancreas status post 1 round of chemotherapy 2017 of mFOLFIRINOX. Was due for second round today 09/29/2017. #5 Leukocytosis. #6 Anemia current hemoglobin 8.4. #7 Elevated LFTs. #8 Borderline troponins. Acute coronary syndrome ruled out. Ejection fraction 60-65%. No pericardial effusion. #9 Bilateral PE with lower extremity and upper extremity DVTs. Anticoagulated with Eliquis. #10 Coronary artery disease with previous stent placement. #11 Hypertension tension, history of. #12 Hyperlipidemia. #13 elevated ammonia level secondary to underlying liver disease, remains on lactulose, and ammonia level is closely monitored. Recommendation: Continue to hold blood pressure medication, continue hydration, continue empiric antibiotics, continue lactulose, continue to monitor liver enzymes and ammonia level, continue hydration. Continue to monitor mental status closely, I believe it would likely improve if the ammonia level gets down to below 40. Continue sodium bicarb as per nephrology. Overall long-term prognosis remains poor and guarded considering his underlying pancreatic carcinoma, he is aware, family is aware, and CODE STATUS remains DO NOT RESUSCITATE as per his own wishes. Will transfer the patient today to oncology , and we'll continue to follow closely. Time with Patient: Less than 30
[2018-09-30] MEDS: SODIUM FERRIC GLUCONAT-SUCROSE 125 MG in SODIUM CHLORIDE 0.9% 100 ML IVPB SCH (11:43)
[2018-09-30 12:13] LABS: Glucose,Whole Blood 132 mg/dL (75-99)
[2018-09-30] MEDS ORDERED: FUROSEMIDE 10 MG/ML 4 ML VIAL IV STA (13:29)
--- NOTE | 2018-09-30 13:29 | P.PN ---
Subjective Patient is seen in follow-up for acute kidney injury. Patient's baseline creatinine is 1 and was elevated at 5.8 on admission. Patient is receiving IV fluids. Renal function is gradually improving. Creatinine 2.86 today. Oral intake is fair. Denies chest pain or shortness of breath. Patient is a Calloway catheter for urinary retention. Patient was noted to be hypotensive with systolic blood pressure in the 70s to 80s on September 29 and received a 2 L fluid bolus. Currently in the intensive care unit. Most recent blood pressure was 125/69. He is nonoliguric. Not on vasopressors. Vital signs are stable. General: The patient appeared well nourished and normally developed. HEENT: Head exam is unremarkable. Neck is without jugular venous distension. LUNGS: Lungs are clear to auscultation and percussion. Breath sounds decreased. HEART: Rate and Rhythm are regular. First and second heart sounds normal. No murmurs, rubs or gallops. ABDOMEN: Abdominal exam reveals normal bowel sounds. Non-tender and non- distended. No evidence of peritonitis. EXTREMITITES: 1+ edema. Objective - Vital Signs Vital signs: Vital Signs Temp 98.1 F 09/30/18 12:00 Pulse 90 09/30/18 12:00 Resp 10 L 09/30/18 12:00 BP 125/69 09/30/18 12:00 Pulse Ox 98 09/30/18 12:00 Intake & Output 09/29/18 09/30/18 09/30/18 18:59 06:59 18:59 Intake Total 640 1400 1000 Output Total 255 660 345 Balance 385 740 655 Weight 119.7 kg 119.7 kg Intake: IV 400 1300 750 Levofloxacin 250Mg-D5w 50 Pmx 250 mg In Dextrose/ Water 1 50ml.bag @ 50 mls /hr IVPB Q48H [facility] Rx#: [id number] Piperacillin-Tazobactam 3 100 100 .375 gm In Sodium Chloride 0.9% 100 ml @ 25 mls/hr IVPB Q12HR [facility] Rx #:[id number] Sodium Chloride 0.9% 1, 400 1200 500 000 ml @ 100 mls/hr IV . Q10H [facility] Rx#:[id number] Sodium Ferric Gluconat- 100 Sucrose 125 mg In Sodium Chloride 0.9% 100 ml @ 100 mls/hr IVPB DAILY [facility] Rx#:[id number] Oral 240 100 250 Output: Urine 255 660 345 Uretheral (Calloway) 100 Other: Voiding Method Indwelling Catheter Indwelling Catheter Indwelling Catheter - Labs CBC & Chem 7: 09/30/18 05:49 09/30/18 05:49 Labs: Abnormal Lab Results - Last 24 Hours (Table) 09/29/18 09/29/18 09/30/18 Range/Units 13:53 23:41 05:49 WBC 18.6 H (3.8-10.6) k/uL RBC 2.79 L (4.30-5.90) m/uL Hgb 8.7 L (13.0-17.5) gm/dL Hct 28.8 L (39.0-53.0) % MCV 103.0 H (80.0-100.0) fL MCHC 30.2 L (31.0-37.0) g/dL RDW 17.3 H (11.5-15.5) % Neutrophils # (Manual) 18.04 H (1.3-7.7) k/uL Lymphocytes # (Manual) 0.19 L (1.0-4.8) k/uL Chloride (98-107) mmol/L Carbon Dioxide (22-30) mmol/L BUN (9-20) mg/dL Creatinine (0.66-1.25) mg/dL Glucose (74-99) mg/dL POC Glucose (mg/dL) 102 H 121 H (75-99) mg/dL Uric Acid (3.5-8.5) mg/dL Calcium (8.4-10.2) mg/dL Phosphorus (2.5-4.5) mg/dL Total Bilirubin (0.2-1.3) mg/dL AST (17-59) U/L Alkaline Phosphatase (38-126) U/L Ammonia (<30) umol/L Total Protein (6.3-8.2) g/dL Albumin (3.5-5.0) g/dL 09/30/18 09/30/18 09/30/18 Range/Units 05:49 05:49 06:53 WBC (3.8-10.6) k/uL RBC (4.30-5.90) m/uL Hgb (13.0-17.5) gm/dL Hct (39.0-53.0) % MCV (80.0-100.0) fL MCHC (31.0-37.0) g/dL RDW (11.5-15.5) % Neutrophils # (Manual) (1.3-7.7) k/uL Lymphocytes # (Manual) (1.0-4.8) k/uL Chloride 116 H (98-107) mmol/L Carbon Dioxide 15 L (22-30) mmol/L BUN 48 H (9-20) mg/dL Creatinine 2.86 H (0.66-1.25) mg/dL Glucose 124 H (74-99) mg/dL POC Glucose (mg/dL) 125 H (75-99) mg/dL Uric Acid 3.4 L (3.5-8.5) mg/dL Calcium 8.1 L (8.4-10.2) mg/dL Phosphorus 5.3 H (2.5-4.5) mg/dL Total Bilirubin 2.8 H (0.2-1.3) mg/dL AST 69 H (17-59) U/L Alkaline Phosphatase 313 H (38-126) U/L Ammonia 66 H (<30) umol/L Total Protein 5.7 L (6.3-8.2) g/dL Albumin 2.5 L (3.5-5.0) g/dL 09/30/18 Range/Units 12:01 WBC (3.8-10.6) k/uL RBC (4.30-5.90) m/uL Hgb (13.0-17.5) gm/dL Hct (39.0-53.0) % MCV (80.0-100.0) fL MCHC (31.0-37.0) g/dL RDW (11.5-15.5) % Neutrophils # (Manual) (1.3-7.7) k/uL Lymphocytes # (Manual) (1.0-4.8) k/uL Chloride (98-107) mmol/L Carbon Dioxide (22-30) mmol/L BUN (9-20) mg/dL Creatinine (0.66-1.25) mg/dL Glucose (74-99) mg/dL POC Glucose (mg/dL) 132 H (75-99) mg/dL Uric Acid (3.5-8.5) mg/dL Calcium (8.4-10.2) mg/dL Phosphorus (2.5-4.5) mg/dL Total Bilirubin (0.2-1.3) mg/dL AST (17-59) U/L Alkaline Phosphatase (38-126) U/L Ammonia (<30) umol/L Total Protein (6.3-8.2) g/dL Albumin (3.5-5.0) g/dL Microbiology - Last 24 Hours (Table) 09/27/18 18:12 Gram Stain - Final Sputum Sputum Culture - Final Mahi albicans 09/26/18 14:12 Blood Culture - Preliminary Blood No Growth after 72 hours Assessment and Plan Plan: Assessment: 1. Nonoliguric acute kidney injury mostly prerenal secondary to urinary retention, hypotension and intravascular volume depletion from poor oral intake. Creatinine was 5.28 on admission and is down to 2.86 today. Baseline creatinine near 1. No evidence of hydronephrosis noted on renal ultrasound. 2. Urinary retention status post Calloway catheter placement. 3. Metabolic acidosis secondary to acute kidney injury and IV fluids. 4. Pancreatic cancer status post 1 cycle of chemotherapy in mid August. 5. Benign hypertension. Blood pressures have been on the lower side this admission. Cortisol level normal. 6. Anemia. Iron deficiency noted. 7. Lower extremity edema. Plan: Discontinue normal saline. Start isotonic bicarbonate drip at 50 mL an hour. Lasix 40 mg IV once today. Encouraged oral intake. Maintain oral sodium bicarbonate. Maintain Calloway catheter. Maintain Flomax. Ferrlecit 125 mg IV daily for 3 days. do third se today. Maintain hydrocortisone 50 mg IV 3 times daily. Repeat electrolytes in the morning. Continue to monitor renal function and urine output closely.
[2018-09-30] MEDS ORDERED: DEXTROSE 5% IN WATER 1,000 ML with SODIUM BICARB (1 MEQ/ML) 150 ML IV SCH (14:00)
[2018-09-30 15:09] LABS: Hemoglobin A1C 4.5 % (4.0-6.0)
--- NOTE | 2018-09-30 16:40 | P.CONS ---
History of Present Illness - Chief Complaint Medical debility - History of Present Illness I had the opportunity to see patient for inpatient rehab consultation with regard to medical debility. He was admitted to [facility]'s September 26 with mental status change. Known metastatic pancreatic cancer. Workup revealed multiple DVTs the patient reports both legs, right arm and bilateral lungs. Chest x-rays followed for congestion. Head CT with age-related and chronic change. Abdominal ultrasound consistent only for IDC. Seen by Dr. Johnson for acute kidney injury. Cardiology and Dr. Garcia for the ICU care. OT reports minimal assistance for upper dressing and total assistance for lower dressing and toileting. Moderate assistance for bathing and 2 person assist for standing and transfers. PT prescribed. I have added speech therapy at this time as patient reports memory issues. Previous functional history as elicited from patient: 68-year-old right-handed white male who is and lives and 2 floor home with . Both retired. generally does the cooking and laundry. Both drive. Patient independent with standing shower and gait without device. He was a 2 pack a smoker but recently quit and attributes his problems to quitting. 5-6. Day. Regular doctors Dr. alexandrea robles. Should note that the patient reported to me that he was 48 or 49. Family history of mother with heart disease. Review of Systems Review of systems: ENT: Denies sneezes or discharge. Eyes: Denies discharge or photophobia. Cardiac: Denies chest pain or palpitation. Pulmonary: Mild shortness of breath. Gastrointestinal: Denies nausea, emesis, constipation, diarrhea. Genitourinary: Denies discharge or frequency. Musculoskeletal: Denies muscle or bone aches. Neurologic: Confusion which has been subacute in duration. Endocrine: Denies shakes or sweats. Oncology: Denies cancers. Dermatologic: Denies rash, itching, pruritus. ALLERGY/immunology: Denies sneezes, rashes. Past Medical History Past Medical History: Cancer, Hyperlipidemia, Hypertension Additional Past Medical History / Comment(s): Prostate cancer with mets, last chemo 09-17-18 History of Any Multi-Drug Resistant Organisms: None Reported Past Surgical History: Heart Catheterization With Stent Additional Past Surgical History / Comment(s): hydrocele, colonoscopy-WNL, vocal cord polypectomy. \2014. Right chest port for chemo Past Anesthesia/Blood Transfusion Reactions: Postoperative Nausea & Vomiting ( PONV) Additional Past Anesthesia/Blood Transfusion Reaction / Comm: Pt has never had blood transfusion. Date of Last Stent Placement:: 2014 Past Psychological History: Anxiety Additional Psychological History / Comment(s): . 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 No experience. No international travel. 2 adult daughters and 2 stepchildren. No animals in the home. History of tobacco use is not current no current alcohol or recreational drug use Smoking Status: Former smoker Past Alcohol Use History: None Reported Past Drug Use History: None Reported - Past Family History Father Family Medical History: No Reported History Additional Family Medical History / Comment(s): Father when pt was 8 yrs old. He was a WWII vet and had suffered a gunshot to the head. Mother Family Medical History: No Reported History Additional Family Medical History / Comment(s): .Mother is healthy and is 84yrs old Medications and Allergies Home Medications Medication Instructions Recorded Confirmed Type Cyanocobalamin [Vitamin B-12] 500 mcg PO DAILY@1200 03/07/15 09/26/18 History Nitroglycerin Sl Tabs [Nitrostat] 0.4 mg SUBLINGUAL Q5M PRN #25 tab 03/09/15 Rx amLODIPine [Norvasc] 5 mg PO HS #30 tab 03/09/15 09/26/18 Rx Cholecalciferol [Vitamin D3] 1,000 unit PO DAILY 08/21/18 09/26/18 History Cyclobenzaprine [Flexeril] 5 mg PO HS PRN 08/21/18 09/26/18 History Losartan Potassium [Cozaar] 100 mg PO HS 08/21/18 09/26/18 History Metoprolol Tartrate [Lopressor] 12.5 mg PO HS 08/21/18 09/26/18 History Ranitidine HCl [Zantac] 150 mg PO BID 08/21/18 09/26/18 History Apixaban [Eliquis] 5 mg PO BID #60 tab 09/03/18 09/26/18 Rx Docusate [Colace] 100 mg PO BID #30 cap 09/03/18 09/26/18 Rx HYDROcodone/IBUPROFEN 7.5-200 1 tab PO Q6HR PRN 30 Days #120 tab 09/03/18 Rx [Vicoprofen 7.5-200 mg] Morphine Sulfate ER [Ms Contin] 30 mg PO Q8H 3 Days #9 tab 09/03/18 09/26/18 Rx ALPRAZolam [Xanax] 0.5 mg PO DAILY 09/26/18 09/26/18 History Ondansetron HCl [Zofran] 8 mg PO Q4H PRN 09/26/18 09/26/18 History Promethazine [Phenergan] 25 mg PO Q8HR PRN 09/26/18 09/26/18 History Allergies Allergy/AdvReac Type Severity Reaction Status Date / Time Ivtfion-Dig-Xjb Reductase AdvReac JOINT PAIN Verified 09/26/18 09:51 Inhibitor Physical Exam Vitals: Vital Signs Temp Pulse Resp BP Pulse Ox 09/30/18 16:00 98.5 F 84 11 L 110/75 94 L 09/30/18 15:08 12 09/30/18 15:00 89 12 107/71 92 L 09/30/18 14:00 79 18 111/73 100 09/30/18 13:00 92 18 113/60 98 09/30/18 12:00 98.1 F 90 10 L 125/69 98 09/30/18 11:51 11 L 09/30/18 11:00 80 11 L 112/62 99 09/30/18 10:00 84 16 97/58 99 09/30/18 09:00 96 12 103/58 97 09/30/18 08:45 12 09/30/18 08:00 98.5 F 105 H 15 127/67 100 09/30/18 07:00 82 16 108/64 98 09/30/18 06:00 85 16 106/63 99 09/30/18 05:00 75 16 99/60 98 09/30/18 04:00 98.8 F 72 18 84/50 100 09/30/18 03:00 81 19 105/69 100 09/30/18 02:30 81 16 96/57 100 09/30/18 02:00 98 16 109/62 99 09/30/18 01:30 87 18 106/65 100 09/30/18 01:00 89 19 94/57 100 09/30/18 00:30 93 18 107/65 99 09/30/18 00:00 98.4 F 98 19 121/73 98 09/29/18 23:30 100 18 105/66 96 09/29/18 23:00 73 20 78/50 97 09/29/18 22:30 75 19 88/53 96 09/29/18 22:00 85 19 96/57 94 L 09/29/18 21:55 81 18 96/57 96 09/29/18 21:30 79 19 113/63 93 L 09/29/18 21:00 87 18 102/63 96 09/29/18 20:30 86 17 101/64 94 L 09/29/18 20:00 98.6 F 85 16 91/54 95 09/29/18 19:30 85 18 99/54 93 L 09/29/18 19:15 85 12 112/62 93 L 09/29/18 19:00 87 12 112/79 95 09/29/18 18:45 87 16 96/58 91 L 09/29/18 18:00 87 5 L 104/65 94 L 09/29/18 17:30 90 21 107/66 93 L 09/29/18 17:15 90 12 93/63 94 L 09/29/18 17:00 85 11 L 98/56 97 09/29/18 16:45 17 92/53 96 Intake and Output 09/30/18 09/30/18 09/30/18 06:59 14:59 22:59 Intake Total 800 1200 100 Output Total 510 530 450 Balance 290 670 -350 Intake: IV 800 950 100 Dextrose 5% in Water 1, 100 000 ml @ 50 mls/hr IV . Q23H [facility] with Sodium Bicarb (1 Meq/ml) 150 ml Rx#:[id number] Levofloxacin 250Mg-D5w 50 Pmx 250 mg In Dextrose/ Water 1 50ml.bag @ 50 mls /hr IVPB Q48H [facility] Rx#: [id number] Piperacillin-Tazobactam 3 100 .375 gm In Sodium Chloride 0.9% 100 ml @ 25 mls/hr IVPB Q12HR [facility] Rx #:[id number] Sodium Chloride 0.9% 1, 800 700 000 ml @ 100 mls/hr IV . Q10H [facility] Rx#:[id number] Sodium Ferric Gluconat- 100 Sucrose 125 mg In Sodium Chloride 0.9% 100 ml @ 100 mls/hr IVPB DAILY [facility] Rx#:[id number] Oral 250 Output: Urine 510 530 450 Other: Voiding Method Indwelling Catheter Indwelling Catheter Indwelling Catheter # Bowel Movements 1 Weight 119.7 kg 119.7 kg Skin: Good color, texture, turgor. General: Overweight/obese build and comfortable appearance. Head: Normocephalic, atraumatic. Eyes: Symmetric. Pupils equal round. Ears: Symmetric. Hearing within normal limits. Mouth: Clear. Neck: Supple. Carotid without bruit. Cardiac: Regular rate and rhythm. Lungs: Clear anteriorly and posteriorly. Abdomen: Soft active nontender. Extremities: Normal tone. Neurological: Mental status: Alert, cooperative, pleasant. Cranial nerves: Symmetric facial tone and trapezius. Motor: Actively elevates all 4 limbs. Sensation: Intact throughout. DTRs: Symmetric and equal throughout. Mobility: Sits with two-person assistance. Results CBC & Chem 7: 09/30/18 05:49 09/30/18 05:49 Labs: Abnormal Lab Results - Last 24 Hours (Table) 09/29/18 09/30/18 09/30/18 Range/Units 23:41 05:49 05:49 WBC 18.6 H (3.8-10.6) k/uL RBC 2.79 L (4.30-5.90) m/uL Hgb 8.7 L (13.0-17.5) gm/dL Hct 28.8 L (39.0-53.0) % MCV 103.0 H (80.0-100.0) fL MCHC 30.2 L (31.0-37.0) g/dL RDW 17.3 H (11.5-15.5) % Neutrophils # (Manual) 18.04 H (1.3-7.7) k/uL Lymphocytes # (Manual) 0.19 L (1.0-4.8) k/uL Chloride (98-107) mmol/L Carbon Dioxide (22-30) mmol/L BUN (9-20) mg/dL Creatinine (0.66-1.25) mg/dL Glucose (74-99) mg/dL POC Glucose (mg/dL) 121 H (75-99) mg/dL Uric Acid (3.5-8.5) mg/dL Calcium (8.4-10.2) mg/dL Phosphorus (2.5-4.5) mg/dL Total Bilirubin (0.2-1.3) mg/dL AST (17-59) U/L Alkaline Phosphatase (38-126) U/L Ammonia 66 H (<30) umol/L Total Protein (6.3-8.2) g/dL Albumin (3.5-5.0) g/dL 09/30/18 09/30/18 09/30/18 Range/Units 05:49 06:53 12:01 WBC (3.8-10.6) k/uL RBC (4.30-5.90) m/uL Hgb (13.0-17.5) gm/dL Hct (39.0-53.0) % MCV (80.0-100.0) fL MCHC (31.0-37.0) g/dL RDW (11.5-15.5) % Neutrophils # (Manual) (1.3-7.7) k/uL Lymphocytes # (Manual) (1.0-4.8) k/uL Chloride 116 H (98-107) mmol/L Carbon Dioxide 15 L (22-30) mmol/L BUN 48 H (9-20) mg/dL Creatinine 2.86 H (0.66-1.25) mg/dL Glucose 124 H (74-99) mg/dL POC Glucose (mg/dL) 125 H 132 H (75-99) mg/dL Uric Acid 3.4 L (3.5-8.5) mg/dL Calcium 8.1 L (8.4-10.2) mg/dL Phosphorus 5.3 H (2.5-4.5) mg/dL Total Bilirubin 2.8 H (0.2-1.3) mg/dL AST 69 H (17-59) U/L Alkaline Phosphatase 313 H (38-126) U/L Ammonia (<30) umol/L Total Protein 5.7 L (6.3-8.2) g/dL Albumin 2.5 L (3.5-5.0) g/dL Microbiology - Last 24 Hours (Table) 09/27/18 18:12 Gram Stain - Final Sputum Sputum Culture - Final Mahi albicans 09/26/18 14:12 Blood Culture - Preliminary Blood No Growth after 72 hours Assessment and Plan (1) Metastatic adenocarcinoma Current Visit: Yes Status: Acute Priority: High Code(s): C79.9 - SECONDARY MALIGNANT NEOPLASM OF UNSPECIFIED SITE SNOMED Code(s): 480669269 (2) SIRS (systemic inflammatory response syndrome) Current Visit: Yes Status: Acute Code(s): R65.10 - SIRS OF NON-INFECTIOUS ORIGIN W/O ACUTE ORGAN DYSFUNCTION SNOMED Code(s): 904350703 (3) DVT (deep venous thrombosis) Current Visit: No Status: Acute Code(s): I82.409 - ACUTE EMBOLISM AND THOMBOS UNSP DEEP VN UNSP LOWER EXTREMITY SNOMED Code(s): 609830009 Plan: Impression: 1. Gait disturbance. 2. Mental status change. 3. Multiple DVT and PE. 4. Metastatic pancreatic cancer. 5. Hypertension. 6. Dyslipidemia. Comments and plan: At this time OT are ongoing and PT prescribed. I have added speech therapy for confusion and memory issues. Suspect patient has brain involvement.
--- NOTE | 2018-09-30 17:01 | P.PN ---
Subjective Progress Note Date: 09/30/18 Principal diagnosis: sepsis, s/p chemo for metastatic pancreatic adenocarcinoma Pt seen in f/u, at bedside. He is sitting up eating, flees more clear in the head and less lethargic. No nausea, vomiting, he is SOB on exertion, no stamina, weak in the legs, he is having numerous BMs but denies watery diarrhea , abd cramping or rectal pain or bleeding. He is being evaluated for rehab Objective - Vital Signs Vital signs: Vital Signs Temp 98.5 F 09/30/18 16:00 Pulse 84 09/30/18 16:00 Resp 11 L 09/30/18 16:00 BP 110/75 09/30/18 16:00 Pulse Ox 94 L 09/30/18 16:00 Intake & Output 09/29/18 09/30/18 09/30/18 18:59 06:59 18:59 Intake Total 640 1400 1300 Output Total 255 660 980 Balance 385 740 320 Weight 119.7 kg 119.7 kg Intake: IV 400 1300 1050 Dextrose 5% in Water 1, 100 000 ml @ 50 mls/hr IV . Q23H [facility] with Sodium Bicarb (1 Meq/ml) 150 ml Rx#:[id number] Levofloxacin 250Mg-D5w 50 Pmx 250 mg In Dextrose/ Water 1 50ml.bag @ 50 mls /hr IVPB Q48H [facility] Rx#: [id number] Piperacillin-Tazobactam 3 100 100 .375 gm In Sodium Chloride 0.9% 100 ml @ 25 mls/hr IVPB Q12HR [facility] Rx #:[id number] Sodium Chloride 0.9% 1, 400 1200 700 000 ml @ 100 mls/hr IV . Q10H [facility] Rx#:[id number] Sodium Ferric Gluconat- 100 Sucrose 125 mg In Sodium Chloride 0.9% 100 ml @ 100 mls/hr IVPB DAILY [facility] Rx#:[id number] Oral 240 100 250 Output: Urine 255 660 980 Uretheral ([place]) 100 Other: Voiding Method Indwelling Catheter Indwelling Catheter Indwelling Catheter # Bowel Movements 1 - Constitutional Constitutional Comment(s): pt color better, responsiveness is increased and eyes look brighter, more alert today General appearance: Present: cooperative, no acute distress, obese - EENT EENT Comment(s): Scleral icterus is improved Eyes: Present: EOMI ENT: Present: hearing grossly normal - Respiratory Respiratory: bilateral: CTA - Cardiovascular Rhythm: regular Heart sounds: normal: S1, S2 Abnormal Heart Sounds: Absent: systolic murmur, diastolic murmur, rub, S3 Gallop , S4 Gallop, click, other - Peripheral edema leg Peripheral Edema: bilateral: 1+ - Gastrointestinal General gastrointestinal: Present: normal bowel sounds, soft. Absent: absent bowel sounds, decreased bowel sounds, distended, hepatomegaly, hyperactive bowel sounds, organomegaly, rigid, scaphoid, splenomegaly, tenderness, umbilical hernia, ventral hernia - Integumentary Integumentary Comment(s): jaundice is improved - Neurologic Neurologic: Present: CNII-XII intact - Musculoskeletal Musculoskeletal: Present: generalized weakness - Psychiatric Psychiatric: Present: A&O x's 3, appropriate affect, intact judgment & insight - Labs CBC & Chem 7: 09/30/18 05:49 09/30/18 05:49 Labs: Abnormal Lab Results - Last 24 Hours (Table) 09/29/18 09/30/18 09/30/18 Range/Units 23:41 05:49 05:49 WBC 18.6 H (3.8-10.6) k/uL RBC 2.79 L (4.30-5.90) m/uL Hgb 8.7 L (13.0-17.5) gm/dL Hct 28.8 L (39.0-53.0) % MCV 103.0 H (80.0-100.0) fL MCHC 30.2 L (31.0-37.0) g/dL RDW 17.3 H (11.5-15.5) % Neutrophils # (Manual) 18.04 H (1.3-7.7) k/uL Lymphocytes # (Manual) 0.19 L (1.0-4.8) k/uL Chloride (98-107) mmol/L Carbon Dioxide (22-30) mmol/L BUN (9-20) mg/dL Creatinine (0.66-1.25) mg/dL Glucose (74-99) mg/dL POC Glucose (mg/dL) 121 H (75-99) mg/dL Uric Acid (3.5-8.5) mg/dL Calcium (8.4-10.2) mg/dL Phosphorus (2.5-4.5) mg/dL Total Bilirubin (0.2-1.3) mg/dL AST (17-59) U/L Alkaline Phosphatase (38-126) U/L Ammonia 66 H (<30) umol/L Total Protein (6.3-8.2) g/dL Albumin (3.5-5.0) g/dL 09/30/18 09/30/18 09/30/18 Range/Units 05:49 06:53 12:01 WBC (3.8-10.6) k/uL RBC (4.30-5.90) m/uL Hgb (13.0-17.5) gm/dL Hct (39.0-53.0) % MCV (80.0-100.0) fL MCHC (31.0-37.0) g/dL RDW (11.5-15.5) % Neutrophils # (Manual) (1.3-7.7) k/uL Lymphocytes # (Manual) (1.0-4.8) k/uL Chloride 116 H (98-107) mmol/L Carbon Dioxide 15 L (22-30) mmol/L BUN 48 H (9-20) mg/dL Creatinine 2.86 H (0.66-1.25) mg/dL Glucose 124 H (74-99) mg/dL POC Glucose (mg/dL) 125 H 132 H (75-99) mg/dL Uric Acid 3.4 L (3.5-8.5) mg/dL Calcium 8.1 L (8.4-10.2) mg/dL Phosphorus 5.3 H (2.5-4.5) mg/dL Total Bilirubin 2.8 H (0.2-1.3) mg/dL AST 69 H (17-59) U/L Alkaline Phosphatase 313 H (38-126) U/L Ammonia (<30) umol/L Total Protein 5.7 L (6.3-8.2) g/dL Albumin 2.5 L (3.5-5.0) g/dL Microbiology - Last 24 Hours (Table) 09/26/18 14:12 Blood Culture - Preliminary Blood No Growth after 96 hours 09/27/18 18:12 Gram Stain - Final Sputum Sputum Culture - Final Mahi albicans Assessment and Plan (1) Hyperuricemia Narrative/Plan: Suspect tumor lysis, elitec given, uric acid WNDL on lab work this AM Current Visit: Yes Status: Acute Priority: High Code(s): E79.0 - HYPERURICEMIA W/O SIGNS OF INFLAM ARTHRIT AND TOPHACEOUS DIS SNOMED Code(s): 68640423 (2) Acute renal failure Narrative/Plan: Slow to improve but, improving just the same Current Visit: Yes Status: Acute Priority: High Code(s): N17.9 - ACUTE KIDNEY FAILURE, UNSPECIFIED SNOMED Code(s): 57471710 (3) Metastatic adenocarcinoma Narrative/Plan: Discussed with pt and that complication after the 1st cycle of treatment can sometimes be expected, especially when the burden of disease is heavy, such as his. As he recovers with supportive care hope is that he will feel better then before beginning treatment since some of the cancer has been eradicated. All of their questions were answered. Based on his recovery would anticipate continuation of treatment. Did encourage rehabilitation to improve strength and stamina. Pt is up for it and very motivated. Current Visit: Yes Status: Acute Priority: High Code(s): C79.9 - SECONDARY MALIGNANT NEOPLASM OF UNSPECIFIED SITE SNOMED Code(s): 308692322 (4) Increased ammonia level Narrative/Plan: Secondary to liver dysfunction from chemo and metastatic disease. Did discuss with Attending ANIMAL MAINTENANCE SUPERVISOR. She will increase lactulose daily max dose, recheck level in AM. LFTs are stable, little better today. Current Visit: Yes Status: Acute Priority: High Code(s): R79.89 - OTHER SPECIFIED ABNORMAL FINDINGS OF BLOOD CHEMISTRY SNOMED Code(s): 218998823
[2018-09-30 17:06] LABS: Glucose,Whole Blood 139 mg/dL (75-99)
[2018-09-30 20:50] LABS: Glucose,Whole Blood 163 mg/dL (75-99)
[2018-09-30] MEDS: MELATONIN 3 MG TABLET PO SCH (20:50)
[2018-09-30] MEDS: METOPROLOL TARTRATE 12.5 MG TAB PO SCH (20:53)
--- NOTE | 2018-09-30 23:19 | P.PN ---
Subjective Progress Note Date: 09/30/18 68-year-old male who in July 2018 developed a deep venous thrombosis of the left lower extremity. Upon evaluation there is evidence of an extensive deep venous thrombosis as well as superficial clots to the right upper extremity. The patient was counseling evaluated by hematology for hypercoagulable state. There was no significant medical condition that was chronic or medications as an etiology. Constantly workup continued including a computed tomography scan there revealed evidence of lesions within the liver and hepatic area. 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 Because of this the patient was then followed by oncology and his port placed. On 09/13/2018 received his first cycle of mFOLFIRINOX as well as Neulasta. The patient however presents to Hospital acutely ill. The family related the patient became confused and weak, and constantly was brought to the emergency center where there is evidence of increased bilirubin with jaundice, and acute renal failure with a creatinine of 5.28. Because of the leukocytosis the infectious diseases consultation was requested with concerns to sepsis given the recent chemotherapy and significant underlying illness. 09/30/2018 patient is now improved. He is awake alert oriented to person place and does struggle with time. But is able to relate The correct date and time eventually. His mentation is markedly improved from the last evaluation. Patient's ammonia level has dropped from 66 down to 33. 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 He is now showing marked improvement. Still has leukocytosis. Objective - Vital Signs Vital signs: Vital Signs Temp 98.4 F 09/30/18 20:00 Pulse 100 09/30/18 21:00 Resp 18 09/30/18 21:00 BP 102/56 09/30/18 22:00 Pulse Ox 96 09/30/18 21:00 Intake & Output 09/30/18 09/30/18 10/01/18 06:59 18:59 06:59 Intake Total 1400 1400 300 Output Total 660 1188 260 Balance 740 212 40 Weight 119.7 kg 119.7 kg Intake: IV 1300 1150 300 Dextrose 5% in Water 1, 200 200 000 ml @ 50 mls/hr IV . Q23H [facility] with Sodium Bicarb (1 Meq/ml) 150 ml Rx#:[id number] Levofloxacin 250Mg-D5w 50 Pmx 250 mg In Dextrose/ Water 1 50ml.bag @ 50 mls /hr IVPB Q48H [facility] Rx#: [id number] Piperacillin-Tazobactam 3 100 100 100 .375 gm In Sodium Chloride 0.9% 100 ml @ 25 mls/hr IVPB Q12HR [facility] Rx #:[id number] Sodium Chloride 0.9% 1, 1200 700 000 ml @ 100 mls/hr IV . Q10H [facility] Rx#:[id number] Sodium Ferric Gluconat- 100 Sucrose 125 mg In Sodium Chloride 0.9% 100 ml @ 100 mls/hr IVPB DAILY [facility] Rx#:[id number] Oral 100 250 Output: Urine 660 1185 260 Stool 3 Other: Voiding Method Indwelling Catheter Indwelling Catheter Indwelling Catheter # Bowel Movements 1 - Exam 68-year-old male not in distress HEENT: Evidence of jaundice, conjunctiva are pink and moist nasal mucosa grossly intact without significant lesions, there is no thrush. But there is evidence of some mild mucositis with irritation to the oral cavity but no open ulcerations Neck: The neck is supple without significant lymphadenopathy or thyromegaly. Lungs: Good bilateral air entry without significant crackles or wheezing. There is no significant bronchial sounds. There is no egophony or dullness. Heart: Regular rate and rhythm with an audible S1-S2, no S3 no S4. There is no significant murmur click or rub, PMI was nondisplaced. Abdomen: Mildly distended with positive bowel sounds soft without palpable mass or organomegaly Extremities: The upper extremities have excellent pulses they are symmetric, no significant petechiae or telangiectasia. No splinter hemorrhages were noted. The lower extremities are free from significant edema. The peripheral pulses were 2+ and symmetric. Neuro: Awake alert oriented to person place and time. No focal deficits noted. This apparently is much improved from admission. - Labs CBC & Chem 7: 09/30/18 05:49 09/30/18 05:49 Labs: Abnormal Lab Results - Last 24 Hours (Table) 09/29/18 09/30/18 09/30/18 Range/Units 23:41 05:49 05:49 WBC 18.6 H (3.8-10.6) k/uL RBC 2.79 L (4.30-5.90) m/uL Hgb 8.7 L (13.0-17.5) gm/dL Hct 28.8 L (39.0-53.0) % MCV 103.0 H (80.0-100.0) fL MCHC 30.2 L (31.0-37.0) g/dL RDW 17.3 H (11.5-15.5) % Neutrophils # (Manual) 18.04 H (1.3-7.7) k/uL Lymphocytes # (Manual) 0.19 L (1.0-4.8) k/uL Chloride (98-107) mmol/L Carbon Dioxide (22-30) mmol/L BUN (9-20) mg/dL Creatinine (0.66-1.25) mg/dL Glucose (74-99) mg/dL POC Glucose (mg/dL) 121 H (75-99) mg/dL Uric Acid (3.5-8.5) mg/dL Calcium (8.4-10.2) mg/dL Phosphorus (2.5-4.5) mg/dL Total Bilirubin (0.2-1.3) mg/dL AST (17-59) U/L Alkaline Phosphatase (38-126) U/L Ammonia 66 H (<30) umol/L Total Protein (6.3-8.2) g/dL Albumin (3.5-5.0) g/dL 09/30/18 09/30/18 09/30/18 Range/Units 05:49 06:53 12:01 WBC (3.8-10.6) k/uL RBC (4.30-5.90) m/uL Hgb (13.0-17.5) gm/dL Hct (39.0-53.0) % MCV (80.0-100.0) fL MCHC (31.0-37.0) g/dL RDW (11.5-15.5) % Neutrophils # (Manual) (1.3-7.7) k/uL Lymphocytes # (Manual) (1.0-4.8) k/uL Chloride 116 H (98-107) mmol/L Carbon Dioxide 15 L (22-30) mmol/L BUN 48 H (9-20) mg/dL Creatinine 2.86 H (0.66-1.25) mg/dL Glucose 124 H (74-99) mg/dL POC Glucose (mg/dL) 125 H 132 H (75-99) mg/dL Uric Acid 3.4 L (3.5-8.5) mg/dL Calcium 8.1 L (8.4-10.2) mg/dL Phosphorus 5.3 H (2.5-4.5) mg/dL Total Bilirubin 2.8 H (0.2-1.3) mg/dL AST 69 H (17-59) U/L Alkaline Phosphatase 313 H (38-126) U/L Ammonia (<30) umol/L Total Protein 5.7 L (6.3-8.2) g/dL Albumin 2.5 L (3.5-5.0) g/dL 09/30/18 09/30/18 09/30/18 Range/Units 16:55 17:48 20:39 WBC (3.8-10.6) k/uL RBC (4.30-5.90) m/uL Hgb (13.0-17.5) gm/dL Hct (39.0-53.0) % MCV (80.0-100.0) fL MCHC (31.0-37.0) g/dL RDW (11.5-15.5) % Neutrophils # (Manual) (1.3-7.7) k/uL Lymphocytes # (Manual) (1.0-4.8) k/uL Chloride (98-107) mmol/L Carbon Dioxide (22-30) mmol/L BUN (9-20) mg/dL Creatinine (0.66-1.25) mg/dL Glucose (74-99) mg/dL POC Glucose (mg/dL) 139 H 163 H (75-99) mg/dL Uric Acid (3.5-8.5) mg/dL Calcium (8.4-10.2) mg/dL Phosphorus (2.5-4.5) mg/dL Total Bilirubin (0.2-1.3) mg/dL AST (17-59) U/L Alkaline Phosphatase (38-126) U/L Ammonia 33 H (<30) umol/L Total Protein (6.3-8.2) g/dL Albumin (3.5-5.0) g/dL Microbiology - Last 24 Hours (Table) 09/26/18 14:12 Blood Culture - Preliminary Blood No Growth after 96 hours 09/27/18 18:12 Gram Stain - Final Sputum Sputum Culture - Final Mahi albicans Laboratory Results WBC 18.6 k/uL (3.8-10.6) H 09/30/18 05:49 RBC 2.79 m/uL (4.30-5.90) L 09/30/18 05:49 Hgb 8.7 gm/dL (13.0-17.5) L 09/30/18 05:49 Hct 28.8 % (39.0-53.0) L 09/30/18 05:49 MCV 103.0 fL (80.0-100.0) H 09/30/18 05:49 MCH 31.1 pg (25.0-35.0) 09/30/18 05:49 MCHC 30.2 g/dL (31.0-37.0) L 09/30/18 05:49 RDW 17.3 % (11.5-15.5) H 09/30/18 05:49 Plt Count 172 k/uL (150-450) 09/30/18 05:49 Neutrophils % 86 % 09/29/18 07:03 Neutrophils % (Manual) 97 % 09/30/18 05:49 Lymphocytes % 6 % 09/29/18 07:03 Lymphocytes % (Manual) 1 % 09/30/18 05:49 Monocytes % 4 % 09/29/18 07:03 Monocytes % (Manual) 2 % 09/30/18 05:49 Eosinophils % 2 % 09/29/18 07:03 Basophils % 0 % 09/29/18 07:03 Neutrophils # 12.9 k/uL (1.3-7.7) H 09/29/18 07:03 Neutrophils # (Manual) 18.04 k/uL (1.3-7.7) H 09/30/18 05:49 Lymphocytes # 0.9 k/uL (1.0-4.8) L 09/29/18 07:03 Lymphocytes # (Manual) 0.19 k/uL (1.0-4.8) L 09/30/18 05:49 Monocytes # 0.6 k/uL (0-1.0) 09/29/18 07:03 Monocytes # (Manual) 0.37 k/uL (0-1.0) 09/30/18 05:49 Eosinophils # 0.3 k/uL (0-0.7) 09/29/18 07:03 Basophils # 0.1 k/uL (0-0.2) 09/29/18 07:03 Nucleated RBCs 0 /100 WBC (0-0) 09/30/18 05:49 Manual Slide Review Performed 09/30/18 05:49 Hypochromasia Marked 09/30/18 05:49 Anisocytosis Slight 09/30/18 05:49 Macrocytosis Moderate 09/30/18 05:49 PT 14.9 sec (9.0-12.0) H 09/28/18 06:04 INR 1.5 (<1.2) H 09/28/18 06:04 APTT 26.9 sec (22.0-30.0) 09/28/18 06:04 Sodium 140 mmol/L (137-145) 09/30/18 05:49 Potassium 4.9 mmol/L (3.5-5.1) 09/30/18 05:49 Chloride 116 mmol/L (98-107) H 09/30/18 05:49 Carbon Dioxide 15 mmol/L (22-30) L 09/30/18 05:49 Anion Gap 9 mmol/L 09/30/18 05:49 BUN 48 mg/dL (9-20) H 09/30/18 05:49 Creatinine 2.86 mg/dL (0.66-1.25) H 09/30/18 05:49 Est GFR (CKD-EPI)AfAm 25 (>60 ml/min/1.73 sqM) 09/30/18 05:49 Est GFR (CKD-EPI)NonAf 22 (>60 ml/min/1.73 sqM) 09/30/18 05:49 Glucose 124 mg/dL (74-99) H 09/30/18 05:49 POC Glucose (mg/dL) 163 mg/dL (75-99) H 09/30/18 20:39 POC Glu Title 1 Tutor ID Kayleen Barkley 09/30/18 20:[address] Glu mg/dL 82 09/30/18 05:49 Hemoglobin A1c 4.5 % (4.0-6.0) 09/30/18 05:49 Plasma Lactic Acid Uriah 1.1 mmol/L (0.7-2.0) 09/29/18 07:03 Uric Acid 3.4 mg/dL (3.5-8.5) L 09/30/18 05:49 Calcium 8.1 mg/dL (8.4-10.2) L 09/30/18 05:49 Phosphorus 5.3 mg/dL (2.5-4.5) H 09/30/18 05:49 Magnesium 1.9 mg/dL (1.6-2.3) 09/30/18 05:49 Iron 30 ug/dL (65-175) L 09/27/18 08:52 TIBC 224 ug/dL (228-460) L 09/27/18 08:52 Iron Saturation 13.39 (15.00-50.00) L 09/27/18 08:52 Ferritin 1196.4 ng/mL (22.0-322.0) H 09/27/18 08:52 Total Bilirubin 2.8 mg/dL (0.2-1.3) H 09/30/18 05:49 AST 69 U/L (17-59) H 09/30/18 05:49 ALT 58 U/L (21-72) 09/30/18 05:49 Alkaline Phosphatase 313 U/L (38-126) H 09/30/18 05:49 Ammonia 33 umol/L (<30) H 09/30/18 17:48 Lactate Dehydrogenase 1155 U/L (313-618) H 09/27/18 18:25 Total Creatine Kinase 80 U/L (55-170) 09/26/18 08:55 CK-MB (CK-2) 1.9 ng/mL (0.0-2.4) 09/26/18 08:55 CK-MB (CK-2) Rel Index 2.4 09/26/18 08:55 Troponin I 0.063 ng/mL (0.000-0.034) H* 09/27/18 23:15 Total Protein 5.7 g/dL (6.3-8.2) L 09/30/18 05:49 Albumin 2.5 g/dL (3.5-5.0) L 09/30/18 05:49 CA 19-9 Antigen >68529.0 U/mL (0.0-34.9) H 09/28/18 06:04 Cortisol 13 ug/dL 09/29/18 07:03 Urine Color Dark Brown 09/26/18 12:30 Urine Appearance Cloudy (Clear) 09/26/18 12:30 Urine pH 5.0 (5.0-8.0) 09/26/18 12:30 Ur Specific [place] 1.019 (1.001-1.035) 09/26/18 12:30 Urine Protein 1+ (Negative) H 09/26/18 12:30 Urine Glucose (UA) Negative (Negative) 09/26/18 12:30 Urine Ketones Negative (Negative) 09/26/18 12:30 Urine Blood Trace (Negative) H 09/26/18 12:30 Urine Nitrite Negative (Negative) 09/26/18 12:30 Urine Bilirubin 1+ (Negative) H 09/26/18 12:30 Urine Urobilinogen 2.0 mg/dL (<2.0) 09/26/18 12:30 Ur Leukocyte Esterase Negative (Negative) 09/26/18 12:30 Urine RBC 1 /hpf (0-5) 09/26/18 12:30 Urine WBC 3 /hpf (0-5) 09/26/18 12:30 Ur Squamous Epith Cells <1 /hpf (0-4) 09/26/18 12:30 Amorphous Sediment Moderate /hpf (None) H 09/26/18 12:30 Hyaline Casts 5 /lpf (0-2) H 09/26/18 12:30 Urine Mucus Rare /hpf (None) H 09/26/18 12:30 Urine Opiates Screen Detected (NotDetected) H 09/26/18 12:30 Ur Oxycodone Screen Not Detected (NotDetected) 09/26/18 12:30 Urine Methadone Screen Not Detected (NotDetected) 09/26/18 12:30 Ur Propoxyphene Screen Not Detected (NotDetected) 09/26/18 12:30 Ur Barbiturates Screen Not Detected (NotDetected) 09/26/18 12:30 U Tricyclic Antidepress Not Detected (NotDetected) 09/26/18 12:30 Ur Phencyclidine Scrn Not Detected (NotDetected) 09/26/18 12:30 Ur Amphetamines Screen Not Detected (NotDetected) 09/26/18 12:30 U Methamphetamines Scrn Not Detected (NotDetected) 09/26/18 12:30 U Benzodiazepines Scrn Detected (NotDetected) H 09/26/18 12:30 Urine Cocaine Screen Not Detected (NotDetected) 09/26/18 12:30 U Marijuana (THC) Screen Not Detected (NotDetected) 09/26/18 12:30 Microbiology 09/26/18 14:12 Blood Blood Culture - Preliminary No Growth after 96 hours 09/27/18 18:12 Sputum Gram Stain - Final 09/27/18 18:12 Sputum Sputum Culture - Final Mahi albicans 09/27/18 09:15 Urine,Catheterized Urine Culture - Final Assessment and Plan (1) Metastatic adenocarcinoma Current Visit: Yes Status: Acute Priority: High Code(s): C79.9 - SECONDARY MALIGNANT NEOPLASM OF UNSPECIFIED SITE SNOMED Code(s): 033657992 (2) Altered mental status Narrative/Plan: Pleasant 68-year-old male presents to Hospital with the care of his 2 adult daughters because of worsening mental status. The related couple of days before coming to hospital he seemed to be getting weaker it was starting to have difficulties with some routine activities. Since chemotherapy he has not been eating very well and because he became so weak that brought him to the emergency center. Upon arrival there is evidence of acute renal failure which is new and leukocytosis. the infectious diseases consultation was requested. With hydration the patient fortunately is having an improvement of his significant acute renal failure. The elevated bilirubin also seems to be improving with the treatment. Oral cavity is uncomfortable as for salt and soda mouthwash can be used as needed to improve his oral cavity discomforts. Antibiotic therapy has been initiated because of concerns of sepsis at admission. Cultures are in process and will direct rapid de-escalation of antibiotic therapy. Ultrasound reveals evidence of no new acute obstruction. With lactulose there has been some improvement of his mental status as well as with hydration. Hypercoagulable state due to his underlying metastatic pancreatic cancer is being treated with eliquis was then followed by hematology oncology. September 30 2018 patient is now had a marked improvement of his altered mental status, the tumor lysis syndrome is improving in that his ammonia is improving, his acute renal failure is improving in his mouth feels better. With a marked improvement will start to de-escalate antibiotic therapy. Zosyn can be discontinued without evidence of significant pneumonia or bacteremia or sepsis. Current Visit: Yes Status: Acute Code(s): R41.82 - ALTERED MENTAL STATUS, UNSPECIFIED SNOMED Code(s): 097084274 (3) Acute renal failure Current Visit: Yes Status: Acute Priority: High Code(s): N17.9 - ACUTE KIDNEY FAILURE, UNSPECIFIED SNOMED Code(s): 58465040
[2018-10-01] MEDS: MORPHINE SULFATE ER 30 MG TABLET PO SCH ×4 (00:01→20:20)
[2018-10-01] MEDS: PIPERACILLIN-TAZOBACTAM 3.375 GM in SODIUM CHLORIDE 0.9% 100 ML IVPB SCH ×3 (02:52→17:20)
[2018-10-01 07:18] LABS: Glucose,Whole Blood 154 mg/dL (75-99)
[2018-10-01] MEDS: SODIUM BICARBONATE TAB 650 MG TAB PO SCH ×2 (08:22→21:49)
[2018-10-01] MEDS: DOCUSATE 100 MG CAP PO SCH ×2 (08:22→21:49)
[2018-10-01] MEDS: INSULIN ASPART 100 UNIT/ML 1 ML 10 ML VIAL SQ SCH ×4 (08:23→23:23)
[2018-10-01] MEDS: APIXABAN 5 MG TAB PO SCH ×2 (08:24→22:00)
[2018-10-01] MEDS: FAMOTIDINE 20 MG TAB PO SCH (08:24)
[2018-10-01] MEDS: TAMSULOSIN 0.4 MG CAP.ER.24H PO SCH (08:24)
[2018-10-01] MEDS: HYDROCORTISONE SUCCINATE 100 MG/2 ML VIAL IV SCH ×2 (08:24→21:52)
[2018-10-01 08:58] LABS: Anisocytosis Slight; Basophils % (A) 0 %; Eosinophils % (A) 0 %; HCT 28.6 % (39.0-53.0); HGB 9.1 gm/dL (13.0-17.5); Hypochromasia Slight; Lymphocytes # (A) 0.7 k/uL (1.0-4.8); Lymphocytes % (A) 3 %; MCH 31.5 pg (25.0-35.0); MCHC 31.9 g/dL (31.0-37.0); MCV 98.6 fL (80.0-100.0); Macrocytosis Slight; Mean Platelet Volume 7.6; Monocytes # (A) 0.6 k/uL (0-1.0); Monocytes % (A) 3 %; Neutrophils # (A) 19.7 k/uL (1.3-7.7); Neutrophils % (A) 93 %; Platelet Count 208 k/uL (150-450); RDW 17.3 % (11.5-15.5); WBC 21.3 k/uL (3.8-10.6)
[2018-10-01] MEDS ORDERED: LEVOFLOXACIN 250MG-D5W PMX 250 MG in DEXTROSE/WATER 1 50ML.BAG IVPB SCH (09:00)
--- NOTE | 2018-10-01 09:12 | P.PN ---
Subjective Patient is seen in follow-up for acute kidney injury. Patient's baseline creatinine is 1 and was elevated at 5.8 on admission. Patient is receiving IV fluids. Renal function is gradually improving. Creatinine 2.86 as of yesterday. Oral intake is fair. Denies chest pain or shortness of breath. Calloway catheter removed yesterday. Patient was noted to be hypotensive with systolic blood pressure in the 70s to 80s on September 29 and received a 2 L fluid bolus. He has been transferred out of the intensive care unit. Most recent blood pressure was 105/62. He is nonoliguric. Vital signs are stable. General: The patient appeared well nourished and normally developed. HEENT: Head exam is unremarkable. Neck is without jugular venous distension. LUNGS: Lungs are clear to auscultation and percussion. Breath sounds decreased. HEART: Rate and Rhythm are regular. First and second heart sounds normal. No murmurs, rubs or gallops. ABDOMEN: Abdominal exam reveals normal bowel sounds. Non-tender and non- distended. No evidence of peritonitis. EXTREMITITES: 1+ edema. Objective - Vital Signs Vital signs: Vital Signs Temp 97.8 F 10/01/18 06:01 Pulse 89 10/01/18 06:01 Resp 18 10/01/18 06:01 BP 105/62 10/01/18 06:01 Pulse Ox 98 10/01/18 06:01 Intake & Output 09/30/18 10/01/18 10/01/18 18:59 06:59 18:59 Intake Total 1400 840 Output Total 1188 762 Balance 212 78 Weight 119.7 kg Intake: IV 1150 300 Dextrose 5% in Water 1, 200 200 000 ml @ 50 mls/hr IV . Q23H [facility] with Sodium Bicarb (1 Meq/ml) 150 ml Rx#:[id number] Levofloxacin 250Mg-D5w 50 Pmx 250 mg In Dextrose/ Water 1 50ml.bag @ 50 mls /hr IVPB Q48H [facility] Rx#: [id number] Piperacillin-Tazobactam 3 100 100 .375 gm In Sodium Chloride 0.9% 100 ml @ 25 mls/hr IVPB Q12HR [facility] Rx #:[id number] Sodium Chloride 0.9% 1, 700 000 ml @ 100 mls/hr IV . Q10H [facility] Rx#:[id number] Sodium Ferric Gluconat- 100 Sucrose 125 mg In Sodium Chloride 0.9% 100 ml @ 100 mls/hr IVPB DAILY [facility] Rx#:[id number] Oral 250 540 Output: Urine 1185 760 Stool 3 2 Other: Voiding Method Indwelling Catheter Urinal # Bowel Movements 1 - Labs CBC & Chem 7: 10/01/18 08:28 09/30/18 05:49 Labs: Abnormal Lab Results - Last 24 Hours (Table) 09/30/18 09/30/18 09/30/18 Range/Units 12:01 16:55 17:48 WBC (3.8-10.6) k/uL RBC (4.30-5.90) m/uL Hgb (13.0-17.5) gm/dL Hct (39.0-53.0) % RDW (11.5-15.5) % Neutrophils # (1.3-7.7) k/uL Lymphocytes # (1.0-4.8) k/uL POC Glucose (mg/dL) 132 H 139 H (75-99) mg/dL Ammonia 33 H (<30) umol/L 09/30/18 10/01/18 10/01/18 Range/Units 20:39 07:15 08:28 WBC 21.3 H (3.8-10.6) k/uL RBC 2.90 L (4.30-5.90) m/uL Hgb 9.1 L (13.0-17.5) gm/dL Hct 28.6 L (39.0-53.0) % RDW 17.3 H (11.5-15.5) % Neutrophils # 19.7 H (1.3-7.7) k/uL Lymphocytes # 0.7 L (1.0-4.8) k/uL POC Glucose (mg/dL) 163 H 154 H (75-99) mg/dL Ammonia (<30) umol/L Microbiology - Last 24 Hours (Table) 09/26/18 14:12 Blood Culture - Preliminary Blood No Growth after 96 hours 09/27/18 18:12 Gram Stain - Final Sputum Sputum Culture - Final Mahi albicans Assessment and Plan Plan: Assessment: 1. Nonoliguric acute kidney injury mostly prerenal secondary to urinary retention, hypotension and intravascular volume depletion from poor oral intake. Creatinine was 5.28 on admission and was down to 2.86 as of yesterday. Baseline creatinine near 1. No evidence of hydronephrosis noted on renal ultrasound. 2. Urinary retention status post Calloway catheter placement. Removed yesterday. 3. Metabolic acidosis secondary to acute kidney injury and IV fluids. Currently on bicarb drip. 4. Pancreatic cancer status post 1 cycle of chemotherapy in mid August. 5. Benign hypertension. Blood pressures have been on the lower side this admission. Cortisol level normal. 6. Anemia. Iron deficiency noted. Status post 3 doses of IV iron. 7. Lower extremity edema. Status post Lasix 40 mg IV yesterday. Plan: Hep-Lock IV fluids. Encouraged oral intake. Maintain oral sodium bicarbonate. Maintain Flomax. Decrease Solu-Cortef to 50 mg IV twice daily. Will further taper over the weekend. Repeat electrolytes in the morning.
[2018-10-01 09:24] LABS: Albumin 2.7 g/dL (3.5-5.0); Calcium 8.5 mg/dL (8.4-10.2); Phosphorus 3.4 mg/dL (2.5-4.5); Total Bilirubin 2.7 mg/dL (0.2-1.3); Total Protein 5.8 g/dL (6.3-8.2); Uric Acid 2.3 mg/dL (3.5-8.5)
--- NOTE | 2018-10-01 10:41 | P.PN ---
Subjective Progress Note Date: 10/01/18 This is a 68-year-old male patient who presented to the emergency room with complaints of increased confusion and weakness. Patient recently diagnosed with a periodic cancer with evidence of liver metastases. Patient underwent chemotherapy on September 17 and started to become a week and had increased confusion per . Patient was found to be in acute kidney injury with creatinine of 5.28 bun at 50. Patient is currently on eliquis for DVT and PE. Patient also found to have elevated white blood cell count. Patient currently on IV antibiotics and infectious disease following. On 09/27/2018 patient currently resting in bed. is at bedside. Patient reports he still is confused at times forgetting the date. Patient also complaining of chest discomfort at this time patient describes is intermittent sharp pain in chest. Patient is currently on the telemetry floor. Will repeat cardiac enzymes and consult cardiology. Oncology services also consulted. Patient will be started on lactulose for elevated ammonia level. Repeat ammonia level has been ordered. Nephrology services are following. At this time patient denies shortness of breath. Patient denies nausea vomiting or diarrhea. Patient denies any urinary burning or frequency. On 09/28/2018 patient is currently resting in bed. Patient does state he feels slightly improved from yesterday. Family currently at bedside. At this time patient denies any chest pain or shortness of breath. Patient denies nausea vomiting or diarrhea. Patient denies any urinary burning or frequency. 09/29/2018 patient currently resting in bed. Patient hypotensive at this time with blood pressure in the 70s 80s. Patient also diaphoretic. 500 mL bolus has been ordered. Consulted Dr. Fernandez for pulmonary services. Discussed case with [facility] per critical care team recommending transfer to ICU for closer monitoring. Lactic acid ordered. Dr. Mariscal is following for infectious disease. At this time patient denies any specific complaints. Patient denies nausea vomiting or diarrhea. Patient denies any urinary burning or frequency. Patient denies chest pain shortness of breath. Blood sugar 105. Patient remains afebrile. On 09/30/2018 patient currently resting comfortably in the intensive care unit. Patient does state he feels improved from yesterday. Discussed case with ICU nursing staff. Patient did receive multiple boluses throughout night with improved pressure and urine output. Patient's appetite slightly improved. At this time patient denies chest pain or shortness of breath. Patient denies nausea vomiting or diarrhea. Patient denies any urinary burning or frequency. On 10/01/2018. Patient has moved out of the intensive care unit. Patient's blood pressure much improved. Patient also states he feels slightly more improved today. Ammonia level is improving to 33. Patient remains on lactulose 3 times a day. Patient's white blood cell also elevated at 21.3 but patient is currently on hydrocortisone 50 mg twice a day per nephrology services. Infectious disease is following. At this time patient denies chest pain or shortness of breath. Patient denies nausea vomiting or diarrhea. Patient denies any urinary burning or frequency Objective - Vital Signs Vital signs: Vital Signs Temp 97.8 F 10/01/18 06:01 Pulse 89 10/01/18 06:01 Resp 18 10/01/18 06:01 BP 105/62 10/01/18 06:01 Pulse Ox 98 10/01/18 06:01 Intake & Output 09/30/18 10/01/18 10/01/18 18:59 06:59 18:59 Intake Total 1400 840 Output Total 1188 762 Balance 212 78 Weight 119.7 kg Intake: IV 1150 300 Dextrose 5% in Water 1, 200 200 000 ml @ 50 mls/hr IV . Q23H [facility] with Sodium Bicarb (1 Meq/ml) 150 ml Rx#:[id number] Levofloxacin 250Mg-D5w 50 Pmx 250 mg In Dextrose/ Water 1 50ml.bag @ 50 mls /hr IVPB Q48H [facility] Rx#: [id number] Piperacillin-Tazobactam 3 100 100 .375 gm In Sodium Chloride 0.9% 100 ml @ 25 mls/hr IVPB Q12HR [facility] Rx #:[id number] Sodium Chloride 0.9% 1, 700 000 ml @ 100 mls/hr IV . Q10H [facility] Rx#:[id number] Sodium Ferric Gluconat- 100 Sucrose 125 mg In Sodium Chloride 0.9% 100 ml @ 100 mls/hr IVPB DAILY [facility] Rx#:[id number] Oral 250 540 Output: Urine 1185 760 Stool 3 2 Other: Voiding Method Indwelling Catheter Urinal # Bowel Movements 1 - Exam Head normocephalic. Jaundice noted to thin skin Neck supple Lungs clear to auscultation bilaterally no wheezing or crackles Heart regular rate and rhythm S1-S2, no rub or gallop Abdomen is soft nontender nondistended positive bowel sounds no hepatosplenomegaly Extremities no edema Neuro alert and orientated to 3. Does appear forgetful at times - Labs CBC & Chem 7: 10/01/18 08:28 10/01/18 08:28 Labs: Abnormal Lab Results - Last 24 Hours (Table) 09/30/18 09/30/18 09/30/18 Range/Units 12:01 16:55 17:48 WBC (3.8-10.6) k/uL RBC (4.30-5.90) m/uL Hgb (13.0-17.5) gm/dL Hct (39.0-53.0) % RDW (11.5-15.5) % Neutrophils # (1.3-7.7) k/uL Lymphocytes # (1.0-4.8) k/uL Chloride (98-107) mmol/L Carbon Dioxide (22-30) mmol/L BUN (9-20) mg/dL Creatinine (0.66-1.25) mg/dL Glucose (74-99) mg/dL POC Glucose (mg/dL) 132 H 139 H (75-99) mg/dL Uric Acid (3.5-8.5) mg/dL Total Bilirubin (0.2-1.3) mg/dL Alkaline Phosphatase (38-126) U/L Ammonia 33 H (<30) umol/L Total Protein (6.3-8.2) g/dL Albumin (3.5-5.0) g/dL 09/30/18 10/01/18 10/01/18 Range/Units 20:39 07:15 08:28 WBC 21.3 H (3.8-10.6) k/uL RBC 2.90 L (4.30-5.90) m/uL Hgb 9.1 L (13.0-17.5) gm/dL Hct 28.6 L (39.0-53.0) % RDW 17.3 H (11.5-15.5) % Neutrophils # 19.7 H (1.3-7.7) k/uL Lymphocytes # 0.7 L (1.0-4.8) k/uL Chloride (98-107) mmol/L Carbon Dioxide (22-30) mmol/L BUN (9-20) mg/dL Creatinine (0.66-1.25) mg/dL Glucose (74-99) mg/dL POC Glucose (mg/dL) 163 H 154 H (75-99) mg/dL Uric Acid (3.5-8.5) mg/dL Total Bilirubin (0.2-1.3) mg/dL Alkaline Phosphatase (38-126) U/L Ammonia (<30) umol/L Total Protein (6.3-8.2) g/dL Albumin (3.5-5.0) g/dL 10/01/18 Range/Units 08:28 WBC (3.8-10.6) k/uL RBC (4.30-5.90) m/uL Hgb (13.0-17.5) gm/dL Hct (39.0-53.0) % RDW (11.5-15.5) % Neutrophils # (1.3-7.7) k/uL Lymphocytes # (1.0-4.8) k/uL Chloride 113 H (98-107) mmol/L Carbon Dioxide 19 L (22-30) mmol/L BUN 50 H (9-20) mg/dL Creatinine 2.26 H (0.66-1.25) mg/dL Glucose 150 H (74-99) mg/dL POC Glucose (mg/dL) (75-99) mg/dL Uric Acid 2.3 L (3.5-8.5) mg/dL Total Bilirubin 2.7 H (0.2-1.3) mg/dL Alkaline Phosphatase 313 H (38-126) U/L Ammonia (<30) umol/L Total Protein 5.8 L (6.3-8.2) g/dL Albumin 2.7 L (3.5-5.0) g/dL Microbiology - Last 24 Hours (Table) 09/26/18 14:12 Blood Culture - Preliminary Blood No Growth after 96 hours 09/27/18 18:12 Gram Stain - Final Sputum Sputum Culture - Final Mahi albicans Assessment and Plan Assessment: 1. Acute nonoliguric kidney injury. Dr. Johnson following for nephrology services. Initial creatinine 5.28 and bun 51. Nephrology services renal ultrasound has been ordered. Patient's home [facility]. Patient Vicoprofen also on hold. Creatinine is improving to 3.66. hydrocortisone 50 mg 3 times a day has been added per nephrology services. 2. Leukocytosis with possible sepsis. CBC 16.8 Chest x-ray completed showing chronic changes without evidence for acute pulmonary disease. Infectious disease has been consulted. Patient started on Zosyn and Levaquin. Blood, sputum and urine culture ordered. Repeat lactic acid 1.1 3. metastatic adenocarcinoma of the pancreas. Patient did receive first round of chemotherapy mFolfirinox on 09/17/2018. 4. Elevated liver enzymes likely related to the metastases disease 5. Elevated ammonia level. Lactulose has been added. Ammonia level increased to 66. Lactulose has been increased to 3 times a day. Repeat lactic level XXXIII continue to monitor daily 6. Chest pain. Troponin 0.080 and 0.063. Cardiology consulted. EKG completed showing normal sinus rhythm right bundle branch block. 2-D echo completed showing an EF of 60-65%. Per cardiology services EKG showing QTC prolonged. Recommend no further cardiac workup. Avoid use of multiple QT prolonging drugs such as promethazine and Zofran. 7. History of DVT and PE. Patient maintained on eliquis' 8. Increased confusion likely due to infection and elevated ammonia level. Head CT was completed showing age-related atrophic and chronic small vessel ischemic change without acute intracranial process seen at this time. 9. Metabolic acidosis secondary to acute kidney injury. Sodium bicarb has been added per nephrology services 10. History of essential hypertension. Home medication of metoprolol resumed with parameters 11. History of hyperlipidemia 12. Iron deficiency anemia. Patient will be given Ferrlecit per nephrology 14. Hypotension. Patient received multiple fluid boluses throughout night. Blood pressure improved. Parameters set to Metroprolol 15. Poor dietary intake. Will consult dietitian at this time DVT prophylaxis eliquis. GI prophylaxis Protonix I performed an examination of the patient and discussed their management with the Nurse Practitioner. I have reviewed the Nurse Practitioner's notes and agree with the documented findings and plan of care
[2018-10-01 11:14] LABS: Glucose,Whole Blood 143 mg/dL (75-99)
[2018-10-01] MEDS: LACTULOSE 20 GM/30 ML CUP PO SCH ×3 (11:19→21:53)
--- NOTE | 2018-10-01 12:53 | P.PN ---
Subjective Progress Note Date: 10/01/18 Principal diagnosis: sepsis, s/p chemo for metastatic pancreatic adenocarcinoma Pt seen in f/u, he was transferred out of ICU, his ammonia level was reported as 33 this AM and then drawn again and reported at 70. Pt is feeling terrible, he states "I need help", his is at bedside. Objective - Vital Signs Vital signs: Vital Signs Temp 97.8 F 10/01/18 12:11 Pulse 76 10/01/18 12:11 Resp 20 10/01/18 12:11 BP 128/68 10/01/18 12:11 Pulse Ox 97 10/01/18 12:11 Intake & Output 09/30/18 10/01/18 10/01/18 18:59 06:59 18:59 Intake Total 1400 840 Output Total 1188 762 Balance 212 78 Weight 119.7 kg Intake: IV 1150 300 Dextrose 5% in Water 1, 200 200 000 ml @ 50 mls/hr IV . Q23H [facility] with Sodium Bicarb (1 Meq/ml) 150 ml Rx#:[id number] Levofloxacin 250Mg-D5w 50 Pmx 250 mg In Dextrose/ Water 1 50ml.bag @ 50 mls /hr IVPB Q48H [facility] Rx#: [id number] Piperacillin-Tazobactam 3 100 100 .375 gm In Sodium Chloride 0.9% 100 ml @ 25 mls/hr IVPB Q12HR [facility] Rx #:[id number] Sodium Chloride 0.9% 1, 700 000 ml @ 100 mls/hr IV . Q10H [facility] Rx#:[id number] Sodium Ferric Gluconat- 100 Sucrose 125 mg In Sodium Chloride 0.9% 100 ml @ 100 mls/hr IVPB DAILY [facility] Rx#:[id number] Oral 250 540 Output: Urine 1185 760 Stool 3 2 Other: Voiding Method Indwelling Catheter Urinal # Bowel Movements 1 - Constitutional General appearance: Present: cooperative, obese, severe distress - EENT EENT Comment(s): Scleral icterus barely notable Eyes: Present: EOMI - Respiratory Respiratory: bilateral: CTA - Cardiovascular Rhythm: regular Heart sounds: normal: S1, S2 Abnormal Heart Sounds: Absent: systolic murmur, diastolic murmur, rub, S3 Gallop , S4 Gallop, click, other - Peripheral edema leg Peripheral Edema: bilateral: 2+ - Gastrointestinal General gastrointestinal: Present: distended, soft, tenderness - Integumentary Integumentary: Present: pale - Neurologic Neurologic: Present: CNII-XII intact - Musculoskeletal Musculoskeletal: Present: generalized weakness - Psychiatric Psychiatric: Present: A&O x's 3, appropriate affect, intact judgment & insight - Labs CBC & Chem 7: 10/01/18 08:28 10/01/18 08:28 Labs: Abnormal Lab Results - Last 24 Hours (Table) 09/30/18 09/30/18 09/30/18 Range/Units 16:55 17:48 20:39 WBC (3.8-10.6) k/uL RBC (4.30-5.90) m/uL Hgb (13.0-17.5) gm/dL Hct (39.0-53.0) % RDW (11.5-15.5) % Neutrophils # (1.3-7.7) k/uL Lymphocytes # (1.0-4.8) k/uL Chloride (98-107) mmol/L Carbon Dioxide (22-30) mmol/L BUN (9-20) mg/dL Creatinine (0.66-1.25) mg/dL Glucose (74-99) mg/dL POC Glucose (mg/dL) 139 H 163 H (75-99) mg/dL Uric Acid (3.5-8.5) mg/dL Total Bilirubin (0.2-1.3) mg/dL Alkaline Phosphatase (38-126) U/L Ammonia 33 H (<30) umol/L Total Protein (6.3-8.2) g/dL Albumin (3.5-5.0) g/dL 10/01/18 10/01/18 10/01/18 Range/Units 07:15 08:28 08:28 WBC 21.3 H (3.8-10.6) k/uL RBC 2.90 L (4.30-5.90) m/uL Hgb 9.1 L (13.0-17.5) gm/dL Hct 28.6 L (39.0-53.0) % RDW 17.3 H (11.5-15.5) % Neutrophils # 19.7 H (1.3-7.7) k/uL Lymphocytes # 0.7 L (1.0-4.8) k/uL Chloride (98-107) mmol/L Carbon Dioxide (22-30) mmol/L BUN (9-20) mg/dL Creatinine (0.66-1.25) mg/dL Glucose (74-99) mg/dL POC Glucose (mg/dL) 154 H (75-99) mg/dL Uric Acid (3.5-8.5) mg/dL Total Bilirubin (0.2-1.3) mg/dL Alkaline Phosphatase (38-126) U/L Ammonia 71 H (<30) umol/L Total Protein (6.3-8.2) g/dL Albumin (3.5-5.0) g/dL 10/01/18 10/01/18 Range/Units 08:28 11:13 WBC (3.8-10.6) k/uL RBC (4.30-5.90) m/uL Hgb (13.0-17.5) gm/dL Hct (39.0-53.0) % RDW (11.5-15.5) % Neutrophils # (1.3-7.7) k/uL Lymphocytes # (1.0-4.8) k/uL Chloride 113 H (98-107) mmol/L Carbon Dioxide 19 L (22-30) mmol/L BUN 50 H (9-20) mg/dL Creatinine 2.26 H (0.66-1.25) mg/dL Glucose 150 H (74-99) mg/dL POC Glucose (mg/dL) 143 H (75-99) mg/dL Uric Acid 2.3 L (3.5-8.5) mg/dL Total Bilirubin 2.7 H (0.2-1.3) mg/dL Alkaline Phosphatase 313 H (38-126) U/L Ammonia (<30) umol/L Total Protein 5.8 L (6.3-8.2) g/dL Albumin 2.7 L (3.5-5.0) g/dL Microbiology - Last 24 Hours (Table) 09/26/18 14:12 Blood Culture - Preliminary Blood No Growth after 96 hours 09/27/18 18:12 Gram Stain - Final Sputum Sputum Culture - Final Mahi albicans Assessment and Plan (1) Hyperuricemia Current Visit: Yes Status: Resolved Priority: High Code(s): E79.0 - HYPERURICEMIA W/O SIGNS OF INFLAM ARTHRIT AND TOPHACEOUS DIS SNOMED Code(s): 39600434 (2) Acute renal failure Narrative/Plan: Persistent but, stable, Nephrology following Current Visit: Yes Status: Acute Priority: High Code(s): N17.9 - ACUTE KIDNEY FAILURE, UNSPECIFIED SNOMED Code(s): 70849379 (3) Metastatic adenocarcinoma Narrative/Plan: S/P 1st cycle of FOLFIRINOX. Plan would be to continue palliative treatment after recovery from acute, complex illness. We will cont to follow with you, decisions will be made accordingly Current Visit: Yes Status: Acute Priority: High Code(s): C79.9 - SECONDARY MALIGNANT NEOPLASM OF UNSPECIFIED SITE SNOMED Code(s): 179884612 (4) Increased ammonia level Narrative/Plan: Conflicting ammonia level results, cas3e discussed with Attending [employer]. Ammonia level is being redrawn. LFTs are stable/improved, VSS. Pt looks unwell in the bed. Will work with Nursing and Attending, will collaborate with GI for an Opinion. Current Visit: Yes Status: Acute Priority: High Code(s): R79.89 - OTHER SPECIFIED ABNORMAL FINDINGS OF BLOOD CHEMISTRY SNOMED Code(s): 892886744
[2018-10-01] MEDS: SODIUM FERRIC GLUCONAT-SUCROSE 125 MG in SODIUM CHLORIDE 0.9% 100 ML IVPB SCH (12:56)
--- NOTE | 2018-10-01 14:05 | P.PN ---
Subjective Progress Note Date: 10/01/18 Principal diagnosis: Acute hypotension, hypovolemic shock, possible sepsis. This is a pleasant 68-year-old gentleman who follows with Dr. Valdes as his primary care physician. He has a history of hypertension, hyperlipidemia, coronary artery disease with previous stent placement. He also had recently been admitted with DVT of the lower extremity upper extremity and bilateral PEs. He has been anticoagulated with Eliquis. 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 He has received 1 round of M full Castillo Farris with Neulasta on 09/13/2018. He was due for a second round today. On 09/26/2018 however he was admitted to through the emergency room with altered mental status. Computed tomography scan of the brain without contrast revealed no acute intracranial process. He has had a poor appetite. Was trying to keep up on his fluids. Urine drug screen positive for opiates and benzodiazepines. Chest x-ray revealed chronic changes but no acute pulmonary process. EKG revealed sinus rhythm with a right bundle- branch block. Ultrasound of the kidneys and bladder revealed no suspicious acute changes. Echocardiogram revealed preserved left ventricular systolic function with ejection fraction 60-65%. No pericardial effusion. Blood, urine , sputum cultures pending. Admitting labs revealed a creatinine of 5.28, BUN 51 , white count 16.5, hemoglobin 10.3, INR 1.4. Troponin 0.039, 0.063, 0.087. AST 158, ALT 92, alk phos 325, ammonia 40 area earlier this morning the patient was having issues with hypotension and current pressure 83/53 with a mean arterial pressure of 63. He has received 2 L of IV resuscitation thus far. BP still 84/52 with mean arterial pressure of 62. The patient does arouse to verbal stimuli but drifts off easily. He is somewhat pale and jaundice as well. He had been seen and evaluated by infectious disease and is currently on Zosyn and Levaquin. Today's labs revealed WBC 14.9. Hemoglobin 8.4. Platelet count 192,000. Creatinine 3.66. Patient was reevaluated today on 09/30/2018, remains in the ICU, mental status remains altered, patient is confused, but hemodynamically the patient is doing much better. He did receive almost 3 L of fluids yesterday, his IV fluid is presently at 100 mL/h, making excellent urine, chest x-ray is showing some mild interstitial edema. But the patient has no shortness of breath no cough no wheezing no chest pain. Patient did not require norepinephrine, his renal functioning has improved significantly over the last 24 hours. Continues to have elevated ammonia level, and he is on lactulose. Blood pressure is much per her today compared to yesterday. Blood cultures are negative urine cultures are negative sputum is positive for Mahi. Patient remains on empiric antibiotics in the form of Zosyn and Levaquin. Today the patient denies any headache, no blurred vision, no dizziness, no chest pain no cough no wheezing no nausea no vomiting no abdominal pain. The only abnormality is the fact that the patient remains confused and not oriented to time and place. The patient is seen today 10/01/2018 in follow-up on the oncology unit. He is more awake and alert today. More oriented to his surroundings. He is maintaining good O2 saturations in the upper 90s on room air. He's been afebrile. Hemodynamically stable. Blood culture reveals no growth. Urine culture reveals no growth. Sputum culture with Mahi only. White count 21.3. Hemoglobin 9.1. Creatinine 2.26. Ammonia level 71, follow-up 31. Remains on lactulose. Currently on Zosyn and Levaquin. Anticoagulant with Eliquis. Objective - Vital Signs Vital signs: Vital Signs Temp 97.8 F 10/01/18 12:11 Pulse 76 10/01/18 12:11 Resp 20 10/01/18 12:11 BP 128/68 10/01/18 12:11 Pulse Ox 97 10/01/18 12:11 Intake & Output 09/30/18 10/01/18 10/01/18 18:59 06:59 18:59 Intake Total 1400 840 Output Total 1188 762 Balance 212 78 Weight 119.7 kg Intake: IV 1150 300 Dextrose 5% in Water 1, 200 200 000 ml @ 50 mls/hr IV . Q23H [facility] with Sodium Bicarb (1 Meq/ml) 150 ml Rx#:[id number] Levofloxacin 250Mg-D5w 50 Pmx 250 mg In Dextrose/ Water 1 50ml.bag @ 50 mls /hr IVPB Q48H [facility] Rx#: [id number] Piperacillin-Tazobactam 3 100 100 .375 gm In Sodium Chloride 0.9% 100 ml @ 25 mls/hr IVPB Q12HR [facility] Rx #:[id number] Sodium Chloride 0.9% 1, 700 000 ml @ 100 mls/hr IV . Q10H [facility] Rx#:[id number] Sodium Ferric Gluconat- 100 Sucrose 125 mg In Sodium Chloride 0.9% 100 ml @ 100 mls/hr IVPB DAILY [facility] Rx#:[id number] Oral 250 540 Output: Urine 1185 760 Stool 3 2 Other: Voiding Method Indwelling Catheter Urinal # Bowel Movements 1 - Exam - Constitutional More awake and alert. Maintaining O2 saturations in the upper 90s on 2 L. General appearance: No acute distress, obese - EENT Eyes: EOMI, PERRLA ENT: hearing grossly normal Ears: bilateral: normal - Neck Neck: normal ROM Carotids: bilateral: upstroke normal Thyroid: bilateral: normal size - Respiratory Respiratory: bilateral: CTA - Cardiovascular Rhythm: regular Heart sounds: normal: S1, S2 - Gastrointestinal General gastrointestinal: normal bowel sounds - Integumentary Integumentary: normal turgor - Neurologic Neurologic: CNII-XII intact - Musculoskeletal Musculoskeletal: generalized weakness - Psychiatric Oriented to person, continues with periods of mild confusion - Labs CBC & Chem 7: 10/01/18 08:28 10/01/18 08:28 Labs: Abnormal Lab Results - Last 24 Hours (Table) 09/30/18 09/30/18 09/30/18 Range/Units 16:55 17:48 20:39 WBC (3.8-10.6) k/uL RBC (4.30-5.90) m/uL Hgb (13.0-17.5) gm/dL Hct (39.0-53.0) % RDW (11.5-15.5) % Neutrophils # (1.3-7.7) k/uL Lymphocytes # (1.0-4.8) k/uL Chloride (98-107) mmol/L Carbon Dioxide (22-30) mmol/L BUN (9-20) mg/dL Creatinine (0.66-1.25) mg/dL Glucose (74-99) mg/dL POC Glucose (mg/dL) 139 H 163 H (75-99) mg/dL Uric Acid (3.5-8.5) mg/dL Total Bilirubin (0.2-1.3) mg/dL Alkaline Phosphatase (38-126) U/L Ammonia 33 H (<30) umol/L Total Protein (6.3-8.2) g/dL Albumin (3.5-5.0) g/dL 10/01/18 10/01/18 10/01/18 Range/Units 07:15 08:28 08:28 WBC 21.3 H (3.8-10.6) k/uL RBC 2.90 L (4.30-5.90) m/uL Hgb 9.1 L (13.0-17.5) gm/dL Hct 28.6 L (39.0-53.0) % RDW 17.3 H (11.5-15.5) % Neutrophils # 19.7 H (1.3-7.7) k/uL Lymphocytes # 0.7 L (1.0-4.8) k/uL Chloride (98-107) mmol/L Carbon Dioxide (22-30) mmol/L BUN (9-20) mg/dL Creatinine (0.66-1.25) mg/dL Glucose (74-99) mg/dL POC Glucose (mg/dL) 154 H (75-99) mg/dL Uric Acid (3.5-8.5) mg/dL Total Bilirubin (0.2-1.3) mg/dL Alkaline Phosphatase (38-126) U/L Ammonia 71 H (<30) umol/L Total Protein (6.3-8.2) g/dL Albumin (3.5-5.0) g/dL 10/01/18 10/01/18 10/01/18 Range/Units 08:28 11:13 13:22 WBC (3.8-10.6) k/uL RBC (4.30-5.90) m/uL Hgb (13.0-17.5) gm/dL Hct (39.0-53.0) % RDW (11.5-15.5) % Neutrophils # (1.3-7.7) k/uL Lymphocytes # (1.0-4.8) k/uL Chloride 113 H (98-107) mmol/L Carbon Dioxide 19 L (22-30) mmol/L BUN 50 H (9-20) mg/dL Creatinine 2.26 H (0.66-1.25) mg/dL Glucose 150 H (74-99) mg/dL POC Glucose (mg/dL) 143 H (75-99) mg/dL Uric Acid 2.3 L (3.5-8.5) mg/dL Total Bilirubin 2.7 H (0.2-1.3) mg/dL Alkaline Phosphatase 313 H (38-126) U/L Ammonia 31 H (<30) umol/L Total Protein 5.8 L (6.3-8.2) g/dL Albumin 2.7 L (3.5-5.0) g/dL Microbiology - Last 24 Hours (Table) 09/26/18 14:12 Blood Culture - Preliminary Blood No Growth after 96 hours 09/27/18 18:12 Gram Stain - Final Sputum Sputum Culture - Final Mahi albicans Assessment and Plan Assessment: Impression: #1 Altered mental status of unclear etiology suspect underlying sepsis. Cultures negative. #2 Hypotension requiring fluid resuscitation suspect secondary to underlying sepsis. Cultures negative #3 Acute nonoliguric kidney injury secondary to intravascular volume depletion, suspect dehydration and hypotension. Current creatinine 2.26. #4 Adenocarcinoma of the pancreas status post 1 round of chemotherapy 2017 of mFOLFIRINOX. Was due for second round today 09/29/2017. #5 Leukocytosis. #6 Anemia current hemoglobin 9.1. #7 Elevated LFTs. Elevated ammonia levels, on lactulose #8 Borderline troponins. Acute coronary syndrome ruled out. Ejection fraction 60-65%. No pericardial effusion. #9 History of bilateral PE with lower extremity and upper extremity DVTs. Anticoagulated with Eliquis. #10 Coronary artery disease with previous stent placement. #11 Hypertension tension, history of. #12 Hyperlipidemia. Plan: The patient was seen and evaluated by Dr. Fernandez. He is currently stable from the pulmonary and critical care standpoint. We will continue to follow make further recommendations based on his clinical status. I, the cosigning physician, performed a history & physical examination of the patient. Lungs sounds are clear. Maintaining good O2 saturations in the 90s on room air. I discussed the assessment and plan of care with my nurse practitioner, Lisette Moise. I attest to the above note as dictated by her.
[2018-10-01 17:09] LABS: Glucose,Whole Blood 121 mg/dL (75-99)
[2018-10-01 20:18] LABS: Glucose,Whole Blood 121 mg/dL (75-99)
[2018-10-01] MEDS: MELATONIN 3 MG TABLET PO SCH (21:49)
[2018-10-01] MEDS: METOPROLOL TARTRATE 12.5 MG TAB PO SCH (21:49)
[2018-10-01] MEDS: ONDANSETRON 4 MG/2 ML VIAL IVP PRN (22:20)
[2018-10-02] MEDS: PIPERACILLIN-TAZOBACTAM 3.375 GM in SODIUM CHLORIDE 0.9% 100 ML IVPB SCH ×3 (01:53→18:43)
[2018-10-02 07:01] LABS: Glucose,Whole Blood 116 mg/dL (75-99)
[2018-10-02] MEDS: INSULIN ASPART 100 UNIT/ML 1 ML 10 ML VIAL SQ SCH ×4 (07:14→21:07)
[2018-10-02] MEDS: MORPHINE SULFATE ER 30 MG TABLET PO SCH ×3 (08:05→21:05)
[2018-10-02] MEDS: TAMSULOSIN 0.4 MG CAP.ER.24H PO SCH (08:06)
[2018-10-02] MEDS: DOCUSATE 100 MG CAP PO SCH ×2 (08:07→21:04)
[2018-10-02] MEDS: LACTULOSE 20 GM/30 ML CUP PO SCH ×3 (08:07→21:06)
[2018-10-02] MEDS: APIXABAN 5 MG TAB PO SCH ×2 (08:07→21:03)
[2018-10-02] MEDS: FAMOTIDINE 20 MG TAB PO SCH (08:07)
[2018-10-02] MEDS: SODIUM BICARBONATE TAB 650 MG TAB PO SCH ×2 (08:07→21:03)
[2018-10-02] MEDS: LEVOFLOXACIN 250 MG TAB PO SCH (08:08)
[2018-10-02] MEDS: HYDROCORTISONE SUCCINATE 100 MG/2 ML VIAL IV SCH ×2 (08:09→21:04)
[2018-10-02 11:07] LABS: Anisocytosis Slight; Basophils % (A) 0 %; Eosinophils # (A) 0.1 k/uL (0-0.7); Eosinophils % (A) 0 %; HCT 27.3 % (39.0-53.0); HGB 8.4 gm/dL (13.0-17.5); Hypochromasia Moderate; Lymphocytes # (A) 0.8 k/uL (1.0-4.8); Lymphocytes % (A) 4 %; MCH 30.9 pg (25.0-35.0); MCHC 30.9 g/dL (31.0-37.0); MCV 100.1 fL (80.0-100.0); Macrocytosis Slight; Mean Platelet Volume 7.7; Monocytes % (A) 5 %; Neutrophils # (A) 17.4 k/uL (1.3-7.7); Neutrophils % (A) 89 %; Platelet Count 178 k/uL (150-450); RBC 2.73 m/uL (4.30-5.90); RDW 18.1 % (11.5-15.5); WBC 19.5 k/uL (3.8-10.6)
[2018-10-02 11:18] LABS: Albumin 2.4 g/dL (3.5-5.0); Calcium 8.5 mg/dL (8.4-10.2); Magnesium 2.1 mg/dL (1.6-2.3); Phosphorus 3.6 mg/dL (2.5-4.5); Potassium 3.8 mmol/L (3.5-5.1); Total Bilirubin 2.8 mg/dL (0.2-1.3); Total Protein 5.2 g/dL (6.3-8.2); Uric Acid 3.4 mg/dL (3.5-8.5)
[2018-10-02 12:19] LABS: Glucose,Whole Blood 117 mg/dL (75-99)
--- NOTE | 2018-10-02 12:26 | P.PN ---
Subjective Progress Note Date: 10/02/18 This is a 68-year-old male patient who presented to the emergency room with complaints of increased confusion and weakness. Patient recently diagnosed with a periodic cancer with evidence of liver metastases. Patient underwent chemotherapy on September 17 and started to become a week and had increased confusion per . Patient was found to be in acute kidney injury with creatinine of 5.28 bun at 50. Patient is currently on eliquis for DVT and PE. Patient also found to have elevated white blood cell count. Patient currently on IV antibiotics and infectious disease following. On 09/27/2018 patient currently resting in bed. is at bedside. Patient reports he still is confused at times forgetting the date. Patient also complaining of chest discomfort at this time patient describes is intermittent sharp pain in chest. Patient is currently on the telemetry floor. Will repeat cardiac enzymes and consult cardiology. Oncology services also consulted. Patient will be started on lactulose for elevated ammonia level. Repeat ammonia level has been ordered. Nephrology services are following. At this time patient denies shortness of breath. Patient denies nausea vomiting or diarrhea. Patient denies any urinary burning or frequency. On 09/28/2018 patient is currently resting in bed. Patient does state he feels slightly improved from yesterday. Family currently at bedside. At this time patient denies any chest pain or shortness of breath. Patient denies nausea vomiting or diarrhea. Patient denies any urinary burning or frequency. 09/29/2018 patient currently resting in bed. Patient hypotensive at this time with blood pressure in the 70s 80s. Patient also diaphoretic. 500 mL bolus has been ordered. Consulted Dr. Fernandez for pulmonary services. Discussed case with [facility] per critical care team recommending transfer to ICU for closer monitoring. Lactic acid ordered. Dr. Mariscal is following for infectious disease. At this time patient denies any specific complaints. Patient denies nausea vomiting or diarrhea. Patient denies any urinary burning or frequency. Patient denies chest pain shortness of breath. Blood sugar 105. Patient remains afebrile. On 09/30/2018 patient currently resting comfortably in the intensive care unit. Patient does state he feels improved from yesterday. Discussed case with ICU nursing staff. Patient did receive multiple boluses throughout night with improved pressure and urine output. Patient's appetite slightly improved. At this time patient denies chest pain or shortness of breath. Patient denies nausea vomiting or diarrhea. Patient denies any urinary burning or frequency. On 10/01/2018. Patient has moved out of the intensive care unit. Patient's blood pressure much improved. Patient also states he feels slightly more improved today. Ammonia level is improving to 33. Patient remains on lactulose 3 times a day. Patient's white blood cell also elevated at 21.3 but patient is currently on hydrocortisone 50 mg twice a day per nephrology services. Infectious disease is following. At this time patient denies chest pain or shortness of breath. Patient denies nausea vomiting or diarrhea. Patient denies any urinary burning or frequency On 10/02/2018 patient was seen and examined on the medical floor is alert and oriented 3 in no apparent distress there is no fever or chills no headache or dizziness no chest pain no shortness of breath no cough no nausea or vomiting there is abdominal pain which is under good control patient had 2 bowel movements today his ammonia level is still elevated at 43 there is no urinary symptoms Objective - Vital Signs Vital signs: Vital Signs Temp 97.5 F L 10/02/18 05:00 Pulse 80 10/02/18 05:00 Resp 18 10/02/18 05:00 BP 130/67 10/02/18 05:00 Pulse Ox 97 10/02/18 05:00 Intake & Output 10/01/18 10/02/18 10/02/18 18:59 06:59 18:59 Intake Total 1160 Output Total 2 2 Balance -2 1158 Intake: Intake, IV Titration 200 Amount Piperacillin-Tazobactam 3 200 .375 gm In Sodium Chloride 0.9% 100 ml @ 25 mls/hr IVPB Q8H [facility] Rx#: [id number] Oral 960 Output: Stool 2 2 Other: Voiding Method Toilet Toilet Urinal Urinal # Voids 1 2 # Bowel Movements 2 - Exam Head normocephalic. Jaundice noted to thin skin Neck supple no JVD no goiter Lungs clear to auscultation bilaterally no wheezing or crackles Heart regular rate and rhythm S1-S2, no rub or gallop Abdomen is soft nontender nondistended positive bowel sounds no hepatosplenomegaly Extremities no edema Neuro alert and orientated to 3. Does appear forgetful at times - Labs CBC & Chem 7: 10/02/18 10:40 10/02/18 10:40 Labs: Abnormal Lab Results - Last 24 Hours (Table) 10/01/18 10/01/18 10/01/18 Range/Units 13:22 17:07 20:17 WBC (3.8-10.6) k/uL RBC (4.30-5.90) m/uL Hgb (13.0-17.5) gm/dL Hct (39.0-53.0) % MCV (80.0-100.0) fL MCHC (31.0-37.0) g/dL RDW (11.5-15.5) % Neutrophils # (1.3-7.7) k/uL Lymphocytes # (1.0-4.8) k/uL Chloride (98-107) mmol/L Carbon Dioxide (22-30) mmol/L BUN (9-20) mg/dL Creatinine (0.66-1.25) mg/dL Glucose (74-99) mg/dL POC Glucose (mg/dL) 121 H 121 H (75-99) mg/dL Uric Acid (3.5-8.5) mg/dL Total Bilirubin (0.2-1.3) mg/dL AST (17-59) U/L Alkaline Phosphatase (38-126) U/L Ammonia 31 H (<30) umol/L Total Protein (6.3-8.2) g/dL Albumin (3.5-5.0) g/dL 10/02/18 10/02/18 10/02/18 Range/Units 06:59 10:40 10:40 WBC (3.8-10.6) k/uL RBC (4.30-5.90) m/uL Hgb (13.0-17.5) gm/dL Hct (39.0-53.0) % MCV (80.0-100.0) fL MCHC (31.0-37.0) g/dL RDW (11.5-15.5) % Neutrophils # (1.3-7.7) k/uL Lymphocytes # (1.0-4.8) k/uL Chloride 115 H (98-107) mmol/L Carbon Dioxide 19 L (22-30) mmol/L BUN 48 H (9-20) mg/dL Creatinine 1.80 H (0.66-1.25) mg/dL Glucose 128 H (74-99) mg/dL POC Glucose (mg/dL) 116 H (75-99) mg/dL Uric Acid 3.4 L (3.5-8.5) mg/dL Total Bilirubin 2.8 H (0.2-1.3) mg/dL AST 72 H (17-59) U/L Alkaline Phosphatase 328 H (38-126) U/L Ammonia 43 H (<30) umol/L Total Protein 5.2 L (6.3-8.2) g/dL Albumin 2.4 L (3.5-5.0) g/dL 10/02/18 10/02/18 Range/Units 10:40 12:17 WBC 19.5 H (3.8-10.6) k/uL RBC 2.73 L (4.30-5.90) m/uL Hgb 8.4 L (13.0-17.5) gm/dL Hct 27.3 L (39.0-53.0) % MCV 100.1 H (80.0-100.0) fL MCHC 30.9 L (31.0-37.0) g/dL RDW 18.1 H (11.5-15.5) % Neutrophils # 17.4 H (1.3-7.7) k/uL Lymphocytes # 0.8 L (1.0-4.8) k/uL Chloride (98-107) mmol/L Carbon Dioxide (22-30) mmol/L BUN (9-20) mg/dL Creatinine (0.66-1.25) mg/dL Glucose (74-99) mg/dL POC Glucose (mg/dL) 117 H (75-99) mg/dL Uric Acid (3.5-8.5) mg/dL Total Bilirubin (0.2-1.3) mg/dL AST (17-59) U/L Alkaline Phosphatase (38-126) U/L Ammonia (<30) umol/L Total Protein (6.3-8.2) g/dL Albumin (3.5-5.0) g/dL Microbiology - Last 24 Hours (Table) 09/26/18 14:12 Blood Culture - Preliminary Blood No Growth after 120 hours Assessment and Plan Plan: 1. Acute nonoliguric kidney injury. Dr. Johnson following for nephrology services. Initial creatinine 5.28 and bun 51. Nephrology services renal ultrasound has been ordered. Patient's home [facility] and [facility] DC[facility]. Patient Vicoprofen also on hold. Creatinine is improving to 3.66. hydrocortisone 50 mg 3 times a day has been added per nephrology services. 2. Leukocytosis with possible sepsis. CBC 16.8 Chest x-ray completed showing chronic changes without evidence for acute pulmonary disease. Infectious disease has been consulted. Patient started on Zosyn and Levaquin. Blood, sputum and urine culture ordered. Repeat lactic acid 1.1 3. metastatic adenocarcinoma of the pancreas. Patient did receive first round of chemotherapy mFolfirinox on 09/17/2018. 4. Elevated liver enzymes likely related to the metastases disease 5. Elevated ammonia level. Lactulose has been added. Ammonia level increased to 66. Lactulose has been increased to 3 times a day. Repeat lactic level XXXIII continue to monitor daily 6. Chest pain. Troponin 0.080 and 0.063. Cardiology consulted. EKG completed showing normal sinus rhythm right bundle branch block. 2-D echo completed showing an EF of 60-65%. Per cardiology services EKG showing QTC prolonged. Recommend no further cardiac workup. Avoid use of multiple QT prolonging drugs such as promethazine and Zofran. 7. History of DVT and PE. Patient maintained on eliquis' 8. Increased confusion likely due to infection and elevated ammonia level. Head CT was completed showing age-related atrophic and chronic small vessel ischemic change without acute intracranial process seen at this time. 9. Metabolic acidosis secondary to acute kidney injury. Sodium bicarb has been added per nephrology services 10. History of essential hypertension. Home medication of metoprolol resumed with parameters 11. History of hyperlipidemia 12. Iron deficiency anemia. Patient will be given Ferrlecit per nephrology 14. Hypotension. Patient received multiple fluid boluses throughout night. Blood pressure improved. Parameters set to Metroprolol 15. Poor dietary intake. Will consult dietitian at this time DVT prophylaxis eliquis. GI prophylaxis Protonix
--- NOTE | 2018-10-02 14:43 | P.PN ---
Subjective Progress Note Date: 10/02/18 Principal diagnosis: This is a 68-year-old male is followed up because of acute kidney injury, related to intravascular depletion, secondary to decreased intake had hypotension and urinary retention. His Calloway catheter was discontinued 2 days ago. He continues to improve creatinines going down. He has poor appetite. He was able to walk with some slow gait to the bathroom without feeling dizzy. No shortness of breath no chest pain no abdominal pain. Is known with anicteric's cancer and underwent chemotherapy first time in mid August. Objective - Vital Signs Vital signs: Vital Signs Temp 97.9 F 10/02/18 12:15 Pulse 60 10/02/18 12:15 Resp 16 10/02/18 12:15 BP 130/67 10/02/18 05:00 Pulse Ox 97 10/02/18 12:15 Intake & Output 10/01/18 10/02/18 10/02/18 18:59 06:59 18:59 Intake Total 1160 Output Total 2 2 Balance -2 1158 Intake: Intake, IV Titration 200 Amount Piperacillin-Tazobactam 3 200 .375 gm In Sodium Chloride 0.9% 100 ml @ 25 mls/hr IVPB Q8H [facility] Rx#: [id number] Oral 960 Output: Stool 2 2 Other: Voiding Method Toilet Toilet Toilet Urinal Urinal Urinal # Voids 1 2 # Bowel Movements 2 On examination is awake alert oriented comfortable HEENT exam no JVP neck is supple no facial asymmetry Lungs are clear to auscultation percussion good air entry bilaterally Heart sounds are unremarkable for any murmur rub gallop Abdomen soft nontender somewhat protuberant Extremity exam was 2+ edema Neurologically awake alert oriented but generalized weakness and was able to walk with walker to the bathroom and back. - Labs CBC & Chem 7: 10/02/18 10:40 10/02/18 10:40 Labs: Abnormal Lab Results - Last 24 Hours (Table) 10/01/18 10/01/18 10/02/18 Range/Units 17:07 20:17 06:59 WBC (3.8-10.6) k/uL RBC (4.30-5.90) m/uL Hgb (13.0-17.5) gm/dL Hct (39.0-53.0) % MCV (80.0-100.0) fL MCHC (31.0-37.0) g/dL RDW (11.5-15.5) % Neutrophils # (1.3-7.7) k/uL Lymphocytes # (1.0-4.8) k/uL Chloride (98-107) mmol/L Carbon Dioxide (22-30) mmol/L BUN (9-20) mg/dL Creatinine (0.66-1.25) mg/dL Glucose (74-99) mg/dL POC Glucose (mg/dL) 121 H 121 H 116 H (75-99) mg/dL Uric Acid (3.5-8.5) mg/dL Total Bilirubin (0.2-1.3) mg/dL AST (17-59) U/L Alkaline Phosphatase (38-126) U/L Ammonia (<30) umol/L Total Protein (6.3-8.2) g/dL Albumin (3.5-5.0) g/dL 10/02/18 10/02/18 10/02/18 Range/Units 10:40 10:40 10:40 WBC 19.5 H (3.8-10.6) k/uL RBC 2.73 L (4.30-5.90) m/uL Hgb 8.4 L (13.0-17.5) gm/dL Hct 27.3 L (39.0-53.0) % MCV 100.1 H (80.0-100.0) fL MCHC 30.9 L (31.0-37.0) g/dL RDW 18.1 H (11.5-15.5) % Neutrophils # 17.4 H (1.3-7.7) k/uL Lymphocytes # 0.8 L (1.0-4.8) k/uL Chloride 115 H (98-107) mmol/L Carbon Dioxide 19 L (22-30) mmol/L BUN 48 H (9-20) mg/dL Creatinine 1.80 H (0.66-1.25) mg/dL Glucose 128 H (74-99) mg/dL POC Glucose (mg/dL) (75-99) mg/dL Uric Acid 3.4 L (3.5-8.5) mg/dL Total Bilirubin 2.8 H (0.2-1.3) mg/dL AST 72 H (17-59) U/L Alkaline Phosphatase 328 H (38-126) U/L Ammonia 43 H (<30) umol/L Total Protein 5.2 L (6.3-8.2) g/dL Albumin 2.4 L (3.5-5.0) g/dL 10/02/18 Range/Units 12:17 WBC (3.8-10.6) k/uL RBC (4.30-5.90) m/uL Hgb (13.0-17.5) gm/dL Hct (39.0-53.0) % MCV (80.0-100.0) fL MCHC (31.0-37.0) g/dL RDW (11.5-15.5) % Neutrophils # (1.3-7.7) k/uL Lymphocytes # (1.0-4.8) k/uL Chloride (98-107) mmol/L Carbon Dioxide (22-30) mmol/L BUN (9-20) mg/dL Creatinine (0.66-1.25) mg/dL Glucose (74-99) mg/dL POC Glucose (mg/dL) 117 H (75-99) mg/dL Uric Acid (3.5-8.5) mg/dL Total Bilirubin (0.2-1.3) mg/dL AST (17-59) U/L Alkaline Phosphatase (38-126) U/L Ammonia (<30) umol/L Total Protein (6.3-8.2) g/dL Albumin (3.5-5.0) g/dL Microbiology - Last 24 Hours (Table) 09/26/18 14:12 Blood Culture - Preliminary Blood No Growth after 120 hours Assessment and Plan Assessment: Impression 1. Acute kidney injury secondary to volume depletion and decreased intake hypotension and urinary retention all improving with creatinine coming down. 2. Pancreatic cancer underwent phosphorus chemotherapy in mid August 2018 a month ago. 3. Significant edema, urinalysis shows 1+ proteinuria. Serum albumin is 2.4, therefore etiology is hypoalbuminemia. Echocardiogram shows no evidence of pulmonary hypertension 4. Metabolic acidosis secondary to acute kidney injury. Bicarb is up to 19. 5. Anemia off chronic illness hemoglobin is 8.4. 6. Mildly elevated ammonia level at 43, neurologically no evidence of any encephalopathy. Recommendation 1. Reduce IV fluids to KVO. 2. Encourage oral intake. 3. Check postvoid residual
[2018-10-02 17:17] LABS: Glucose,Whole Blood 135 mg/dL (75-99)
--- NOTE | 2018-10-02 18:24 | PN ---
PROGRESS NOTE DATE OF SERVICE: 10/02/2018 CHIEF COMPLAINT: Diarrhea. Shay is seen today as a followup. He feels he has significant diarrhea since he has been starting taking lactulose. However, his mental status has improved. He is no longer confused. He feels tired. He denies any fever or chills, nausea or vomiting. No melena, hematochezia, hematuria or hemoptysis. CURRENT MEDICATION: His current medications reviewed in his electronic medical record. PHYSICAL EXAMINATION: On physical examination, he is alert and oriented x3. He does not appear to be in distress. His vital signs are temperature 97.9, afebrile, pulse is 80 regular, respiration 16, blood pressure 130/67. HEENT: Normocephalic, atraumatic. He does have obvious scleral icterus. NECK: Supple. CHEST: Equal expansion bilaterally. LUNGS: Clear to auscultation. HEART: Regular rate and rhythm. ABDOMEN: Soft. No tenderness. He has evidence of hepatomegaly and mild splenomegaly. No obvious ascites. Extremities reveal 1+ edema. Skin reveals a few bruises. No ecchymosis or petechiae. LABORATORY DATA: From today, WBC are 19.5, hemoglobin 8.4, hematocrit 27.3, MCV is 100.1, platelet count 178. Sodium 143, potassium 3.8, chloride is 119, BUN is 48, creatinine . His total bilirubin is 2.8, AST 72, ALT is 61, alkaline phosphatase is 328. His ammonia level is down to 43. IMPRESSION: 1. Metastatic pancreatic or biliary carcinoma. The patient has received his first cycle of FOLFIRINOX regimen regimen. 2. Increased ammonia level. I suspect the patient has underlying hepatocellular disease unrelated to his metastatic carcinoma to the liver. He has had radiographic evidence of hepatocellular disease on previous imaging and also he used to be a heavy drinker. He has also laboratory evidence of elevated bilirubin level and significantly elevated ammonia level. The patient very likely has underlying hepatocellular disease, which may not be related to his metastatic carcinoma to the liver. 3. Acute kidney injury, this appeared to be improving significantly. 4. Leukocytosis. This is likely reactive. The patient did recently receive Neulasta injection in the outpatient setting after his last cycle of chemotherapy. Underlying sepsis felt to be a less likely possibility. 5. Multiple other comorbidities. RECOMMENDATION: 1. Continue with lactulose. The patient's mental status has improved and he is no longer confused. 2. Continue current management. 3. Further systemic treatment will be on hold due to his comorbidities and his performance status. May consider modified dose of FOLFIRINOX regimen or may consider to switch to a completely different regimen such as a combination of Gemzar and Abraxane. 4. The above was discussed in detail with the patient and his family at bedside and I have answered all their questions to their satisfaction. I also discussed his care with nephrology service. MMPUSHPAL / IJN: [id number] /
[2018-10-02 20:49] LABS: Glucose,Whole Blood 115 mg/dL (75-99)
[2018-10-02] MEDS: METOPROLOL TARTRATE 12.5 MG TAB PO SCH (21:03)
[2018-10-02] MEDS: MELATONIN 3 MG TABLET PO SCH (21:06)
[2018-10-03] MEDS: PIPERACILLIN-TAZOBACTAM 3.375 GM in SODIUM CHLORIDE 0.9% 100 ML IVPB SCH ×2 (02:15→10:50)
[2018-10-03] MEDS: ALPRAZolam 0.5 MG TAB PO PRN (07:06)
[2018-10-03 07:18] LABS: Glucose,Whole Blood 115 mg/dL (75-99)
[2018-10-03] MEDS: TAMSULOSIN 0.4 MG CAP.ER.24H PO SCH (08:25)
[2018-10-03] MEDS: HYDROCORTISONE SUCCINATE 100 MG/2 ML VIAL IV SCH (08:25)
[2018-10-03] MEDS: INSULIN ASPART 100 UNIT/ML 1 ML 10 ML VIAL SQ SCH ×4 (08:25→20:40)
[2018-10-03] MEDS: DOCUSATE 100 MG CAP PO SCH ×2 (08:25→20:56)
[2018-10-03] MEDS: APIXABAN 5 MG TAB PO SCH ×2 (08:25→20:55)
[2018-10-03] MEDS: FAMOTIDINE 20 MG TAB PO SCH (08:25)
[2018-10-03] MEDS: LEVOFLOXACIN 250 MG TAB PO SCH (08:26)
[2018-10-03] MEDS: MORPHINE SULFATE ER 30 MG TABLET PO SCH ×3 (08:26→22:46)
[2018-10-03] MEDS: SODIUM BICARBONATE TAB 650 MG TAB PO SCH ×2 (08:26→20:55)
[2018-10-03] MEDS: LACTULOSE 20 GM/30 ML CUP PO SCH (08:26)
[2018-10-03 09:34] LABS: Anisocytosis Slight; Basophils % (A) 0 %; Eosinophils # (A) 0.1 k/uL (0-0.7); Eosinophils % (A) 0 %; HGB 9.1 gm/dL (13.0-17.5); Hypochromasia Marked; Lymphocytes % (A) 5 %; MCH 30.6 pg (25.0-35.0); MCHC 30.3 g/dL (31.0-37.0); MCV 101.1 fL (80.0-100.0); Macrocytosis Moderate; Mean Platelet Volume 7.5; Monocytes # (A) 1.1 k/uL (0-1.0); Monocytes % (A) 5 %; Neutrophils # (A) 18.7 k/uL (1.3-7.7); Neutrophils % (A) 88 %; Platelet Count 167 k/uL (150-450); RBC 2.97 m/uL (4.30-5.90); RDW 18.1 % (11.5-15.5); WBC 21.2 k/uL (3.8-10.6)
[2018-10-03 09:53] LABS: Albumin 2.8 g/dL (3.5-5.0); Calcium 8.7 mg/dL (8.4-10.2); Magnesium 2.1 mg/dL (1.6-2.3); Phosphorus 3.5 mg/dL (2.5-4.5); Potassium 3.6 mmol/L (3.5-5.1); Total Bilirubin 3.1 mg/dL (0.2-1.3); Total Protein 5.8 g/dL (6.3-8.2)
[2018-10-03 12:42] LABS: Glucose,Whole Blood 123 mg/dL (75-99)
--- NOTE | 2018-10-03 13:06 | P.PN ---
Subjective Progress Note Date: 10/03/18 Principal diagnosis: This is a 68-year-old male is followed up because of acute kidney injury, related to intravascular depletion, secondary to decreased intake had hypotension and urinary retention. He is known with recent diagnosis of pancreatic cancer diagnosed a month ago and had chemotherapy in August. His Calloway catheter was discontinued 3 days ago. He continues to improve, with creatinines going down. He has poor appetite. He was able to walk with some slow gait to the bathroom and does feel occasional feeling dizzy. He continues to have loose stools on lactulose. His ammonia level is down to 33 this morning. No shortness of breath no chest pain no abdominal pain. Is known with pancreatic cancer and underwent chemotherapy first time in mid August. Objective - Vital Signs Vital signs: Vital Signs Temp 97.8 F 10/03/18 12:43 Pulse 76 10/03/18 12:43 Resp 16 10/03/18 12:43 BP 125/65 10/03/18 12:43 Pulse Ox 98 10/03/18 12:43 Intake & Output 10/02/18 10/03/18 10/03/18 18:59 06:59 18:59 Intake Total 100 Output Total 181 6 Balance -181 94 Intake: Intake, IV Titration 100 Amount Piperacillin-Tazobactam 3 100 .375 gm In Sodium Chloride 0.9% 100 ml @ 25 mls/hr IVPB Q8H [facility] Rx#: [id number] Output: Post Void Residual 175 Stool 6 6 Other: Voiding Method Toilet Toilet Toilet Urinal Urinal Urinal # Voids 5 1 # Bowel Movements 5 On examination is awake alert oriented able to walk to the bathroom on his own. HEENT exam no JVP neck is supple no facial asymmetry Lungs are clear to auscultation good air entry bilaterally Heart sounds are unremarkable for any murmur rub gallop Abdomen soft nontender Extremity exam was mild edema he has JAVIER hoses. Neurologically awake alert oriented. - Labs CBC & Chem 7: 10/03/18 08:54 10/03/18 08:54 Labs: Abnormal Lab Results - Last 24 Hours (Table) 10/02/18 10/02/18 10/03/18 Range/Units 17:16 20:46 07:17 WBC (3.8-10.6) k/uL RBC (4.30-5.90) m/uL Hgb (13.0-17.5) gm/dL Hct (39.0-53.0) % MCV (80.0-100.0) fL MCHC (31.0-37.0) g/dL RDW (11.5-15.5) % Neutrophils # (1.3-7.7) k/uL Monocytes # (0-1.0) k/uL Chloride (98-107) mmol/L BUN (9-20) mg/dL Creatinine (0.66-1.25) mg/dL Glucose (74-99) mg/dL POC Glucose (mg/dL) 135 H 115 H 115 H (75-99) mg/dL Total Bilirubin (0.2-1.3) mg/dL AST (17-59) U/L ALT (21-72) U/L Alkaline Phosphatase (38-126) U/L Ammonia (<30) umol/L Total Protein (6.3-8.2) g/dL Albumin (3.5-5.0) g/dL 10/03/18 10/03/18 10/03/18 Range/Units 08:54 08:54 08:54 WBC 21.2 H (3.8-10.6) k/uL RBC 2.97 L (4.30-5.90) m/uL Hgb 9.1 L (13.0-17.5) gm/dL Hct 30.0 L (39.0-53.0) % MCV 101.1 H (80.0-100.0) fL MCHC 30.3 L (31.0-37.0) g/dL RDW 18.1 H (11.5-15.5) % Neutrophils # 18.7 H (1.3-7.7) k/uL Monocytes # 1.1 H (0-1.0) k/uL Chloride 113 H (98-107) mmol/L BUN 42 H (9-20) mg/dL Creatinine 1.53 H (0.66-1.25) mg/dL Glucose 107 H (74-99) mg/dL POC Glucose (mg/dL) (75-99) mg/dL Total Bilirubin 3.1 H (0.2-1.3) mg/dL AST 86 H (17-59) U/L ALT 74 H (21-72) U/L Alkaline Phosphatase 366 H (38-126) U/L Ammonia 33 H (<30) umol/L Total Protein 5.8 L (6.3-8.2) g/dL Albumin 2.8 L (3.5-5.0) g/dL 10/03/18 Range/Units 12:41 WBC (3.8-10.6) k/uL RBC (4.30-5.90) m/uL Hgb (13.0-17.5) gm/dL Hct (39.0-53.0) % MCV (80.0-100.0) fL MCHC (31.0-37.0) g/dL RDW (11.5-15.5) % Neutrophils # (1.3-7.7) k/uL Monocytes # (0-1.0) k/uL Chloride (98-107) mmol/L BUN (9-20) mg/dL Creatinine (0.66-1.25) mg/dL Glucose (74-99) mg/dL POC Glucose (mg/dL) 123 H (75-99) mg/dL Total Bilirubin (0.2-1.3) mg/dL AST (17-59) U/L ALT (21-72) U/L Alkaline Phosphatase (38-126) U/L Ammonia (<30) umol/L Total Protein (6.3-8.2) g/dL Albumin (3.5-5.0) g/dL Microbiology - Last 24 Hours (Table) 09/26/18 14:12 Blood Culture - Final Blood No Growth after 144 hours Assessment and Plan Assessment: Impression 1. Acute kidney injury secondary to volume depletion and decreased intake, hypotension and urinary retention all improving with creatinine coming down to 1.53 from a peak of 5.28 on 09/26/2018. 2. Pancreatic cancer underwent phosphorus chemotherapy in mid August 2018 a month ago. 3. Significant edema, urinalysis shows 1+ proteinuria. Serum albumin is 2.4, therefore etiology is hypoalbuminemia. Echocardiogram shows no evidence of pulmonary hypertension, ejection fraction is maintained. 4. Metabolic acidosis secondary to acute kidney injury. Bicarb is up to 22. 5. Anemia off chronic illness hemoglobin is 8.4, up to 9.1 this morning. 6. Mildly elevated ammonia level at 33, neurologically no evidence of any encephalopathy. 7. Lactulose induced diarrhea frequent every 15-20 minutes Recommendation 1. Suggest discontinue the lactulose as is causing diarrhea, and his ammonia level is down to nearly normal levels 2. Reduce IV fluids to KVO. 3. Discontinue hydrocortisone as his serum cortisol level was within normal range 4. His edema is expected to improve with improved nutrition
--- NOTE | 2018-10-03 14:40 | P.PN ---
Subjective Progress Note Date: 10/03/18 This is a 68-year-old male patient who presented to the emergency room with complaints of increased confusion and weakness. Patient recently diagnosed with a periodic cancer with evidence of liver metastases. Patient underwent chemotherapy on September 17 and started to become a week and had increased confusion per . Patient was found to be in acute kidney injury with creatinine of 5.28 bun at 50. Patient is currently on eliquis for DVT and PE. Patient also found to have elevated white blood cell count. Patient currently on IV antibiotics and infectious disease following. On 09/27/2018 patient currently resting in bed. is at bedside. Patient reports he still is confused at times forgetting the date. Patient also complaining of chest discomfort at this time patient describes is intermittent sharp pain in chest. Patient is currently on the telemetry floor. Will repeat cardiac enzymes and consult cardiology. Oncology services also consulted. Patient will be started on lactulose for elevated ammonia level. Repeat ammonia level has been ordered. Nephrology services are following. At this time patient denies shortness of breath. Patient denies nausea vomiting or diarrhea. Patient denies any urinary burning or frequency. On 09/28/2018 patient is currently resting in bed. Patient does state he feels slightly improved from yesterday. Family currently at bedside. At this time patient denies any chest pain or shortness of breath. Patient denies nausea vomiting or diarrhea. Patient denies any urinary burning or frequency. 09/29/2018 patient currently resting in bed. Patient hypotensive at this time with blood pressure in the 70s 80s. Patient also diaphoretic. 500 mL bolus has been ordered. Consulted Dr. Fernandez for pulmonary services. Discussed case with [facility] per critical care team recommending transfer to ICU for closer monitoring. Lactic acid ordered. Dr. Mariscal is following for infectious disease. At this time patient denies any specific complaints. Patient denies nausea vomiting or diarrhea. Patient denies any urinary burning or frequency. Patient denies chest pain shortness of breath. Blood sugar 105. Patient remains afebrile. On 09/30/2018 patient currently resting comfortably in the intensive care unit. Patient does state he feels improved from yesterday. Discussed case with ICU nursing staff. Patient did receive multiple boluses throughout night with improved pressure and urine output. Patient's appetite slightly improved. At this time patient denies chest pain or shortness of breath. Patient denies nausea vomiting or diarrhea. Patient denies any urinary burning or frequency. On 10/01/2018. Patient has moved out of the intensive care unit. Patient's blood pressure much improved. Patient also states he feels slightly more improved today. Ammonia level is improving to 33. Patient remains on lactulose 3 times a day. Patient's white blood cell also elevated at 21.3 but patient is currently on hydrocortisone 50 mg twice a day per nephrology services. Infectious disease is following. At this time patient denies chest pain or shortness of breath. Patient denies nausea vomiting or diarrhea. Patient denies any urinary burning or frequency On 10/02/2018 patient was seen and examined on the medical floor is alert and oriented 3 in no apparent distress there is no fever or chills no headache or dizziness no chest pain no shortness of breath no cough no nausea or vomiting there is abdominal pain which is under good control patient had 2 bowel movements today his ammonia level is still elevated at 43 there is no urinary symptoms. On 10/03/2018 patient was seen and examined on the oncology floor he is alert and oriented 3 in no apparent distress, today he is having multiple liquid stools to dose was held, pain is well-controlled there is no fever or chills no headache or dizziness no chest pain no shortness of breath no cough no nausea or vomiting and no urinary symptoms Objective - Vital Signs Vital signs: Vital Signs Temp 97.8 F 10/03/18 12:43 Pulse 76 10/03/18 12:43 Resp 16 10/03/18 12:43 BP 125/65 10/03/18 12:43 Pulse Ox 98 10/03/18 12:43 Intake & Output 10/02/18 10/03/18 10/03/18 18:59 06:59 18:59 Intake Total 100 400 Output Total 181 6 Balance -181 94 400 Intake: Intake, IV Titration 100 Amount Piperacillin-Tazobactam 3 100 .375 gm In Sodium Chloride 0.9% 100 ml @ 25 mls/hr IVPB Q8H [facility] Rx#: [id number] Oral 400 Output: Post Void Residual 175 Stool 6 6 Other: Voiding Method Toilet Toilet Toilet Urinal Urinal Urinal # Voids 5 1 6 # Bowel Movements 5 6 - Exam Head normocephalic. Jaundice noted to thin skin Neck supple no JVD no goiter Lungs clear to auscultation bilaterally no wheezing or crackles Heart regular rate and rhythm S1-S2, no rub or gallop Abdomen is soft nontender nondistended positive bowel sounds no hepatosplenomegaly Extremities no edema Neuro alert and orientated to 3. Does appear forgetful at times - Labs CBC & Chem 7: 10/03/18 08:54 10/03/18 08:54 Labs: Abnormal Lab Results - Last 24 Hours (Table) 10/02/18 10/02/18 10/03/18 Range/Units 17:16 20:46 07:17 WBC (3.8-10.6) k/uL RBC (4.30-5.90) m/uL Hgb (13.0-17.5) gm/dL Hct (39.0-53.0) % MCV (80.0-100.0) fL MCHC (31.0-37.0) g/dL RDW (11.5-15.5) % Neutrophils # (1.3-7.7) k/uL Monocytes # (0-1.0) k/uL Chloride (98-107) mmol/L BUN (9-20) mg/dL Creatinine (0.66-1.25) mg/dL Glucose (74-99) mg/dL POC Glucose (mg/dL) 135 H 115 H 115 H (75-99) mg/dL Total Bilirubin (0.2-1.3) mg/dL AST (17-59) U/L ALT (21-72) U/L Alkaline Phosphatase (38-126) U/L Ammonia (<30) umol/L Total Protein (6.3-8.2) g/dL Albumin (3.5-5.0) g/dL 10/03/18 10/03/18 10/03/18 Range/Units 08:54 08:54 08:54 WBC 21.2 H (3.8-10.6) k/uL RBC 2.97 L (4.30-5.90) m/uL Hgb 9.1 L (13.0-17.5) gm/dL Hct 30.0 L (39.0-53.0) % MCV 101.1 H (80.0-100.0) fL MCHC 30.3 L (31.0-37.0) g/dL RDW 18.1 H (11.5-15.5) % Neutrophils # 18.7 H (1.3-7.7) k/uL Monocytes # 1.1 H (0-1.0) k/uL Chloride 113 H (98-107) mmol/L BUN 42 H (9-20) mg/dL Creatinine 1.53 H (0.66-1.25) mg/dL Glucose 107 H (74-99) mg/dL POC Glucose (mg/dL) (75-99) mg/dL Total Bilirubin 3.1 H (0.2-1.3) mg/dL AST 86 H (17-59) U/L ALT 74 H (21-72) U/L Alkaline Phosphatase 366 H (38-126) U/L Ammonia 33 H (<30) umol/L Total Protein 5.8 L (6.3-8.2) g/dL Albumin 2.8 L (3.5-5.0) g/dL 10/03/18 Range/Units 12:41 WBC (3.8-10.6) k/uL RBC (4.30-5.90) m/uL Hgb (13.0-17.5) gm/dL Hct (39.0-53.0) % MCV (80.0-100.0) fL MCHC (31.0-37.0) g/dL RDW (11.5-15.5) % Neutrophils # (1.3-7.7) k/uL Monocytes # (0-1.0) k/uL Chloride (98-107) mmol/L BUN (9-20) mg/dL Creatinine (0.66-1.25) mg/dL Glucose (74-99) mg/dL POC Glucose (mg/dL) 123 H (75-99) mg/dL Total Bilirubin (0.2-1.3) mg/dL AST (17-59) U/L ALT (21-72) U/L Alkaline Phosphatase (38-126) U/L Ammonia (<30) umol/L Total Protein (6.3-8.2) g/dL Albumin (3.5-5.0) g/dL Microbiology - Last 24 Hours (Table) 09/26/18 14:12 Blood Culture - Final Blood No Growth after 144 hours Assessment and Plan Plan: 1. Acute nonoliguric kidney injury. Dr. Johnson following for nephrology services. Initial creatinine 5.28 and bun 51. Nephrology services renal ultrasound has been ordered. Patient's home Norvasc and Cozaar DC'd. Patient Vicoprofen also on hold. Creatinine is improving to 3.66. hydrocortisone 50 mg 3 times a day has been added per nephrology services. 2. Leukocytosis with possible sepsis. CBC 16.8 Chest x-ray completed showing chronic changes without evidence for acute pulmonary disease. Infectious disease has been consulted. Patient started on Zosyn and Levaquin. Blood, sputum and urine culture ordered. Repeat lactic acid 1.1 3. metastatic adenocarcinoma of the pancreas. Patient did receive first round of chemotherapy mFolfirinox on 09/17/2018. 4. Elevated liver enzymes likely related to the metastases disease 5. Elevated ammonia level. Lactulose has been added. Ammonia level increased to 66. Lactulose has been increased to 3 times a day. Repeat lactic level XXXIII continue to monitor daily 6. Chest pain. Troponin 0.080 and 0.063. Cardiology consulted. EKG completed showing normal sinus rhythm right bundle branch block. 2-D echo completed showing an EF of 60-65%. Per cardiology services EKG showing QTC prolonged. Recommend no further cardiac workup. Avoid use of multiple QT prolonging drugs such as promethazine and Zofran. 7. History of DVT and PE. Patient maintained on eliquis' 8. Increased confusion likely due to infection and elevated ammonia level. Head CT was completed showing age-related atrophic and chronic small vessel ischemic change without acute intracranial process seen at this time. 9. Metabolic acidosis secondary to acute kidney injury. Sodium bicarb has been added per nephrology services 10. History of essential hypertension. Home medication of metoprolol resumed with parameters 11. History of hyperlipidemia 12. Iron deficiency anemia. Patient will be given Ferrlecit per nephrology 14. Hypotension. Patient received multiple fluid boluses throughout night. Blood pressure improved. Parameters set to Metroprolol 15. Poor dietary intake. Will consult dietitian at this time DVT prophylaxis eliquis. GI prophylaxis Protonix
--- NOTE | 2018-10-03 15:55 | PN ---
PROGRESS NOTE DATE OF SERVICE: October 03, 2018. CHIEF COMPLAINT: Diarrhea. Shay is seen today as a followup. He continues to have diarrhea secondary to lactulose, but overall he feels better. He is overall tired but better. No nausea or vomiting. No melena. No hematochezia, or hemoptysis or hematemesis. CURRENT MEDICATION: Reviewed in his electronic medical record. PHYSICAL EXAMINATION: He is alert, oriented x3. He does not appear to be in distress at this time. His vital signs are: Temperature 97.8, afebrile, pulse 76, regular, respirations 16, blood pressure 125/65. HEENT: Normocephalic, atraumatic. He has obvious scleral icterus. NECK: Supple. Chest equal expansion bilaterally. LUNGS: Clear to auscultation. Heart is regular rate and rhythm. ABDOMEN: Soft. He has tenderness in the right upper quadrant. Extremities reveal trace edema. Skin no significant bruise or petechiae. LABORATORY DATA: From today, sodium 144, potassium 3.6, chloride 113, BUN is 42, creatinine 1.53. Total bilirubin 3.1, AST is 87, ALT is 74, alkaline phosphatase 366. IMPRESSION: 1. Metastatic pancreatic or biliary carcinoma. The patient received his 1st cycles of FOLFIRINOX regimen about 2 weeks ago. 2. Increased ammonia level and causing change in his mental status. This has improved and his mental status has improved significantly as well with treatment of lactulose and his ammonia level has improved significantly. I suspect the patient has underlying hepatocellular disease related to previous heavy drinking in addition to his underlying metastatic disease to his liver. 3. Acute kidney injury. This is also improving. 4. Leukocytosis, this is reactive. The patient did receive Neulasta in the outpatient setting after his last cycle of chemotherapy and clinically there is no evidence to suggest underlying sepsis. 5. Multiple comorbidities. RECOMMENDATION: 1. Continue with lactulose as ordered. 2. Continue supportive care. 3. In regard to further systemic, treatment currently on hold due to poor tolerance and waiting improvement in his performance status. Modify dose FOLFIRINOX should be considered or alternatively switching to a different combination regimen like Gemzar and . The patient will meet with Dr. Dennis in the outpatient setting after discharge for further recommendation in regard to systemic treatment. The above was discussed with the patient. I have answered all his questions. MMODL / IJN: [id number] /
[2018-10-03 16:59] LABS: Glucose,Whole Blood 125 mg/dL (75-99)
[2018-10-03 20:38] LABS: Glucose,Whole Blood 114 mg/dL (75-99)
[2018-10-03] MEDS: METOPROLOL TARTRATE 12.5 MG TAB PO SCH (20:55)
[2018-10-03] MEDS: MELATONIN 3 MG TABLET PO SCH (20:56)
--- NOTE | 2018-10-04 00:19 | PN ---
PROGRESS NOTE DATE OF SERVICE: 10/03/2018. REASON FOR EVALUATION: Elevated liver enzymes and questionably antibiotic related. INTERVAL HISTORY: I was asked to re-evaluate the patient because of his worsening liver enzymes and possibly related to his antibiotic. The patient is currently receiving both Zosyn and Levaquin. The patient is a 68-year-old male who did have a history of metastatic pancreatic/biliary carcinoma with mets to the liver, who recently completed first cycle of Floranex chemotherapy. He was admitted to the hospital with mental status changes and concern for possible diabetic neuropathy. The patient did have elevated white count, more likely due to Neulasta, and his cultures remain to be negative. The patient has been afebrile throughout his hospital stay. The patient currently denies having any headaches, denies any chest pain or shortness of breath, cough. No nausea or vomiting. No abdominal pain or any diarrhea. REVIEW OF SYSTEMS: Positive points have been mentioned in HPI. The rest of the systems have been negative. PAST MEDICAL HISTORY AND SURGICAL HISTORY: Reviewed, no change. MEDICATION: Reviewed. PHYSICAL EXAMINATION: Blood pressure 125/65, pulse of 73, temperature 97.8. He is 98% on room air. GENERAL DESCRIPTION: An elderly male lying in bed in no distress. HEENT: Pallor. No scleral icterus. Oral mucosa dry. LUNGS: Unlabored breathing. Clear to auscultation anteriorly. HEART: S1, S2. Regular rate and rhythm. No guarding or rigidity. No organomegaly. EXTREMITIES: No edema of the feet. LABS: Hemoglobin 9.1, white count 1.2 with a BUN of 42, creatinine 1.53. The patient's bilirubin is 3.1. AST 86, ALT 74. Sputum with Mahi albicans. Blood culture has been negative. DIAGNOSTIC IMPRESSION AND PLAN: Patient with elevated liver enzymes, which is likely multifactorial. The patient did have a history of metastatic pancreatic/biliary cancer with metastases to the liver, could be related to his mets. However, medication especially antibiotic, could be ineffective in this patient currently with no clear focus of infection. The Zosyn can be safely discontinued. Ultrasound of the liver and gallbladder has been requested. The patient will be followed by Dr. Mariscal as of tomorrow. Family was present at bedside. Questions were answered. MMODL / IJN: [id number] /
[2018-10-04] MEDS: ALPRAZolam 0.5 MG TAB PO PRN (01:09)
[2018-10-04 07:11] LABS: Anisocytosis Slight; Basophils % (A) 0 %; Eosinophils % (A) 0 %; HCT 27.4 % (39.0-53.0); HGB 8.6 gm/dL (13.0-17.5); Hypochromasia Slight; Lymphocytes # (A) 1.5 k/uL (1.0-4.8); Lymphocytes % (A) 10 %; MCH 30.8 pg (25.0-35.0); MCHC 31.3 g/dL (31.0-37.0); MCV 98.4 fL (80.0-100.0); Macrocytosis Slight; Monocytes % (A) 7 %; Neutrophils # (A) 12.9 k/uL (1.3-7.7); Neutrophils % (A) 81 %; Platelet Count 148 k/uL (150-450); RBC 2.78 m/uL (4.30-5.90); RDW 18.3 % (11.5-15.5); WBC 15.9 k/uL (3.8-10.6)
[2018-10-04 07:12] LABS: Glucose,Whole Blood 86 mg/dL (75-99)
[2018-10-04] MEDS: INSULIN ASPART 100 UNIT/ML 1 ML 10 ML VIAL SQ SCH ×4 (07:18→20:41)
[2018-10-04 07:19] LABS: Calcium 8.5 mg/dL (8.4-10.2); Magnesium 2.1 mg/dL (1.6-2.3); Potassium 3.2 mmol/L (3.5-5.1)
[2018-10-04] MEDS: LEVOFLOXACIN 250 MG TAB PO SCH (08:09)
[2018-10-04] MEDS: DOCUSATE 100 MG CAP PO SCH ×2 (08:09→20:40)
[2018-10-04] MEDS: APIXABAN 5 MG TAB PO SCH ×2 (08:09→20:40)
[2018-10-04] MEDS: MORPHINE SULFATE ER 30 MG TABLET PO SCH ×3 (08:09→22:15)
[2018-10-04] MEDS: SODIUM BICARBONATE TAB 650 MG TAB PO SCH ×2 (08:10→20:40)
[2018-10-04] MEDS: TAMSULOSIN 0.4 MG CAP.ER.24H PO SCH (08:10)
[2018-10-04] MEDS: FAMOTIDINE 20 MG TAB PO SCH ×2 (08:10→20:40)
--- NOTE | 2018-10-04 11:13 | P.PN ---
Subjective Progress Note Date: 10/04/18 Principal diagnosis: sepsis, metabolic derangement, s/p chemo for metastatic pancreatic adenocarcinoma Patient seen today in follow-up. He is feeling a little frustrated but, family states he is certainly more clear in his thinking process. Patient is tolerating oral intake, denies pain, fevers, nausea, difficulty breathing, indigestion or heartburn, abdominal discomfort, acute changes in bowel or bladder habits. Objective - Vital Signs Vital signs: Vital Signs Temp 97.6 F 10/04/18 05:00 Pulse 89 10/04/18 05:00 Resp 16 10/04/18 05:00 BP 87/63 10/04/18 05:00 Pulse Ox 92 L 10/04/18 05:00 Intake & Output 10/03/18 10/04/18 10/04/18 18:59 06:59 18:59 Intake Total 400 Output Total 6 500 Balance 394 -500 Intake: Oral 400 Output: Urine 500 Stool 6 Other: Voiding Method Toilet Toilet Toilet Urinal Urinal Urinal # Voids 6 2 # Bowel Movements 6 - Constitutional General appearance: Present: cooperative, no acute distress, obese - EENT EENT Comment(s): Scleral icterus improved, stable Eyes: Present: EOMI ENT: Present: hearing grossly normal - Respiratory Respiratory: bilateral: CTA - Cardiovascular Heart sounds: normal: S1, S2 - Peripheral edema leg Peripheral Edema: bilateral: Trace - Gastrointestinal General gastrointestinal: Present: hepatomegaly, normal bowel sounds, soft - Integumentary Integumentary: Present: jaundiced - Neurologic Neurologic: Present: CNII-XII intact - Musculoskeletal Musculoskeletal: Present: generalized weakness - Psychiatric Psychiatric: Present: A&O x's 3, appropriate affect, intact judgment & insight - Labs CBC & Chem 7: 10/04/18 06:48 10/04/18 06:48 Labs: Abnormal Lab Results - Last 24 Hours (Table) 10/03/18 10/03/18 10/03/18 Range/Units 12:41 16:58 20:36 WBC (3.8-10.6) k/uL RBC (4.30-5.90) m/uL Hgb (13.0-17.5) gm/dL Hct (39.0-53.0) % RDW (11.5-15.5) % Plt Count (150-450) k/uL Neutrophils # (1.3-7.7) k/uL Potassium (3.5-5.1) mmol/L Chloride (98-107) mmol/L BUN (9-20) mg/dL POC Glucose (mg/dL) 123 H 125 H 114 H (75-99) mg/dL 10/04/18 10/04/18 Range/Units 06:48 06:48 WBC 15.9 H (3.8-10.6) k/uL RBC 2.78 L (4.30-5.90) m/uL Hgb 8.6 L (13.0-17.5) gm/dL Hct 27.4 L (39.0-53.0) % RDW 18.3 H (11.5-15.5) % Plt Count 148 L (150-450) k/uL Neutrophils # 12.9 H (1.3-7.7) k/uL Potassium 3.2 L (3.5-5.1) mmol/L Chloride 112 H (98-107) mmol/L BUN 34 H (9-20) mg/dL POC Glucose (mg/dL) (75-99) mg/dL Assessment and Plan (1) Hyperuricemia Current Visit: Yes Status: Resolved Priority: High Code(s): E79.0 - HYPERURICEMIA W/O SIGNS OF INFLAM ARTHRIT AND TOPHACEOUS DIS SNOMED Code(s): 53155121 (2) Acute renal failure Current Visit: Yes Status: Resolved Priority: High Code(s): N17.9 - ACUTE KIDNEY FAILURE, UNSPECIFIED SNOMED Code(s): 64995721 (3) Metastatic adenocarcinoma Narrative/Plan: Patient is status post his first treatment for metastatic adenocarcinoma of the upper GI origin. She had significant involvement of the liver with disease. Patient presentation is not completely uncommon when there is a high disease burden in the liver. Patient labs have improved with supportive care. Recommend rehabilitation as weakness is patient's main complaint. Patient is being evaluated by Dr. Degroot. Plan is to follow up with Dr. Dennis for plans for next treatment. Current Visit: Yes Status: Acute Priority: High Code(s): C79.9 - SECONDARY MALIGNANT NEOPLASM OF UNSPECIFIED SITE SNOMED Code(s): 314596076 (4) Increased ammonia level Current Visit: Yes Status: Resolved Priority: High Code(s): R79.89 - OTHER SPECIFIED ABNORMAL FINDINGS OF BLOOD CHEMISTRY SNOMED Code(s): 193966170 Plan: Pending ultrasound of the liver Pending evaluation by Dr. Degroot Patient is okay from a heme/standpoint to be discharged once he is cleared by attending and consulting physicians. Patient's treatment plan will be on hold if he does go to rehab until he has been discharged.
[2018-10-04 11:28] LABS: Glucose,Whole Blood 95 mg/dL (75-99)
--- NOTE | 2018-10-04 14:00 | P.PN ---
Subjective Progress Note Date: 10/04/18 This is a 68-year-old male patient who presented to the emergency room with complaints of increased confusion and weakness. Patient recently diagnosed with a periodic cancer with evidence of liver metastases. Patient underwent chemotherapy on September 17 and started to become a week and had increased confusion per . Patient was found to be in acute kidney injury with creatinine of 5.28 bun at 50. Patient is currently on eliquis for DVT and PE. Patient also found to have elevated white blood cell count. Patient currently on IV antibiotics and infectious disease following. On 09/27/2018 patient currently resting in bed. is at bedside. Patient reports he still is confused at times forgetting the date. Patient also complaining of chest discomfort at this time patient describes is intermittent sharp pain in chest. Patient is currently on the telemetry floor. Will repeat cardiac enzymes and consult cardiology. Oncology services also consulted. Patient will be started on lactulose for elevated ammonia level. Repeat ammonia level has been ordered. Nephrology services are following. At this time patient denies shortness of breath. Patient denies nausea vomiting or diarrhea. Patient denies any urinary burning or frequency. On 09/28/2018 patient is currently resting in bed. Patient does state he feels slightly improved from yesterday. Family currently at bedside. At this time patient denies any chest pain or shortness of breath. Patient denies nausea vomiting or diarrhea. Patient denies any urinary burning or frequency. 09/29/2018 patient currently resting in bed. Patient hypotensive at this time with blood pressure in the 70s 80s. Patient also diaphoretic. 500 mL bolus has been ordered. Consulted Dr. Fernandez for pulmonary services. Discussed case with [facility] per critical care team recommending transfer to ICU for closer monitoring. Lactic acid ordered. Dr. Mariscal is following for infectious disease. At this time patient denies any specific complaints. Patient denies nausea vomiting or diarrhea. Patient denies any urinary burning or frequency. Patient denies chest pain shortness of breath. Blood sugar 105. Patient remains afebrile. On 09/30/2018 patient currently resting comfortably in the intensive care unit. Patient does state he feels improved from yesterday. Discussed case with ICU nursing staff. Patient did receive multiple boluses throughout night with improved pressure and urine output. Patient's appetite slightly improved. At this time patient denies chest pain or shortness of breath. Patient denies nausea vomiting or diarrhea. Patient denies any urinary burning or frequency. On 10/01/2018. Patient has moved out of the intensive care unit. Patient's blood pressure much improved. Patient also states he feels slightly more improved today. Ammonia level is improving to 33. Patient remains on lactulose 3 times a day. Patient's white blood cell also elevated at 21.3 but patient is currently on hydrocortisone 50 mg twice a day per nephrology services. Infectious disease is following. At this time patient denies chest pain or shortness of breath. Patient denies nausea vomiting or diarrhea. Patient denies any urinary burning or frequency On 10/02/2018 patient was seen and examined on the medical floor is alert and oriented 3 in no apparent distress there is no fever or chills no headache or dizziness no chest pain no shortness of breath no cough no nausea or vomiting there is abdominal pain which is under good control patient had 2 bowel movements today his ammonia level is still elevated at 43 there is no urinary symptoms. On 10/03/2018 patient was seen and examined on the oncology floor he is alert and oriented 3 in no apparent distress, today he is having multiple liquid stools to dose was held, pain is well-controlled there is no fever or chills no headache or dizziness no chest pain no shortness of breath no cough no nausea or vomiting and no urinary symptoms On 10/04/2018 patient's alert and oriented 3. at bedside. Patient states he feels much improved. Patient to get liver ultrasound today per infectious disease. At this time patient denies chest pain or shortness of breath. Patient denies nausea vomiting or diarrhea. Patient denies any urinary burning or frequency Objective - Vital Signs Vital signs: Vital Signs Temp 97.7 F 10/04/18 12:21 Pulse 102 H 10/04/18 12:21 Resp 18 10/04/18 12:21 BP 133/64 10/04/18 12:21 Pulse Ox 98 10/04/18 12:21 Intake & Output 10/03/18 10/04/18 10/04/18 18:59 06:59 18:59 Intake Total 400 Output Total 6 500 Balance 394 -500 Intake: Oral 400 Output: Urine 500 Stool 6 Other: Voiding Method Toilet Toilet Toilet Urinal Urinal Urinal # Voids 6 2 # Bowel Movements 6 - Exam Head normocephalic. Jaundice noted to thin skin Neck supple Lungs clear to auscultation bilaterally no wheezing or crackles Heart regular rate and rhythm S1-S2, no rub or gallop Abdomen is soft nontender nondistended positive bowel sounds no hepatosplenomegaly Extremities no edema Neuro alert and orientated to 3. Does appear forgetful at times - Labs CBC & Chem 7: 10/04/18 06:48 10/04/18 06:48 Labs: Abnormal Lab Results - Last 24 Hours (Table) 10/03/18 10/03/18 10/04/18 Range/Units 16:58 20:36 06:48 WBC 15.9 H (3.8-10.6) k/uL RBC 2.78 L (4.30-5.90) m/uL Hgb 8.6 L (13.0-17.5) gm/dL Hct 27.4 L (39.0-53.0) % RDW 18.3 H (11.5-15.5) % Plt Count 148 L (150-450) k/uL Neutrophils # 12.9 H (1.3-7.7) k/uL Potassium (3.5-5.1) mmol/L Chloride (98-107) mmol/L BUN (9-20) mg/dL POC Glucose (mg/dL) 125 H 114 H (75-99) mg/dL 10/04/18 Range/Units 06:48 WBC (3.8-10.6) k/uL RBC (4.30-5.90) m/uL Hgb (13.0-17.5) gm/dL Hct (39.0-53.0) % RDW (11.5-15.5) % Plt Count (150-450) k/uL Neutrophils # (1.3-7.7) k/uL Potassium 3.2 L (3.5-5.1) mmol/L Chloride 112 H (98-107) mmol/L BUN 34 H (9-20) mg/dL POC Glucose (mg/dL) (75-99) mg/dL Assessment and Plan Assessment: 1. Acute nonoliguric kidney injury. Dr. Johnson following for nephrology services. Initial creatinine 5.28 and bun 51. Nephrology services renal ultrasound has been ordered. Patient's home Norvasc and Cozaar DC'd. Patient Vicoprofen also on hold. Creatinine is improving to 3.66. hydrocortisone 50 mg 3 times a day has been added per nephrology services. Had cortisone DC'd per nephrology. Creatinine 1.20 and bun 34 2. Leukocytosis with possible sepsis. CBC 16.8 Chest x-ray completed showing chronic changes without evidence for acute pulmonary disease. Per infectious disease liver of gallbladder and ultrasound has been ordered. Patient remains on Levaquin at this time. 3. metastatic adenocarcinoma of the pancreas. Patient did receive first round of chemotherapy mFolfirinox on 09/17/2018. 4. Elevated liver enzymes likely related to the metastases disease 5. Elevated ammonia level. Lactulose has been added. Ammonia level increased to 66. Lactulose has been increased to 3 times a day. Ammonia level XXIX. Lactulose has been DC'd 6. Chest pain. Troponin 0.080 and 0.063. Cardiology consulted. EKG completed showing normal sinus rhythm right bundle branch block. 2-D echo completed showing an EF of 60-65%. Per cardiology services EKG showing QTC prolonged. Recommend no further cardiac workup. Avoid use of multiple QT prolonging drugs such as promethazine and Zofran. 7. History of DVT and PE. Patient maintained on eliquis' 8. Increased confusion likely due to infection and elevated ammonia level. Head CT was completed showing age-related atrophic and chronic small vessel ischemic change without acute intracranial process seen at this time. 9. Metabolic acidosis secondary to acute kidney injury. Sodium bicarb has been added per nephrology services 10. History of essential hypertension. Home medication of metoprolol resumed with parameters 11. History of hyperlipidemia 12. Iron deficiency anemia. 14. Hypotension. Patient received multiple fluid boluses throughout night. Blood pressure improved. Parameters set to Metroprolol 15. Poor dietary intake. Will consult dietitian at this time DVT prophylaxis eliquis. GI prophylaxis Protonix Possible discharge to [facility] rehab the next 24-48 hours. I performed an examination of the patient and discussed their management with the Nurse Practitioner. I have reviewed the Nurse Practitioner's notes and agree with the documented findings and plan of care
[2018-10-04] MEDS: POTASSIUM CHLORIDE ER 20 MEQ TAB.ER PO SCH ×2 (14:24→14:25)
--- NOTE | 2018-10-04 15:08 | US ---
EXAMINATION TYPE: US abdomen limited DATE OF EXAM: 10/04/2018 COMPARISON: CT abdomen pelvis August 23, 2018 CLINICAL HISTORY: elevated liver enzymes. Pancreatic CA EXAM MEASUREMENTS: Liver Length: 21.7 cm Gallbladder Wall: 0.5 cm CBD: 1.2 cm Right Kidney: 13.0 x 5.3 x 5.1 cm Pancreas: obscured by overlying midline bowel gas Liver: enlarged, heterogeneous, multiple masses with largest measuring 5.7 x 4.3 x 4.4cm Gallbladder: sludge, thickened wall, enlarged Evidence for sonographic White's sign: no CBD: dilated Right Kidney: wnl Pancreas is suboptimally evaluated sasses obscured by overlying bowel gas per technologist on images saved. Visualized liver is heterogeneously hyperechoic making evaluation for focal masses suboptimal. Suspected metastatic disease on CT is less well seen on ultrasound. There is peripheral lobulation t o outer contour surrounding ascites suggesting pseudocirrhosis appearance likely from diffuse metasta tic disease involvement. No intrapelvic ductal dilatation is seen. Gallbladder has internal echoes lopez ggesting gallbladder sludge and/or small stones. No suspicious gallbladder wall thickening is seen. S onographic White's sign is negative. New moderate extra hepatic biliary dilatation is noted. IMPRESSION: Suspect neoplastic progression with pseudocirrhosis appearance of liver and surrounding a scites. New moderate extra hepatic biliary dilatation is present. Suspect progression in size of panc reatic neoplasm now causing biliary obstruction.
--- NOTE | 2018-10-04 17:07 | PN ---
PROGRESS NOTE Patient is seen for followup for acute kidney injury. His renal function has improved significantly with creatinine is down to 1.2 from 5.28 on initial admission. Currently, patient is awake comfortable. He denies any complaints. Blood pressure this morning was 133/64, heart rate 102 per minute. He is afebrile. Examination of the heart S1, S2. Examination of the lungs bilateral breath sounds are heard. Abdomen is soft, nontender. Exam of lower extremities shows edema 1+ bilaterally. SHIRT HEMMER exam is grossly intact. LAB: Show sodium 141, potassium 3.2, BUN 34, serum creatinine 1.2, hemoglobin 8.6 g/ dL. ASSESSMENT: 1. Acute kidney injury secondary to hypotension and urine retention. There was volume depletion initially. The patient does have edema, which is mainly attributed to hypoalbuminemia. His lungs have been clear. 2. Pancreatic cancer status post chemotherapy. PLAN: Maintain good oral intake. Continue with sodium bicarb for metabolic acidosis. Increase activity. Repeat labs in a.m. The edema has improved according to the patient and family. Therefore, I will hold off on the Lasix for now. MMODL / IJN: [id number] / MTDD
[2018-10-04 17:32] LABS: Glucose,Whole Blood 114 mg/dL (75-99)
[2018-10-04] MEDS: MELATONIN 3 MG TABLET PO SCH (20:40)
--- NOTE | 2018-10-04 20:40 | P.PN ---
Subjective Progress Note Date: 10/04/18 68-year-old male who in July 2018 developed a deep venous thrombosis of the left lower extremity. Upon evaluation there is evidence of an extensive deep venous thrombosis as well as superficial clots to the right upper extremity. The patient was counseling evaluated by hematology for hypercoagulable state. There was no significant medical condition that was chronic or medications as an etiology. Constantly workup continued including a computed tomography scan there revealed evidence of lesions within the liver and hepatic area. 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 Because of this the patient was then followed by oncology and his port placed. On 09/13/2018 received his first cycle of mFOLFIRINOX as well as Neulasta. The patient however presents to Hospital acutely ill. The family related the patient became confused and weak, and constantly was brought to the emergency center where there is evidence of increased bilirubin with jaundice, and acute renal failure with a creatinine of 5.28. Because of the leukocytosis the infectious diseases consultation was requested with concerns to sepsis given the recent chemotherapy and significant underlying illness. 09/30/2018 patient is now improved. He is awake alert oriented to person place and does struggle with time. But is able to relate The correct date and time eventually. His mentation is markedly improved from the last evaluation. Patient's ammonia level has dropped from 66 down to 33. 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 He is now showing marked improvement. Still has leukocytosis. 10/04/2018 there is noted improvement. Was evaluated over the weekend with concerns to increased AST ALT. In is noted the patient's underlying metastatic adenocarcinoma the recent chemotherapy and tumor lysis syndrome remain the most likely sources. Objective - Vital Signs Vital signs: Vital Signs Temp 97.7 F 10/04/18 12:21 Pulse 102 H 10/04/18 12:21 Resp 18 10/04/18 12:21 BP 133/64 10/04/18 12:21 Pulse Ox 98 10/04/18 12:21 Intake & Output 10/04/18 10/04/18 10/05/18 06:59 18:59 06:59 Intake Total 700 Output Total 500 Balance -500 700 Intake: Intake, IV Titration 100 Amount Piperacillin-Tazobactam 3 100 .375 gm In Sodium Chloride 0.9% 100 ml @ 25 mls/hr IVPB Q8H [facility] Rx#: [id number] Oral 600 Output: Urine 500 Other: Voiding Method Toilet Toilet Urinal Urinal # Voids 2 3 - Exam 68-year-old male not in distress HEENT: Evidence of jaundice, conjunctiva are pink and moist nasal mucosa grossly intact without significant lesions, there is no thrush. But there is evidence of some mild mucositis with irritation to the oral cavity but no open ulcerations Neck: The neck is supple without significant lymphadenopathy or thyromegaly. Lungs: Good bilateral air entry without significant crackles or wheezing. There is no significant bronchial sounds. There is no egophony or dullness. Heart: Regular rate and rhythm with an audible S1-S2, no S3 no S4. There is no significant murmur click or rub, PMI was nondisplaced. Abdomen: Mildly distended with positive bowel sounds soft without palpable mass or organomegaly Extremities: The upper extremities have excellent pulses they are symmetric, no significant petechiae or telangiectasia. No splinter hemorrhages were noted. The lower extremities are free from significant edema. The peripheral pulses were 2+ and symmetric. Neuro: Awake alert oriented to person still some confusion No focal deficits noted. This apparently is much improved from admission. - Labs CBC & Chem 7: 10/04/18 06:48 10/04/18 06:48 Labs: Abnormal Lab Results - Last 24 Hours (Table) 10/03/18 10/04/18 10/04/18 Range/Units 20:36 06:48 06:48 WBC 15.9 H (3.8-10.6) k/uL RBC 2.78 L (4.30-5.90) m/uL Hgb 8.6 L (13.0-17.5) gm/dL Hct 27.4 L (39.0-53.0) % RDW 18.3 H (11.5-15.5) % Plt Count 148 L (150-450) k/uL Neutrophils # 12.9 H (1.3-7.7) k/uL Potassium 3.2 L (3.5-5.1) mmol/L Chloride 112 H (98-107) mmol/L BUN 34 H (9-20) mg/dL POC Glucose (mg/dL) 114 H (75-99) mg/dL 10/04/18 Range/Units 17:26 WBC (3.8-10.6) k/uL RBC (4.30-5.90) m/uL Hgb (13.0-17.5) gm/dL Hct (39.0-53.0) % RDW (11.5-15.5) % Plt Count (150-450) k/uL Neutrophils # (1.3-7.7) k/uL Potassium (3.5-5.1) mmol/L Chloride (98-107) mmol/L BUN (9-20) mg/dL POC Glucose (mg/dL) 114 H (75-99) mg/dL Laboratory Results WBC 15.9 k/uL (3.8-10.6) H 10/04/18 06:48 RBC 2.78 m/uL (4.30-5.90) L 10/04/18 06:48 Hgb 8.6 gm/dL (13.0-17.5) L 10/04/18 06:48 Hct 27.4 % (39.0-53.0) L 10/04/18 06:48 MCV 98.4 fL (80.0-100.0) 10/04/18 06:48 MCH 30.8 pg (25.0-35.0) 10/04/18 06:48 MCHC 31.3 g/dL (31.0-37.0) 10/04/18 06:48 RDW 18.3 % (11.5-15.5) H 10/04/18 06:48 Plt Count 148 k/uL (150-450) L 10/04/18 06:48 Neutrophils % 81 % 10/04/18 06:48 Neutrophils % (Manual) 97 % 09/30/18 05:49 Lymphocytes % 10 % 10/04/18 06:48 Lymphocytes % (Manual) 1 % 09/30/18 05:49 Monocytes % 7 % 10/04/18 06:48 Monocytes % (Manual) 2 % 09/30/18 05:49 Eosinophils % 0 % 10/04/18 06:48 Basophils % 0 % 10/04/18 06:48 Neutrophils # 12.9 k/uL (1.3-7.7) H 10/04/18 06:48 Neutrophils # (Manual) 18.04 k/uL (1.3-7.7) H 09/30/18 05:49 Lymphocytes # 1.5 k/uL (1.0-4.8) 10/04/18 06:48 Lymphocytes # (Manual) 0.19 k/uL (1.0-4.8) L 09/30/18 05:49 Monocytes # 1.0 k/uL (0-1.0) 10/04/18 06:48 Monocytes # (Manual) 0.37 k/uL (0-1.0) 09/30/18 05:49 Eosinophils # 0.0 k/uL (0-0.7) 10/04/18 06:48 Basophils # 0.0 k/uL (0-0.2) 10/04/18 06:48 Nucleated RBCs 0 /100 WBC (0-0) 09/30/18 05:49 Manual Slide Review Performed 09/30/18 05:49 Hypochromasia Slight 10/04/18 06:48 Anisocytosis Slight 10/04/18 06:48 Macrocytosis Slight 10/04/18 06:48 PT 14.9 sec (9.0-12.0) H 09/28/18 06:04 INR 1.5 (<1.2) H 09/28/18 06:04 APTT 26.9 sec (22.0-30.0) 09/28/18 06:04 Sodium 141 mmol/L (137-145) 10/04/18 06:48 Potassium 3.2 mmol/L (3.5-5.1) L 10/04/18 06:48 Chloride 112 mmol/L (98-107) H 10/04/18 06:48 Carbon Dioxide 22 mmol/L (22-30) 10/04/18 06:48 Anion Gap 7 mmol/L 10/04/18 06:48 BUN 34 mg/dL (9-20) H 10/04/18 06:48 Creatinine 1.20 mg/dL (0.66-1.25) 10/04/18 06:48 Est GFR (CKD-EPI)AfAm 71 (>60 ml/min/1.73 sqM) 10/04/18 06:48 Est GFR (CKD-EPI)NonAf 62 (>60 ml/min/1.73 sqM) 10/04/18 06:48 Glucose 91 mg/dL (74-99) 10/04/18 06:48 POC Glucose (mg/dL) 114 mg/dL (75-99) H 10/04/18 17:26 POC Glu Cracking Machine Operator ID Lynn Booker 10/04/18 17:[address] Glu mg/dL 82 09/30/18 05:49 Hemoglobin A1c 4.5 % (4.0-6.0) 09/30/18 05:49 Plasma Lactic Acid Uriah 1.1 mmol/L (0.7-2.0) 09/29/18 07:03 Uric Acid 4.0 mg/dL (3.5-8.5) 10/03/18 08:54 Calcium 8.5 mg/dL (8.4-10.2) 10/04/18 06:48 Phosphorus 3.0 mg/dL (2.5-4.5) 10/04/18 06:48 Magnesium 2.1 mg/dL (1.6-2.3) 10/04/18 06:48 Iron 30 ug/dL (65-175) L 09/27/18 08:52 TIBC 224 ug/dL (228-460) L 09/27/18 08:52 Iron Saturation 13.39 (15.00-50.00) L 09/27/18 08:52 Ferritin 1196.4 ng/mL (22.0-322.0) H 09/27/18 08:52 Total Bilirubin 3.1 mg/dL (0.2-1.3) H 10/03/18 08:54 AST 86 U/L (17-59) H 10/03/18 08:54 ALT 74 U/L (21-72) H 10/03/18 08:54 Alkaline Phosphatase 366 U/L (38-126) H 10/03/18 08:54 Ammonia 29 umol/L (<30) 10/04/18 06:57 Lactate Dehydrogenase 1155 U/L (313-618) H 09/27/18 18:25 Total Creatine Kinase 80 U/L (55-170) 09/26/18 08:55 CK-MB (CK-2) 1.9 ng/mL (0.0-2.4) 09/26/18 08:55 CK-MB (CK-2) Rel Index 2.4 09/26/18 08:55 Troponin I 0.063 ng/mL (0.000-0.034) H* 09/27/18 23:15 Total Protein 5.8 g/dL (6.3-8.2) L 10/03/18 08:54 Albumin 2.8 g/dL (3.5-5.0) L 10/03/18 08:54 CA 19-9 Antigen >47057.0 U/mL (0.0-34.9) H 09/28/18 06:04 Cortisol 13 ug/dL 09/29/18 07:03 Urine Color Dark Brown 09/26/18 12:30 Urine Appearance Cloudy (Clear) 09/26/18 12:30 Urine pH 5.0 (5.0-8.0) 09/26/18 12:30 Ur Specific [place] 1.019 (1.001-1.035) 09/26/18 12:30 Urine Protein 1+ (Negative) H 09/26/18 12:30 Urine Glucose (UA) Negative (Negative) 09/26/18 12:30 Urine Ketones Negative (Negative) 09/26/18 12:30 Urine Blood Trace (Negative) H 09/26/18 12:30 Urine Nitrite Negative (Negative) 09/26/18 12:30 Urine Bilirubin 1+ (Negative) H 09/26/18 12:30 Urine Urobilinogen 2.0 mg/dL (<2.0) 09/26/18 12:30 Ur Leukocyte Esterase Negative (Negative) 09/26/18 12:30 Urine RBC 1 /hpf (0-5) 09/26/18 12:30 Urine WBC 3 /hpf (0-5) 09/26/18 12:30 Ur Squamous Epith Cells <1 /hpf (0-4) 09/26/18 12:30 Amorphous Sediment Moderate /hpf (None) H 09/26/18 12:30 Hyaline Casts 5 /lpf (0-2) H 09/26/18 12:30 Urine Mucus Rare /hpf (None) H 09/26/18 12:30 Urine Opiates Screen Detected (NotDetected) H 09/26/18 12:30 Ur Oxycodone Screen Not Detected (NotDetected) 09/26/18 12:30 Urine Methadone Screen Not Detected (NotDetected) 09/26/18 12:30 Ur Propoxyphene Screen Not Detected (NotDetected) 09/26/18 12:30 Ur Barbiturates Screen Not Detected (NotDetected) 09/26/18 12:30 U Tricyclic Antidepress Not Detected (NotDetected) 09/26/18 12:30 Ur Phencyclidine Scrn Not Detected (NotDetected) 09/26/18 12:30 Ur Amphetamines Screen Not Detected (NotDetected) 09/26/18 12:30 U Methamphetamines Scrn Not Detected (NotDetected) 09/26/18 12:30 U Benzodiazepines Scrn Detected (NotDetected) H 09/26/18 12:30 Urine Cocaine Screen Not Detected (NotDetected) 09/26/18 12:30 U Marijuana (THC) Screen Not Detected (NotDetected) 09/26/18 12:30 Microbiology 09/26/18 14:12 Blood Blood Culture - Final No Growth after 144 hours 09/27/18 18:12 Sputum Gram Stain - Final 09/27/18 18:12 Sputum Sputum Culture - Final Mahi albicans 09/27/18 09:15 Urine,Catheterized Urine Culture - Final Assessment and Plan (1) Metastatic adenocarcinoma Current Visit: Yes Status: Acute Priority: High Code(s): C79.9 - SECONDARY MALIGNANT NEOPLASM OF UNSPECIFIED SITE SNOMED Code(s): 109925496 (2) Altered mental status Narrative/Plan: Pleasant 68-year-old male presents to Hospital with the care of his 2 adult daughters because of worsening mental status. The related couple of days before coming to hospital he seemed to be getting weaker it was starting to have difficulties with some routine activities. Since chemotherapy he has not been eating very well and because he became so weak that brought him to the emergency center. Upon arrival there is evidence of acute renal failure which is new and leukocytosis. the infectious diseases consultation was requested. With hydration the patient fortunately is having an improvement of his significant acute renal failure. The elevated bilirubin also seems to be improving with the treatment. Oral cavity is uncomfortable as for salt and soda mouthwash can be used as needed to improve his oral cavity discomforts. Antibiotic therapy has been initiated because of concerns of sepsis at admission. Cultures are in process and will direct rapid de-escalation of antibiotic therapy. Ultrasound reveals evidence of no new acute obstruction. With lactulose there has been some improvement of his mental status as well as with hydration. Hypercoagulable state due to his underlying metastatic pancreatic cancer is being treated with eliquis was then followed by hematology oncology. September 30 2018 patient is now had a marked improvement of his altered mental status, the tumor lysis syndrome is improving in that his ammonia is improving, his acute renal failure is improving in his mouth feels better. With a marked improvement will start to de-escalate antibiotic therapy. Zosyn can be discontinued without evidence of significant pneumonia or bacteremia or sepsis. October 04 2018 reveals patient to have some further improvement. Oncology has been reviewing and apparently making plans for his transfer to rehab. As noted at this time cultures are negative but there was certainly concerns for sepsis at admissioncomplete a total of 7 days of Levaquin, pharmacy has dose adjusted with his improved renal function to 500 mg a day. Tomorrow would be the last day of Levaquin. As requested Zosyn has been stopped several days prior. The patient's ammonia level is improving more consistently allowing some improvement of his mental status. Tumor lysis syndrome seems to be improving and acute renal failure has resolved. Current Visit: Yes Status: Acute Code(s): R41.82 - ALTERED MENTAL STATUS, UNSPECIFIED SNOMED Code(s): 425554109 (3) Acute renal failure Current Visit: Yes Status: Resolved Priority: High Code(s): N17.9 - ACUTE KIDNEY FAILURE, UNSPECIFIED SNOMED Code(s): 05188269
[2018-10-04] MEDS: METOPROLOL TARTRATE 12.5 MG TAB PO SCH (20:41)
[2018-10-04 20:48] LABS: Glucose,Whole Blood 112 mg/dL (75-99)
--- NOTE | 2018-10-04 22:31 | P.PN ---
Subjective Progress Note Date: 10/04/18 Principal diagnosis: Confusion, pancreatic/biliary cancer Patient feeling well today. No reported confusion. Tolerating diet. No abdominal pain. Objective - Vital Signs Vital signs: Vital Signs Temp 97.2 F L 10/04/18 21:00 Pulse 93 10/04/18 21:00 Resp 17 10/04/18 21:00 BP 101/63 10/04/18 21:00 Pulse Ox 96 10/04/18 21:00 Intake & Output 10/04/18 10/04/18 10/05/18 06:59 18:59 06:59 Intake Total 700 Output Total 500 Balance -500 700 Intake: Intake, IV Titration 100 Amount Piperacillin-Tazobactam 3 100 .375 gm In Sodium Chloride 0.9% 100 ml @ 25 mls/hr IVPB Q8H [facility] Rx#: [id number] Oral 600 Output: Urine 500 Other: Voiding Method Toilet Toilet Urinal Urinal # Voids 2 3 - Exam On physical examination, patient appears comfortable in no apparent distress. HEAD: Normocephalic, atraumatic. EYES: No scleral icterus. No conjunctival injection. MOUTH: No lesions, tongue midline. NECK: Trachea midline, no gross abnormalities. CHEST: Clear to auscultation with no wheezing or rhonchi appreciated. HEART: Regular rate and rhythm. ABDOMEN: Soft, obese. Bowel sounds are positive. No organomegaly. No guarding or rigidity. EXTREMITIES: No pedal edema. SKIN: No rashes, no jaundice. NEUROLOGIC: Alert and oriented x3. No asterixis noted. - Labs CBC & Chem 7: 10/04/18 06:48 10/04/18 06:48 Labs: Abnormal Lab Results - Last 24 Hours (Table) 10/04/18 10/04/18 10/04/18 Range/Units 06:48 06:48 17:26 WBC 15.9 H (3.8-10.6) k/uL RBC 2.78 L (4.30-5.90) m/uL Hgb 8.6 L (13.0-17.5) gm/dL Hct 27.4 L (39.0-53.0) % RDW 18.3 H (11.5-15.5) % Plt Count 148 L (150-450) k/uL Neutrophils # 12.9 H (1.3-7.7) k/uL Potassium 3.2 L (3.5-5.1) mmol/L Chloride 112 H (98-107) mmol/L BUN 34 H (9-20) mg/dL POC Glucose (mg/dL) 114 H (75-99) mg/dL 10/04/18 Range/Units 20:34 WBC (3.8-10.6) k/uL RBC (4.30-5.90) m/uL Hgb (13.0-17.5) gm/dL Hct (39.0-53.0) % RDW (11.5-15.5) % Plt Count (150-450) k/uL Neutrophils # (1.3-7.7) k/uL Potassium (3.5-5.1) mmol/L Chloride (98-107) mmol/L BUN (9-20) mg/dL POC Glucose (mg/dL) 112 H (75-99) mg/dL Assessment and Plan (1) Elevated liver enzymes Narrative/Plan: Stable elevation of the patient's liver enzymes and predominantly a cholestatic pattern. Likely secondary to patient's metastatic adenocarcinoma. New extrahepatic biliary dilation suggesting possible contribution from obstructive process, with cirrhotic-like changes also found. Current Visit: No Status: Acute Code(s): R74.8 - ABNORMAL LEVELS OF OTHER SERUM ENZYMES SNOMED Code(s): 341285514 (2) Altered mental status Narrative/Plan: Improved with lactulose therapy Current Visit: Yes Status: Acute Code(s): R41.82 - ALTERED MENTAL STATUS, UNSPECIFIED SNOMED Code(s): 094397173 (3) Metastatic adenocarcinoma Current Visit: Yes Status: Acute Priority: High Code(s): C79.9 - SECONDARY MALIGNANT NEOPLASM OF UNSPECIFIED SITE SNOMED Code(s): 354431930 (4) Increased ammonia level Current Visit: Yes Status: Resolved Priority: High Code(s): R79.89 - OTHER SPECIFIED ABNORMAL FINDINGS OF BLOOD CHEMISTRY SNOMED Code(s): 229219740 Plan: Supportive care Appreciate recommendation by medical oncology service Continue lactulose therapy Continue to monitor liver enzymes Consideration for possible ERCP with stent placement if liver enzymes trend up Thank you for allowing us to participate in the care of this patient we will continue to follow
[2018-10-05] MEDS: ALPRAZolam 0.5 MG TAB PO PRN (04:36)
[2018-10-05 07:17] LABS: Glucose,Whole Blood 99 mg/dL (75-99)
[2018-10-05 08:13] LABS: Anisocytosis Slight; Basophils # (A) 0.1 k/uL (0-0.2); Basophils % (A) 0 %; Eosinophils # (A) 0.1 k/uL (0-0.7); Eosinophils % (A) 1 %; HCT 27.5 % (39.0-53.0); HGB 8.5 gm/dL (13.0-17.5); Hypochromasia Moderate; Lymphocytes # (A) 1.1 k/uL (1.0-4.8); Lymphocytes % (A) 6 %; MCH 30.8 pg (25.0-35.0); MCHC 30.9 g/dL (31.0-37.0); MCV 99.6 fL (80.0-100.0); Macrocytosis Moderate; Mean Platelet Volume 7.9; Monocytes # (A) 1.2 k/uL (0-1.0); Monocytes % (A) 7 %; Neutrophils # (A) 14.2 k/uL (1.3-7.7); Neutrophils % (A) 84 %; Platelet Count 139 k/uL (150-450); RBC 2.76 m/uL (4.30-5.90); RDW 18.1 % (11.5-15.5); WBC 16.9 k/uL (3.8-10.6)
[2018-10-05 08:19] LABS: Albumin 2.5 g/dL (3.5-5.0); Bilirubin, Delta 1.7 mg/dL (0.0-0.2); Bilirubin,Unconjugated 0.9 mg/dL (0.0-1.1); Calcium 8.5 mg/dL (8.4-10.2); Potassium 3.6 mmol/L (3.5-5.1); Total Bilirubin 2.6 mg/dL (0.2-1.3); Total Protein 5.2 g/dL (6.3-8.2)
[2018-10-05] MEDS ORDERED: LEVOFLOXACIN 500 MG TAB PO SCH (09:00)
[2018-10-05] MEDS: INSULIN ASPART 100 UNIT/ML 1 ML 10 ML VIAL SQ SCH ×2 (09:02→12:42)
[2018-10-05] MEDS: SODIUM BICARBONATE TAB 650 MG TAB PO SCH (09:08)
[2018-10-05] MEDS: TAMSULOSIN 0.4 MG CAP.ER.24H PO SCH (09:09)
[2018-10-05] MEDS: FAMOTIDINE 20 MG TAB PO SCH (09:09)
[2018-10-05] MEDS: MORPHINE SULFATE ER 30 MG TABLET PO SCH ×2 (09:09→13:56)
[2018-10-05] MEDS: APIXABAN 5 MG TAB PO SCH (09:09)
[2018-10-05] MEDS: DOCUSATE 100 MG CAP PO SCH (09:11)
[2018-10-05 11:13] LABS: Glucose,Whole Blood 103 mg/dL (75-99)
[2018-10-05 12:26] VITALS: RESP 18; TEMP 97.7
--- NOTE | 2018-10-05 13:48 | P.PN ---
Subjective Progress Note Date: 10/05/18 Principal diagnosis: sepsis, metabolic derangement, s/p chemo for metastatic pancreatic adenocarcinoma Patient seen today in follow-up. His daughter is at the bedside. Patient's mental status is recovered. Patient is highly anxious regarding his diagnosis and his response to initial chemotherapy. He is starting to tolerate oral intake, no fevers, nausea, unrealistic abdominal pain, bloating. Objective - Vital Signs Vital signs: Vital Signs Temp 97.7 F 10/05/18 11:15 Pulse 88 10/05/18 11:15 Resp 18 10/05/18 11:15 BP 122/79 10/05/18 11:15 Pulse Ox 96 10/05/18 11:15 Intake & Output 10/04/18 10/05/18 10/05/18 18:59 06:59 18:59 Intake Total 700 960 Balance 700 960 Intake: Intake, IV Titration 100 Amount Piperacillin-Tazobactam 3 100 .375 gm In Sodium Chloride 0.9% 100 ml @ 25 mls/hr IVPB Q8H [facility] Rx#: [id number] Oral 600 960 Other: Voiding Method Toilet Toilet Toilet Urinal Urinal Urinal # Voids 3 2 - Constitutional General appearance: Present: cooperative, mild distress, obese - EENT Eyes: Present: EOMI ENT: Present: hearing grossly normal - Respiratory Respiratory: bilateral: CTA - Cardiovascular Heart sounds: normal: S1, S2 Abnormal Heart Sounds: Absent: systolic murmur, diastolic murmur, rub, S3 Gallop , S4 Gallop, click, other - Peripheral edema leg Peripheral Edema: bilateral: Trace - Gastrointestinal General gastrointestinal: Present: distended, normal bowel sounds, soft - Integumentary Integumentary: Present: jaundiced - Neurologic Neurologic: Present: CNII-XII intact - Musculoskeletal Musculoskeletal: Present: generalized weakness - Psychiatric Psychiatric Comment(s): Pt is certainly depressed and anxious Psychiatric: Present: A&O x's 3, intact judgment & insight - Labs CBC & Chem 7: 10/05/18 07:44 10/05/18 07:49 Labs: Abnormal Lab Results - Last 24 Hours (Table) 10/04/18 10/04/18 10/05/18 Range/Units 17:26 20:34 07:44 WBC 16.9 H (3.8-10.6) k/uL RBC 2.76 L (4.30-5.90) m/uL Hgb 8.5 L (13.0-17.5) gm/dL Hct 27.5 L (39.0-53.0) % MCHC 30.9 L (31.0-37.0) g/dL RDW 18.1 H (11.5-15.5) % Plt Count 139 L (150-450) k/uL Neutrophils # 14.2 H (1.3-7.7) k/uL Monocytes # 1.2 H (0-1.0) k/uL Chloride (98-107) mmol/L BUN (9-20) mg/dL Glucose (74-99) mg/dL POC Glucose (mg/dL) 114 H 112 H (75-99) mg/dL Total Bilirubin (0.2-1.3) mg/dL Delta Bilirubin (0.0-0.2) mg/dL AST (17-59) U/L Alkaline Phosphatase (38-126) U/L Total Protein (6.3-8.2) g/dL Albumin (3.5-5.0) g/dL 10/05/18 10/05/18 Range/Units 07:49 11:08 WBC (3.8-10.6) k/uL RBC (4.30-5.90) m/uL Hgb (13.0-17.5) gm/dL Hct (39.0-53.0) % MCHC (31.0-37.0) g/dL RDW (11.5-15.5) % Plt Count (150-450) k/uL Neutrophils # (1.3-7.7) k/uL Monocytes # (0-1.0) k/uL Chloride 112 H (98-107) mmol/L BUN 26 H (9-20) mg/dL Glucose 102 H (74-99) mg/dL POC Glucose (mg/dL) 103 H (75-99) mg/dL Total Bilirubin 2.6 H (0.2-1.3) mg/dL Delta Bilirubin 1.7 H (0.0-0.2) mg/dL AST 76 H (17-59) U/L Alkaline Phosphatase 361 H (38-126) U/L Total Protein 5.2 L (6.3-8.2) g/dL Albumin 2.5 L (3.5-5.0) g/dL - Imaging and Cardiology US - abdomen: report reviewed Assessment and Plan (1) Hyperuricemia Current Visit: Yes Status: Resolved Priority: High Code(s): E79.0 - HYPERURICEMIA W/O SIGNS OF INFLAM ARTHRIT AND TOPHACEOUS DIS SNOMED Code(s): 90788467 (2) Acute renal failure Current Visit: Yes Status: Resolved Priority: High Code(s): N17.9 - ACUTE KIDNEY FAILURE, UNSPECIFIED SNOMED Code(s): 87707035 (3) Metastatic adenocarcinoma Narrative/Plan: Will review US abd results with Dr. Dennis. Not completely convinced that the findings are necessarily disease progression or, is the elevated liver enzymes and duct appearance on US is from inflammation. Liver enzymes and bilirubin have been stable/trending down. Appreciate GI eval and will f/u with them if further eval or ERCP/stent is the more reasonable treatment option. Did discuss with Dr. Dennis plan for continued treatment after rehab. Same regimen will be given with additional supportive medications and closer f/u. Current Visit: Yes Status: Acute Priority: High Code(s): C79.9 - SECONDARY MALIGNANT NEOPLASM OF UNSPECIFIED SITE SNOMED Code(s): 778238264 (4) Increased ammonia level Current Visit: Yes Status: Resolved Priority: High Code(s): R79.89 - OTHER SPECIFIED ABNORMAL FINDINGS OF BLOOD CHEMISTRY SNOMED Code(s): 083244469 (5) Anxiety about health Narrative/Plan: Pt states anxiety and depression about health condition. Have scheduled xanax, 0.25mg in AM and afternoon, 0.5mg at HS to see if this helps with some of the anxiety and improves sleeping. If not adequately managing pt symptoms, Psychiatry evaluation will be requested for anti-depression mgmt. Current Visit: Yes Status: Acute Priority: High Code(s): F41.8 - OTHER SPECIFIED ANXIETY DISORDERS SNOMED Code(s): 589253748
--- NOTE | 2018-10-05 13:52 | P.DS ---
Providers Date of admission: 09/26/18 12:33 Expected date of discharge: 10/05/18 Attending physician: Jaky Valdes Consults: 09/29/18 09:14 Consult Physician Routine Consulting Provider: Cassia Fernandez Consult Reason/Comments: pulmonary consult Do you want consulting provider notified?: Yes 09/30/18 11:38 Consult Physician Routine Consulting Provider: Mckay Degroot Consult Reason/Comments: possible INP rehab Do you want consulting provider notified?: Yes 10/01/18 12:40 Consult Physician Routine Consulting Provider: Rosanna Dalton Consult Reason/Comments: elevated liver enzymes, ammonia level Do you want consulting provider notified?: Yes 09/26/18 12:34 Consult Physician Routine Consulting Provider: Raymundo Mariscal Consult Reason/Comments: sirs/sepsis Do you want consulting provider notified?: Yes Consult Physician Routine Consulting Provider: Palmira Cerda Consult Reason/Comments: anshul Do you want consulting provider notified?: Yes 09/27/18 08:33 Consult Physician Routine Consulting Provider: Wali Dennis Consult Reason/Comments: known metastic cancer Do you want consulting provider notified?: Yes 09/27/18 10:37 Consult Physician Routine Consulting Provider: Alka Davalos Consult Reason/Comments: chest pain Do you want consulting provider notified?: Yes 09/27/18 15:38 Consult Physician Routine Consulting Provider: Alka Davalos Consult Reason/Comments: chest pain Do you want consulting provider notified?: Yes Primary care physician: Jaky Keisha [facility] Course: Discharge diagnosis 1. Acute nonoliguric kidney injury. Dr. Johnson following for nephrology services. Initial creatinine 5.28 and bun 51. Nephrology services renal ultrasound has been ordered. Patient's home Norvasc and Cozaar DC'd. Patient Vicoprofen also on hold. Creatinine is improving to 3.66. hydrocortisone 50 mg 3 times a day has been added per nephrology services. Had cortisone DC'd per nephrology. Creatinine 1.02 and bun 26. DC'd on sodium bicarb per nephrology services 2. Leukocytosis with possible sepsis. CBC 16.8 Chest x-ray completed showing chronic changes without evidence for acute pulmonary disease. Per infectious disease liver of gallbladder and ultrasound has been ordered. Patient remains on Levaquin at this time. Per infectious disease cultures are negative. Patient did complete a total of 7 days of Levaquin. 3. metastatic adenocarcinoma of the pancreas. Patient did receive first round of chemotherapy mFolfirinox on 09/17/2018. Patient to follow-up with Dr. walker for next chemo treatment 4. Elevated liver enzymes likely related to the metastases disease. Repeat liver ultrasound completed showing suspect neoplastic progression with pseudocirrhosis appearance. Surrounding ascites. new moderate extra hepatic biliary dilation is present. Suspect progression in size of pancreatic neoplasm now causing biliary obstruction. 5. Elevated ammonia level. Lactulose has been added. Ammonia level increased to 66. Lactulose has been increased to 3 times a day. Ammonia level 29. Patient will be DC'd on lactulose 30 mg daily 6. Chest pain. Troponin 0.080 and 0.063. Cardiology consulted. EKG completed showing normal sinus rhythm right bundle branch block. 2-D echo completed showing an EF of 60-65%. Per cardiology services EKG showing QTC prolonged. Recommend no further cardiac workup. Avoid use of multiple QT prolonging drugs such as promethazine and Zofran. 7. History of DVT and PE. Patient maintained on eliquis' 8. Increased confusion likely due to infection and elevated ammonia level. Head CT was completed showing age-related atrophic and chronic small vessel ischemic change without acute intracranial process seen at this time. 9. Metabolic acidosis secondary to acute kidney injury. Sodium bicarb has been added per nephrology services 10. History of essential hypertension. Home medication of metoprolol resumed with parameters 11. History of hyperlipidemia 12. Iron deficiency anemia. 14. Hypotension. Patient received multiple fluid boluses throughout night. Blood pressure improved. Parameters set to Metroprolol 15. Poor dietary intake. Will consult dietitian at this time Hospital course This is a 68-year-old male patient who presented to the emergency room with complaints of increased confusion and weakness. Patient recently diagnosed with a periodic cancer with evidence of liver metastases. Patient underwent chemotherapy on September 17 and started to become a week and had increased confusion per . Patient was found to be in acute kidney injury with creatinine of 5.28 bun at 50. Patient is currently on eliquis for DVT and PE. Patient also found to have elevated white blood cell count. Patient currently on IV antibiotics and infectious disease following. On 09/27/2018 patient currently resting in bed. is at bedside. Patient reports he still is confused at times forgetting the date. Patient also complaining of chest discomfort at this time patient describes is intermittent sharp pain in chest. Patient is currently on the telemetry floor. Will repeat cardiac enzymes and consult cardiology. Oncology services also consulted. Patient will be started on lactulose for elevated ammonia level. Repeat ammonia level has been ordered. Nephrology services are following. At this time patient denies shortness of breath. Patient denies nausea vomiting or diarrhea. Patient denies any urinary burning or frequency. On 09/28/2018 patient is currently resting in bed. Patient does state he feels slightly improved from yesterday. Family currently at bedside. At this time patient denies any chest pain or shortness of breath. Patient denies nausea vomiting or diarrhea. Patient denies any urinary burning or frequency. 09/29/2018 patient currently resting in bed. Patient hypotensive at this time with blood pressure in the 70s 80s. Patient also diaphoretic. 500 mL bolus has been ordered. Consulted Dr. Fernandez for pulmonary services. Discussed case with [facility] per critical care team recommending transfer to ICU for closer monitoring. Lactic acid ordered. Dr. Mariscal is following for infectious disease. At this time patient denies any specific complaints. Patient denies nausea vomiting or diarrhea. Patient denies any urinary burning or frequency. Patient denies chest pain shortness of breath. Blood sugar 105. Patient remains afebrile. On 09/30/2018 patient currently resting comfortably in the intensive care unit. Patient does state he feels improved from yesterday. Discussed case with ICU nursing staff. Patient did receive multiple boluses throughout night with improved pressure and urine output. Patient's appetite slightly improved. At this time patient denies chest pain or shortness of breath. Patient denies nausea vomiting or diarrhea. Patient denies any urinary burning or frequency. On 10/01/2018. Patient has moved out of the intensive care unit. Patient's blood pressure much improved. Patient also states he feels slightly more improved today. Ammonia level is improving to 33. Patient remains on lactulose 3 times a day. Patient's white blood cell also elevated at 21.3 but patient is currently on hydrocortisone 50 mg twice a day per nephrology services. Infectious disease is following. At this time patient denies chest pain or shortness of breath. Patient denies nausea vomiting or diarrhea. Patient denies any urinary burning or frequency On 10/02/2018 patient was seen and examined on the medical floor is alert and oriented 3 in no apparent distress there is no fever or chills no headache or dizziness no chest pain no shortness of breath no cough no nausea or vomiting there is abdominal pain which is under good control patient had 2 bowel movements today his ammonia level is still elevated at 43 there is no urinary symptoms. On 10/03/2018 patient was seen and examined on the oncology floor he is alert and oriented 3 in no apparent distress, today he is having multiple liquid stools to dose was held, pain is well-controlled there is no fever or chills no headache or dizziness no chest pain no shortness of breath no cough no nausea or vomiting and no urinary symptoms On 10/04/2018 patient's alert and oriented 3. at bedside. Patient states he feels much improved. Patient to get liver ultrasound today per infectious disease. At this time patient denies chest pain or shortness of breath. Patient denies nausea vomiting or diarrhea. Patient denies any urinary burning or frequency On 10/05/2018 patient is alert and oriented 3. Patient feels ready to be discharged to inpatient rehab. At this time patient denies chest pain or shortness breath. Patient denies nausea vomiting or diarrhea. Patient denies any urinary burning or frequency I performed an examination of the patient and discussed their management with the Nurse Practitioner. I have reviewed the Nurse Practitioner's notes and agree with the documented findings and plan of care Patient Condition at Discharge: Stable Plan - Discharge Summary New Discharge Prescriptions: New ALPRAZolam [Xanax] 0.25 mg PO BID@0900,1600 tab ALPRAZolam [Xanax] 0.5 mg PO HS tab Apixaban [Eliquis] 5 mg PO BID tab Lactulose [Cephulac] 30 gm PO DAILY #90 ml Melatonin 3 mg PO HS tablet Sodium Bicarbonate Tab 650 mg PO BID tab Tamsulosin [Flomax] 0.4 mg PO PC-BRKFST cap.er.24h Continue Nitroglycerin Sl Tabs [Nitrostat] 0.4 mg SUBLINGUAL Q5M PRN #25 tab PRN Reason: Chest Pain Metoprolol Tartrate [Lopressor] 12.5 mg PO HS Ranitidine HCl [Zantac] 150 mg PO BID Docusate [Colace] 100 mg PO BID #30 cap Morphine Sulfate ER [Ms Contin] 30 mg PO Q8H 3 Days #9 tab Apixaban [Eliquis] 5 mg PO BID #60 tab Ondansetron HCl [Zofran] 8 mg PO Q4H PRN PRN Reason: Nausea Discontinued Cyanocobalamin [Vitamin B-12] 500 mcg PO DAILY@1200 amLODIPine [Norvasc] 5 mg PO HS #30 tab Losartan Potassium [Cozaar] 100 mg PO HS Cholecalciferol [Vitamin D3] 1,000 unit PO DAILY Cyclobenzaprine [Flexeril] 5 mg PO HS PRN PRN Reason: Muscle Pain HYDROcodone/IBUPROFEN 7.5-200 [Vicoprofen 7.5-200 mg] 1 tab PO Q6HR PRN 30 Days #120 tab PRN Reason: Pain ALPRAZolam [Xanax] 0.5 mg PO DAILY Promethazine [Phenergan] 25 mg PO Q8HR PRN PRN Reason: Nausea Discharge Medication List Nitroglycerin Sl Tabs [Nitrostat] 0.4 mg SUBLINGUAL Q5M PRN #25 tab 03/09/15 [Rx ] Metoprolol Tartrate [Lopressor] 12.5 mg PO HS 08/21/18 [History] Ranitidine HCl [Zantac] 150 mg PO BID 08/21/18 [History] Apixaban [Eliquis] 5 mg PO BID #60 tab 09/03/18 [Rx] Docusate [Colace] 100 mg PO BID #30 cap 09/03/18 [Rx] Morphine Sulfate ER [Ms Contin] 30 mg PO Q8H 3 Days #9 tab 09/03/18 [Rx] Ondansetron HCl [Zofran] 8 mg PO Q4H PRN 09/26/18 [History] ALPRAZolam [Xanax] 0.25 mg PO BID@0900,1600 tab 10/05/18 [Rx] ALPRAZolam [Xanax] 0.5 mg PO HS tab 10/05/18 [Rx] Apixaban [Eliquis] 5 mg PO BID tab 10/05/18 [Rx] Lactulose [Cephulac] 30 gm PO DAILY #90 ml 10/05/18 [Rx] Melatonin 3 mg PO HS tablet 10/05/18 [Rx] Sodium Bicarbonate Tab 650 mg PO BID tab 10/05/18 [Rx] Tamsulosin [Flomax] 0.4 mg PO PC-BRKFST cap.er.24h 10/05/18 [Rx] Follow up Appointment(s)/Referral(s): Wali Dennis MD [STAFF PHYSICIAN] - 10/14/18 9:15 am Jaky Valdes MD [Primary Care Provider] - 1-2 days Activity/Diet/Wound Care/Special Instructions: diet regular Activity as tolerated [facility] Discharge Disposition: OTHER INSTITUTION NOT DEFINED
--- NOTE | 2018-10-05 13:54 | PN ---
PROGRESS NOTE Patient is seen for followup for acute kidney injury, he is actually being discharged today. PHYSICAL EXAMINATION: Blood pressure was 122/79, heart rate 88 per minute. Patient is afebrile. LABS: Reviewed. Creatinine is 1.02, BUN 26, sodium 140, potassium 3.6, chloride 112, hemoglobin 8.5 g/dL. ASSESSMENT: 1. Acute kidney injury, mainly prerenal as well as secondary to urine retention. Currently improved. Patient has been voiding on his own. 2. Lower extremity edema associated with hypoalbuminemia. 3. Pancreatic cancer. Will continue with palliative chemotherapy post discharge. PLAN: Patient is stable for discharge from Nephrology standpoint. We can use low-dose loop diuretics as outpatient if edema worsens. MMODL / IJN: [id number] /
--- NOTE | 2018-10-05 14:12 | P.PN ---
Subjective Progress Note Date: 10/05/18 68-year-old male who in July 2018 developed a deep venous thrombosis of the left lower extremity. Upon evaluation there is evidence of an extensive deep venous thrombosis as well as superficial clots to the right upper extremity. The patient was counseling evaluated by hematology for hypercoagulable state. There was no significant medical condition that was chronic or medications as an etiology. Constantly workup continued including a computed tomography scan there revealed evidence of lesions within the liver and hepatic area. 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 Because of this the patient was then followed by oncology and his port placed. On 09/13/2018 received his first cycle of mFOLFIRINOX as well as Neulasta. The patient however presents to Hospital acutely ill. The family related the patient became confused and weak, and constantly was brought to the emergency center where there is evidence of increased bilirubin with jaundice, and acute renal failure with a creatinine of 5.28. Because of the leukocytosis the infectious diseases consultation was requested with concerns to sepsis given the recent chemotherapy and significant underlying illness. 09/30/2018 patient is now improved. He is awake alert oriented to person place and does struggle with time. But is able to relate The correct date and time eventually. His mentation is markedly improved from the last evaluation. Patient's ammonia level has dropped from 66 down to 33. 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 He is now showing marked improvement. Still has leukocytosis. 10/04/2018 there is noted improvement. Was evaluated over the weekend with concerns to increased AST ALT. In is noted the patient's underlying metastatic adenocarcinoma the recent chemotherapy and tumor lysis syndrome remain the most likely sources. 10/05/2018 patient continues to have improvement. Sitting upright eating his lunch without difficulties. Mentation is certainly clear. He is not obviously jaundiced, appetite is good without nausea or emesis and denies much discomfort. Started going to rehab to improve his functional status. Objective - Vital Signs Vital signs: Vital Signs Temp 97.7 F 10/05/18 11:15 Pulse 88 10/05/18 11:15 Resp 18 10/05/18 11:15 BP 122/79 10/05/18 11:15 Pulse Ox 96 10/05/18 11:15 Intake & Output 10/04/18 10/05/1819 18:59 06:59 18:59 Intake Total 700 960 Balance 700 960 Intake: Intake, IV Titration 100 Amount Piperacillin-Tazobactam 3 100 .375 gm In Sodium Chloride 0.9% 100 ml @ 25 mls/hr IVPB Q8H [facility] Rx#: [id number] Oral 600 960 Other: Voiding Method Toilet Toilet Toilet Urinal Urinal Urinal # Voids 3 2 - Exam 68-year-old male not in distress HEENT: Evidence of improved jaundice, conjunctiva are pink and moist nasal mucosa grossly intact without significant lesions, there is no thrush. Oral mucositis is generally resolved he is eating well feeling considerably better Neck: The neck is supple without significant lymphadenopathy or thyromegaly. Lungs: Good bilateral air entry without significant crackles or wheezing. There is no significant bronchial sounds. There is no egophony or dullness. Heart: Regular rate and rhythm with an audible S1-S2, no S3 no S4. There is no significant murmur click or rub, PMI was nondisplaced. Abdomen: Mildly distended with positive bowel sounds soft without palpable mass or organomegaly Extremities: The upper extremities have excellent pulses they are symmetric, no significant petechiae or telangiectasia. No splinter hemorrhages were noted. The lower extremities are free from significant edema. The peripheral pulses were 2+ and symmetric. Neuro: Awake alert oriented to person place and time No focal deficits noted. This is much improved from admission. - Labs CBC & Chem 7: 10/05/18 07:44 10/05/18 07:49 Labs: Abnormal Lab Results - Last 24 Hours (Table) 10/04/18 10/04/18 10/05/18 Range/Units 17:26 20:34 07:44 WBC 16.9 H (3.8-10.6) k/uL RBC 2.76 L (4.30-5.90) m/uL Hgb 8.5 L (13.0-17.5) gm/dL Hct 27.5 L (39.0-53.0) % MCHC 30.9 L (31.0-37.0) g/dL RDW 18.1 H (11.5-15.5) % Plt Count 139 L (150-450) k/uL Neutrophils # 14.2 H (1.3-7.7) k/uL Monocytes # 1.2 H (0-1.0) k/uL Chloride (98-107) mmol/L BUN (9-20) mg/dL Glucose (74-99) mg/dL POC Glucose (mg/dL) 114 H 112 H (75-99) mg/dL Total Bilirubin (0.2-1.3) mg/dL Delta Bilirubin (0.0-0.2) mg/dL AST (17-59) U/L Alkaline Phosphatase (38-126) U/L Total Protein (6.3-8.2) g/dL Albumin (3.5-5.0) g/dL 10/05/18 10/05/18 Range/Units 07:49 11:08 WBC (3.8-10.6) k/uL RBC (4.30-5.90) m/uL Hgb (13.0-17.5) gm/dL Hct (39.0-53.0) % MCHC (31.0-37.0) g/dL RDW (11.5-15.5) % Plt Count (150-450) k/uL Neutrophils # (1.3-7.7) k/uL Monocytes # (0-1.0) k/uL Chloride 112 H (98-107) mmol/L BUN 26 H (9-20) mg/dL Glucose 102 H (74-99) mg/dL POC Glucose (mg/dL) 103 H (75-99) mg/dL Total Bilirubin 2.6 H (0.2-1.3) mg/dL Delta Bilirubin 1.7 H (0.0-0.2) mg/dL AST 76 H (17-59) U/L Alkaline Phosphatase 361 H (38-126) U/L Total Protein 5.2 L (6.3-8.2) g/dL Albumin 2.5 L (3.5-5.0) g/dL Laboratory Results WBC 16.9 k/uL (3.8-10.6) H 10/05/18 07:44 RBC 2.76 m/uL (4.30-5.90) L 10/05/18 07:44 Hgb 8.5 gm/dL (13.0-17.5) L 10/05/18 07:44 Hct 27.5 % (39.0-53.0) L 10/05/18 07:44 MCV 99.6 fL (80.0-100.0) 10/05/18 07:44 MCH 30.8 pg (25.0-35.0) 10/05/18 07:44 MCHC 30.9 g/dL (31.0-37.0) L 10/05/18 07:44 RDW 18.1 % (11.5-15.5) H 10/05/18 07:44 Plt Count 139 k/uL (150-450) L 10/05/18 07:44 Neutrophils % 84 % 10/05/18 07:44 Neutrophils % (Manual) 97 % 09/30/18 05:49 Lymphocytes % 6 % 10/05/18 07:44 Lymphocytes % (Manual) 1 % 09/30/18 05:49 Monocytes % 7 % 10/05/18 07:44 Monocytes % (Manual) 2 % 09/30/18 05:49 Eosinophils % 1 % 10/05/18 07:44 Basophils % 0 % 10/05/18 07:44 Neutrophils # 14.2 k/uL (1.3-7.7) H 10/05/18 07:44 Neutrophils # (Manual) 18.04 k/uL (1.3-7.7) H 09/30/18 05:49 Lymphocytes # 1.1 k/uL (1.0-4.8) 10/05/18 07:44 Lymphocytes # (Manual) 0.19 k/uL (1.0-4.8) L 09/30/18 05:49 Monocytes # 1.2 k/uL (0-1.0) H 10/05/18 07:44 Monocytes # (Manual) 0.37 k/uL (0-1.0) 09/30/18 05:49 Eosinophils # 0.1 k/uL (0-0.7) 10/05/18 07:44 Basophils # 0.1 k/uL (0-0.2) 10/05/18 07:44 Nucleated RBCs 0 /100 WBC (0-0) 09/30/18 05:49 Manual Slide Review Performed 09/30/18 05:49 Hypochromasia Moderate 10/05/18 07:44 Anisocytosis Slight 10/05/18 07:44 Macrocytosis Moderate 10/05/18 07:44 PT 14.9 sec (9.0-12.0) H 09/28/18 06:04 INR 1.5 (<1.2) H 09/28/18 06:04 APTT 26.9 sec (22.0-30.0) 09/28/18 06:04 Sodium 140 mmol/L (137-145) 10/05/18 07:49 Potassium 3.6 mmol/L (3.5-5.1) 10/05/18 07:49 Chloride 112 mmol/L (98-107) H 10/05/18 07:49 Carbon Dioxide 23 mmol/L (22-30) 10/05/18 07:49 Anion Gap 5 mmol/L 10/05/18 07:49 BUN 26 mg/dL (9-20) H 10/05/18 07:49 Creatinine 1.02 mg/dL (0.66-1.25) 10/05/18 07:49 Est GFR (CKD-EPI)AfAm 87 (>60 ml/min/1.73 sqM) 10/05/18 07:49 Est GFR (CKD-EPI)NonAf 75 (>60 ml/min/1.73 sqM) 10/05/18 07:49 Glucose 102 mg/dL (74-99) H 10/05/18 07:49 POC Glucose (mg/dL) 103 mg/dL (75-99) H 10/05/18 11:08 POC Glu Assistant ID [place] 10/05/18 11:[address] Glu mg/dL 82 09/30/18 05:49 Hemoglobin A1c 4.5 % (4.0-6.0) 09/30/18 05:49 Plasma Lactic Acid Uriah 1.1 mmol/L (0.7-2.0) 09/29/18 07:03 Uric Acid 4.0 mg/dL (3.5-8.5) 10/03/18 08:54 Calcium 8.5 mg/dL (8.4-10.2) 10/05/18 07:49 Phosphorus 3.0 mg/dL (2.5-4.5) 10/04/18 06:48 Magnesium 2.1 mg/dL (1.6-2.3) 10/04/18 06:48 Iron 30 ug/dL (65-175) L 09/27/18 08:52 TIBC 224 ug/dL (228-460) L 09/27/18 08:52 Iron Saturation 13.39 (15.00-50.00) L 09/27/18 08:52 Ferritin 1196.4 ng/mL (22.0-322.0) H 09/27/18 08:52 Total Bilirubin 2.6 mg/dL (0.2-1.3) H 10/05/18 07:49 Conjugated Bilirubin 0.0 mg/dL (0.0-0.3) 10/05/18 07:49 Unconjugated Bilirubin 0.9 mg/dL (0.0-1.1) 10/05/18 07:49 Delta Bilirubin 1.7 mg/dL (0.0-0.2) H 10/05/18 07:49 AST 76 U/L (17-59) H 10/05/18 07:49 ALT 68 U/L (21-72) 10/05/18 07:49 Alkaline Phosphatase 361 U/L (38-126) H 10/05/18 07:49 Ammonia 29 umol/L (<30) 10/04/18 06:57 Lactate Dehydrogenase 1155 U/L (313-618) H 09/27/18 18:25 Total Creatine Kinase 80 U/L (55-170) 09/26/18 08:55 CK-MB (CK-2) 1.9 ng/mL (0.0-2.4) 09/26/18 08:55 CK-MB (CK-2) Rel Index 2.4 09/26/18 08:55 Troponin I 0.063 ng/mL (0.000-0.034) H* 09/27/18 23:15 Total Protein 5.2 g/dL (6.3-8.2) L 10/05/18 07:49 Albumin 2.5 g/dL (3.5-5.0) L 10/05/18 07:49 CA 19-9 Antigen >46946.0 U/mL (0.0-34.9) H 09/28/18 06:04 Cortisol 13 ug/dL 09/29/18 07:03 Urine Color Dark Brown 09/26/18 12:30 Urine Appearance Cloudy (Clear) 09/26/18 12:30 Urine pH 5.0 (5.0-8.0) 09/26/18 12:30 Ur Specific [place] 1.019 (1.001-1.035) 09/26/18 12:30 Urine Protein 1+ (Negative) H 09/26/18 12:30 Urine Glucose (UA) Negative (Negative) 09/26/18 12:30 Urine Ketones Negative (Negative) 09/26/18 12:30 Urine Blood Trace (Negative) H 09/26/18 12:30 Urine Nitrite Negative (Negative) 09/26/18 12:30 Urine Bilirubin 1+ (Negative) H 09/26/18 12:30 Urine Urobilinogen 2.0 mg/dL (<2.0) 09/26/18 12:30 Ur Leukocyte Esterase Negative (Negative) 09/26/18 12:30 Urine RBC 1 /hpf (0-5) 09/26/18 12:30 Urine WBC 3 /hpf (0-5) 09/26/18 12:30 Ur Squamous Epith Cells <1 /hpf (0-4) 09/26/18 12:30 Amorphous Sediment Moderate /hpf (None) H 09/26/18 12:30 Hyaline Casts 5 /lpf (0-2) H 09/26/18 12:30 Urine Mucus Rare /hpf (None) H 09/26/18 12:30 Urine Opiates Screen Detected (NotDetected) H 09/26/18 12:30 Ur Oxycodone Screen Not Detected (NotDetected) 09/26/18 12:30 Urine Methadone Screen Not Detected (NotDetected) 09/26/18 12:30 Ur Propoxyphene Screen Not Detected (NotDetected) 09/26/18 12:30 Ur Barbiturates Screen Not Detected (NotDetected) 09/26/18 12:30 U Tricyclic Antidepress Not Detected (NotDetected) 09/26/18 12:30 Ur Phencyclidine Scrn Not Detected (NotDetected) 09/26/18 12:30 Ur Amphetamines Screen Not Detected (NotDetected) 09/26/18 12:30 U Methamphetamines Scrn Not Detected (NotDetected) 09/26/18 12:30 U Benzodiazepines Scrn Detected (NotDetected) H 09/26/18 12:30 Urine Cocaine Screen Not Detected (NotDetected) 09/26/18 12:30 U Marijuana (THC) Screen Not Detected (NotDetected) 09/26/18 12:30 Microbiology 09/26/18 14:12 Blood Blood Culture - Final No Growth after 144 hours 09/27/18 18:12 Sputum Gram Stain - Final 09/27/18 18:12 Sputum Sputum Culture - Final Mahi albicans 09/27/18 09:15 Urine,Catheterized Urine Culture - Final Assessment and Plan (1) Metastatic adenocarcinoma Current Visit: Yes Status: Acute Priority: High Code(s): C79.9 - SECONDARY MALIGNANT NEOPLASM OF UNSPECIFIED SITE SNOMED Code(s): 426325229 (2) Altered mental status Narrative/Plan: Pleasant 68-year-old male presents to Hospital with the care of his 2 adult daughters because of worsening mental status. The related couple of days before coming to hospital he seemed to be getting weaker it was starting to have difficulties with some routine activities. Since chemotherapy he has not been eating very well and because he became so weak that brought him to the emergency center. Upon arrival there is evidence of acute renal failure which is new and leukocytosis. the infectious diseases consultation was requested. With hydration the patient fortunately is having an improvement of his significant acute renal failure. The elevated bilirubin also seems to be improving with the treatment. Oral cavity is uncomfortable as for salt and soda mouthwash can be used as needed to improve his oral cavity discomforts. Antibiotic therapy has been initiated because of concerns of sepsis at admission. Cultures are in process and will direct rapid de-escalation of antibiotic therapy. Ultrasound reveals evidence of no new acute obstruction. With lactulose there has been some improvement of his mental status as well as with hydration. Hypercoagulable state due to his underlying metastatic pancreatic cancer is being treated with eliquis was then followed by hematology oncology. September 30 2018 patient is now had a marked improvement of his altered mental status, the tumor lysis syndrome is improving in that his ammonia is improving, his acute renal failure is improving in his mouth feels better. With a marked improvement will start to de-escalate antibiotic therapy. Zosyn can be discontinued without evidence of significant pneumonia or bacteremia or sepsis. October 04 2018 reveals patient to have some further improvement. Oncology has been reviewing and apparently making plans for his transfer to rehab. As noted at this time cultures are negative but there was certainly concerns for sepsis at admissioncomplete a total of 7 days of Levaquin, pharmacy has dose adjusted with his improved renal function to 500 mg a day. Tomorrow would be the last day of Levaquin. As requested Zosyn has been stopped several days prior. The patient's ammonia level is improving more consistently allowing some improvement of his mental status. Tumor lysis syndrome seems to be improving and acute renal failure has resolved. 10/05/2018 patient has further improvement. Sitting upright eating his lunch without difficulties. Overall he has no other new complaints. Looks forward to going to inpatient rehab to increase his strength. Complaints the course of Levaquin today. This is discussed with the patient's . He has concerns the next cycle of chemotherapy will make him very ill. Certainly is of concern however it does appear that the tumor lysis syndrome is responsible for the significant amount of the current illness. With the lower tumor burden should not be as difficult during the next cycle. If needed can follow at the rehab unit. Current Visit: Yes Status: Acute Code(s): R41.82 - ALTERED MENTAL STATUS, UNSPECIFIED SNOMED Code(s): 397799809 (3) Acute renal failure Current Visit: Yes Status: Resolved Priority: High Code(s): N17.9 - ACUTE KIDNEY FAILURE, UNSPECIFIED SNOMED Code(s): 98406957
[2018-10-05] MEDS: NITROGLYCERIN SL TABS 0.4 MG TAB SUBLINGUAL PRN ×2 (14:13→14:20)
[2018-10-05 14:26] VITALS: BP 106/58; PULSE 95
[2018-10-05] MEDS ORDERED: ALPRAZolam 0.25 MG TAB PO SCH (16:00)
[2018-10-05 16:50] LABS: Hepatitis A Antibody IgM Non-Reactive (Non-Reactive); Hepatitis B Core IgM Non-Reactive (Non-Reactive)
[2018-10-05] MEDS ORDERED: ALPRAZolam 0.5 MG TAB PO SCH (21:00)
== END 2018-10-05 16:30 | DRG 871 ==
LOC: EC 08:31 → 3SCARD 12:33 → 2SICU 09-29 13:51 → 3NMEDONC 09-30 22:12
PROVIDERS: ADMIT Internal Medicine; ATTEND Internal Medicine
DX: A41.9 Sepsis, unspecified organism (principal); E88.3 Tumor lysis syndrome; G93.41 Metabolic encephalopathy; R57.1 Hypovolemic shock; C78.7 Secondary malignant neoplasm of liver and intrahepatic bile duct; C25.9 Malignant neoplasm of pancreas, unspecified; C24.9 Malignant neoplasm of biliary tract, unspecified; E87.2 Acidosis; N17.9 Acute kidney failure, unspecified; R18.8 Other ascites; D50.9 Iron deficiency anemia, unspecified; D63.8 Anemia in other chronic diseases classified elsewhere; E78.5 Hyperlipidemia, unspecified; E86.0 Dehydration; E88.09 Other disorders of plasma-protein metabolism, not elsewhere classified; F32.9 Major depressive disorder, single episode, unspecified; F41.9 Anxiety disorder, unspecified; I10 Essential (primary) hypertension; I25.10 Atherosclerotic heart disease of native coronary artery without angina pectoris; I45.10 Unspecified right bundle-branch block; Z79.01 Long term (current) use of anticoagulants; Z82.49 Family history of ischemic heart disease and other diseases of the circulatory system; Z85.01 Personal history of malignant neoplasm of esophagus; Z85.46 Personal history of malignant neoplasm of prostate; Z86.711 Personal history of pulmonary embolism; Z86.718 Personal history of other venous thrombosis and embolism; Z87.891 Personal history of nicotine dependence; Z92.21 Personal history of antineoplastic chemotherapy; Z95.5 Presence of coronary angioplasty implant and graft
CPT/HCPCS: 36415; 51702; 70450; 71045; 76705; 76770; 80048; 80053; 80074; 80306; 81001; 82140; 82248; 82533; 82550; 82553; 82728; 83036; 83540; 83550; 83605; 83615; 83735; 84100; 84484; 84550; 85025; 85610; 85730; 86301; 87040; 87070; 87086; 87205; 93005; 93306; 96361; 96365; 96374; 96375; 99285

== ENCOUNTER 2018-10-25 09:52 | Emergency (ER) | payer MEDICARE ==
--- NOTE | 2018-10-25 10:48 | ED ---
General Adult HPI - General Chief complaint: Abdominal Pain Stated complaint: Sob Time Seen by Provider: 10/25/18 10:24 Source: patient, RN notes reviewed Mode of arrival: EMS Limitations: no limitations - History of Present Illness Initial comments: 68-year-old male with a past medical history of hyperlipidemia, hypertension, pancreatic cancer with metastases to the liver presents to the emergency department for a chief of abdominal distention. Patient states this distention is making him feel short of breath. He states these symptoms are consistent with the last time he had this problem. Patient denies chest pain or pain with inspiration. Patient states he had a paracentesis done here recently and feels he needs another more. Patient's oncologist is Dr. Ramirez. He has been seeing Dr. Bright and Dr. Dalton for this. Patient is supposed to go down to [facility] for stent placement in the liver on Thursday. Family states they no longer want to do this and wants to the procedure here in the hospital. Patient has no other complaints at this time including chest pain, nausea or vomiting, headache, or visual changes. - Related Data Home Medications Medication Instructions Recorded Confirmed Metoprolol Tartrate [Lopressor] 12.5 mg PO HS 08/21/18 10/25/18 Ranitidine HCl [Zantac] 150 mg PO BID 08/21/18 10/25/18 Ondansetron HCl [Zofran] 8 mg PO Q4H PRN 09/26/18 10/25/18 ALPRAZolam [Xanax] 0.5 mg PO HS PRN 10/25/18 10/25/18 Furosemide [Lasix] 40 mg PO DAILY 10/25/18 10/25/18 HYDROcodone/APAP 10-325MG [[place] 1 tab PO Q4HR PRN 10/25/18 10/25/18 10-325] Lactulose 20 gm PO Q48H 10/25/18 10/25/18 Potassium Chloride ER [K-Dur 20] 20 meq PO DAILY 10/25/18 10/25/18 Previous Rx's Medication Instructions Recorded Nitroglycerin Sl Tabs [Nitrostat] 0.4 mg SUBLINGUAL Q5M PRN #25 tab 03/09/15 Morphine Sulfate ER [Ms Contin] 30 mg PO Q8H 3 Days #9 tab 09/03/18 ALPRAZolam [Xanax] 0.25 mg PO BID@0900,1600 tab 10/05/18 Apixaban [Eliquis] 5 mg PO BID tab 10/05/18 Melatonin 3 mg PO HS tablet 10/05/18 Tamsulosin [Flomax] 0.4 mg PO PC-BRKFST cap.er.24h 10/05/18 Allergies Allergy/AdvReac Type Severity Reaction Status Date / Time Cdjzyuk-Fri-Bnl Reductase AdvReac JOINT PAIN Verified 10/25/18 10:16 Inhibitor Review of Systems ROS Statement: Those systems with pertinent positive or pertinent negative responses have been documented in the HPI. ROS Other: All systems not noted in ROS Statement are negative. Past Medical History Past Medical History: Cancer, Hyperlipidemia, Hypertension Additional Past Medical History / Comment(s): Pancreatic cancer with mets, last chemo 09-17-18 History of Any Multi-Drug Resistant Organisms: None Reported Past Surgical History: Heart Catheterization With Stent Additional Past Surgical History / Comment(s): hydrocele, colonoscopy-WNL, vocal cord polypectomy. . Right chest port for chemo paracentesis Past Anesthesia/Blood Transfusion Reactions: Postoperative Nausea & Vomiting ( PONV) Additional Past Anesthesia/Blood Transfusion Reaction / Comment(s): Pt has never had blood transfusion. Date of Last Stent Placement:: 2014 Past Psychological History: Anxiety Smoking Status: Former smoker Past Alcohol Use History: None Reported Past Drug Use History: None Reported - Past Family History Father Family Medical History: No Reported History Additional Family Medical History / Comment(s): Father when pt was 8 yrs old. He was a WW[employer] vet and had suffered a gunshot to the head. Mother Family Medical History: No Reported History Additional Family Medical History / Comment(s): .Mother is healthy and is 84yrs old General Exam Limitations: no limitations General appearance: alert, in no apparent distress Head exam: Present: atraumatic, normocephalic, normal inspection Eye exam: Present: normal appearance, PERRL, EOMI. Absent: scleral icterus, conjunctival injection, periorbital swelling ENT exam: Present: normal exam, mucous membranes moist Neck exam: Present: normal inspection, full ROM. Absent: tenderness, meningismus, lymphadenopathy Respiratory exam: Present: normal lung sounds bilaterally. Absent: respiratory distress, wheezes, rales, rhonchi, stridor Cardiovascular Exam: Present: regular rate, normal rhythm, normal heart sounds. Absent: systolic murmur, diastolic murmur, rubs, gallop, clicks GI/Abdominal exam: Present: distended (distension noted of the entire abdomen), normal bowel sounds. Absent: soft, tenderness, guarding, rebound, rigid Course Vital Signs 10/25/18 09:59 Temperature 98.3 F Pulse Rate 93 Respiratory 18 Rate Blood Pressure 110/65 O2 Sat by Pulse 98 Oximetry Medical Decision Making - Medical Decision Making 68-year-old male presents to the emergency department for a chief complaint of abdominal distension causing shortness of breath. Patient states has had a paracentesis done in the past because of this. He has a history of pancreatic cancer. He states he feels another one at this time. He was also supposed to have a stent placed in 2 days in [place] but no longer wants this done. He wants the procedure Dr. Bright offered him here at this hospital. On exam patient does have abdominal distention noted. CBC shows a white count of 14.9. Hemoglobin stable at 10.5. CMP shows a creatinine 1.29, patient does appear dry. Is tolerating liquids by mouth and is also given IV fluids. Total bilirubin alkaline phosphatase are elevated above normal. Family does request ammonia be drawn which is currently pending at this time. KUB and chest x-ray are negative. Dr. Frazier spoke with Dr. Valdes who will admit the patient. - Lab Data Result diagrams: 10/25/18 12:25 10/25/18 12:25 Lab Results 10/25/18 10/25/18 10/25/18 Range/Units 12:25 12:25 12:25 WBC 14.9 H (3.8-10.6) k/uL RBC 3.35 L (4.30-5.90) m/uL Hgb 10.5 L (13.0-17.5) gm/dL Hct 33.6 L (39.0-53.0) % MCV 100.3 H (80.0-100.0) fL MCH 31.4 (25.0-35.0) pg MCHC 31.3 (31.0-37.0) g/dL RDW 16.8 H (11.5-15.5) % Plt Count 90 L (150-450) k/uL Neutrophils % 80 % Lymphocytes % 7 % Monocytes % 8 % Eosinophils % 3 % Basophils % 1 % Neutrophils # 11.8 H (1.3-7.7) k/uL Lymphocytes # 1.1 (1.0-4.8) k/uL Monocytes # 1.1 H (0-1.0) k/uL Eosinophils # 0.4 (0-0.7) k/uL Basophils # 0.1 (0-0.2) k/uL Manual Slide Review Performed Hypochromasia Slight Anisocytosis Slight Macrocytosis Slight Sodium 137 (137-145) mmol/L Potassium 4.5 (3.5-5.1) mmol/L Chloride 103 (98-107) mmol/L Carbon Dioxide 30 (22-30) mmol/L Anion Gap 4 mmol/L BUN 22 H (9-20) mg/dL Creatinine 1.29 H (0.66-1.25) mg/dL Est GFR (CKD-EPI)AfAm 65 (>60 ml/min/1.73 sqM) Est GFR (CKD-EPI)NonAf 56 (>60 ml/min/1.73 sqM) Glucose 103 H (74-99) mg/dL Calcium 8.7 (8.4-10.2) mg/dL Total Bilirubin 5.2 H (0.2-1.3) mg/dL AST 134 H (17-59) U/L ALT 61 (21-72) U/L Alkaline Phosphatase 620 H (38-126) U/L Ammonia 42 H (<30) umol/L Total Protein 6.1 L (6.3-8.2) g/dL Albumin 2.8 L (3.5-5.0) g/dL Amylase <30 L (30-110) U/L Lipase 116 (23-300) U/L Disposition Clinical Impression: Ascites, Pancreatic cancer Disposition: ADMITTED IP TO THIS HOSP Condition: Fair Is patient prescribed a controlled substance at d/c from ED?: No Referrals: Jaky Valdes MD [Primary Care Provider] - 1-2 days Time of Disposition: 14:03
[2018-10-25] MEDS ORDERED: HYDROcodone/APAP 10-325MG 1 EACH TAB PO ONE (10:52)
[2018-10-25] MEDS ORDERED: BENZOCAINE SPRAY 1 CAN ONE (12:07)
--- NOTE | 2018-10-25 12:52 | XR ---
EXAMINATION TYPE: XR chest 2V DATE OF EXAM: 10/25/2018 COMPARISON: 09/30/2018 HISTORY: Shortness of breath TECHNIQUE: Frontal and lateral views of the chest are obtained. FINDINGS: Scattered senescent parenchymal changes noted. Hyperinflation compatible with COPD. No evidence for infiltrate. No evidence for atelectasis. Heart size is stable. Mediastinal structures are stable and grossly unremarkable. No evidence for hilar prominence. Degenerative changes dorsal spine. IMPRESSION: 1. No evidence for acute pulmonary disease.
[2018-10-25 13:04] LABS: ALT 61 U/L (21-72); AST 134 U/L (17-59); Albumin 2.8 g/dL (3.5-5.0); Alkaline Phosphatase 620 U/L (38-126); Amylase <30 U/L (30-110); Anion Gap 4 mmol/L; Anisocytosis Slight; Basophils # (A) 0.1 k/uL (0-0.2); Basophils % (A) 1 %; Blood Urea Nitrogen 22 mg/dL (9-20); Calcium 8.7 mg/dL (8.4-10.2); Carbon Dioxide 30 mmol/L (22-30); Chloride 103 mmol/L (98-107); Eosinophils # (A) 0.4 k/uL (0-0.7); Eosinophils % (A) 3 %; Glucose 103 mg/dL (74-99); HCT 33.6 % (39.0-53.0); HGB 10.5 gm/dL (13.0-17.5); Hypochromasia Slight; Lipase 116 U/L (23-300); Lymphocytes # (A) 1.1 k/uL (1.0-4.8); Lymphocytes % (A) 7 %; MCH 31.4 pg (25.0-35.0); MCHC 31.3 g/dL (31.0-37.0); MCV 100.3 fL (80.0-100.0); Macrocytosis Slight; Mean Platelet Volume 7.5; Monocytes # (A) 1.1 k/uL (0-1.0); Monocytes % (A) 8 %; Neutrophils # (A) 11.8 k/uL (1.3-7.7); Neutrophils % (A) 80 %; Potassium 4.5 mmol/L (3.5-5.1); RBC 3.35 m/uL (4.30-5.90); RDW 16.8 % (11.5-15.5); Sodium 137 mmol/L (137-145); Total Bilirubin 5.2 mg/dL (0.2-1.3); Total Protein 6.1 g/dL (6.3-8.2); WBC 14.9 k/uL (3.8-10.6)
--- NOTE | 2018-10-25 13:04 | XR ---
EXAMINATION TYPE: XR KUB DATE OF EXAM: 10/25/2018 COMPARISON: NONE HISTORY: Pain TECHNIQUE: Single supine KUB image of the abdomen is obtained FINDINGS: Small bowel demonstrates no evidence for dilatation or air fluid levels. Gas and fecal material is seen in non-distended colon. No convincing evidence for pneumoperitoneum. No unusual calcifications. The lung bases are clear. The osseous structures are intact. IMPRESSION: 1. Overall nonobstructive bowel gas pattern.
[2018-10-25 13:16] LABS: Platelet Count 90 k/uL (150-450)
[2018-10-25] MEDS ORDERED: NALOXONE 0.4 MG/ML 1 ML VIAL IV PRN (13:55)
[2018-10-25] MEDS ORDERED: HYDROcodone/APAP 5-325MG 1 EACH TAB PO PRN (13:55)
[2018-10-25] MEDS ORDERED: MORPHINE SULFATE 4 MG/ML SYRINGE IV PRN (13:55)
[2018-10-25] MEDS ORDERED: SODIUM CHLORIDE 0.9% 1,000 ML IV SCH (14:00)
[2018-10-25] MEDS ORDERED: SODIUM CHLORIDE 0.9% 500 ML 500 ML IV ONE (14:47)
[2018-10-25] MEDS ORDERED: ALPRAZolam 0.5 MG TAB PO PRN (14:49)
--- NOTE | 2018-10-25 15:20 | P.HPIM ---
History of Present Illness H&P Date: 10/25/18 This is a 68-year-old male patient well-known to my services who presented to the emergency room with complaints of increased shortness of breath. Patient has known past medical history of recent diagnosis of pancreatic cancer with metastasis to his liver. Approximately to 2 months ago patient was admitted and was found to have a pulmonary embolism along with DVTs. From there patient was further found to have pancreatic cancer with metastases to liver. Patient was most recently admitted to [facility] postchemotherapy due to acute kidney injury. Patient was then transferred to [facility] rehab. Patient had plans to go to [facility] on Thursday for stent placement to liver. At this time patient requesting to have procedure done here at the hospital instead of going down to [facility]. Per patient's patient has also been increasingly confused. Patient has known history of elevated ammonia levels. Patient is on lactulose every other day. We'll check ammonia level. Patient has also been on eliquis since Thursday due to possible stent placement procedure. Patient follows with GI services and oncology services. Chest x- ray completed showing no evidence for acute pulmonary disease. KUB x-ray completed showing an overall nonobstructive bowel gas pattern. Patient is noted to have increased ascites. Patient recently underwent paracentesis approximately 2 weeks ago. Will consult oncology and GI services. At this time patient is still complaining of some shortness of breath. Patient denies chest pain. Patient denies nausea vomiting or diarrhea. Patient denies any urinary burning or frequency Review of Systems Please refer to HPI otherwise unremarkable Past Medical History Past Medical History: Cancer, Hyperlipidemia, Hypertension Additional Past Medical History / Comment(s): Pancreatic cancer with mets, last chemo 09-17-18 History of Any Multi-Drug Resistant Organisms: None Reported Past Surgical History: Heart Catheterization With Stent Additional Past Surgical History / Comment(s): hydrocele, colonoscopy-WNL, vocal cord polypectomy. . Right chest port for chemo paracentesis Past Anesthesia/Blood Transfusion Reactions: Postoperative Nausea & Vomiting ( PONV) Additional Past Anesthesia/Blood Transfusion Reaction / Comment(s): Pt has never had blood transfusion. Date of Last Stent Placement:: 2014 Past Psychological History: Anxiety Smoking Status: Former smoker Past Alcohol Use History: None Reported Past Drug Use History: None Reported - Past Family History Father Family Medical History: No Reported History Additional Family Medical History / Comment(s): Father when pt was 8 yrs old. He was a WWII vet and had suffered a gunshot to the head. Mother Family Medical History: No Reported History Additional Family Medical History / Comment(s): .Mother is healthy and is 84yrs old Medications and Allergies Home Medications Medication Instructions Recorded Confirmed Type Nitroglycerin Sl Tabs [Nitrostat] 0.4 mg SUBLINGUAL Q5M PRN #25 tab 03/09/15 Rx Metoprolol Tartrate [Lopressor] 12.5 mg PO HS 08/21/18 10/25/18 History Ranitidine HCl [Zantac] 150 mg PO BID 08/21/18 10/25/18 History Morphine Sulfate ER [Ms Contin] 30 mg PO Q8H 3 Days #9 tab 09/03/18 10/25/18 Rx Ondansetron HCl [Zofran] 8 mg PO Q4H PRN 09/26/18 10/25/18 History ALPRAZolam [Xanax] 0.25 mg PO BID@0900,1600 tab 10/05/18 10/25/18 Rx Apixaban [Eliquis] 5 mg PO BID tab 10/05/18 10/25/18 Rx Melatonin 3 mg PO HS tablet 10/05/18 10/25/18 Rx Tamsulosin [Flomax] 0.4 mg PO PC-BRKFST cap.er.24h 10/05/18 10/25/18 Rx ALPRAZolam [Xanax] 0.5 mg PO HS PRN 10/25/18 10/25/18 History Furosemide [Lasix] 40 mg PO DAILY 10/25/18 10/25/18 History HYDROcodone/APAP 10-325MG [[place] 1 tab PO Q4HR PRN 10/25/18 10/25/18 History 10-325] Lactulose 20 gm PO Q48H 10/25/18 10/25/18 History Potassium Chloride ER [K-Dur 20] 20 meq PO DAILY 10/25/18 10/25/18 History Allergies Allergy/AdvReac Type Severity Reaction Status Date / Time Aomzkwg-Grj-Ahq Reductase AdvReac JOINT PAIN Verified 10/25/18 10:16 Inhibitor Physical Exam Vitals: Vital Signs Temp Pulse Resp BP Pulse Ox 10/25/18 14:42 66 18 99/55 99 10/25/18 11:30 65 109/65 10/25/18 09:59 98.3 F 93 18 110/65 98 Intake and Output 10/24/18 10/25/18 10/25/18 22:59 06:59 14:59 Other: Weight 104.326 kg Head normocephalic. Jaundiced to skin Neck supple Lungs clear to auscultation bilaterally no wheezing or crackles Heart regular rate and rhythm S1-S2, no rub or gallop Abdomen increased ascites noted Extremities no edema Neuro alert and orientated to 3 Results CBC & Chem 7: 10/25/18 12:25 10/25/18 12:25 Labs: Abnormal Lab Results - Last 24 Hours (Table) 10/25/18 10/25/18 10/25/18 Range/Units 12:25 12:25 12:25 WBC 14.9 H (3.8-10.6) k/uL RBC 3.35 L (4.30-5.90) m/uL Hgb 10.5 L (13.0-17.5) gm/dL Hct 33.6 L (39.0-53.0) % MCV 100.3 H (80.0-100.0) fL RDW 16.8 H (11.5-15.5) % Plt Count 90 L (150-450) k/uL Neutrophils # 11.8 H (1.3-7.7) k/uL Monocytes # 1.1 H (0-1.0) k/uL BUN 22 H (9-20) mg/dL Creatinine 1.29 H (0.66-1.25) mg/dL Glucose 103 H (74-99) mg/dL Total Bilirubin 5.2 H (0.2-1.3) mg/dL AST 134 H (17-59) U/L Alkaline Phosphatase 620 H (38-126) U/L Ammonia 42 H (<30) umol/L Total Protein 6.1 L (6.3-8.2) g/dL Albumin 2.8 L (3.5-5.0) g/dL Amylase <30 L (30-110) U/L Assessment and Plan Assessment: 1. Increased shortness of breath. Likely due to increased abdominal ascites. Chest x-ray completed showing no evidence for acute pulmonary disease. 2. Pancreatic cancer with metastases to liver. Oncology services have been consulted 3. Increased abdominal ascites. GI services have been consulted. Patient was to go to [facility] on Thursday for liver stent placement. At this time requesting procedure be done here. KUB x-ray completed showing overall nonobstructive bowel gas pattern. 4. Elevated liver enzymes related to metastasis disease. 5. Increased confusion. Will check ammonia level 6. History of DVT and PE. Eliquis currently on hold due to possible procedure 7. History of essential hypertension 8. History of hyperlipidemia 9. Iron deficiency anemia Time with Patient: Greater than 30 (Greater than 60% of the total time spent in counseling and coordination of care. I performed an examination of the patient and discussed their management with the Nurse Practitioner. I have reviewed the Nurse Practitioner's notes and agree with the documented findings and plan of care)
[2018-10-25 15:33] LABS: Appearance,Urine Clear (Clear); Bilirubin,Urine 1+ (Negative); Blood,Urine Negative (Negative); Color,Urine Dark Brown; Glucose,Urine (UA) Negative (Negative); Ketones,Urine Negative (Negative); Leukocyte Esterase,Urine Negative (Negative); Nitrite,Urine Negative (Negative); PH, Urine 5.5 (5.0-8.0); Protein,Urine Trace (Negative)
[2018-10-25] MEDS ORDERED: ALPRAZolam 0.25 MG TAB PO SCH (16:00)
[2018-10-25] MEDS ORDERED: MORPHINE SULFATE ER 30 MG TABLET PO SCH (16:00)
--- NOTE | 2018-10-25 16:04 | P.DS ---
Providers Date of admission: 10/25/18 13:55 Expected date of discharge: 10/25/18 Attending physician: Jaky Valdes Consults: 10/25/18 13:55 Consult Physician Stat Consulting Provider: Wali Dennis Consult Reason/Comments: pancreatic cancer Do you want consulting provider notified?: Yes Consult Physician Stat Consulting Provider: Lawson Bright Consult Reason/Comments: ascites, pancreatic CA Do you want consulting provider notified?: Yes Primary care physician: Jaky Valdes [facility] Course: Discharge diagnosis 1. Increased shortness of breath. Likely due to increased abdominal ascites. Chest x-ray completed showing no evidence for acute pulmonary disease. 2. Pancreatic cancer with metastases to liver. Oncology services have been consulted 3. Increased abdominal ascites. GI services have been consulted. KUB x-ray completed showing overall nonobstructive bowel gas pattern. Previous attempts per GI services at stent in liver placement. Discussed with Dr. Bright recommending transfer to [facility] for further evaluation and possible stent placement. 4. Elevated liver enzymes related to metastasis disease. 5. Increased confusion. Will check ammonia level 6. History of DVT and PE. Eliquis currently on hold due to possible procedure 7. History of essential hypertension 8. History of hyperlipidemia 9. Iron deficiency anemia Hospital course This is a 68-year-old male patient well-known to my services who presented to the emergency room with complaints of increased shortness of breath. Patient has known past medical history of recent diagnosis of pancreatic cancer with metastasis to his liver. Approximately to 2 months ago patient was admitted and was found to have a pulmonary embolism along with DVTs. From there patient was further found to have pancreatic cancer with metastases to liver. Patient was most recently admitted to [facility] postchemotherapy due to acute kidney injury. Patient was then transferred to [facility] rehab. Patient had plans to go to [facility] on Thursday for stent placement to liver. At this time patient requesting to have procedure done here at the hospital instead of going down to [facility]. Per patient's patient has also been increasingly confused. Patient has known history of elevated ammonia levels. Patient is on lactulose every other day. We'll check ammonia level. Patient has also been on eliquis since Thursday due to possible stent placement procedure. Patient follows with GI services and oncology services. Chest x- ray completed showing no evidence for acute pulmonary disease. KUB x-ray completed showing an overall nonobstructive bowel gas pattern. Patient is noted to have increased ascites. Patient recently underwent paracentesis approximately 2 weeks ago. Will consult oncology and GI services. At this time patient is still complaining of some shortness of breath. Patient denies chest pain. Patient denies nausea vomiting or diarrhea. Patient denies any urinary burning or frequency Discussed case with GI services. Due to previous attempts of stent placement, GI recommending transfer to [facility] for further treatment. Discussed with patient, and daughter. Patient and family agreeable at this time for transfer to [facility]. [facility] has accepted transfer. At this time vitals are stable. Patient is stable for transfer. Patient and family are agreeable to transfer. I performed an examination of the patient and discussed their management with the Nurse Practitioner. I have reviewed the Nurse Practitioner's notes and agree with the documented findings and plan of care Patient Condition at Discharge: Stable Plan - Discharge Summary Discharge Rx Participant: No New Discharge Prescriptions: No Action Nitroglycerin Sl Tabs [Nitrostat] 0.4 mg SUBLINGUAL Q5M PRN #25 tab PRN Reason: Chest Pain Metoprolol Tartrate [Lopressor] 12.5 mg PO HS Ranitidine HCl [Zantac] 150 mg PO BID Morphine Sulfate ER [Ms Contin] 30 mg PO Q8H 3 Days #9 tab Ondansetron HCl [Zofran] 8 mg PO Q4H PRN PRN Reason: Nausea ALPRAZolam [Xanax] 0.25 mg PO BID@0900,1600 tab Apixaban [Eliquis] 5 mg PO BID tab Melatonin 3 mg PO HS tablet Tamsulosin [Flomax] 0.4 mg PO PC-BRKFST cap.er.24h ALPRAZolam [Xanax] 0.5 mg PO HS PRN PRN Reason: Anxiety Furosemide [Lasix] 40 mg PO DAILY HYDROcodone/APAP 10-325MG [[place] 10-325] 1 tab PO Q4HR PRN PRN Reason: Pain Lactulose 20 gm PO Q48H Potassium Chloride ER [K-Dur 20] 20 meq PO DAILY Discharge Medication List Nitroglycerin Sl Tabs [Nitrostat] 0.4 mg SUBLINGUAL Q5M PRN #25 tab 06/12/15 [Rx ] Metoprolol Tartrate [Lopressor] 12.5 mg PO HS 08/21/18 [History] Ranitidine HCl [Zantac] 150 mg PO BID 08/21/18 [History] Morphine Sulfate ER [Ms Contin] 30 mg PO Q8H 3 Days #9 tab 09/03/18 [Rx] Ondansetron HCl [Zofran] 8 mg PO Q4H PRN 09/26/18 [History] ALPRAZolam [Xanax] 0.25 mg PO BID@0900,1600 tab 10/05/18 [Rx] Apixaban [Eliquis] 5 mg PO BID tab 10/05/18 [Rx] Melatonin 3 mg PO HS tablet 10/05/18 [Rx] Tamsulosin [Flomax] 0.4 mg PO PC-BRKFST cap.er.24h 10/05/18 [Rx] ALPRAZolam [Xanax] 0.5 mg PO HS PRN 10/25/18 [History] Furosemide [Lasix] 40 mg PO DAILY 10/25/18 [History] HYDROcodone/APAP 10-325MG [[place] 10-325] 1 tab PO Q4HR PRN 10/25/18 [History] Lactulose 20 gm PO Q48H 10/25/18 [History] Potassium Chloride ER [K-Dur 20] 20 meq PO DAILY 10/25/18 [History] Follow up Appointment(s)/Referral(s): Jaky Valdes MD [Primary Care Provider] - 1-2 days Activity/Diet/Wound Care/Special Instructions: Patient will be transferred to [facility] Discharge Disposition: DC/TRNS INTERMEDIATE CARE FAC
[2018-10-25 16:50] VITALS: TEMP 98
[2018-10-25] MEDS ORDERED: MORPHINE SULFATE ER 30 MG TABLET PO STA (17:13)
[2018-10-25 20:42] VITALS: BP 115/82; PULSE 74; RESP 20
[2018-10-25] MEDS ORDERED: METOPROLOL TARTRATE 12.5 MG TAB PO SCH (21:00)
[2018-10-25] MEDS ORDERED: FAMOTIDINE 20 MG TAB PO SCH (21:00)
[2018-10-25] MEDS ORDERED: MELATONIN 3 MG TABLET PO SCH (21:00)
[2018-10-26] MEDS ORDERED: TAMSULOSIN 0.4 MG CAP.ER.24H PO SCH (08:30)
[2018-10-26] MEDS ORDERED: POTASSIUM CHLORIDE ER 20 MEQ TAB.ER PO SCH (09:00)
[2018-10-26] MEDS ORDERED: LACTULOSE 20 GM/30 ML CUP PO SCH (09:00)
[2018-10-26] MEDS ORDERED: FUROSEMIDE 40 MG TAB PO SCH (09:00)
== END 2018-10-25 20:42 | disposition other institution (70) ==
LOC: EC 09:52 → 3NMEDONC 13:55 → UNDOADMIN 13:55 → EC 20:42
DX: C25.9 Malignant neoplasm of pancreas, unspecified (principal); C78.7 Secondary malignant neoplasm of liver and intrahepatic bile duct; R18.8 Other ascites; I10 Essential (primary) hypertension; Z87.891 Personal history of nicotine dependence; Z79.899 Other long term (current) drug therapy; Z88.8 Allergy status to other drugs, medicaments and biological substances; Z92.21 Personal history of antineoplastic chemotherapy; Z95.5 Presence of coronary angioplasty implant and graft; Z98.890 Other specified postprocedural states
CPT/HCPCS: 36415; 80053; 82140; 82150; 83690; 85025; 81003; 87040; 87086; 71046; 74018; 99285; 96374; J1642

== ENCOUNTER 2018-11-01 12:19 | Inpatient (IN) | payer MEDICARE ==
--- NOTE | 2018-11-01 13:09 | ED ---
General Adult HPI - General Chief complaint: Shortness of Breath Stated complaint: SOB Time Seen by Provider: 11/01/18 12:54 Source: patient, family, EMS, RN notes reviewed Mode of arrival: EMS Limitations: no limitations - History of Present Illness Initial comments: Patient is a pleasant [age]-year-old male presenting to the emergency Department with shortness of breath. Symptoms have progressed with the past couple of days. Patient did have similar symptoms previously associated with abdominal ascites. Patient was recently in the hospital and transferred to [place] and had paracentesis and biliary stenting done at that time. Patient has known pancreatic cancer with liver metastasis. No cough. No fever. Family states there has been some mild confusion. - Related Data Home Medications Medication Instructions Recorded Confirmed Metoprolol Tartrate [Lopressor] 12.5 mg PO BID 08/21/18 11/01/18 Ranitidine HCl [Zantac] 150 mg PO BID 08/21/18 11/01/18 Ondansetron HCl [Zofran] 8 mg PO Q4H PRN 09/26/18 11/01/18 ALPRAZolam [Xanax] 0.5 mg PO HS PRN 10/25/18 11/01/18 Furosemide [Lasix] 40 mg PO DAILY 10/25/18 11/01/18 HYDROcodone/APAP 10-325MG [[place] 1 tab PO Q4HR PRN 10/25/18 11/01/18 10-325] Lactulose 20 gm PO Q48H 10/25/18 11/01/18 Potassium Chloride ER [K-Dur 20] 20 meq PO DAILY 10/25/18 11/01/18 Previous Rx's Medication Instructions Recorded Nitroglycerin Sl Tabs [Nitrostat] 0.4 mg SUBLINGUAL Q5M PRN #25 tab 03/09/15 Morphine Sulfate ER [Ms Contin] 30 mg PO Q8H 3 Days #9 tab 09/03/18 ALPRAZolam [Xanax] 0.25 mg PO BID@0900,1600 tab 10/05/18 Apixaban [Eliquis] 5 mg PO BID tab 10/05/18 Melatonin 3 mg PO HS tablet 10/05/18 Tamsulosin [Flomax] 0.4 mg PO PC-BRKFST cap.er.24h 10/05/18 Allergies Allergy/AdvReac Type Severity Reaction Status Date / Time Mwdpezs-Wlt-Aws Reductase AdvReac JOINT PAIN Verified 11/01/18 13:37 Inhibitor Review of Systems ROS Statement: Those systems with pertinent positive or pertinent negative responses have been documented in the HPI. ROS Other: All systems not noted in ROS Statement are negative. Constitutional: Denies: fever, chills Eyes: Denies: eye pain ENT: Denies: ear pain Respiratory: Reports: dyspnea. Denies: cough Cardiovascular: Denies: chest pain Endocrine: Reports: fatigue Gastrointestinal: Reports: other (Distention). Denies: vomiting Genitourinary: Denies: dysuria Skin: Denies: lesions Neurological: Denies: headache Past Medical History Past Medical History: Cancer, Hyperlipidemia, Hypertension Additional Past Medical History / Comment(s): Pancreatic cancer with mets, last chemo 09-17-18 History of Any Multi-Drug Resistant Organisms: None Reported Past Surgical History: Heart Catheterization With Stent Additional Past Surgical History / Comment(s): hydrocele, colonoscopy-WNL, vocal cord polypectomy. . Right chest port for chemo paracentesis Past Anesthesia/Blood Transfusion Reactions: Postoperative Nausea & Vomiting ( PONV) Additional Past Anesthesia/Blood Transfusion Reaction / Comment(s): Pt has never had blood transfusion. Date of Last Stent Placement:: 2014 Past Psychological History: Anxiety Smoking Status: Former smoker Past Alcohol Use History: None Reported Past Drug Use History: None Reported - Past Family History Father Family Medical History: No Reported History Additional Family Medical History / Comment(s): Father when pt was 8 yrs old. He was a WWII vet and had suffered a gunshot to the head. Mother Family Medical History: No Reported History Additional Family Medical History / Comment(s): .Mother is healthy and is 84yrs old General Exam Limitations: no limitations General appearance: alert, in no apparent distress Head exam: Present: atraumatic Eye exam: Present: scleral icterus ENT exam: Present: normal oropharynx Neck exam: Present: normal inspection Respiratory exam: Present: normal lung sounds bilaterally Cardiovascular Exam: Present: regular rate, normal rhythm GI/Abdominal exam: Present: soft, distended, normal bowel sounds. Absent: tenderness, guarding, rebound, pulsatile mass Extremities exam: Present: normal inspection. Absent: pedal edema, calf tenderness Neurological exam: Present: alert Psychiatric exam: Present: normal affect, normal mood Skin exam: Present: normal color Course Vital Signs 11/01/18 11/01/18 11/01/18 12:21 12:30 13:00 Temperature 98.2 F Pulse Rate 79 74 Respiratory 16 14 Rate Blood Pressure 106/62 106/69 O2 Sat by Pulse 98 97 97 Oximetry 11/01/18 11/01/18 14:00 15:00 Temperature Pulse Rate 76 78 Respiratory 20 20 Rate Blood Pressure 86/69 102/68 O2 Sat by Pulse 97 Oximetry EKG Findings - EKG Comments: EKG Findings:: Normal sinus rhythm 82. MO 178. QRS 136. QT 422. QTC 493. Left axis. Right bundle branch block. No acute ST change. Medical Decision Making - Medical Decision Making Patient reevaluated. Patient and family updated. Case was discussed in detail with Dr. Valdes, who is familiar with this patient and will admit. He does request consult with interventional radiology. Lactulose will be provided. Bilirubin has improved since previous lab, likely improvement secondary to having stent placed. - Lab Data Result diagrams: 11/01/18 12:53 11/01/18 12:53 Lab Results 11/01/18 11/01/18 11/01/18 Range/Units 12:53 12:53 12:53 WBC 13.2 H (3.8-10.6) k/uL RBC 3.16 L (4.30-5.90) m/uL Hgb 9.8 L (13.0-17.5) gm/dL Hct 32.1 L (39.0-53.0) % MCV 101.6 H (80.0-100.0) fL MCH 30.9 (25.0-35.0) pg MCHC 30.4 L (31.0-37.0) g/dL RDW 15.7 H (11.5-15.5) % Plt Count 95 L (150-450) k/uL Neutrophils % 80 % Lymphocytes % 7 % Monocytes % 8 % Eosinophils % 2 % Basophils % 1 % Neutrophils # 10.6 H (1.3-7.7) k/uL Lymphocytes # 1.0 (1.0-4.8) k/uL Monocytes # 1.0 (0-1.0) k/uL Eosinophils # 0.3 (0-0.7) k/uL Basophils # 0.1 (0-0.2) k/uL Manual Slide Review Performed Hypochromasia Slight Macrocytosis Slight Target Cells Present PT (9.0-12.0) sec INR (<1.2) APTT (22.0-30.0) sec Sodium 137 (137-145) mmol/L Potassium 4.3 (3.5-5.1) mmol/L Chloride 104 (98-107) mmol/L Carbon Dioxide 27 (22-30) mmol/L Anion Gap 6 mmol/L BUN 25 H (9-20) mg/dL Creatinine 1.26 H (0.66-1.25) mg/dL Est GFR (CKD-EPI)AfAm 67 (>60 ml/min/1.73 sqM) Est GFR (CKD-EPI)NonAf 58 (>60 ml/min/1.73 sqM) Glucose 128 H (74-99) mg/dL Calcium 8.3 L (8.4-10.2) mg/dL Total Bilirubin 3.7 H (0.2-1.3) mg/dL AST 135 H (17-59) U/L ALT 62 (21-72) U/L Alkaline Phosphatase 533 H (38-126) U/L Ammonia 60 H (<30) umol/L NT-Pro-B Natriuret Pep pg/mL Total Protein 5.7 L (6.3-8.2) g/dL Albumin 2.5 L (3.5-5.0) g/dL Amylase 35 (30-110) U/L Lipase 91 (23-300) U/L 11/01/18 11/01/18 Range/Units 12:53 12:53 WBC (3.8-10.6) k/uL RBC (4.30-5.90) m/uL Hgb (13.0-17.5) gm/dL Hct (39.0-53.0) % MCV (80.0-100.0) fL MCH (25.0-35.0) pg MCHC (31.0-37.0) g/dL RDW (11.5-15.5) % Plt Count (150-450) k/uL Neutrophils % % Lymphocytes % % Monocytes % % Eosinophils % % Basophils % % Neutrophils # (1.3-7.7) k/uL Lymphocytes # (1.0-4.8) k/uL Monocytes # (0-1.0) k/uL Eosinophils # (0-0.7) k/uL Basophils # (0-0.2) k/uL Manual Slide Review Hypochromasia Macrocytosis Target Cells PT 14.4 H (9.0-12.0) sec INR 1.4 H (<1.2) APTT 32.4 H (22.0-30.0) sec Sodium (137-145) mmol/L Potassium (3.5-5.1) mmol/L Chloride (98-107) mmol/L Carbon Dioxide (22-30) mmol/L Anion Gap mmol/L BUN (9-20) mg/dL Creatinine (0.66-1.25) mg/dL Est GFR (CKD-EPI)AfAm (>60 ml/min/1.73 sqM) Est GFR (CKD-EPI)NonAf (>60 ml/min/1.73 sqM) Glucose (74-99) mg/dL Calcium (8.4-10.2) mg/dL Total Bilirubin (0.2-1.3) mg/dL AST (17-59) U/L ALT (21-72) U/L Alkaline Phosphatase (38-126) U/L Ammonia (<30) umol/L NT-Pro-B Natriuret Pep 797 pg/mL Total Protein (6.3-8.2) g/dL Albumin (3.5-5.0) g/dL Amylase (30-110) U/L Lipase (23-300) U/L - Radiology Data Radiology results: image reviewed (Chest x-ray shows no acute process, stable minimal effusions. Abdominal x-ray reveals no obstructive pattern.) Disposition Clinical Impression: Ascites, Dyspnea Disposition: ADMITTED IP TO THIS HOSP Is patient prescribed a controlled substance at d/c from ED?: No Referrals: Jaky Valdes MD [Primary Care Provider] - 1-2 days Decision Time: 16:18
--- NOTE | 2018-11-01 13:57 | XR ---
EXAMINATION TYPE: XR chest 2V DATE OF EXAM: 11/01/2018 COMPARISON: Chest x-ray October 25, 2018 HISTORY: History of pancreatic cancer with difficulty in breathing. TECHNIQUE: Frontal and lateral views of the chest are obtained. FINDINGS: There is stable right subclavian Mediport catheter. There are persistent tiny bilateral pl eural effusions with blunting of posterior costophrenic angles. Diminished inspiration is seen on cur rent study without new suspicious focal infiltrate or pneumothorax seen bilaterally. The cardiac muriel houette size is upper limits of normal with atherosclerotic and ectatic thoracic aorta redemonstrated . The osseous structures are intact. IMPRESSION: Diminished inspiration with stable tiny bilateral pleural effusions.
--- NOTE | 2018-11-01 14:00 | XR ---
EXAMINATION TYPE: XR abdomen 1V DATE OF EXAM: 11/01/2018 1:52 PM CLINICAL HISTORY: History of metastatic pancreatic cancer with abdominal distention TECHNIQUE: Two supine KUB images of the abdomen are obtained. COMPARISON: CT abdomen and pelvis August 23, 2018. Abdominal x-ray October 25, 2018 FINDINGS: Gas is seen in nondistended stomach. Some paucity of small bowel gas is identified with sca ttered gas noted in nondistended small bowel loops in the lower abdomen. Gas and fecal material is se en in non-distended colon. Scattered pelvic phleboliths are present. Vascular calcification bilateral groin region is seen. Osseous structures are intact. IMPRESSION: Overall nonobstructive bowel gas pattern.
[2018-11-01 14:10] LABS: Albumin 2.5 g/dL (3.5-5.0); Calcium 8.3 mg/dL (8.4-10.2); Potassium 4.3 mmol/L (3.5-5.1); Total Bilirubin 3.7 mg/dL (0.2-1.3); Total Protein 5.7 g/dL (6.3-8.2)
[2018-11-01 14:14] LABS: INR 1.4 (<1.2); Partial Thromboplastin Time 32.4 sec (22.0-30.0); Prothrombin Time 14.4 sec (9.0-12.0)
[2018-11-01 14:46] LABS: Basophils # (A) 0.1 k/uL (0-0.2); Basophils % (A) 1 %; Eosinophils # (A) 0.3 k/uL (0-0.7); Eosinophils % (A) 2 %; HCT 32.1 % (39.0-53.0); HGB 9.8 gm/dL (13.0-17.5); Hypochromasia Slight; Lymphocytes % (A) 7 %; MCH 30.9 pg (25.0-35.0); MCHC 30.4 g/dL (31.0-37.0); MCV 101.6 fL (80.0-100.0); Macrocytosis Slight; Mean Platelet Volume 8.5; Monocytes % (A) 8 %; Neutrophils # (A) 10.6 k/uL (1.3-7.7); Neutrophils % (A) 80 %; RBC 3.16 m/uL (4.30-5.90); RDW 15.7 % (11.5-15.5); WBC 13.2 k/uL (3.8-10.6)
[2018-11-01] MEDS ORDERED: MORPHINE SULFATE 4 MG/ML SYRINGE IVP STA (15:00)
[2018-11-01 15:12] LABS: Target Cells Present
[2018-11-01 15:13] LABS: Platelet Count 95 k/uL (150-450)
[2018-11-01] MEDS ORDERED: ONDANSETRON 4 MG/2 ML VIAL IVP STA (15:38)
[2018-11-01] MEDS ORDERED: ONDANSETRON 4 MG/2 ML VIAL IVP PRN (16:18)
[2018-11-01] MEDS ORDERED: NALOXONE 0.4 MG/ML 1 ML VIAL IV PRN (16:18)
[2018-11-01] MEDS: MORPHINE SULFATE 4 MG/ML SYRINGE IV PRN (17:08)
[2018-11-01] MEDS: SODIUM CHLORIDE 0.9% 1,000 ML IV SCH (17:52)
[2018-11-01] MEDS: LACTULOSE 20 GM/30 ML CUP PO SCH ×2 (17:52→20:30)
[2018-11-01] MEDS ORDERED: HYDROcodone/APAP 10-325MG 1 EACH TAB PO PRN (17:58)
[2018-11-01] MEDS: MORPHINE SULFATE ER 30 MG TABLET PO SCH ×2 (18:20→20:28)
[2018-11-01] MEDS: METOPROLOL TARTRATE 12.5 MG TAB PO SCH ×2 (20:28→20:31)
[2018-11-01] MEDS: FAMOTIDINE 20 MG TAB PO SCH (20:28)
[2018-11-01] MEDS: ALPRAZolam 0.5 MG TAB PO PRN (20:28)
[2018-11-01] MEDS: MELATONIN 3 MG TABLET PO SCH (20:28)
--- NOTE | 2018-11-01 23:02 | US ---
EXAMINATION TYPE: US abdomen limited DATE OF EXAM: 11/01/2018 COMPARISON: Limited abdominal ultrasound October 04, 2018 CLINICAL HISTORY: Ascites. Ascites patient has Pancreatic CA. Ascites is visualized. The 9 images saved show recurrent moderate ascites most prominent in the left lower quadrant. IMPRESSION: As above, enough fluid felt present for ultrasound guided paracentesis if desired.
[2018-11-02] MEDS ORDERED: PANTOPRAZOLE 40 MG/10 ML VIAL IV SCH (09:00)
[2018-11-02] MEDS: FUROSEMIDE 40 MG TAB PO SCH (09:14)
[2018-11-02] MEDS: ALPRAZolam 0.25 MG TAB PO SCH ×2 (09:14→15:23)
[2018-11-02] MEDS: LACTULOSE 20 GM/30 ML CUP PO SCH ×3 (09:14→21:36)
[2018-11-02] MEDS: FAMOTIDINE 20 MG TAB PO SCH ×2 (09:14→21:35)
[2018-11-02] MEDS: TAMSULOSIN 0.4 MG CAP.ER.24H PO SCH (09:14)
[2018-11-02] MEDS: POTASSIUM CHLORIDE ER 20 MEQ TAB.ER PO SCH (09:15)
[2018-11-02] MEDS: METOPROLOL TARTRATE 12.5 MG TAB PO SCH ×2 (09:15→21:35)
[2018-11-02] MEDS: MORPHINE SULFATE ER 30 MG TABLET PO SCH ×3 (09:22→21:35)
--- NOTE | 2018-11-02 10:35 | P.HPIM ---
History of Present Illness H&P Date: 11/02/18 This is a 68-year-old male patient who presented to the hospital with complaints of shortness breath and increased ascites. Patient is well-known to my services. Patient has a known diagnosis of pancreatic cancer with metastases to liver. Patient recently underwent liver stent placement at [facility] approximately 1 week ago. At that time patient also underwent paracentesis in which they drained over 6 L. Patient stated he did receive some relief but then had increased ascites and shortness of breath over the past 3 days. Patient does follow with oncology services and underwent 1 round of chemotherapy. Chest x-ray completed showing diminished inspiration with stable tiny bilateral pleural effusions. Abdominal x-ray completed showing overall nonobstructive bowel gas pattern. EKG completed showing normal sinus rhythm, left axis deviation, right bundle branch block. GI and oncology services have been consulted. At this time patient's at bedside. Requesting social consult for possible hospice. Patient expresses that he does not want to be poked anymore would like to go home. Requesting oncology still, and options but would like to hear options for possibly hospice care at this time. At this time patient is still complaining of abdominal pain with increased shortness of breath. Patient denies chest pain. Patient denies nausea or vomiting. patient denies any urinary burning or frequency Review of Systems Please refer to HPI otherwise unremarkable Past Medical History Past Medical History: Cancer, Deep Vein Thrombosis (DVT), GI Bleed, Hyperlipidemia, Hypertension, Pulmonary Embolus (PE) Additional Past Medical History / Comment(s): Pancreatic cancer with mets"liver ", last chemo tx finished 09-17-18 ,blood clots gabriele lungs, 2 lt leg , 1 rt arm History of Any Multi-Drug Resistant Organisms: None Reported Past Surgical History: Heart Catheterization With Stent Additional Past Surgical History / Comment(s): hydrocele,egd, colonoscopy-WNL, vocal cord polypectomy. \\2014. Right chest port for chemo. had paracentesis and a biliary stent placed by dr stephy pedro at [facility]. Past Anesthesia/Blood Transfusion Reactions: Postoperative Nausea & Vomiting ( PONV) Additional Past Anesthesia/Blood Transfusion Reaction / Comment(s): Pt has never had blood transfusion. Date of Last Stent Placement:: 2014 Smoking Status: Former smoker - Past Family History Father Family Medical History: No Reported History Additional Family Medical History / Comment(s): Father when pt was 8 yrs old. He was a WWII vet and had suffered a gunshot to the head. Mother Family Medical History: No Reported History Additional Family Medical History / Comment(s): .Mother is healthy and is 84yrs old Medications and Allergies Home Medications Medication Instructions Recorded Confirmed Type Nitroglycerin Sl Tabs [Nitrostat] 0.4 mg SUBLINGUAL Q5M PRN #25 tab 03/09/1501/14 Rx Metoprolol Tartrate [Lopressor] 12.5 mg PO BID 08/21/18 11/01/18 History Ranitidine HCl [Zantac] 150 mg PO BID 08/21/18 11/01/18 History Morphine Sulfate ER [Ms Contin] 30 mg PO Q8H 3 Days #9 tab 09/03/18 11/01/18 Rx Ondansetron HCl [Zofran] 8 mg PO Q4H PRN 09/26/18 11/01/18 History ALPRAZolam [Xanax] 0.25 mg PO BID@0900,1600 tab 10/05/18 11/01/18 Rx Apixaban [Eliquis] 5 mg PO BID tab 10/05/18 11/01/18 Rx Melatonin 3 mg PO HS tablet 10/05/18 11/01/18 Rx Tamsulosin [Flomax] 0.4 mg PO PC-BRKFST cap.er.24h 10/05/18 11/01/18 Rx ALPRAZolam [Xanax] 0.5 mg PO HS PRN 10/25/18 11/01/18 History Furosemide [Lasix] 40 mg PO DAILY 10/25/18 11/01/18 History HYDROcodone/APAP 10-325MG [[place] 1 tab PO Q4HR PRN 10/25/18 11/01/18 History 10-325] Lactulose 20 gm PO Q48H 10/25/18 11/01/18 History Potassium Chloride ER [K-Dur 20] 20 meq PO DAILY 10/25/18 11/01/18 History Allergies Allergy/AdvReac Type Severity Reaction Status Date / Time Rksbjan-Kmq-Moo Reductase AdvReac JOINT PAIN Verified 11/01/18 13:37 Inhibitor Physical Exam Vitals: Vital Signs Temp Pulse Pulse Resp BP BP Pulse Ox 11/02/18 05:24 98.7 F 84 16 129/63 92 L 11/01/18 23:00 98.5 F 81 18 117/74 94 L 11/01/18 17:24 98 F 78 16 111/59 100 11/01/18 16:00 76 18 105/89 11/01/18 15:00 78 20 102/68 97 11/01/18 14:00 76 20 86/69 11/01/18 13:00 74 14 106/69 97 11/01/18 12:30 97 11/01/18 12:21 98.2 F 79 16 106/62 98 Intake and Output 11/01/18 11/02/18 11/02/18 22:59 06:59 14:59 Other: Voiding Method Urinal # Voids 1 1 Head normocephalic yellowing noted to skin Neck supple Lungs clear to auscultation bilaterally no wheezing or crackles Heart regular rate and rhythm S1-S2, no rub or gallop Abdomen abdominal ascites Extremities no edema Results CBC & Chem 7: 11/01/18 12:53 11/01/18 12:53 Labs: Abnormal Lab Results - Last 24 Hours (Table) 11/01/18 11/01/18 11/01/18 Range/Units 12:53 12:53 12:53 WBC 13.2 H (3.8-10.6) k/uL RBC 3.16 L (4.30-5.90) m/uL Hgb 9.8 L (13.0-17.5) gm/dL Hct 32.1 L (39.0-53.0) % MCV 101.6 H (80.0-100.0) fL MCHC 30.4 L (31.0-37.0) g/dL RDW 15.7 H (11.5-15.5) % Plt Count 95 L (150-450) k/uL Neutrophils # 10.6 H (1.3-7.7) k/uL PT (9.0-12.0) sec INR (<1.2) APTT (22.0-30.0) sec BUN 25 H (9-20) mg/dL Creatinine 1.26 H (0.66-1.25) mg/dL Glucose 128 H (74-99) mg/dL Calcium 8.3 L (8.4-10.2) mg/dL Total Bilirubin 3.7 H (0.2-1.3) mg/dL AST 135 H (17-59) U/L Alkaline Phosphatase 533 H (38-126) U/L Ammonia 60 H (<30) umol/L Total Protein 5.7 L (6.3-8.2) g/dL Albumin 2.5 L (3.5-5.0) g/dL 11/01/18 11/02/18 Range/Units 12:53 09:25 WBC (3.8-10.6) k/uL RBC (4.30-5.90) m/uL Hgb (13.0-17.5) gm/dL Hct (39.0-53.0) % MCV (80.0-100.0) fL MCHC (31.0-37.0) g/dL RDW (11.5-15.5) % Plt Count (150-450) k/uL Neutrophils # (1.3-7.7) k/uL PT 14.4 H (9.0-12.0) sec INR 1.4 H (<1.2) APTT 32.4 H (22.0-30.0) sec BUN (9-20) mg/dL Creatinine (0.66-1.25) mg/dL Glucose (74-99) mg/dL Calcium (8.4-10.2) mg/dL Total Bilirubin (0.2-1.3) mg/dL AST (17-59) U/L Alkaline Phosphatase (38-126) U/L Ammonia 43 H (<30) umol/L Total Protein (6.3-8.2) g/dL Albumin (3.5-5.0) g/dL Thrombosis Risk Factor Assmnt - Choose All That Apply Any of the Below Risk Factors Present?: Yes Each Factor Represents 1 point: Obesity (BMI >25) Other Risk Factors: Yes Each Risk Factor Represents 2 Points: Age 61-74 years Other congenital or acquired thrombophilia - If yes, enter type in comment: No Thrombosis Risk Factor Assessment Total Risk Factor Score: 3 Thrombosis Risk Factor Assessment Level: Moderate Risk Assessment and Plan Assessment: 1. Increased abdominal ascites and shortness of breath. Chest x-ray completed showing diminished inspiration with stable tiny bilateral lateral pleural effusions. Abdominal x-ray completed showing overall nonobstructive bowel gas pattern. GI services have been consulted for possible paracentesis 2. Pancreatic cancer with metastases to liver. Pathology services are following. Patient did undergo 1 more chemotherapy approximately 1 month ago 3. Elevated liver enzymes related to metastasis disease 4. Increased confusion. Elevated ammonia levels continue lactulose 5. History of DVT and PE. Patient did receive eliquis yesterday. Eliquis currently on hold due to possible paracentesis 6. History of essential hypertension 7. History of hyperlipidemia 8. History of iron deficiency anemia At this time family and patient are requesting information on hospice. [employer] and concrete [employer] worker consult has been placed GI and oncology service is consulted Time with Patient: Greater than 30 (Greater than 60% of the total time spent in counseling and coordination of care. I performed an examination of the patient and discussed their management with the Nurse Practitioner. I have reviewed the Nurse Practitioner's notes and agree with the documented findings and plan of care)
--- NOTE | 2018-11-02 13:00 | P.CONS ---
History of Present Illness - Reason for Consult Consult date: 11/02/18 metastatic pancreatic cancer Requesting physician: Jaky Valdes - Chief Complaint short of breath abdominal distention - History of Present Illness 68-year-old gentleman with a history of metastatic pancreatic cancer status post recent ERCP and biliary stent placement for obstructive jaundice. Admitted with worsening abdominal distention and shortness of breath. He has a history of underlying portal hypertension ascites most recent paracentesis a week ago at [facility] with 6 L removed. Previous ascitic cytology last month negative for malignancy. Consult requested for known history of metastatic pancreatic cancer. Patient has a history of recent PE DVT maintained on Eliquis last dose yesterday. Family is inquiring about an abdominal cavity to be placed for future drainage of abdominal ascites. Interventional radiology consulted for paracentesis possible catheter placement. White count 13.2. Hemoglobin 9.8. Platelet 95,000. INR 1.4. Total bilirubin 3.7. AST 135. ALT 62. AP 533. BUN 25. Creatinine 1.2. Ammonia 60 presently 43. Family is inquiring hospice information. No fever chills hematemesis hematochezia melena. Ultrasound abdomen moderate ascites. Review of Systems Constitutional: Denies fever, chills, sweats, weight gain, or loss. HEENT: Negative for migraines, blurred vision or loss, earaches, drainage, tinnitus, oral mucosal lesions, dysphagia, or odynophagia. Cardiac: Negative for chest pain, arrhythmias, or palpitation. Respiratory: Admitted with shortness of breath, denies hemoptysis, cough, or sputum production. Gastrointestinal: See HPI for pertinent findings. Genitourinary: Negative for hematuria, urgency, frequency, polyuria, dysuria, or penile discharge. Musculoskeletal: Negative for muscle aches, swelling, arthritis, and arthralgias. Neurologic: Negative for stroke or TIA. Endocrine: Negative for thyroid problems. Skin: Negative for rash or itching. Psychiatric: Negative history for depression and anxiety Past Medical History Past Medical History: Cancer, Deep Vein Thrombosis (DVT), GI Bleed, Hyperlipidemia, Hypertension, Pulmonary Embolus (PE) Additional Past Medical History / Comment(s): Pancreatic cancer with mets"liver ", last chemo tx finished 09-17-18 ,blood clots gabriele lungs, 2 lt leg , 1 rt arm History of Any Multi-Drug Resistant Organisms: None Reported Past Surgical History: Heart Catheterization With Stent Additional Past Surgical History / Comment(s): hydrocele,egd, colonoscopy-WNL, vocal cord polypectomy. . Right chest port for chemo. had paracentesis and a biliary stent placed by dr stephy pedro at [facility]. Past Anesthesia/Blood Transfusion Reactions: Postoperative Nausea & Vomiting ( PONV) Additional Past Anesthesia/Blood Transfusion Reaction / Comm: Pt has never had blood transfusion. Date of Last Stent Placement:: 2014 Smoking Status: Former smoker - Past Family History Father Family Medical History: No Reported History Additional Family Medical History / Comment(s): Father when pt was 8 yrs old. He was a WWII vet and had suffered a gunshot to the head. Mother Family Medical History: No Reported History Additional Family Medical History / Comment(s): .Mother is healthy and is 84yrs old Medications and Allergies Home Medications Medication Instructions Recorded Confirmed Type Nitroglycerin Sl Tabs [Nitrostat] 0.4 mg SUBLINGUAL Q5M PRN #25 tab 03/09/1501/14 Rx Metoprolol Tartrate [Lopressor] 12.5 mg PO BID 08/21/18 11/01/18 History Ranitidine HCl [Zantac] 150 mg PO BID 08/21/18 11/01/18 History Morphine Sulfate ER [Ms Contin] 30 mg PO Q8H 3 Days #9 tab 09/03/18 11/01/18 Rx Ondansetron HCl [Zofran] 8 mg PO Q4H PRN 09/26/18 11/01/18 History ALPRAZolam [Xanax] 0.25 mg PO BID@0900,1600 tab 10/05/18 11/01/18 Rx Apixaban [Eliquis] 5 mg PO BID tab 10/05/18 11/01/18 Rx Melatonin 3 mg PO HS tablet 10/05/18 11/01/18 Rx Tamsulosin [Flomax] 0.4 mg PO PC-BRKFST cap.er.24h 10/05/18 11/01/18 Rx ALPRAZolam [Xanax] 0.5 mg PO HS PRN 10/25/18 11/01/18 History Furosemide [Lasix] 40 mg PO DAILY 10/25/18 11/01/18 History HYDROcodone/APAP 10-325MG [[place] 1 tab PO Q4HR PRN 10/25/18 11/01/18 History 10-325] Lactulose 20 gm PO Q48H 10/25/18 11/01/18 History Potassium Chloride ER [K-Dur 20] 20 meq PO DAILY 10/25/18 11/01/18 History Allergies Allergy/AdvReac Type Severity Reaction Status Date / Time Xjzebcs-Cdd-Qoc Reductase AdvReac JOINT PAIN Verified 11/01/18 13:37 Inhibitor Physical Exam Vitals: Vital Signs Temp Pulse Pulse Resp BP BP Pulse Ox 11/02/18 05:24 98.7 F 84 16 129/63 92 L 11/01/18 23:00 98.5 F 81 18 117/74 94 L 11/01/18 17:24 98 F 78 16 111/59 100 11/01/18 16:00 76 18 105/89 11/01/18 15:00 78 20 102/68 97 11/01/18 14:00 76 20 86/69 11/01/18 13:00 74 14 106/69 97 Intake and Output 11/01/18 11/02/18 11/02/18 22:59 06:59 14:59 Other: Voiding Method Urinal Urinal # Voids 1 1 General appearance: The patient is alert, oriented, in no acute distress. Mildly jaundiced. HET: Head is normocephalic and atraumatic. Pupils are equal and reactive. Oropharynx is clear without lesions. Sclerae icterus. Neck: Supple without lymphadenopathy. Trachea midline. Heart: S1 S2. Regular rate and rhythm. Lungs: No crackles or wheezes are heard. Diminished in bases bilaterally. Abdomen: Distended from with gross ascites. No peritoneal signs. No palpable organomegaly or masses. Extremities: +2 bilateral lower extremity edema. Neurological: No focal deficits. Strength and sensation are grossly intact. Results CBC & Chem 7: 11/01/18 12:53 11/01/18 12:53 Labs: Abnormal Lab Results - Last 24 Hours (Table) 11/01/18 11/01/18 11/01/18 Range/Units 12:53 12:53 12:53 WBC 13.2 H (3.8-10.6) k/uL RBC 3.16 L (4.30-5.90) m/uL Hgb 9.8 L (13.0-17.5) gm/dL Hct 32.1 L (39.0-53.0) % MCV 101.6 H (80.0-100.0) fL MCHC 30.4 L (31.0-37.0) g/dL RDW 15.7 H (11.5-15.5) % Plt Count 95 L (150-450) k/uL Neutrophils # 10.6 H (1.3-7.7) k/uL PT (9.0-12.0) sec INR (<1.2) APTT (22.0-30.0) sec BUN 25 H (9-20) mg/dL Creatinine 1.26 H (0.66-1.25) mg/dL Glucose 128 H (74-99) mg/dL Calcium 8.3 L (8.4-10.2) mg/dL Total Bilirubin 3.7 H (0.2-1.3) mg/dL AST 135 H (17-59) U/L Alkaline Phosphatase 533 H (38-126) U/L Ammonia 60 H (<30) umol/L Total Protein 5.7 L (6.3-8.2) g/dL Albumin 2.5 L (3.5-5.0) g/dL 11/01/18 11/02/18 Range/Units 12:53 09:25 WBC (3.8-10.6) k/uL RBC (4.30-5.90) m/uL Hgb (13.0-17.5) gm/dL Hct (39.0-53.0) % MCV (80.0-100.0) fL MCHC (31.0-37.0) g/dL RDW (11.5-15.5) % Plt Count (150-450) k/uL Neutrophils # (1.3-7.7) k/uL PT 14.4 H (9.0-12.0) sec INR 1.4 H (<1.2) APTT 32.4 H (22.0-30.0) sec BUN (9-20) mg/dL Creatinine (0.66-1.25) mg/dL Glucose (74-99) mg/dL Calcium (8.4-10.2) mg/dL Total Bilirubin (0.2-1.3) mg/dL AST (17-59) U/L Alkaline Phosphatase (38-126) U/L Ammonia 43 H (<30) umol/L Total Protein (6.3-8.2) g/dL Albumin (3.5-5.0) g/dL US - abdomen: report reviewed (Dr. Bright) Assessment and Plan (1) Metastasis from pancreatic cancer Current Visit: Yes Status: Acute Code(s): C79.9 - SECONDARY MALIGNANT NEOPLASM OF UNSPECIFIED SITE; C25.9 - MALIGNANT NEOPLASM OF PANCREAS, UNSPECIFIED SNOMED Code(s): 521790669 (2) Portal hypertension Current Visit: Yes Status: Acute Code(s): K76.6 - PORTAL HYPERTENSION SNOMED Code(s): 26476806 (3) Ascites Current Visit: Yes Status: Acute Code(s): R18.8 - OTHER ASCITES SNOMED Code(s): 053260839 (4) DVT (deep venous thrombosis) Current Visit: No Status: Resolved Code(s): I82.409 - ACUTE EMBOLISM AND THOMBOS UNSP DEEP VN UNSP LOWER EXTREMITY SNOMED Code(s): 260851348 (5) Pulmonary embolism Current Visit: No Status: Resolved Priority: High Code(s): I26.99 - OTHER PULMONARY EMBOLISM WITHOUT ACUTE COR PULMONALE SNOMED Code(s): 68789263 Plan: 1. Anticoagulation on hold. IR consulted for paracentesis peritoneal catheter placement may need to consult general surgery for catheter placement awaiting IR response. Continue with Lasix 40 mg daily. Lactulose 30 g 3 times daily. Daily monitoring of chemistries electrolytes. We'll continue to follow with you. Thank you for this kind referral and the opportunity to participate in the care of your patient. This consultation was discussed with Dr. Bright. The impression and plan of care have been directed as dictated.
[2018-11-02] MEDS: SODIUM CHLORIDE 0.9% 1,000 ML IV SCH (15:24)
[2018-11-02] MEDS ORDERED: PHYTONADIONE 2 MG in SODIUM CHLORIDE 0.9% 50 ML IVPB STA (15:46)
--- NOTE | 2018-11-02 16:54 | P.PN ---
Subjective Progress Note Date: 11/02/18 Principal diagnosis: metastatic pancreatic adenocarcinoma In follow-up today patient complains of distress of disease and ongoing treatment/procedures, persistently feeling unwelln, abdominal distention and discomfort. I have been asked to come back and talk with him and his about going home with hospice. Objective - Vital Signs Vital signs: Vital Signs Temp 98.7 F 11/02/18 15:00 Pulse 69 11/02/18 15:00 Resp 16 11/02/18 15:00 BP 100/52 11/02/18 15:00 Pulse Ox 94 L 11/02/18 15:00 Intake & Output 11/01/18 11/02/18 11/02/18 18:59 06:59 18:59 Weight 99.79 kg Other: Voiding Method Urinal Urinal Urinal # Voids 1 - Constitutional Constitutional Comment(s): muscle wasting General appearance: Present: cooperative, mild distress, obese - EENT EENT Comment(s): dry mouth Eyes: Present: EOMI - Respiratory Respiratory: bilateral: diminished (weak inspiratory effort) - Cardiovascular Rhythm: irregularly irregular Heart sounds: normal: S1, S2 - Peripheral edema leg Peripheral Edema: bilateral: Trace - Gastrointestinal General gastrointestinal: Present: distended, soft, tenderness - Integumentary Integumentary: Present: jaundiced, pale - Neurologic Neurologic: Present: CNII-XII intact - Musculoskeletal Musculoskeletal: Present: generalized weakness - Psychiatric Psychiatric: Present: A&O x's 3, appropriate affect, intact judgment & insight - Labs CBC & Chem 7: 11/01/18 12:53 11/01/18 12:53 Labs: Abnormal Lab Results - Last 24 Hours (Table) 11/02/18 Range/Units 09:25 Ammonia 43 H (<30) umol/L Assessment and Plan (1) Metastatic adenocarcinoma Current Visit: Yes Status: Acute Priority: High Code(s): C79.9 - SECONDARY MALIGNANT NEOPLASM OF UNSPECIFIED SITE SNOMED Code(s): 189430826 (2) Pancreatic cancer Current Visit: Yes Status: Acute Priority: High Code(s): C25.9 - MALIGNANT NEOPLASM OF PANCREAS, UNSPECIFIED SNOMED Code(s): 296122067 (3) Increased ammonia level Current Visit: Yes Status: Resolved Priority: High Code(s): R79.89 - OTHER SPECIFIED ABNORMAL FINDINGS OF BLOOD CHEMISTRY SNOMED Code(s): 560132827 Plan: Summary of patient case: Patient was diagnosed with metastatic pancreatic cancer from a liver biopsy August 30, 2018. Patient had 1 cycle of mFOLFIRINOX on 09/13. After chemo he had a prolonged hospitalization (almost 15 days in Sep ) for altered mental status, high ammonia levels and acute liver dysfunction. Found to have a degree of mechanical blockage so, biliary stenting was done at [facility]. Had a 6L ascitic tap last week. He participated in rehab without much improvement. Unfortunately pt condition is not improved. Patient has progressive weakness , rapid recurrence of the ascitic fluid (this fluid in the past has been negative for malignancy). Patient and his did call me back for a candid discussion regarding further treatment versus hospice. We had a long discussion about quality of life, quantity of life and determining how the patient wants to live. Patient and family have decided on hospice. Patient wants to go home with hospice. Plan is for paracentesis in the a.m. Family has requested a pigtail catheter insertion so that they may drain the ascitic fluid at home for comfort of the patient and to keep him from having to return to the hospital for paracentesis. Surgery has agreed to evaluate patient for the same. We will await their opinion. We'll follow up with patient in the a.m. All questions answered to the best of my ability. Patient has a terminal diagnosis Time with Patient: Greater than 30 (>35min spent with pt, >50% counseling and coordinating care)
--- NOTE | 2018-11-02 17:04 | P.CONS ---
History of Present Illness - Reason for Consult Consult date: 11/02/18 metastatic pancreatic cancer Requesting physician: Fadumo Christy - Chief Complaint NICHELLE - History of Present Illness Mr. Gutierrez is a very pleasant 68-year-old diagnosed with metastatic pancreatic adenocarcinoma (please see Medical consult dated 09/27 for details of diagnosis) On 09/13/18 he had 1st cycle of mFOLFIRINOX, received neulasta on 09/15/18. He had prolonged hospitalization in September with hepato/renal failure. He was transferred to [facility] for biliary stenting. He did spend some time in inpatient rehab, unfortunately without much success. Patient presents to the hospital with progressive difficulty in breathing and suspect recurrent ascites. His ammonia level was 60 on admission, liver enzymes persistently elevated, patient was dehydrated and moderately confused. Today he is feeling better, complains of weakness, frustrated with his situation , seriously questioning how much more he wants to do in regards to cancer Review of Systems 14 point ROS is negative except as stated in HPI Past Medical History Past Medical History: Cancer, Deep Vein Thrombosis (DVT), GI Bleed, Hyperlipidemia, Hypertension, Pulmonary Embolus (PE) Additional Past Medical History / Comment(s): Pancreatic cancer with mets"liver ", last chemo tx finished 09-17-18 ,blood clots gabriele lungs, 2 lt leg , 1 rt arm History of Any Multi-Drug Resistant Organisms: None Reported Past Surgical History: Heart Catheterization With Stent Additional Past Surgical History / Comment(s): hydrocele,egd, colonoscopy-WNL, vocal cord polypectomy. \\\\2014. Right chest port for chemo. had paracentesis and a biliary stent placed by dr stephy pedro at [facility]. Past Anesthesia/Blood Transfusion Reactions: Postoperative Nausea & Vomiting ( PONV) Additional Past Anesthesia/Blood Transfusion Reaction / Comm: Pt has never had blood transfusion. Date of Last Stent Placement:: 2014 Smoking Status: Former smoker - Past Family History Father Family Medical History: No Reported History Additional Family Medical History / Comment(s): Father when pt was 8 yrs old. He was a WWII vet and had suffered a gunshot to the head. Mother Family Medical History: No Reported History Additional Family Medical History / Comment(s): .Mother is healthy and is 84yrs old Medications and Allergies Home Medications Medication Instructions Recorded Confirmed Type Nitroglycerin Sl Tabs [Nitrostat] 0.4 mg SUBLINGUAL Q5M PRN #25 tab 03/09/1501/14 Rx Metoprolol Tartrate [Lopressor] 12.5 mg PO BID 08/21/18 11/01/18 History Ranitidine HCl [Zantac] 150 mg PO BID 08/21/18 11/01/18 History Morphine Sulfate ER [Ms Contin] 30 mg PO Q8H 3 Days #9 tab 09/03/18 11/01/18 Rx Ondansetron HCl [Zofran] 8 mg PO Q4H PRN 09/26/18 11/01/18 History ALPRAZolam [Xanax] 0.25 mg PO BID@0900,1600 tab 10/05/18 11/01/18 Rx Apixaban [Eliquis] 5 mg PO BID tab 10/05/18 11/01/18 Rx Melatonin 3 mg PO HS tablet 10/05/18 11/01/18 Rx Tamsulosin [Flomax] 0.4 mg PO PC-BRKFST cap.er.24h 10/05/18 11/01/18 Rx ALPRAZolam [Xanax] 0.5 mg PO HS PRN 10/25/18 11/01/18 History Furosemide [Lasix] 40 mg PO DAILY 10/25/18 11/01/18 History HYDROcodone/APAP 10-325MG [[place] 1 tab PO Q4HR PRN 10/25/18 11/01/18 History 10-325] Lactulose 20 gm PO Q48H 10/25/18 11/01/18 History Potassium Chloride ER [K-Dur 20] 20 meq PO DAILY 10/25/18 11/01/18 History Allergies Allergy/AdvReac Type Severity Reaction Status Date / Time Alxmuti-Acj-Ook Reductase AdvReac JOINT PAIN Verified 11/01/18 13:37 Inhibitor Physical Exam Vitals: Vital Signs Temp Pulse Pulse Resp BP BP Pulse Ox 11/02/18 15:00 98.7 F 69 16 100/52 94 L 11/02/18 05:24 98.7 F 84 16 129/63 92 L 11/01/18 23:00 98.5 F 81 18 117/74 94 L 11/01/18 17:24 98 F 78 16 111/59 100 Intake and Output 11/02/18 11/02/18 11/02/18 06:59 14:59 22:59 Other: Voiding Method Urinal Urinal # Voids 1 see progress note dated today for exam - Constitutional General appearance: obese Results CBC & Chem 7: 11/01/18 12:53 11/01/18 12:53 Labs: Abnormal Lab Results - Last 24 Hours (Table) 11/02/18 Range/Units 09:25 Ammonia 43 H (<30) umol/L Assessment and Plan (1) Metastatic adenocarcinoma Current Visit: Yes Status: Acute Priority: High Code(s): C79.9 - SECONDARY MALIGNANT NEOPLASM OF UNSPECIFIED SITE SNOMED Code(s): 540807111 (2) Pancreatic cancer Current Visit: Yes Status: Acute Priority: High Code(s): C25.9 - MALIGNANT NEOPLASM OF PANCREAS, UNSPECIFIED SNOMED Code(s): 916829358 (3) Increased ammonia level Current Visit: Yes Status: Resolved Priority: High Code(s): R79.89 - OTHER SPECIFIED ABNORMAL FINDINGS OF BLOOD CHEMISTRY SNOMED Code(s): 618193871 Plan: Please see progress note dated today for impression and plan
[2018-11-02] MEDS: MELATONIN 3 MG TABLET PO SCH (21:35)
[2018-11-02] MEDS: ALPRAZolam 0.5 MG TAB PO PRN (21:35)
[2018-11-03 07:39] LABS: Mean Platelet Volume 7.7
[2018-11-03 07:46] LABS: INR 1.5 (<1.2); Partial Thromboplastin Time 29.2 sec (22.0-30.0); Prothrombin Time 15.1 sec (9.0-12.0)
[2018-11-03 07:48] LABS: Platelet Count 87 k/uL (150-450)
[2018-11-03] MEDS: TAMSULOSIN 0.4 MG CAP.ER.24H PO SCH (08:48)
[2018-11-03] MEDS: METOPROLOL TARTRATE 12.5 MG TAB PO SCH ×2 (08:48→21:59)
[2018-11-03] MEDS: FAMOTIDINE 20 MG TAB PO SCH ×2 (08:48→21:58)
[2018-11-03] MEDS: MORPHINE SULFATE ER 30 MG TABLET PO SCH ×3 (08:48→22:00)
[2018-11-03] MEDS: ALPRAZolam 0.25 MG TAB PO SCH ×2 (08:48→16:08)
[2018-11-03] MEDS: POTASSIUM CHLORIDE ER 20 MEQ TAB.ER PO SCH (08:48)
[2018-11-03] MEDS: FUROSEMIDE 40 MG TAB PO SCH (08:48)
[2018-11-03] MEDS: LACTULOSE 20 GM/30 ML CUP PO SCH ×3 (08:57→21:59)
--- NOTE | 2018-11-03 12:15 | US ---
EXAMINATION TYPE: US paracentesis abd w/image DATE OF EXAM: 11/03/2018 COMPARISON: NONE HISTORY: Ascites. PROCEDURE: Maximal barrier technique was utilized. The skin overlying a suitable pocket of fluid was localized with ultrasound and the overlying skin was prepped and draped. Ultrasound was utilized with sterile technique. Lidocaine was used for local anesthesia and a skin ambika made with a scalpel. Catheter was advanced under direct ultrasound guidance into a suitable pocket of fluid and approximately 5.2 liter s of serous fluid were removed. Catheter was withdrawn and hemostasis achieved. There is no immedia te complication; the patient is discharged in stable condition. IMPRESSION: STATUS POST ULTRASOUND GUIDED PARACENTESIS FOR PALLIATION OF ASCITES. THIS PROCEDURE WA S PERFORMED BY THE UNDERSIGNED.
--- NOTE | 2018-11-03 14:59 | P.PN ---
Subjective Progress Note Date: 11/03/18 This is a 68-year-old male patient who presented to the hospital with complaints of shortness breath and increased ascites. Patient is well-known to my services. Patient has a known diagnosis of pancreatic cancer with metastases to liver. Patient recently underwent liver stent placement at [facility] approximately 1 week ago. At that time patient also underwent paracentesis in which they drained over 6 L. Patient stated he did receive some relief but then had increased ascites and shortness of breath over the past 3 days. Patient does follow with oncology services and underwent 1 round of chemotherapy. Chest x-ray completed showing diminished inspiration with stable tiny bilateral pleural effusions. Abdominal x-ray completed showing overall nonobstructive bowel gas pattern. EKG completed showing normal sinus rhythm, left axis deviation, right bundle branch block. GI and oncology services have been consulted. At this time patient's at bedside. Requesting social consult for possible hospice. Patient expresses that he does not want to be poked anymore would like to go home. Requesting oncology still, and options but would like to hear options for possibly hospice care at this time. At this time patient is still complaining of abdominal pain with increased shortness of breath. Patient denies chest pain. Patient denies nausea or vomiting. patient denies any urinary burning or frequency On 11/03/2018 patient and family met with [facility]. Planning to proceed with hospice care after pig tail placement per Dr. Lamas tomorrow. currently at bedside. Patient does remain slightly confused. Planning to be DC'd home. Patient's already has a hospital bed in medical equipment home. Discussed case with Iva with [facility]. Patient underwent paracentesis today with 5.2 L off Objective - Vital Signs Vital signs: Vital Signs Temp 97.0 F L 11/03/18 07:21 Pulse 70 11/03/18 10:54 Resp 16 11/03/18 11:07 BP 98/61 11/03/18 11:25 Pulse Ox 96 11/03/18 11:25 Intake & Output 11/02/18 11/03/18 11/03/18 18:59 06:59 18:59 Intake Total 400 Balance 400 Intake: Oral 400 Other: Voiding Method Urinal Urinal Urinal # Voids 5 1 - Exam Head normocephalic yellowing noted to skin Neck supple Lungs clear to auscultation bilaterally no wheezing or crackles Heart regular rate and rhythm S1-S2, no rub or gallop Abdomen abdominal ascites Extremities no edema - Labs CBC & Chem 7: 11/03/18 07:29 11/01/18 12:53 Labs: Abnormal Lab Results - Last 24 Hours (Table) 11/03/18 11/03/18 Range/Units 07:29 07:29 Plt Count 87 L (150-450) k/uL PT 15.1 H (9.0-12.0) sec INR 1.5 H (<1.2) Assessment and Plan Assessment: 1. Increased abdominal ascites and shortness of breath. Chest x-ray completed showing diminished inspiration with stable tiny bilateral lateral pleural effusions. Abdominal x-ray completed showing overall nonobstructive bowel gas pattern. Patient underwent paracentesis today with 5.[address] Lamas to place pigtail placement tomorrow for comfort purposes. 2. Pancreatic cancer with metastases to liver. Pathology services are following. Patient did undergo 1 more chemotherapy approximately 1 month ago 3. Elevated liver enzymes related to metastasis disease 4. Increased confusion. Elevated ammonia levels continue lactulose 5. History of DVT and PE. Patient did receive eliquis yesterday. Eliquis currently on hold due to possible paracentesis 6. History of essential hypertension 7. History of hyperlipidemia 8. History of iron deficiency anemia At this time family and patient are requesting information on hospice. [facility] worker consult has been placed GI and oncology service is consulted Patient and family met with [facility] hosp[facility] care today. Planning to proceed with hospice care and home tomorrow after pigtail placement
[2018-11-03] MEDS: SODIUM CHLORIDE 0.9% 1,000 ML IV SCH (16:08)
--- NOTE | 2018-11-03 17:05 | P.PN ---
Subjective Progress Note Date: 11/03/18 Principal diagnosis: metastatic pancreatic adenocarcinoma In f/u pt is going to have paracentesis, plan is for pigtail cath insertion tomorrow and then home with hospice. Pt is very anxious to leave, he denies c/ o Objective - Vital Signs Vital signs: Vital Signs Temp 98.3 F 11/03/18 14:01 Pulse 74 11/03/18 14:01 Resp 16 11/03/18 14:01 BP 96/60 11/03/18 14:01 Pulse Ox 93 L 11/03/18 14:01 Intake & Output 11/02/18 11/03/18 11/03/18 18:59 06:59 18:59 Intake Total 400 840 Balance 400 840 Intake: Oral 400 840 Other: Voiding Method Urinal Urinal Urinal # Voids 5 1 2 - Exam WD, thinning, frail, tired looking male, NAD, resp even and unlabored , A&O x 4. - Labs CBC & Chem 7: 11/03/18 07:29 11/01/18 12:53 Labs: Abnormal Lab Results - Last 24 Hours (Table) 11/03/18 11/03/18 Range/Units 07:29 07:29 Plt Count 87 L (150-450) k/uL PT 15.1 H (9.0-12.0) sec INR 1.5 H (<1.2) Assessment and Plan (1) Metastatic adenocarcinoma Current Visit: Yes Status: Acute Priority: High Code(s): C79.9 - SECONDARY MALIGNANT NEOPLASM OF UNSPECIFIED SITE SNOMED Code(s): 255768825 (2) Pancreatic cancer Current Visit: Yes Status: Acute Priority: High Code(s): C25.9 - MALIGNANT NEOPLASM OF PANCREAS, UNSPECIFIED SNOMED Code(s): 583794505 (3) Increased ammonia level Current Visit: Yes Status: Resolved Priority: High Code(s): R79.89 - OTHER SPECIFIED ABNORMAL FINDINGS OF BLOOD CHEMISTRY SNOMED Code(s): 328169531 Plan: Pt had a 5.2 L paracentesis today. Spoke with . She is grateful to the Doctors for helping make her comfortable. Pt wants to go home and remain there with his family and he will be able to do so. Plan is for discharge post procedure to home with hospice. Appreciate Staff and Doctors who helped this pt to achieve his end of life goals
[2018-11-03] MEDS: MELATONIN 3 MG TABLET PO SCH (21:59)
[2018-11-04] MEDS ORDERED: ACETAMINOPHEN TAB 500 MG TAB PO PRN (04:02)
[2018-11-04 04:48] LABS: Basophils # (A) 0.1 k/uL (0-0.2); Basophils % (A) 1 %; Eosinophils # (A) 0.2 k/uL (0-0.7); Eosinophils % (A) 1 %; HGB 10.5 gm/dL (13.0-17.5); Hypochromasia Marked; Lymphocytes # (A) 0.9 k/uL (1.0-4.8); Lymphocytes % (A) 7 %; MCH 31.3 pg (25.0-35.0); MCV 104.6 fL (80.0-100.0); Macrocytosis Moderate; Mean Platelet Volume 7.9; Monocytes # (A) 0.9 k/uL (0-1.0); Monocytes % (A) 7 %; Neutrophils # (A) 11.4 k/uL (1.3-7.7); Neutrophils % (A) 83 %; RBC 3.34 m/uL (4.30-5.90); RDW 15.2 % (11.5-15.5); WBC 13.8 k/uL (3.8-10.6)
[2018-11-04 04:55] LABS: Platelet Count 69 k/uL (150-450)
[2018-11-04 04:57] LABS: INR 1.7 (<1.2); Prothrombin Time 16.9 sec (9.0-12.0)
[2018-11-04 05:05] LABS: Calcium 8.6 mg/dL (8.4-10.2); Potassium 4.3 mmol/L (3.5-5.1)
--- NOTE | 2018-11-04 07:02 | P.GSCN ---
History of Present Illness Consult date: 11/04/18 Reason for Consult: Metastatic pancreatic cancer, ascites History of present illness: This a 68-year-old male who has had trouble with significant ascites related to his metastatic pancreatic cancer. Patient undergoes paracentesis with 56 L being removed every 5 or 6 days. I been asked see him for possible peritoneal catheter placement for symptomatic management of his malignant ascites. Past Medical History Past Medical History: Cancer, Deep Vein Thrombosis (DVT), GI Bleed, Hyperlipidemia, Hypertension, Pulmonary Embolus (PE) Additional Past Medical History / Comment(s): Pancreatic cancer with mets"liver ", last chemo tx finished 09-17-18 ,blood clots gabriele lungs, 2 lt leg , 1 rt arm History of Any Multi-Drug Resistant Organisms: None Reported Past Surgical History: Heart Catheterization With Stent Additional Past Surgical History / Comment(s): hydrocele,egd, colonoscopy-WNL, vocal cord polypectomy. \\\\2014. Right chest port for chemo. had paracentesis and a biliary stent placed by dr stephy pedro at [facility]. Past Anesthesia/Blood Transfusion Reactions: Postoperative Nausea & Vomiting ( PONV) Additional Past Anesthesia/Blood Transfusion Reaction / Comm: Pt has never had blood transfusion. Date of Last Stent Placement:: 2014 Smoking Status: Former smoker - Past Family History Father Family Medical History: No Reported History Additional Family Medical History / Comment(s): Father when pt was 8 yrs old. He was a WWII vet and had suffered a gunshot to the head. Mother Family Medical History: No Reported History Additional Family Medical History / Comment(s): .Mother is healthy and is 84yrs old Medications and Allergies Home Medications Medication Instructions Recorded Confirmed Type Nitroglycerin Sl Tabs [Nitrostat] 0.4 mg SUBLINGUAL Q5M PRN #25 tab 03/09/1501/14 Rx Metoprolol Tartrate [Lopressor] 12.5 mg PO BID 08/21/18 11/01/18 History Ranitidine HCl [Zantac] 150 mg PO BID 08/21/18 11/01/18 History Morphine Sulfate ER [Ms Contin] 30 mg PO Q8H 3 Days #9 tab 09/03/18 11/01/18 Rx Ondansetron HCl [Zofran] 8 mg PO Q4H PRN 09/26/18 11/01/18 History ALPRAZolam [Xanax] 0.25 mg PO BID@0900,1600 tab 10/05/18 11/01/18 Rx Apixaban [Eliquis] 5 mg PO BID tab 10/05/18 11/01/18 Rx Melatonin 3 mg PO HS tablet 10/05/18 11/01/18 Rx Tamsulosin [Flomax] 0.4 mg PO PC-BRKFST cap.er.24h 10/05/18 11/01/18 Rx ALPRAZolam [Xanax] 0.5 mg PO HS PRN 10/25/18 11/01/18 History Furosemide [Lasix] 40 mg PO DAILY 10/25/18 11/01/18 History HYDROcodone/APAP 10-325MG [[place] 1 tab PO Q4HR PRN 10/25/18 11/01/18 History 10-325] Lactulose 20 gm PO Q48H 10/25/18 11/01/18 History Potassium Chloride ER [K-Dur 20] 20 meq PO DAILY 10/25/18 11/01/18 History Allergies Allergy/AdvReac Type Severity Reaction Status Date / Time Gunwact-Yxc-Qsw Reductase AdvReac JOINT PAIN Verified 11/01/18 13:37 Inhibitor Surgical - Exam Vital Signs Temp Pulse Resp BP Pulse Ox 98.2 F 79 16 106/62 98 11/01/18 12:21 11/01/18 12:21 11/01/18 12:21 11/01/18 12:21 11/01/18 12:21 - General cachectic, chronically ill - ENT normal pinna - Neck no masses - Respiratory normal expansion - Cardiovascular Rhythm: regular - Abdomen Ascites Abdomen: soft Results - Labs 11/04/18 04:15 11/04/18 04:15 Abnormal Lab Results - Last 24 Hours (Table) 11/03/18 11/03/18 11/04/18 Range/Units 07:29 07:29 04:15 WBC 13.8 H (3.8-10.6) k/uL RBC 3.34 L (4.30-5.90) m/uL Hgb 10.5 L (13.0-17.5) gm/dL Hct 35.0 L (39.0-53.0) % MCV 104.6 H (80.0-100.0) fL MCHC 30.0 L (31.0-37.0) g/dL Plt Count 87 L 69 L (150-450) k/uL Neutrophils # 11.4 H (1.3-7.7) k/uL Lymphocytes # 0.9 L (1.0-4.8) k/uL PT 15.1 H (9.0-12.0) sec INR 1.5 H (<1.2) BUN (9-20) mg/dL Creatinine (0.66-1.25) mg/dL Glucose (74-99) mg/dL 11/04/18 11/04/18 Range/Units 04:15 04:15 WBC (3.8-10.6) k/uL RBC (4.30-5.90) m/uL Hgb (13.0-17.5) gm/dL Hct (39.0-53.0) % MCV (80.0-100.0) fL MCHC (31.0-37.0) g/dL Plt Count (150-450) k/uL Neutrophils # (1.3-7.7) k/uL Lymphocytes # (1.0-4.8) k/uL PT 16.9 H (9.0-12.0) sec INR 1.7 H (<1.2) BUN 23 H (9-20) mg/dL Creatinine 1.56 H (0.66-1.25) mg/dL Glucose 100 H (74-99) mg/dL Diabetes panel 11/04/18 Range/Units 04:15 Sodium 137 (137-145) mmol/L Potassium 4.3 (3.5-5.1) mmol/L Chloride 104 (98-107) mmol/L Carbon Dioxide 24 (22-30) mmol/L BUN 23 H (9-20) mg/dL Creatinine 1.56 H (0.66-1.25) mg/dL Glucose 100 H (74-99) mg/dL Calcium 8.6 (8.4-10.2) mg/dL Calcium panel 11/04/18 Range/Units 04:15 Calcium 8.6 (8.4-10.2) mg/dL Pituitary panel 11/04/18 Range/Units 04:15 Sodium 137 (137-145) mmol/L Potassium 4.3 (3.5-5.1) mmol/L Chloride 104 (98-107) mmol/L Carbon Dioxide 24 (22-30) mmol/L BUN 23 H (9-20) mg/dL Creatinine 1.56 H (0.66-1.25) mg/dL Glucose 100 H (74-99) mg/dL Calcium 8.6 (8.4-10.2) mg/dL Adrenal panel 11/04/18 Range/Units 04:15 Sodium 137 (137-145) mmol/L Potassium 4.3 (3.5-5.1) mmol/L Chloride 104 (98-107) mmol/L Carbon Dioxide 24 (22-30) mmol/L BUN 23 H (9-20) mg/dL Creatinine 1.56 H (0.66-1.25) mg/dL Glucose 100 H (74-99) mg/dL Calcium 8.6 (8.4-10.2) mg/dL Assessment and Plan Assessment: I discussed with the patient that we could place a peritoneal dialysis catheter for drainage of this ascites. I discussed the possible risks involving bleeding or infection with catheter placement. The patient will think about this overnight. He will make his decision in the morning whether he wants to have a catheter placed.
[2018-11-04] MEDS: METOPROLOL TARTRATE 12.5 MG TAB PO SCH ×2 (07:46→20:45)
[2018-11-04] MEDS: LACTATED RINGERS 1,000 ML IV SCH (08:53)
[2018-11-04] MEDS ORDERED: HEPARIN SODIUM,PORCINE 5,000 UNIT/ML 1 ML VIAL SQ ONE (08:57)
[2018-11-04] MEDS ORDERED: PHENYLEPHRINE-0.9% NACL SYG 1 MG/10 ML SYRINGE ONE (09:50)
[2018-11-04] MEDS ORDERED: GLYCOPYRROLATE 0.2 MG/ML 2 ML VIAL ONE (09:50)
[2018-11-04] MEDS ORDERED: SUCCINYLCHOLINE CHLORIDE 100 MG/5 ML SYR IV ONE (09:50)
[2018-11-04] MEDS ORDERED: MIDAZOLAM 2 MG/2 ML VIAL ONE (09:50)
[2018-11-04] MEDS ORDERED: LIDOCAINE 1% INJ 10MG/ML (20 ML MDV) ONE (09:50)
[2018-11-04] MEDS ORDERED: PROPOFOL 10 MG/ML 20 ML VIAL IV ONE (09:50)
[2018-11-04] MEDS ORDERED: fentaNYL (PF) 50 MCG/ML 2 ML AMP ONE (09:50)
[2018-11-04] MEDS ORDERED: ROCURONIUM BROMIDE 10 MG/ML 10 ML VIAL IV ONE (09:50)
[2018-11-04] MEDS ORDERED: NEOSTIGMINE 1 MG/ML 10 ML VIAL ONE (09:50)
[2018-11-04] MEDS ORDERED: BUPIVACAIN-EPI 0.25%-1:200,000 30 ML VIAL SQ ONE (10:17)
[2018-11-04] MEDS ORDERED: MINERAL OIL 1 APPLIC/ML OIL TOPICAL ONE (10:17)
[2018-11-04] MEDS ORDERED: SODIUM CHLORIDE 0.9% 100 ML with ceFAZolin 2,000 MG IV ONE ×2 (10:18)
--- NOTE | 2018-11-04 10:51 | P.OP ---
Date of Procedure: 11/04/18 Preoperative Diagnosis: Metastatic pancreatic cancer Postoperative Diagnosis: Metastatic pancreatic cancer Procedure(s) Performed: Laparoscopic Insertion of peritoneal catheter Anesthesia: TAIWO Surgeon: Camden Lamas Pathology: none sent Condition: stable Disposition: PACU Description of Procedure: Patient's placed on the operative table in supine position. He received general anesthesia. His abdomen was prepped and draped usual sterile fashion. A supraumbilical skin incision was made then using a pair of Willard clamps the fascia was grasped and then a Veress needles placed into the perineal cavity. Position of the Veress needle was confirmed with positive drop test. The abdomen is then insufflated. After adequate insufflation a 5 mm trocar is placed into the pleural cavity. The laparoscope was placed the pleural cavity. There was bilious ascitic fluid seen in the pelvis. Next a 10 mm trochars placed in the left lateral position and then the pigtail catheter was placed through the trocar into the perineal cavity. The catheter tip was positioned in the pelvis. This point the trochars withdrawn. The catheter the Pro cough was then positioned above the peritoneum in the abdominal wall. And then through separate stab incision a hemostat grasper was placed and then the catheter was withdrawn toward the exit site. There was another Velcro cuff in the subcutaneous tissues. The catheter was placed on suction and approximately 1 L of ascitic fluid was withdrawn from the peritoneal cavity. The trochars withdrawn. The skin was closed interrupted 3-0 Monocryl suture. The catheter was secured with 2-0 nylon. Patient was sent to recovery room stable condition.
[2018-11-04] MEDS: ALPRAZolam 0.25 MG TAB PO SCH ×2 (13:20→16:28)
[2018-11-04] MEDS: LACTULOSE 20 GM/30 ML CUP PO SCH ×3 (13:21→22:00)
[2018-11-04] MEDS: FAMOTIDINE 20 MG TAB PO SCH ×2 (13:21→20:44)
[2018-11-04] MEDS: MORPHINE SULFATE ER 30 MG TABLET PO SCH ×4 (13:21→22:00)
[2018-11-04] MEDS: FUROSEMIDE 40 MG TAB PO SCH (13:21)
[2018-11-04] MEDS: POTASSIUM CHLORIDE ER 20 MEQ TAB.ER PO SCH (13:21)
[2018-11-04] MEDS: TAMSULOSIN 0.4 MG CAP.ER.24H PO SCH (13:21)
--- NOTE | 2018-11-04 13:36 | P.PN ---
Subjective Progress Note Date: 11/04/18 This is a 68-year-old male patient who presented to the hospital with complaints of shortness breath and increased ascites. Patient is well-known to my services. Patient has a known diagnosis of pancreatic cancer with metastases to liver. Patient recently underwent liver stent placement at [facility] approximately 1 week ago. At that time patient also underwent paracentesis in which they drained over 6 L. Patient stated he did receive some relief but then had increased ascites and shortness of breath over the past 3 days. Patient does follow with oncology services and underwent 1 round of chemotherapy. Chest x-ray completed showing diminished inspiration with stable tiny bilateral pleural effusions. Abdominal x-ray completed showing overall nonobstructive bowel gas pattern. EKG completed showing normal sinus rhythm, left axis deviation, right bundle branch block. GI and oncology services have been consulted. At this time patient's at bedside. Requesting social consult for possible hospice. Patient expresses that he does not want to be poked anymore would like to go home. Requesting oncology still, and options but would like to hear options for possibly hospice care at this time. At this time patient is still complaining of abdominal pain with increased shortness of breath. Patient denies chest pain. Patient denies nausea or vomiting. patient denies any urinary burning or frequency On 11/03/2018 [facility] Planning to proceed with hospice care after pig tail placement per Dr. Morales tomorrow. currently at bedside. Patient does remain slightly confused. Planning to be DC'd home. Patient's already has a hospital bed in medical equipment home. Discussed case with [facility]va with [facility]. Patient underwent paracentesis today with 5.2 L off On 11/04/2018 patient is currently status post pigtail tube placement with Dr. morales. At this time patient is confused and sleepy post procedure. Patient also started spiking temps throughout night. Fever as high as 102. Discussed with family who still would like to move forward with hospice. Discussed case with oncology service is also recommending we put him on a broad-spectrum antibiotic for comfort purposes with ongoing infection. Family in agreement with plan of putting patient on antibiotic for comfort but requested we do not further workup infection at this time. Family requesting me keep patient until tomorrow. At that time patient will go home with [facility]. Objective - Vital Signs Vital signs: Vital Signs Temp 97.3 F L 11/04/18 10:50 Pulse 107 H 11/04/18 12:30 Resp 16 11/04/18 12:30 BP 120/56 11/04/18 12:30 Pulse Ox 90 L 11/04/18 12:30 Intake & Output 11/03/18 11/04/18 11/04/18 18:59 06:59 18:59 Intake Total 1440 900 Output Total 5 Balance 1440 895 Intake: IV 900 Oral 1440 Output: Estimated Blood Loss 5 Other: Voiding Method Urinal # Voids 1 1 - Exam Head normocephalic yellowing noted to skin Neck supple Lungs clear to auscultation bilaterally no wheezing or crackles Heart regular rate and rhythm S1-S2, no rub or gallop Abdomen abdominal ascites Extremities no edema - Labs CBC & Chem 7: 11/04/18 04:15 11/04/18 04:15 Labs: Abnormal Lab Results - Last 24 Hours (Table) 11/04/18 11/04/18 11/04/18 Range/Units 04:15 04:15 04:15 WBC 13.8 H (3.8-10.6) k/uL RBC 3.34 L (4.30-5.90) m/uL Hgb 10.5 L (13.0-17.5) gm/dL Hct 35.0 L (39.0-53.0) % MCV 104.6 H (80.0-100.0) fL MCHC 30.0 L (31.0-37.0) g/dL Plt Count 69 L (150-450) k/uL Neutrophils # 11.4 H (1.3-7.7) k/uL Lymphocytes # 0.9 L (1.0-4.8) k/uL PT 16.9 H (9.0-12.0) sec INR 1.7 H (<1.2) BUN 23 H (9-20) mg/dL Creatinine 1.56 H (0.66-1.25) mg/dL Glucose 100 H (74-99) mg/dL Assessment and Plan Assessment: 1. Increased abdominal ascites and shortness of breath. Chest x-ray completed showing diminished inspiration with stable tiny bilateral lateral pleural effusions. Abdominal x-ray completed showing overall nonobstructive bowel gas pattern. Patient underwent paracentesis today with 5.2 L off. Pigtail catheter placed. 2. Pancreatic cancer with metastases to liver. Pathology services are following. Patient did undergo 1 more chemotherapy approximately 1 month ago 3. Elevated liver enzymes related to metastasis disease 4. Increased confusion. Elevated ammonia levels continue lactulose 5. History of DVT and PE. Patient did receive eliquis yesterday. Eliquis currently on hold due to possible paracentesis 6. History of essential hypertension 7. History of hyperlipidemia 8. History of iron deficiency anemia 9. Fever. Patient had fever of 102.3. At this time patient and family are moving forward with [facility] care. Discussed with oncology service is recommending we put patient on broad-spectrum antibiotic for comfort for patient due to high fevers. Family agrees with antibiotic at this time but requesting no further workup in regards to infection process. At this time family and patient are requesting information on hospice. c iron worker consult has been placed Patient will stay an additional 24 hours due to recent lethargy and patient family requesting to be DC'd tomorrow with [facility] hospice care Patient and family met with [facility] care today. Planning to proceed with hospice care and home tomorrow after pigtail placement I performed an examination of the patient and discussed their management with the Nurse Practitioner. I have reviewed the Nurse Practitioner's notes and agree with the documented findings and plan of care
[2018-11-04] MEDS: LEVOFLOXACIN 500MG-D5W PMX 500 MG in DEXTROSE/WATER 1 100ML.BAG IVPB SCH (16:28)
[2018-11-04] MEDS: SODIUM CHLORIDE 0.9% 1,000 ML IV SCH (16:29)
[2018-11-04] MEDS: HYDROmorphone 0.5 MG/0.5 ML SYRINGE IVP PRN (20:40)
[2018-11-04] MEDS: ALPRAZolam 0.5 MG TAB PO PRN (20:44)
[2018-11-04] MEDS: MELATONIN 3 MG TABLET PO SCH (20:44)
[2018-11-05] MEDS: HYDROmorphone 0.5 MG/0.5 ML SYRINGE IVP PRN (04:53)
[2018-11-05] MEDS: MORPHINE SULFATE 4 MG/ML SYRINGE IV PRN ×3 (09:26→18:10)
[2018-11-05] MEDS: FUROSEMIDE 40 MG TAB PO SCH (09:30)
[2018-11-05] MEDS: TAMSULOSIN 0.4 MG CAP.ER.24H PO SCH (09:30)
[2018-11-05] MEDS: ALPRAZolam 0.25 MG TAB PO SCH ×2 (09:30→16:36)
[2018-11-05] MEDS: POTASSIUM CHLORIDE ER 20 MEQ TAB.ER PO SCH (09:30)
[2018-11-05] MEDS: FAMOTIDINE 20 MG TAB PO SCH ×2 (09:30→20:26)
[2018-11-05] MEDS: METOPROLOL TARTRATE 12.5 MG TAB PO SCH ×2 (09:31→20:26)
[2018-11-05] MEDS: LACTULOSE 20 GM/30 ML CUP PO SCH ×3 (09:32→22:12)
[2018-11-05] MEDS: LACTATED RINGERS 1,000 ML IV SCH (09:42)
--- NOTE | 2018-11-05 10:21 | P.DS ---
Providers Date of admission: 11/01/18 16:18 Expected date of discharge: 11/05/18 Attending physician: Jaky Valdes Consults: 11/01/18 16:00 Consult Physician Routine Consulting Provider: Wali Dennis Consult Reason/Comments: pancreatic cancer with metastases to liver Do you want consulting provider notified?: Yes 11/02/18 15:45 Consult Physician Routine Consulting Provider: Camden Morales Consult Reason/Comments: pigtail cath placement for recurrent ascites, palliative Do you want consulting provider notified?: Already Contacted Primary care physician: Jaky Keisha [facility] Course: Discharge diagnosis Patient will be DC'd to [facility] care Terminal diagnosis: Pancreatic cancer with metastases to liver 1. Increased abdominal ascites and shortness of breath. Patient underwent paracentesis today with 5.2 L off. Pigtail catheter placed per Dr. Morales. 2. Pancreatic cancer with metastases to liver. Pathology services are following. Patient did undergo 1 more chemotherapy approximately 1 month ago 3. Elevated liver enzymes related to metastasis disease 4. Increased confusion. Related to elevated ammonia levels. 5. History of essential hypertension 6. History of hyperlipidemia 7. History of iron deficiency anemia 8. Fever. Patient had fever of 102.3. At this time patient and family are moving forward with [facility] care. Discussed with oncology service is recommending we put patient on broad-spectrum antibiotic for comfort for patient due to high fevers. Family agrees with antibiotic at this time but requesting no further workup in regards to infection process. Hospital course This is a 68-year-old male patient who presented to the hospital with complaints of shortness breath and increased ascites. Patient is well-known to my services. Patient has a known diagnosis of pancreatic cancer with metastases to liver. Patient recently underwent liver stent placement at [facility] approximately 1 week ago. At that time patient also underwent paracentesis in which they drained over 6 L. Patient stated he did receive some relief but then had increased ascites and shortness of breath over the past 3 days. Patient does follow with oncology services and underwent 1 round of chemotherapy. Chest x-ray completed showing diminished inspiration with stable tiny bilateral pleural effusions. Abdominal x-ray completed showing overall nonobstructive bowel gas pattern. EKG completed showing normal sinus rhythm, left axis deviation, right bundle branch block. GI and oncology services have been consulted. At this time patient's at bedside. Requesting social consult for possible hospice. Patient expresses that he does not want to be poked anymore would like to go home. Requesting oncology still, and options but would like to hear options for possibly hospice care at this time. At this time patient is still complaining of abdominal pain with increased shortness of breath. Patient denies chest pain. Patient denies nausea or vomiting. patient denies any urinary burning or frequency On 11/03/2018 patient and family met with [facility]. Planning to proceed with hospice care after pig tail placement per Dr. Morales tomorrow. currently at bedside. Patient does remain slightly confused. Planning to be DC'd home. Patient's already has a hospital bed in medical equipment home. Discussed case with Iva with [facility]. Patient underwent paracentesis today with 5.2 L off On 11/04/2018 patient is currently status post pigtail tube placement with Dr. morales. At this time patient is confused and sleepy post procedure. Patient also started spiking temps throughout night. Fever as high as 102. Discussed with family who still would like to move forward with hospice. Discussed case with oncology service is also recommending we put him on a broad-spectrum antibiotic for comfort purposes with ongoing infection. Family in agreement with plan of putting patient on antibiotic for comfort but requested we do not further workup infection at this time. Family requesting me keep patient until tomorrow. At that time patient will go home with [facility]. On 11/05/2018 patient is currently resting currently in bed. Patient reports pain is adequately controlled at this time. at bedside. Iva from [facility] also at bedside. Plan for patient to be DC'd home with hospice care. [place] catheterplacement later today of patient isn't able to void independently for comfort purposes. Hospice meds ordered. I performed an examination of the patient and discussed their management with the Nurse Practitioner. I have reviewed the Nurse Practitioner's notes and agree with the documented findings and plan of care Plan - Discharge Summary Discharge Rx Participant: No New Discharge Prescriptions: New Atropine Sulfate [Atropine Sulfate 1% Ophth Oint] 2 drop BOTH EYES Q4HR PRN # 5 ml PRN Reason: Secretions Levofloxacin [Levaquin] 500 mg PO DAILY 5 Days #5 tab LORazepam [Ativan] 1 mg PO Q4HR 3 Days #18 tab MORPHINE ORAL BERTHA CONC 20mg/mL [Roxanol Oral Soln Conc 20MG/ML] 5 mg PO Q4H PRN 3 Days #30 ml PRN Reason: Pain Apixaban [Eliquis] 5 mg PO BID tab Continue Morphine Sulfate ER [Ms Contin] 30 mg PO Q8H 3 Days #9 tab Discontinued Nitroglycerin Sl Tabs [Nitrostat] 0.4 mg SUBLINGUAL Q5M PRN #25 tab PRN Reason: Chest Pain Metoprolol Tartrate [Lopressor] 12.5 mg PO BID Ranitidine HCl [Zantac] 150 mg PO BID Ondansetron HCl [Zofran] 8 mg PO Q4H PRN PRN Reason: Nausea ALPRAZolam [Xanax] 0.25 mg PO BID@0900,1600 tab Apixaban [Eliquis] 5 mg PO BID tab Melatonin 3 mg PO HS tablet Tamsulosin [Flomax] 0.4 mg PO PC-[id number] cap.er.24h ALPRAZolam [Xanax] 0.5 mg PO HS PRN PRN Reason: Anxiety Furosemide [Lasix] 40 mg PO DAILY HYDROcodone/APAP 10-325MG [C[place]den 10-325] 1 tab PO Q4HR PRN PRN Reason: Pain Lactulose 20 gm PO Q48H Potassium Chloride ER [K-Dur 20] 20 meq PO DAILY Discharge Medication List Apixaban [Eliquis] 5 mg PO BID tab 11/05/18 [Rx] Atropine Sulfate [Atropine Sulfate 1% Ophth Oint] 2 drop BOTH EYES Q4HR PRN #5 ml 11/05/18 [Rx] LORazepam [Ativan] 1 mg PO Q4HR 3 Days #18 tab 11/05/18 [Rx] Levofloxacin [Levaquin] 500 mg PO DAILY 5 Days #5 tab 11/05/18 [Rx] MORPHINE ORAL BERTHA CONC 20mg/mL [Roxanol Oral Soln Conc 20MG/ML] 5 mg PO Q4H PRN 3 Days #30 ml 11/05/18 [Rx] Morphine Sulfate ER [Ms Contin] 30 mg PO Q8H 3 Days #9 tab 11/05/18 [Rx] Follow up Appointment(s)/Referral(s): Jaky Valdes MD [Primary Care Provider] - 1-2 days Activity/Diet/Wound Care/Special Instructions: Home with [facility] Discharge Disposition: HOME WITH HOSPICE
[2018-11-05] MEDS: MORPHINE SULFATE ER 30 MG TABLET PO SCH ×3 (10:43→22:11)
[2018-11-05] MEDS: LEVOFLOXACIN 500MG-D5W PMX 500 MG in DEXTROSE/WATER 1 100ML.BAG IVPB SCH (16:36)
[2018-11-05] MEDS: SODIUM CHLORIDE 0.9% 1,000 ML IV SCH (16:37)
[2018-11-05] MEDS: APIXABAN 5 MG TAB PO SCH (20:26)
[2018-11-05] MEDS: MELATONIN 3 MG TABLET PO SCH (20:26)
--- NOTE | 2018-11-05 21:29 | P.PN ---
Subjective Progress Note Date: 11/05/18 Principal diagnosis: metastatic Pancreatic Cancer patient seen and examine, resting comfortably Objective - Vital Signs Vital signs: Vital Signs Temp 97.4 F L 11/05/18 14:24 Pulse 81 11/05/18 20:30 Resp 16 11/05/18 17:40 BP 101/62 11/05/18 20:30 Pulse Ox 92 L 11/05/18 14:24 Intake & Output 11/05/18 11/05/18 11/06/18 06:59 18:59 06:59 Intake Total 600 Output Total 2075 500 Balance -207 100 Intake: Oral 600 Output: Gastric Drainage 1575 500 Urine 500 Straight 500 Other: Voiding Method Indwelling Catheter # Voids 0 - Exam Diaphoretic, febrile No acute distress NC, NT Lungs diminished bibasilar Abd Tender Tachy, Reg BLE Edema Jaundice - Labs CBC & Chem 7: 11/04/18 04:15 11/04/18 04:15 Assessment and Plan Plan: Assessment and Plan (1) Metastatic adenocarcinoma Current Visit: Yes Status: Acute Priority: High Code(s): C79.9 - SECONDARY MALIGNANT NEOPLASM OF UNSPECIFIED SITE SNOMED Code(s): 269772839 (2) Pancreatic cancer Current Visit: Yes Status: Acute Priority: High Code(s): C25.9 - MALIGNANT NEOPLASM OF PANCREAS, UNSPECIFIED SNOMED Code(s): 301920733 (3) Increased ammonia level Current Visit: Yes Status: Resolved Priority: High Code(s): R79.89 - OTHER SPECIFIED ABNORMAL FINDINGS OF BLOOD CHEMISTRY SNOMED Code(s): 138090343 Plan: Status Post 5.2 L paracentesis Yesterday Plan to be discharged today with hospice care at home Physician Attest: I have completed the full history and physical and impression and plan and agree with above, dictated as a scribe.
[2018-11-05] MEDS: ALPRAZolam 0.5 MG TAB PO PRN (22:11)
[2018-11-06 00:06] VITALS: BP 102/63; PULSE 75; RESP 18; TEMP 98.1
[2018-11-06] MEDS: MORPHINE SULFATE 4 MG/ML SYRINGE IV PRN (02:51)
[2018-11-06] MEDS: LORazepam 2 MG/ML INJ IV PRN ×3 (03:19→11:26)
[2018-11-06] MEDS: LACTATED RINGERS 1,000 ML IV SCH (05:37)
[2018-11-06] MEDS: FUROSEMIDE 40 MG TAB PO SCH (10:51)
[2018-11-06] MEDS: TAMSULOSIN 0.4 MG CAP.ER.24H PO SCH (10:51)
[2018-11-06] MEDS: APIXABAN 5 MG TAB PO SCH (10:51)
[2018-11-06] MEDS: FAMOTIDINE 20 MG TAB PO SCH (10:51)
[2018-11-06] MEDS: LACTULOSE 20 GM/30 ML CUP PO SCH (10:51)
[2018-11-06] MEDS: ALPRAZolam 0.25 MG TAB PO SCH (10:51)
[2018-11-06] MEDS: METOPROLOL TARTRATE 12.5 MG TAB PO SCH (10:51)
[2018-11-06] MEDS: POTASSIUM CHLORIDE ER 20 MEQ TAB.ER PO SCH (10:52)
[2018-11-06] MEDS: MORPHINE SULFATE ER 30 MG TABLET PO SCH (10:52)
--- NOTE | 2018-11-06 15:46 | P.PN ---
Subjective Progress Note Date: 11/06/18 This is a 68-year-old male patient who presented to the hospital with complaints of shortness breath and increased ascites. Patient is well-known to my services. Patient has a known diagnosis of pancreatic cancer with metastases to liver. Patient recently underwent liver stent placement at [facility] approximately 1 week ago. At that time patient also underwent paracentesis in which they drained over 6 L. Patient stated he did receive some relief but then had increased ascites and shortness of breath over the past 3 days. Patient does follow with oncology services and underwent 1 round of chemotherapy. Chest x-ray completed showing diminished inspiration with stable tiny bilateral pleural effusions. Abdominal x-ray completed showing overall nonobstructive bowel gas pattern. EKG completed showing normal sinus rhythm, left axis deviation, right bundle branch block. GI and oncology services have been consulted. At this time patient's at bedside. Requesting social consult for possible hospice. Patient expresses that he does not want to be poked anymore would like to go home. Requesting oncology still, and options but would like to hear options for possibly hospice care at this time. At this time patient is still complaining of abdominal pain with increased shortness of breath. Patient denies chest pain. Patient denies nausea or vomiting. patient denies any urinary burning or frequency On 11/03/2018 patient and family met with [facility]. Planning to proceed with hospice care after pig tail placement per Dr. Morales tomorrow. currently at bedside. Patient does remain slightly confused. Planning to be DC'd home. Patient's already has a hospital bed in medical equipment home. Discussed case with Iva with [facility]. Patient underwent paracentesis today with 5.2 L off On 11/04/2018 patient is currently status post pigtail tube placement with Dr. morales. At this time patient is confused and sleepy post procedure. Patient also started spiking temps throughout night. Fever as high as 102. Discussed with family who still would like to move forward with hospice. Discussed case with oncology service is also recommending we put him on a broad-spectrum antibiotic for comfort purposes with ongoing infection. Family in agreement with plan of putting patient on antibiotic for comfort but requested we do not further workup infection at this time. Family requesting me keep patient until tomorrow. At that time patient will go home with [facility]. On 11/06/2018 patient is alert slightly agitated in no apparent distress family at bedside and at this time they are requesting that patient is transferred to home with hospice and they are hoping that the familiar environment at home will help with his anxiety and his agitation. Case was discussed in details with his convert care measures were discussed, she is stating that his daughter is a nurse and will be helping with his care, [facility] also following and will help with his care. Objective - Vital Signs Vital signs: Vital Signs Temp 98.1 F 11/05/18 23:00 Pulse 75 11/05/18 23:00 Resp 18 11/05/18 23:00 BP 102/63 11/05/18 23:00 Pulse Ox 95 11/05/18 23:00 Intake & Output 11/05/18 11/06/18 11/06/18 18:59 06:59 18:59 Intake Total 600 750 Output Total 500 1330 650 Balance 100 -580 -650 Intake: Oral 600 750 Output: Gastric Drainage 500 180 300 Drainage 650 Abdomen 650 Urine 500 350 Other: Voiding Method Indwelling Catheter Indwelling Catheter - Exam Head normocephalic and atraumatic, with significant jaundice Neck supple no JVD no goiter Lungs clear to auscultation bilaterally no wheezing or crackles Heart regular rate and rhythm S1-S2, no rub or gallop Abdomen abdominal ascites Extremities no edema - Labs CBC & Chem 7: 11/04/18 04:15 11/04/18 04:15 Assessment and Plan Plan: 1. Increased abdominal ascites and shortness of breath. Chest x-ray completed showing diminished inspiration with stable tiny bilateral lateral pleural effusions. Abdominal x-ray completed showing overall nonobstructive bowel gas pattern. Patient underwent paracentesis today with 5.2 L off. Pigtail catheter placed. 2. Pancreatic cancer with metastases to liver. Pathology services are following. Patient did undergo 1 more chemotherapy approximately 1 month ago 3. Elevated liver enzymes related to metastasis disease 4. Increased confusion. Elevated ammonia levels continue lactulose 5. History of DVT and PE. Patient did receive eliquis yesterday. Eliquis currently on hold due to possible paracentesis 6. History of essential hypertension 7. History of hyperlipidemia 8. History of iron deficiency anemia 9. Fever. Patient had fever of 102.3. At this time patient and family are moving forward with [facility] care. Discussed with oncology service is recommending we put patient on broad-spectrum antibiotic for comfort for patient due to high fevers. Family agrees with antibiotic at this time but requesting no further workup in regards to infection process. During the last night patient had episodes of agitation which required increased doses of IV Ativan At this time patient and his at bedside are requesting discharge to home with hospice. Will arrange for transfer to home via ambulance. Medication explained to , she understand patient condition and medication required, her wish and patient wishes are to proceed with discharge to home with hospice hoping that familiar environment at home will help with his anxiety and agitation.
== END 2018-11-06 12:49 | disposition hospice, home (50) | DRG 982 ==
LOC: EC 12:19 → 3NMEDONC 16:18 → 4MS4W 16:43
PROVIDERS: ADMIT Internal Medicine; ATTEND Internal Medicine
PROC: 0W9G3ZZ Drainage of Peritoneal Cavity, Percutaneous Approach (ICD-10-PCS; 2018-11-03)
PROC: 0WHG43Z Insertion of Infusion Device into Peritoneal Cavity, Percutaneous Endoscopic Approach (ICD-10-PCS; principal; 2018-11-04 09:00)
DX: C25.9 Malignant neoplasm of pancreas, unspecified (principal); C78.7 Secondary malignant neoplasm of liver and intrahepatic bile duct; K76.6 Portal hypertension; R18.0 Malignant ascites; E78.5 Hyperlipidemia, unspecified; E86.0 Dehydration; I10 Essential (primary) hypertension; Z86.718 Personal history of other venous thrombosis and embolism; Z86.711 Personal history of pulmonary embolism; Z79.01 Long term (current) use of anticoagulants; I45.10 Unspecified right bundle-branch block; Z51.5 Encounter for palliative care; Z66 Do not resuscitate; Z79.899 Other long term (current) drug therapy; Z87.891 Personal history of nicotine dependence; Z92.21 Personal history of antineoplastic chemotherapy; Z96.89 Presence of other specified functional implants; D50.9 Iron deficiency anemia, unspecified; Z87.19 Personal history of other diseases of the digestive system; R50.9 Fever, unspecified
CPT/HCPCS: 36415; 49083; 71046; 74018; 76705; 80048; 80053; 82140; 82150; 83690; 83880; 85025; 85049; 85610; 85730; 93005; 96374; 96375; 96376; 99285